=== PATIENT | female | born 1930 | race Caucasian/White ===

== ENCOUNTER 2017-06-11 17:27 | Inpatient (IN) | payer MEDICARE, OTHER ==
[~2017-06-11] VITALS: Ht 160 cm; Wt 66.9 kg
[~2017-06-11 17:27] MED LIST: CITA10SO PO; CITA20TA12 PO; EXELON PATCH; IBUP200C14 PO; MECL-124 PO; MEMA10TA PO; NITR-65 PO; QUET200T PO; QUET25TA PO; TETR15DR95 OU
--- NOTE | 2017-06-11 18:44 | ED General ---
General Chief Complaint: Fever-Adult/Adol Stated Complaint: FEVER Nursing Triage Note: TO ED PER EMS FAMILY REPORT THAT SHE HAS BEEN VOMITING WITH FEVER AND COUGH. [facility] OF DEMENTIA Nursing Sepsis Screen: Possible Sepsis Risk Source of Information: Patient, Family (Son and daughter) Exam Limitations: Other (Baseline dementia) History of Present Illness Date Seen by Provider: Jun 11, 2017 Time Seen by Provider: 18:27 Initial Comments Patient presents to the ER by private conveyance with a chief complaint that she last week has been having nausea vomiting and diarrhea and getting dehydrated. At baseline for last 6 months according to the son she has been demented and spent most her time going from either her hospital bed or to the chair to eat and not much else. She is cared for by her at home. She has no significant coronary disease known. She has not seen a doctor for the symptoms yet. She has also had fevers and chills. She has not much of a historian given her dementia. She is incontinent of urine. She has not been on antibiotics or steroids recently according to the son. She tells me that she is having pain in her belly but has not seen any blood in her vomitus or diarrhea. She is not having any shortness of breath but she does have a dry cough for the last several days. The son says that the felt that she might have a stomach bug. Allergies and Home Medications Allergies Coded Allergies: No Known Drug Allergies (Unverified , 12/15/08) Home Medications Citalopram Hydrobromide 20 Mg Tablet, 20 MG PO DAILY, (Reported) Ibuprofen 200 Mg Capsule, 200-400 MG PO DAILY PRN for PAIN, (Reported) TAKE 1 OR 2 CAPSULE (200MG) CAPSULE Meclizine Hcl 25 Mg Tab.chew, 25 MG PO TID PRN for DIZZINESS, (Reported) Memantine Hcl 10 Mg Tablet, 10 MG PO BID, (Reported) Quetiapine Fumarate 25 Mg Tablet, 25 MG PO BID, (Reported) Tetrahydrz/Dext 70/Peg 400/Pvp 15 Ml Drops, 1-2 DROP OU DAILY PRN for ALLERGIES, (Reported) Patient Home Medication List Home Medication List Reviewed: Yes Constitutional: chills, No diaphoresis, fever, malaise EENTM: No ear pain, No eye pain Respiratory: cough, No phlegm, No short of breath, No wheezing Cardiovascular: No chest pain, No edema, No Hx of Intervention, No palpitations Gastrointestinal: abdominal pain (All over), No constipation, diarrhea, loss of appetite (Poor fluid intake), nausea, vomiting Genitourinary: No dysuria, incontinence Past Derxqjj-Ulxtut-Fpadoc Hx Patient Social History Alcohol Use: Denies Use Recreational Drug Use: No Smoking Status: Unknown if Ever Smoked Recent Foreign Travel: No Contact w/Someone Who Travel: No Recent Infectious Disease Expo: No Recent Hopitalizations: Yes Immunizations Up To Date Tetanus Booster (TDap): Unknown Date of Pneumonia Vaccine: Mar 18, 2010 Surgeries History of Surgeries: 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/back surgery) Surgeries: Hysterectomy, Orthopedic Respiratory History of Respiratory Disorde: No Cardiovascular History of Cardiac Disorders: No Neurological History of Neurological Disord: Yes (alzheimers) Reproductive System Hx Reproductive Disorders: 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; age 29 at the time) Sexually Transmitted Disease: No Genitourinary Genitourinary Disorders: UTI-Chronic Gastrointestinal History of Gastrointestinal Di: Yes Gastrointestinal Disorders: Gastroesophageal Reflux Musculoskeletal History of Musculoskeletal Dis: Yes Musculoskeletal Disorders: Chronic Back Pain Endocrine History of Endocrine Disorders: No Cancer History of Cancer: No Psychosocial History of Psychiatric Problem: No Integumentary History of Skin or Integumenta: No Blood Transfusions History of Blood Disorders: Yes Adverse Reaction to a Blood Tr: No Family Medical History Family Medial History: Alzheimer's disease 19 MOTHER G8 BROTHER G8 SISTER Arthritis G8 SISTER Cardiovascular disease 19 FATHER Hypercholesterolemia 19 FATHER 19 MOTHER G8 BROTHER G8 SISTER Infertility G8 SISTER Myocardial infarction 19 FATHER Parkinson's disease 19 MOTHER No Family History of: AIDS Abdominal aortic aneurysm Sargent's disease Alcoholism Aphasia Asthma Cancer of mouth Cataracts Colon cancer Completed stroke Congenital disease Congenital heart disease Coronary thrombosis Cystic fibrosis Deafness or hearing loss Dementia Diabetes mellitus Drug abuse Dysphasia Fibrocystic disease of breast Gastroenteritis Glaucoma Headache disorder Hypertension Kidney disease Neoplasm Not obtainable due to adoption Osteoporosis Prostate cancer Psychosocial problem Respiratory disorder Seizure disorder Severe allergy Thyroid disease Tuberculosis Visual disorder Physical Exam-Suspected Sepsis Physical Exam Vital Signs Vital Signs - First Documented 06/11/17 17:27 Temp 102.0 Pulse 130 Resp 20 B/P (MAP) 137/91 (106) Pulse Ox 90 O2 Delivery Room Air Capillary Refill : Less Than 3 Seconds Blood Pressure Mean: 106 General Appearance: WD/WN, Mild Distress, Other (Strong odor of urine) Eyes: Bilateral Eye Normal Inspection, Bilateral Eye PERRL, Bilateral Eye EOMI HEENT: PERRL/EOMI, TMs Normal, Normal ENT Inspection, Pharynx Normal ( Oropharynx is very dry with false teeth present but no tenderness to dentition her gums) Neck: Full Range of Motion, Normal Inspection, Non Tender, Supple Respiratory: Chest Non Tender, Lungs Clear, Normal Breath Sounds, No Accessory Muscle Use, No Respiratory Distress, Other (Breathing at 20 respirations per minute) Cardiovascular: Regular Rate, Rhythm, No Edema, No Murmur, Normal Peripheral Pulses Gastrointestinal: Normal Bowel Sounds, No Organomegaly, Soft, Tenderness (All 4 quadrants are described as tender but no guarding or wincing with examination) Extremity: Normal Capillary Refill, No Pedal Edema Neurologic/Psychiatric: Alert, No Oriented x3 (Person and place but not time or situation), No Motor/Sensory Deficits, Normal Mood/Affect, online retailer II-XII Norm as Tested Skin: normal color, warm/dry Focused Exam Evaluation Lactate Level Laboratory Tests 06/11/17 17:48: Lactic Acid Level 6.92*H 06/11/17 19:30: Lactic Acid Level 3.20*H Lactic Acid Level Progress/Results/Core Measures Suspected Sepsis Recent Fever Within 48 Hours: Yes Infection Criteria Present: Suspected New Infection New/Unexplained Altered Menta: No Sepsis Screen: Possible Sepsis Risk Sepsis Diagnosis: SIRS Temperature:102.0 Pulse: 130 Respiratory Rate: 20 Laboratory Tests 06/11/17 17:48: White Blood Count 6.4 Blood Pressure 137 /91 Mean: 106 Laboratory Tests 06/11/17 17:48: Lactic Acid Level 6.92*H 06/11/17 19:30: Lactic Acid Level 3.20*H Laboratory Tests 06/11/17 17:48: Creatinine 1.91H, INR Comment 1.2, Platelet Count 347, Total Bilirubin 0.7 Results/Orders Lab Results Laboratory Tests Test 06/11/17 17:48 06/11/17 19:30 06/11/17 19:45 Range/Units White Blood Count 6.4 4.3-11.0 10^3/uL Red Blood Count 4.29 L 4.35-5.85 10^6/uL Hemoglobin 12.8 11.5-16.0 G/DL Hematocrit 38 35-52 % Mean Corpuscular Volume 89 80-99 FL Mean Corpuscular Hemoglobin 30 25-34 PG Mean Corpuscular Hemoglobin Concent 33 32-36 G/DL Red Cell Distribution Width 12.4 10.0-14.5 % Platelet Count 347 130-400 10^3/uL Mean Platelet Volume 8.8 7.4-10.4 FL Neutrophils (%) (Auto) 89 H 42-75 % Lymphocytes (%) (Auto) 9 L 12-44 % Monocytes (%) (Auto) 2 0-12 % Eosinophils (%) (Auto) 0 0-10 % Basophils (%) (Auto) 0 0-10 % Neutrophils # (Auto) 5.7 1.8-7.8 X 10^3 Lymphocytes # (Auto) 0.6 L 1.0-4.0 X 10^3 Monocytes # (Auto) 0.2 0.0-1.0 X 10^3 Eosinophils # (Auto) 0.0 0.0-0.3 10^3/uL Basophils # (Auto) 0.0 0.0-0.1 10^3/uL Neutrophils % (Manual) 88 % Lymphocytes % (Manual) 4 % Monocytes % (Manual) 1 % Eosinophils % (Manual) 0 % Basophils % (Manual) 0 % Band Neutrophils 7 % Blood Morphology Comment NORMAL Prothrombin Time 15.5 H 12.2-14.7 SEC INR Comment 1.2 0.8-1.4 Activated Partial Thromboplast Time 26 24-35 SEC Sodium Level 137 135-145 MMOL/L Potassium Level 4.2 3.6-5.0 MMOL/L Chloride Level 102 98-107 MMOL/L Carbon Dioxide Level 18 L 21-32 MMOL/L Anion Gap 17 H 5-14 MMOL/L Blood Urea Nitrogen 31 H 7-18 MG/DL Creatinine 1.91 H 0.60-1.30 MG/DL Estimat Glomerular Filtration Rate 25 BUN/Creatinine Ratio 16 Glucose Level 199 H 70-105 MG/DL Lactic Acid Level 6.92 *H 3.20 *H 0.50-2.00 MMOL/L Calcium Level 9.1 8.5-10.1 MG/DL Phosphorus Level 2.9 2.3-4.7 MG/DL Magnesium Level 1.9 1.8-2.4 MG/DL Total Bilirubin 0.7 0.1-1.0 MG/DL Aspartate Amino Transf (AST/SGOT) 18 5-34 U/L Alanine Aminotransferase (ALT/SGPT) 11 0-55 U/L Alkaline Phosphatase 97 40-136 U/L Total Protein 7.7 6.4-8.2 GM/DL Albumin 3.5 3.2-4.5 GM/DL Lipase 115 H 8-78 U/L Urine Color YELLOW Urine Clarity VERY CLOUDY H Urine pH 7 5-9 Urine Specific [place] 1.010 L 1.016-1.022 Urine Protein 3+ H NEGATIVE Urine Glucose (UA) NEGATIVE NEGATIVE Urine Ketones 1+ H NEGATIVE Urine Nitrite NEGATIVE NEGATIVE Urine Bilirubin NEGATIVE NEGATIVE Urine Urobilinogen NORMAL NORMAL MG/DL Urine Leukocyte Esterase 3+ H NEGATIVE Urine RBC (Auto) 5+ H NEGATIVE Urine RBC 10-25 H /HPF Urine WBC TNTC H /HPF Urine Squamous Epithelial Cells 5-10 /HPF Urine Crystals NONE /LPF Urine Bacteria LARGE H /HPF Urine Casts NONE /LPF Urine Mucus NEGATIVE /LPF Urine Culture Indicated YES Micro Results Microbiology 06/11/17 Influenza Types A,B Antigen (WU) - Final, Complete My Orders Orders - PATRICIA CARR Cbc With Automated Diff (06/11/17 18:31) Comprehensive Metabolic Panel (06/11/17 18:31) Lactic Acid Analyzer (06/11/17 18:31) Blood Culture (06/11/17 18:31) Sputum Culture (06/11/17 18:31) Ua Culture If Indicated (06/11/17 18:31) Protime With Inr (06/11/17 18:31) Partial Thromboplastin Time (06/11/17 18:31) Chest 1 View, Ap/Pa Only (06/11/17 18:31) O2 (06/11/17 18:31) Ondansetron Injection (Zofran Injectio (06/11/17 18:45) Acetaminophen Tablet (Tylenol Tablet) (06/11/17 18:45) Saline Lock/Iv-Start (06/11/17 18:31) Saline Lock/Iv-Start (06/11/17 18:31) Ns Iv 1000 Ml (Sodium Chloride 0.9%) (06/11/17 18:45) Vital Signs Adult Sepsis Patie Q1H (06/11/17 18:31) Remove Rings In Anticipation O (06/11/17 18:31) Influenza A And B Antigens (06/11/17 18:31) Saline Lock/Iv-Start (06/11/17 18:31) Lipase (06/11/17 18:31) Magnesium (06/11/17 18:31) Phosphorus (06/11/17 18:31) Ceftriaxone Injection (Rocephin Injectio (06/11/17 18:45) Piperacillin Sodium/Tazobactam (Zosyn Vi (06/11/17 18:45) Manual Differential (06/11/17 17:48) Vaughn Cath Insertion (06/11/17 19:51) Ct Abdomen/Pelvis Wo (06/11/17 19:53) Urine Culture (06/11/17 19:45) Abdomen/Kub 1view (06/11/17 22:04) Medications Given in ED Current Medications Medications Dose Ordered Sig/Kirstin Route Start Time Stop Time Status Last Admin Dose Admin Acetaminophen 1,000 mg ONCE PRN PO 06/11/17 18:45 06/11/17 19:11 DC 06/11/17 19:11 1,000 MG Ondansetron HCl 4 mg ONCE PRN IVP 06/11/17 18:45 06/11/17 19:11 DC 06/11/17 19:11 4 MG Piperacillin Sod/ Tazobactam Sod 4.5 gm/Sodium Chloride 100 ml @ 200 mls/hr ONCE ONCE IV 06/11/17 18:45 06/11/17 19:14 DC 06/11/17 19:17 200 MLS/HR Sodium Chloride 1,973.13 ml @ 1,973.13 mls/hr PRN PRN IV 06/11/17 18:45 06/12/17 00:02 DC 06/11/17 19:11 1,973.13 MLS/HR Vital Signs/I&O Vital Sign - Last 12Hours 06/11/17 06/11/17 06/12/17 17:27 23:13 00:02 Temp 102.0 Pulse 130 100 99 Resp 20 20 B/P (MAP) 137/91 (106) 142/70 Pulse Ox 90 98 O2 Delivery Room Air Intake and Output 06/12/17 00:00 Intake Total 2073.13 ml Balance 2073.13 ml Capillary Refill : Less Than 3 Seconds Blood Pressure Mean: 106 Progress Note #1: Time: 18:41 Progress Note The patient's history and exam is slightly askew secondary to dementia otherwise she seems to be septic probably infectious cause of either GI versus urinary tract. 2 large-bore IVs, IV fluids and return to choose Zosyn to cover UTI or GI source. Progress Note #2: Time: 19:52 Progress Note Marginal elevation of lipase and a light of nausea vomiting diarrhea not sure if this is incidental or the origin of her issues however we'll get a CT of the abdomen make sure ruling out abscess or tumor or any other blockage of the pancreatobiliary tree. Diagnostic Imaging Diagonstic Imaging: Xray Plain Films/CT/US/NM/MRI: chest Comments NAME: LE ADORNO I MED REC#: [id number] PHYSICIAN: PATRICIA CARR MD CC: PEG FREIRE MD; PATRICIA CARR Page 1 of 1 RADIOLOGY REPORT VIA [place], [place] CC: PEG FREIRE MD; PATRICIA CARR Page 1 of 1 RADIOLOGY REPORT NAME: LE ADORNO I [facility] REC#: [id number] PT STATUS: REG ER : 1930 PHYSICIAN: PATRICIA CARR MD ADMIT DATE: 06/11/17/ER Signed Date of Exam: 06/11/17 CHEST 1 VIEW, AP/PA ONLY EXAM: CHEST 1 VIEW, AP/PA ONLY. INDICATION: Cough. Fever. COMPARISON: Chest radiograph 03/29/2014. FINDINGS: Normal heart size and pulmonary vascularity. Calcified aorta. Calcified granulomas in the left lung. No dense consolidation, pleural effusion, or pneumothorax. No acute osseous findings. No significant change. IMPRESSION: No acute cardiopulmonary findings. Dictated by: Dictated on workstation # [id number] Dict: 06/11/171921 Trans: 06/11/171939 Interpreted by: PEG FREIRE MD Electronically signed by: PEG FREIRE MD 06/11/171939 Reviewed: Reviewed by Me Diagonstic Imaging: CT (c/o) Plain Films/CT/US/NM/MRI: abdomen, pelvis Comments NAME: LE ADORNO I MED REC#: [id number] PHYSICIAN: PATRICIA CARR MD CC: LOLA CANTOR MD; PATRICIA CARR Page 2 of 2 RADIOLOGY REPORT VIA [facility], [facility]. [place], [place] CC: LOLA CANTOR MD; PATRICIA CARR Page 1 of 2 RADIOLOGY REPORT NAME: LE ADORNO I [facility] REC#: [id number] PT STATUS: REG ER : 1930 PHYSICIAN: PATRICIA CARR MD ADMIT DATE: 06/11/17/ER Signed Date of Exam: 06/11/17 CT ABDOMEN/PELVIS WO PROCEDURE: CT abdomen and pelvis without contrast. TECHNIQUE: Multiple contiguous axial images were obtained through the abdomen and pelvis without the use of intravenous contrast. INDICATION: Vomiting, fever and cough. No prior examinations are available for comparison. FINDINGS: There is some bibasilar atelectasis and/or pneumonitis. There are coronary artery calcifications. The liver is normal in size without focal lesions. Gallbladder is unremarkable. There is no biliary ductal dilatation. There are calcified granulomas in the spleen. The pancreas and adrenal glands are unremarkable. There are several large nonobstructive stones in the right kidney. Additionally, there is a 1.6 cm stone in the right UPJ with some right hydronephrosis. Left kidney is normal. There is moderate atherosclerotic calcification of the aorta which is nonaneurysmal. Bowel gas pattern is nonspecific. There is Vaughn catheter in the bladder. There is no pelvic mass or adenopathy. There is no ascites. There is no free air. There are degenerative and postsurgical changes in lumbar spine. There is an age-indeterminate compression fracture of the L2 vertebral body and T11 vertebral body. IMPRESSION: Right hydronephrosis and some surrounding perinephric stranding secondary to a 1.6 cm stone in the right UPJ. Superimposed pyelonephritis cannot be excluded. Age indeterminate compression fractures of T11 and L2. If there is high clinical concern and this may be acute, further evaluation with MRI should be considered. Extensive coronary artery calcifications. Bibasilar atelectasis and/or pneumonitis. Dictated by: Dictated on workstation # [id number] Dict: 06/11/172023 Trans: 06/11/172033 Interpreted by: LOLA CANTOR MD Electronically signed by: LOLA CANTOR MD 06/11/172033 Reviewed: Reviewed by Me Departure Communication (Admissions) Time/Spoke to Admitting Phy: 20:20 Communication Discussed the case with Dr. Kaufman and we have a UTI with severe sepsis but no shock. We'll put her in the ICU give her Rocephin IV. Proventil get a CT scan of her abdomen looking for any evidence of an obstructive cause of her very marginal increase in lipase. If we don't see that she'll stay if we do then she' ll need to transfer somewhere that has GI support. 2199: Updated Dr. Kaufman on presence of a 1.6 cm right ureteral calculi. Consult urology. Time/Spoke to Consulting Phy: 22:00 Communication/Consulting Dr. Moreira: If we can't see the stone on the riding double image then get a KUB and he will be in to the ER to see her before she goes up. Impression Impression: Primary Impression: Severe sepsis Additional Impressions: LEOBARDO (acute kidney injury) Pancreatitis Qualified Codes: K85.90 - Acute pancreatitis without necrosis or infection, unspecified Ureteral calculus, right Disposition: 09 ADMITTED INPATIENT Condition: Improved Admissions Decision to Admit Reason: Admit from ER (General) Decision to Admit/Date: Jun 11, 2017 Time/Decision to Admit Time: 21:59 Departure-Patient Inst. Referrals: HENRY HOOPER MD (PCP) Primary Care Physician MUKUND KAUFMAN MD (Family) Primary Care Physician PATRICIA CARR Jun 11, 2017 18:44
[2017-06-11 18:45] LABS: BASOPHILS % (AUTO) 0 % (0-10); EOSINOPHILS % (AUTO) 0 % (0-10); HEMATOCRIT 38 % (35-52); HEMOGLOBIN 12.8 G/DL (11.5-16.0); LYMPHOCYTES # (AUTO) 0.6 X 10^3 (1.0-4.0); LYMPHOCYTES % (AUTO) 9 % (12-44); MEAN CORPUSCULAR HEMOGLOBIN 30 PG (25-34); MEAN CORPUSCULAR HGB CONC 33 G/DL (32-36); MEAN CORPUSCULAR VOLUME 89 FL (80-99); MEAN PLATELET VOLUME 8.8 FL (7.4-10.4); MONOCYTES # (AUTO) 0.2 X 10^3 (0.0-1.0); MONOCYTES % (AUTO) 2 % (0-12); NEUTROPHILS # (AUTO) 5.7 X 10^3 (1.8-7.8); NEUTROPHILS % (AUTO) 89 % (42-75); PLATELET COUNT 347 10^3/uL (130-400); RED BLOOD COUNT 4.29 10^6/uL (4.35-5.85); RED CELL DISTRIBUTION WIDTH 12.4 % (10.0-14.5); WHITE BLOOD COUNT 6.4 10^3/uL (4.3-11.0)
[2017-06-11] MEDS ORDERED: NS IV PRN (18:45)
[2017-06-11] MEDS ORDERED: cefTRIAXone INJECTION 1,000 MG in NS (IVPB) 100 ML IV ONE (18:45)
[2017-06-11] MEDS ORDERED: ACETAMINOPHEN 500 MG TAB (TYLENOL) PO PRN (18:45)
[2017-06-11] MEDS ORDERED: PIPERACILLIN SODIUM/TAZOBACTAM 4.5 GM in NS (IVPB) 100 ML IV ONE (18:45)
[2017-06-11] MEDS ORDERED: ONDANSETRON 4 MG/2 ML (SDV) Z0FRAN IVP PRN (18:45)
[2017-06-11 18:51] LABS: INR 1.2 (0.8-1.4); PROTHROMBIN TIME PATIENT 15.5 SEC (12.2-14.7)
[2017-06-11 18:59] LABS: ALBUMIN 3.5 GM/DL (3.2-4.5); BILIRUBIN,TOTAL 0.7 MG/DL (0.1-1.0); CALCIUM 9.1 MG/DL (8.5-10.1); CREATININE SERUM 1.91 MG/DL (0.60-1.30); MAGNESIUM 1.9 MG/DL (1.8-2.4); PHOSPHORUS 2.9 MG/DL (2.3-4.7); POTASSIUM 4.2 MMOL/L (3.6-5.0); TOTAL PROTEIN 7.7 GM/DL (6.4-8.2)
[2017-06-11 19:05] LABS: BAND NEUTROPHILS 7 %; BASOPHILS % (MANUAL) 0 %; EOSINOPHILS % (MANUAL) 0 %; LYMPHOCYTES % (MANUAL) 4 %; MONOCYTES % (MANUAL) 1 %; NEUTROPHILS % (MANUAL) 88 %; RBC MORPH NORMAL
--- NOTE | 2017-06-11 19:25 | Diagnostic Imaging Report ---
EXAM: CHEST 1 VIEW, AP/PA ONLY. INDICATION: Cough. Fever. COMPARISON: Chest radiograph 03/29/2014. FINDINGS: Normal heart size and pulmonary vascularity. Calcified aorta. Calcified granulomas in the left lung. No dense consolidation, pleural effusion, or pneumothorax. No acute osseous findings. No significant change. IMPRESSION: No acute cardiopulmonary findings. Dictated by: Dictated on workstation # [id number]
[2017-06-11 19:49] LABS: BILIRUBIN,URINE NEGATIVE (NEGATIVE); CLARITY,URINE VERY CLOUDY; COLOR,URINE YELLOW; GLUCOSE, URINE (UA) NEGATIVE (NEGATIVE); KETONES,URINE 1+ (NEGATIVE); LEUKOCYTE ESTERASE ,URINE 3+ (NEGATIVE); NITRITE,URINE NEGATIVE (NEGATIVE); PH,URINE 7 (5-9); PROTEIN,URINE 3+ (NEGATIVE); UROBILINOGEN,URINE NORMAL (NORMAL)
[2017-06-11 19:59] LABS: BACTERIA,URINE LARGE /HPF; WBC,URINE TNTC /HPF
--- NOTE | 2017-06-11 20:32 | Diagnostic Imaging Report ---
PROCEDURE: CT abdomen and pelvis without contrast. TECHNIQUE: Multiple contiguous axial images were obtained through the abdomen and pelvis without the use of intravenous contrast. INDICATION: Vomiting, fever and cough. No prior examinations are available for comparison. FINDINGS: There is some bibasilar atelectasis and/or pneumonitis. There are coronary artery calcifications. The liver is normal in size without focal lesions. Gallbladder is unremarkable. There is no biliary ductal dilatation. There are calcified granulomas in the spleen. The pancreas and adrenal glands are unremarkable. There are several large nonobstructive stones in the right kidney. Additionally, there is a 1.6 cm stone in the right UPJ with some right hydronephrosis. Left kidney is normal. There is moderate atherosclerotic calcification of the aorta which is nonaneurysmal. Bowel gas pattern is nonspecific. There is Vaughn catheter in the bladder. There is no pelvic mass or adenopathy. There is no ascites. There is no free air. There are degenerative and postsurgical changes in lumbar spine. There is an age-indeterminate compression fracture of the L2 vertebral body and T11 vertebral body. IMPRESSION: Right hydronephrosis and some surrounding perinephric stranding secondary to a 1.6 cm stone in the right UPJ. Superimposed pyelonephritis cannot be excluded. Age indeterminate compression fractures of T11 and L2. If there is high clinical concern and this may be acute, further evaluation with MRI should be considered. Extensive coronary artery calcifications. Bibasilar atelectasis and/or pneumonitis. Dictated by: Dictated on workstation # [id number]
[2017-06-11 23:58] VITALS: BP 143/79
[2017-06-12] VITALS (30 sets, daily range): BP systolic 81–160; BP diastolic 49–86
[2017-06-12] MEDS ORDERED: NS IV PRN
[2017-06-12] MEDS ORDERED: VASOPRESSIN 40 UNITS/NS 100 ML DRIP IV SCH ×2 (00:15)
[2017-06-12] MEDS: NOREPINEPHRINE 4 MG in NS (IVPB) 250 ML IV SCH ×2 (00:22→13:18)
[2017-06-12] MEDS: 1/2 NS W/KCL 20 MEQ/L 1,000 ML IV SCH ×2 (00:22→06:22)
--- NOTE | 2017-06-12 00:42 | CONSULTATION REPORT ---
DATE OF SERVICE: 06/11/2017 ATTENDING PHYSICIAN: Kelvin Kaufman MD - . SUMMARY: An 87-year-old white lady admitted to the emergency room with sepsis and was found to have a 1.6 cm stone in the right UPJ with hydronephrosis and two more good size stones in the kidney on the right side. Her creatinine was 1.9. Her lactic acid was high. She was hydrated and the sepsis was treated appropriately and she stabilized very well. She has Alzheimer's; so most of my discussion was with her family. IMPRESSION: Urosepsis and right renal obstruction with urolithiasis. PLAN: Tomorrow, we will take her to surgery, perform a cystoscopy, right, stone manipulation and insertion of stent if possible. If not, the patient will need a percutaneous nephrostomy tube, if possible, then later on, we will talk about either ESWL or percutaneous nephrolithotomy. This plan was fully explained to her family. Her was not here. He went home and he is legally responsible for her and signing consent, he will be here early in the morning to sign the consent for surgery. Procedure and the plan was fully explained to them. Job ID: [id number] DocumentID: [id number] Dictated Date: 06/11/2017 22:53:24 Stitching Machine Feeder Or Offbearer Date: 06/11/2017 23:19:08 Dictated By: YOLANDA DALLAS MD
[2017-06-12] MEDS: NS IV 1000 ML 1,000 ML IV SCH ×6 (01:26→22:58)
[2017-06-12 02:03] LABS: BASOPHILS % (AUTO) 0 % (0-10); EOSINOPHILS % (AUTO) 0 % (0-10); HEMATOCRIT 34 % (35-52); HEMOGLOBIN 11.5 G/DL (11.5-16.0); LYMPHOCYTES # (AUTO) 0.4 X 10^3 (1.0-4.0); LYMPHOCYTES % (AUTO) 5 % (12-44); MEAN CORPUSCULAR HEMOGLOBIN 30 PG (25-34); MEAN CORPUSCULAR HGB CONC 33 G/DL (32-36); MEAN CORPUSCULAR VOLUME 89 FL (80-99); MEAN PLATELET VOLUME 8.5 FL (7.4-10.4); MONOCYTES # (AUTO) 0.2 X 10^3 (0.0-1.0); MONOCYTES % (AUTO) 2 % (0-12); NEUTROPHILS # (AUTO) 7.6 X 10^3 (1.8-7.8); NEUTROPHILS % (AUTO) 92 % (42-75); PLATELET COUNT 213 10^3/uL (130-400); RED BLOOD COUNT 3.85 10^6/uL (4.35-5.85); RED CELL DISTRIBUTION WIDTH 12.4 % (10.0-14.5); WHITE BLOOD COUNT 8.2 10^3/uL (4.3-11.0)
[2017-06-12 02:32] LABS: CALCIUM 7.7 MG/DL (8.5-10.1); CREATININE SERUM 2.07 MG/DL (0.60-1.30); MAGNESIUM 1.7 MG/DL (1.8-2.4); PHOSPHORUS 3.1 MG/DL (2.3-4.7); POTASSIUM 4.4 MMOL/L (3.6-5.0)
[2017-06-12] MEDS: MAGNESIUM 1 GM/100 ML IVPB 100 ML IV SCH ×2 (04:59→05:16)
[2017-06-12] MEDS: POTASSIUM CL 10MEQ/50ML IVPB 50 ML IV SCH (05:15)
[2017-06-12] MEDS: KCL 20 MEQ TAB (K-DUR) PO SCH (05:16)
--- NOTE | 2017-06-12 07:22 | Diagnostic Imaging Report ---
INDICATION: Vomiting. Fever and cough. History of dementia. TECHNIQUE: Single frontal view of the abdomen COMPARISON: CT from 06/11/2017 FINDINGS: There is mild gaseous distention of the cecum. A small amount of stool and gas is seen in the remainder of the colon. No dilated loops of small bowel are seen to suggest obstruction. There is no large collection of free air. There is diffuse osteopenia and degenerative changes in the spine and hips. Postsurgical changes are noted in the lower lumbar spine. IMPRESSION: 1. No evidence of bowel obstruction or large collection of free air. Dictated by: Dictated on workstation # [id number]
--- NOTE | 2017-06-12 07:52 | Diagnostic Imaging Report ---
INDICATION: Severe sepsis, UTI, followup. TECHNIQUE: Single frontal view of the chest. COMPARISON: 06/11/2017 FINDINGS: Lung volumes are low. There is increased airspace opacity in the right lung base. The cardiac silhouette is mildly large, but stable in size. There is aortic atherosclerosis. No pneumothorax or pleural effusion is seen. Calcified granuloma is noted in the left lung. IMPRESSION: 1. Increasing airspace opacity in the right lung base, may represent atelectasis given the low lung volume, although underlying infection is not excluded. 2. Stable cardiomegaly. Dictated by: Dictated on workstation # [id number]
--- NOTE | 2017-06-12 07:54 | History & Physicial ---
History of Present Illness History of Present Illness Reason for visit/HPI 87-year-old female with known Alzheimer's disease presents to [facility] emergency department during the evening of June 11, 2017 with nausea, vomiting , as well as diarrhea. She is taking care of by her and apparently he felt like she had a "stomach bug". She apparently has spent most of her time basically in bed or chair over the past week. There has been reports of low- grade fever. She has not recently been seen by any physician has not been on any medication recently other than her daily home medications of Namenda and Seroquel. Date of Admission Jun 11, 2017 at 22:14 Date Seen by Provider: Jun 12, 2017 Time Seen by Provider: 07:30 I consulted on this patient on 06/12/17 07:50 Attending Physician Mukund Ro MD Admitting Physician Lee Manjarrez MD Consult Allergies and Home Medications Allergies Coded Allergies: No Known Drug Allergies (Unverified , 12/15/08) Home Medications Citalopram Hydrobromide 20 Mg Tablet, 20 MG PO DAILY, (Reported) Ibuprofen 200 Mg Capsule, 200-400 MG PO DAILY PRN for PAIN, (Reported) TAKE 1 OR 2 CAPSULE (200MG) CAPSULE Meclizine Hcl 25 Mg Tab.chew, 25 MG PO TID PRN for DIZZINESS, (Reported) Memantine Hcl 10 Mg Tablet, 10 MG PO BID, (Reported) Quetiapine Fumarate 25 Mg Tablet, 25 MG PO BID, (Reported) Tetrahydrz/Dext 70/Peg 400/Pvp 15 Ml Drops, 1-2 DROP OU DAILY PRN for ALLERGIES, (Reported) Patient Home Medication List Home Medication List Reviewed: Yes Past Wkegqsr-Cnppye-Igxgnr Hx Patient Social History Marrital Status: Alcohol Use: Denies Use Recreational Drug Use: No Smoking Status: Unknown if Ever Smoked Physical Abuse Screen: No Sexual Abuse: No Recent Foreign Travel: No Contact w/other who traveled: No Recent Hopitalizations: Yes Recent Infectious Disease Expo: No Immunizations Up To Date Tetanus Booster (TDap): Unknown Date of Pneumonia Vaccine: Mar 18, 2010 Date of Influenza Vaccine: Jan 12, 2017 Surgeries 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/back surgery) Hysterectomy, Orthopedic Respiratory No Cardiovascular No Neurological Yes (alzheimers) Reproductive System Hx Reproductive Disorders: 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; age 29 at the time) Sexually Transmitted Disease: No Genitourinary UTI-Chronic Gastrointestinal Yes Gastroesophageal Reflux Musculoskeletal Yes Chronic Back Pain Endocrine History of Endocrine Disorders: No Cancer No Psychosocial History of Psychiatric Problem: No Integumentary History of Skin or Integumenta: No Blood Transfusions History of Blood Disorders: Yes Adverse Reaction to a Blood Tr: No Family Medical History Family Hx: Alzheimer's disease 19 MOTHER G8 BROTHER G8 SISTER Arthritis G8 SISTER Cardiovascular disease 19 FATHER Hypercholesterolemia 19 FATHER 19 MOTHER G8 BROTHER G8 SISTER Infertility G8 SISTER Myocardial infarction 19 FATHER Parkinson's disease 19 MOTHER No Family History of: AIDS Abdominal aortic aneurysm Troy's disease Alcoholism Aphasia Asthma Cancer of mouth Cataracts Colon cancer Completed stroke Congenital disease Congenital heart disease Coronary thrombosis Cystic fibrosis Deafness or hearing loss Dementia Diabetes mellitus Drug abuse Dysphasia Fibrocystic disease of breast Gastroenteritis Glaucoma Headache disorder Hypertension Kidney disease Neoplasm Not obtainable due to adoption Osteoporosis Prostate cancer Psychosocial problem Respiratory disorder Seizure disorder Severe allergy Thyroid disease Tuberculosis Visual disorder Constitutional: see HPI Physical Exam Vital Signs Vital Signs - First Documented 06/11/17 06/12/17 17:27 01:40 Temp 102.0 Pulse 130 Resp 20 B/P (MAP) 137/91 (106) Pulse Ox 90 O2 Delivery Room Air O2 Flow Rate 2.00 Capillary Refill : Less Than 3 Seconds General Appearance: No Apparent Distress HEENT: Moist Mucous Membranes Neck: Full Range of Motion, Supple Respiratory: Lungs Clear Cardiovascular: Regular Rate, Rhythm Assessment/Plan Assessment and Plan 1. Urosepsis -Patient admitted to intensive care unit and is receiving IV antibiotics--IV Rocephin and Zosyn 2. Acute renal insufficiency -IV fluid rehydration 3. Right-sided ureteral stone -Urological consultation 4. Alzheimer's -Patient be maintain on Namenda Problems: Admission Diagnosis 1. Urosepsis 2. Acute renal insufficiency 3. Right-sided ureteral stone 4. Alzheimer's Admission Status: Inpatient Order (span 2 midnights) Reason for Inpatient Admission: Urosepsis treatment with IV antibiotics and IV hydration for kidney insufficiency Clinical Quality Measures DVT/VTE Risk/Contraindication: Risk Factor Score Per Nursin RFS Level Per Nursing on Admit: 4+=Very High MUKUND RO MD Jun 12, 2017 07:54
[2017-06-12] MEDS ORDERED: LACTATED RINGERS 1,000 ML IV PRN (08:24)
--- NOTE | 2017-06-12 08:59 | Progress Note-Pre Operative ---
Pre-Operative Progress Note H&P Reviewed The H&P was reviewed, patient examined and no changes noted. Date Seen by Provider: Jun 12, 2017 Time Seen by Provider: 08:58 Date H&P Reviewed: Jun 12, 2017 Time H&P Reviewed: 08:59 Pre-Operative Diagnosis: SEPSIS, RT RENAL OBSTRUCTION AND UROLITHIASES YOLANDA DALLAS MD Jun 12, 2017 8:59 am
--- NOTE | 2017-06-12 09:00 | Progress Note-Post Operative ---
Post-Operative Progess Note Surgeon (s)/Packerhead Machine Operator (s) Surgeon YOLANDA DALLAS MD Packerhead Machine Operator: N/A Pre-Operative Diagnosis SEPSIS, RT RENAL OBSTRUCTION AND UROLITHIASES Post-Operative Diagnosis SAME Procedure & Operative Findings Date of Procedure 06/12/17 Procedure Performed/Findings CYSTOSCOPY, RT STONE MANIPULATION AND INSERTION OF STENT Anesthesia Type GENERAL Estimated Blood Loss Estimated blood loss (mL): N/A Specimens/Packing Specimens Removed N/A Packing: N/A YOLANDA DALLAS MD Jun 12, 2017 9:00 am
[2017-06-12] MEDS ORDERED: MEMA10TA22 PO (09:27)
[2017-06-12] MEDS ORDERED: QUET25TA73 PO (09:27)
[2017-06-12] MEDS ORDERED: METO-387 PO (09:27)
[2017-06-12] MEDS ORDERED: TETR15DR80 OU (09:33)
[2017-06-12] MEDS ORDERED: MECL-106 PO (09:33)
[2017-06-12] MEDS ORDERED: IBUP-2055 PO (09:33)
[2017-06-12] MEDS ORDERED: SEVOFLURANE (ULTANE) 15 ML INHAL SOLN ONE ×3 (09:50→10:44)
[2017-06-12] MEDS ORDERED: ONDANSETRON 4 MG/2 ML (SDV) Z0FRAN ONE (09:50)
[2017-06-12] MEDS ORDERED: proPOfol 200 MG/20 ML (DIPRIVAN) VIAL IV ONE (09:50)
[2017-06-12] MEDS ORDERED: ROCURONIUM 10 MG/ML 5 ML SYRINGE IV ONE (09:51)
[2017-06-12] MEDS ORDERED: fentaNYL INJECTION 100 MCG/2 ML AMP ONE ×2 (09:51→15:34)
[2017-06-12] MEDS ORDERED: ONDANSETRON 4 MG/2 ML (SDV) Z0FRAN IVP PRN (11:00)
[2017-06-12] MEDS ORDERED: morphine INJ 10 MG/ML 1ML (SYR OR VIAL) IVP PRN (11:00)
[2017-06-12] MEDS ORDERED: MEPERIDINE (DEMEROL) INJ 50 MG/ML ONE (11:59)
[2017-06-12] MEDS ORDERED: MEPERIDINE (DEMEROL) INJ 50 MG/ML IVP PRN (12:15)
[2017-06-12] MEDS ORDERED: POTASSIUM CHLORIDE INJ 20 MEQ in 1/2 NS IV SOLUTION 1,000 ML IV SCH (12:45)
--- NOTE | 2017-06-12 13:52 | Diagnostic Imaging Report ---
INDICATION: Kidney stone. FINDINGS: Fluoroscopy was provided in the OR during a retrograde pyelogram. A total of one minute and 49 seconds of fluoroscopy was utilized. There appears to have been placement of a right-sided double-J nephroureteral stent. IMPRESSION: Fluoroscopy for a right-sided retrograde pyelogram and stent placement. Dictated by: Dictated on workstation # [id number]
[2017-06-12] MEDS ORDERED: ACETAMINOPHEN 650 MG SUPP (TYLENOL) PR NR (15:00)
--- NOTE | 2017-06-12 15:00 | OPERATIVE REPORT ---
DATE OF SERVICE: 06/12/2017 PREOPERATIVE DIAGNOSES: Urosepsis, right renal obstruction and urolithiasis. POSTOPERATIVE DIAGNOSES: Urosepsis, right renal obstruction and urolithiasis. OPERATION PERFORMED: Cystoscopy, stone manipulation and insertion of right double-J stent. SURGEON: Nickolas Dallas MD. ANESTHESIA: General. COMPLICATIONS: None. DESCRIPTION OF PROCEDURE: Under satisfactory general anesthesia, the patient in lithotomy position, genitalia were prepped and draped in the usual sterile fashion. A 23-Cuban cystoscope was introduced under vision. The bladder revealed diffuse cystitis and inflammatory changes. It was hard to find the right ureteral orifice; however, it was found and it looked like it does not have any intramural portion and it was kind of stenotic. I could not pass a 26-Cuban stent, so I went ahead and dilated it with ureteral catheter 5 and 6-Cuban. I tried to pass the catheter all the way up to the kidney. I could not, I was held by a stone. I injected some contrast because the stone was not seen well at all by fluoroscopy. Most probably, uric acid stones; however, I filled up the system to guide pulling the stent. I removed the ureteral catheter, inserted a 6-Cuban 26 cm double-J stent. I was able to pass it all the way to the renal pelvis, removed the guidewire and the stent was seen draining nicely proximally fluoroscopically and distally endoscopically. The bladder was evacuated and the cystoscope was removed. The patient tolerated the procedure and anesthesia well and was sent to recovery room in stable condition. PLAN: We will continue present management to get her over the sepsis and then see her as an outpatient to discuss the future plan. An ESWL is going to be very difficult because of the lack of visualization by fluoroscopy. I think most probably her best bet will be a percutaneous nephrolithotomy. This was fully explained to the family and later on to the patient. Job ID: [id number] DocumentID: [id number] Dictated Date: 06/12/2017 10:53:57 Packing Clerk Date: 06/12/2017 15:00:07 Dictated By: NICKOLAS DALLAS MD
[2017-06-12] MEDS ORDERED: CEFEPIME HCL 2 GM (MAXIPIME) VIAL ONE (15:34)
[2017-06-12 16:09] LABS: ABG BASE EXCESS -9.4 MMOL/L (-2.5-2.5); ABG OXYGEN SATURATION 90 % (94-100); ABG PCO2 34 MMHG (35-45); ABG PO2 55 MMHG (79-93); ABG TCO2 16.9 MMOL/L (21.0-31.0)
[2017-06-12 16:13] LABS: ABG PH 7.29 (7.37-7.43); INSPIRED O2 4L; PATIENT TEMP 99.1; VENTILATOR NO
[2017-06-12] MEDS: CEFEPIME INJECTION 2,000 MG in NS (IVPB) 50 ML IV SCH (16:38)
[2017-06-12] MEDS ORDERED: meTOprolol 5 MG/5 ML (LOPRESSOR) VIAL IV SCH (17:00)
[2017-06-12 17:45] LABS: ALBUMIN 2.6 GM/DL (3.2-4.5); CALCIUM 7.8 MG/DL (8.5-10.1); CREATININE SERUM 2.24 MG/DL (0.60-1.30); PHOSPHORUS 3.1 MG/DL (2.3-4.7); POTASSIUM 4.6 MMOL/L (3.6-5.0)
--- NOTE | 2017-06-12 18:02 | Progress Note-Urology ---
Progress Note-Urology Progress Notes/Assess & Plan Progress/Assessment & Plan HAD EPISODE OF SINUS TACH CONFIRMED BY EKG. NO ISCHEMIA. LABS NOTED. DR GUAJARDO CONSULTED AND DR RO MANAGING WELL. DOES NOT SEEM TO BE IN ANY PAIN. LABS IN AM Final Diagnosis SEPSIS, RT RENAL OBSTRUCTION, UROLITHIASES AND RENAL INSUFFICIENCY YOLANDA DALLAS MD Jun 12, 2017 18:02
[2017-06-12] MEDS: ENOXAPARIN 30 MG/0.3 ML (LOVENOX) SYR SC SCH (18:18)
[2017-06-12] MEDS ORDERED: LACTATED RINGERS 500 ML IV ONE (18:45)
[2017-06-12] MEDS ORDERED: cefTRIAXone 1 GM/NS 100 ML IVPB IV SCH ×2 (19:00)
[2017-06-12] MEDS: meTOprolol 5 MG/5 ML (LOPRESSOR) VIAL IV SCH ×2 (20:47→22:58)
[2017-06-12] MEDS: fentaNYL INJECTION 100 MCG/2 ML AMP IV PRN (20:53)
[2017-06-12] MEDS ORDERED: ALBUMIN 5% 12.5 GM/250 ML 500 ML IV ONE (21:45)
[2017-06-12] MEDS ORDERED: ALBUMIN 5% 12.5 GM/250 ML 250 ML IV ONE (22:15)
[2017-06-13] VITALS (19 sets, daily range): BP systolic 74–182; BP diastolic 35–90
[2017-06-13] MEDS: NS IV 1000 ML 1,000 ML IV SCH ×3 (00:30→14:39)
[2017-06-13] MEDS ORDERED: ALBUMIN 5% 12.5 GM/250 ML 250 ML IV ONE (01:00)
[2017-06-13] MEDS: meTOprolol 5 MG/5 ML (LOPRESSOR) VIAL IV SCH ×5 (01:32→15:09)
[2017-06-13] MEDS ORDERED: SODIUM BICARB 8.4% 50 MEQ/50 ML (ABBOTT) SYR IV ONE (02:30)
[2017-06-13] MEDS: NOREPINEPHRINE 4 MG in NS (IVPB) 250 ML IV SCH (02:42)
[2017-06-13 03:30] LABS: BASOPHILS % (AUTO) 0 % (0-10); EOSINOPHILS % (AUTO) 0 % (0-10); HEMATOCRIT 28 % (35-52); LYMPHOCYTES # (AUTO) 0.9 X 10^3 (1.0-4.0); LYMPHOCYTES % (AUTO) 7 % (12-44); MEAN CORPUSCULAR HEMOGLOBIN 29 PG (25-34); MEAN CORPUSCULAR HGB CONC 32 G/DL (32-36); MEAN CORPUSCULAR VOLUME 92 FL (80-99); MEAN PLATELET VOLUME 8.7 FL (7.4-10.4); MONOCYTES # (AUTO) 0.6 X 10^3 (0.0-1.0); MONOCYTES % (AUTO) 4 % (0-12); NEUTROPHILS # (AUTO) 11.8 X 10^3 (1.8-7.8); NEUTROPHILS % (AUTO) 89 % (42-75); PLATELET COUNT 156 10^3/uL (130-400); RED BLOOD COUNT 3.06 10^6/uL (4.35-5.85); WHITE BLOOD COUNT 13.3 10^3/uL (4.3-11.0)
[2017-06-13 03:54] LABS: ALBUMIN 3.3 GM/DL (3.2-4.5); BILIRUBIN,TOTAL 0.8 MG/DL (0.1-1.0); CALCIUM 7.4 MG/DL (8.5-10.1); CREATININE SERUM 2.29 MG/DL (0.60-1.30); MAGNESIUM 2.4 MG/DL (1.8-2.4); PHOSPHORUS 4.1 MG/DL (2.3-4.7); TOTAL PROTEIN 5.3 GM/DL (6.4-8.2)
[2017-06-13] MEDS: KCL 20 MEQ TAB (K-DUR) PO SCH (05:34)
[2017-06-13] MEDS: POTASSIUM CL 10MEQ/50ML IVPB 50 ML IV SCH (05:34)
[2017-06-13] MEDS: MAGNESIUM 1 GM/100 ML IVPB 100 ML IV SCH (05:34)
[2017-06-13] MEDS: ONDANSETRON 4 MG/2 ML (SDV) Z0FRAN IV PRN (08:02)
--- NOTE | 2017-06-13 09:00 | Progress Note (SOAP) ---
Subjective Date Seen by Provider: Jun 13, 2017 Time Seen by Provider: 06:50 Subjective/Events-last exam Patient is alert and communicating today. She does have Alzheimer's disease and may be somewhat confused but she answered appropriate with regards to her . She did not voice any pain or complaints. Focused Exam Evaluation Lactate Level Laboratory Tests 06/12/17 17:17: Lactic Acid Level 3.92*H 06/12/17 20:23: Lactic Acid Level 2.15*H 06/12/17 22:28: Lactic Acid Level 1.74 Objective Exam Vital Signs Date Time Temp Pulse Resp B/P (MAP) Pulse Ox O2 Delivery O2 Flow Rate FiO2 06/13/17 08:00 97.8 94 12 143/46 (78) 94 Nasal Cannula 3.00 06/13/17 08:00 94 Nasal Cannula 3.00 06/13/17 07:42 Nasal Cannula 3.00 06/13/17 07:00 90 06/13/17 06:35 Nasal Cannula 3.00 06/13/17 06:00 97 14 129/80 (96) 93 Nasal Cannula 2.00 06/13/17 05:00 74 110/67 (81) Nasal Cannula 2.00 06/13/17 04:00 97 Nasal Cannula 2.00 06/13/17 04:00 87 13 123/68 (86) 95 Nasal Cannula 2.00 06/13/17 03:37 97.1 Nasal Cannula 2.00 06/13/17 03:00 81 11 108/60 (76) 98 Nasal Cannula 3.00 06/13/17 02:32 Nasal Cannula 3.00 06/13/17 02:00 77 10 74/47 (56) 100 Nasal Cannula 4.00 06/13/17 01:00 86 06/13/17 01:00 86 13 87/50 (62) 98 Nasal Cannula 4.00 06/13/17 00:00 92 Nasal Cannula 4.00 06/13/17 00:00 84 11 81/35 (50) 99 Nasal Cannula 4.00 06/12/17 23:00 87 15 88/53 (65) 99 Nasal Cannula 4.00 06/12/17 22:57 97.4 06/12/17 22:00 87 12 88/53 (65) 96 Nasal Cannula 4.00 06/12/17 21:00 99.1 06/12/17 21:00 116 19 81/59 (66) 96 Nasal Cannula 4.00 06/12/17 20:00 126 15 96/64 (75) 95 Nasal Cannula 4.00 06/12/17 20:00 92 Nasal Cannula 4.00 06/12/17 19:06 99.2 Nasal Cannula 4.00 06/12/17 19:00 131 20 90/64 (73) 94 Nasal Cannula 4.00 06/12/17 19:00 134 06/12/17 18:00 112 18 94/60 (71) 92 Nasal Cannula 4.00 06/12/17 17:00 123 18 101/65 (77) 93 Nasal Cannula 4.00 06/12/17 16:00 133 23 105/72 (83) 91 Nasal Cannula 4.00 06/12/17 16:00 Nasal Cannula 4.00 06/12/17 16:00 99.0 Nasal Cannula 4.00 06/12/17 15:32 99.0 06/12/17 15:02 99.2 06/12/17 15:00 130 9 138/85 (102) 91 Nasal Cannula 2.00 06/12/17 14:00 108 19 160/67 (98) 96 Nasal Cannula 2.00 06/12/17 13:00 116 06/12/17 13:00 116 19 111/69 (83) 92 Nasal Cannula 2.00 06/12/17 12:30 Nasal Cannula 2.00 06/12/17 12:00 99.1 Nasal Cannula 2.00 06/12/17 09:00 88 13 99/59 (72) 94 Nasal Cannula 2.00 I & O 06/13/17 07:00 Intake Total 2550 ml Output Total 385 ml Balance 2165 ml Capillary Refill : Less Than 3 Seconds General Appearance: No Apparent Distress HEENT: Moist Mucous Membranes Neck: Non Tender Respiratory: Lungs Clear Cardiovascular: Regular Rate, Rhythm Gastrointestinal: soft Extremity: Normal Capillary Refill Skin: Normal Color Results Lab Laboratory Tests 06/12/17 15:55: Blood Gas Puncture Site LEFT BRACHIAL, Blood Gas Patient Temperature 99.1, Arterial Blood pH 7.29*L, Arterial Blood Partial Pressure CO2 34L, Arterial Blood Partial Pressure O2 55L, Arterial Blood HCO3 16*L, Arterial Blood Total CO2 16.9L, Arterial Blood Oxygen Saturation 90L, Arterial Blood Base Excess - 9.4L, Timothy Test NA, Carboxyhemoglobin 1.2, Methemoglobin 0.9, Blood Gas Ventilator Setting NO, Blood Gas Inspired Oxygen 4L 06/12/17 17:17: Sodium Level 136, Potassium Level 4.6, Chloride Level 107, Carbon Dioxide Level 18L, Anion Gap 11, Blood Urea Nitrogen 35H, Creatinine 2.24H, Estimat Glomerular Filtration Rate 21, BUN/Creatinine Ratio 16, Glucose Level 87, Lactic Acid Level 3.92*H, Calcium Level 7.8L, Phosphorus Level 3.1, Albumin 2.6L 06/12/17 20:23: Lactic Acid Level 2.15*H 06/12/17 22:28: Lactic Acid Level 1.74 06/13/17 03:10: White Blood Count 13.3H, Red Blood Count 3.06L, Hemoglobin 9.0#L, Hematocrit 28L , Mean Corpuscular Volume 92, Mean Corpuscular Hemoglobin 29, Mean Corpuscular Hemoglobin Concent 32, Red Cell Distribution Width 13.0, Platelet Count 156, Mean Platelet Volume 8.7, Neutrophils (%) (Auto) 89H, Lymphocytes (%) (Auto) 7L , Monocytes (%) (Auto) 4, Eosinophils (%) (Auto) 0, Basophils (%) (Auto) 0, Neutrophils # (Auto) 11.8H, Lymphocytes # (Auto) 0.9L, Monocytes # (Auto) 0.6, Eosinophils # (Auto) 0.0, Basophils # (Auto) 0.0, Sodium Level 138, Potassium Level 5.0, Chloride Level 107, Carbon Dioxide Level 22, Anion Gap 9, Blood Urea Nitrogen 38H, Creatinine 2.29H, Estimat Glomerular Filtration Rate 20, BUN/ Creatinine Ratio 17, Glucose Level 90, Calcium Level 7.4L, Phosphorus Level 4.1 , Magnesium Level 2.4, Total Bilirubin 0.8, Aspartate Amino Transf (AST/SGOT) 43H, Alanine Aminotransferase (ALT/SGPT) 26, Alkaline Phosphatase 53, Total Protein 5.3L, Albumin 3.3 Microbiology 06/11/17 Blood Culture - Preliminary, Resulted Streptococcus viridans See Comments 06/11/17 Influenza Types A,B Antigen ([facility]U) - Final, Complete 06/11/17 Urine Culture - Preliminary, Resulted Gram Negative Woo Beta Strep, ID to follow Assessment/Plan Assessment/Plan Assess & Plan/Chief Complaint 1. Urosepsis -Patient admitted to intensive care unit and is receiving IV antibiotics--IV Rocephin and Zosyn 06/13 -Day number 2 of IV antibiotics and day number 2 of cefepime 2. Acute renal insufficiency -IV fluid rehydration 06/13-IV fluid rate decreased to 1 25 mL per hour since she appears to be clinically improved 3. Right-sided ureteral stone -Urological consultation 4. Acute renal insufficiency -Monitor creatinine 5. Alzheimer's -Patient be maintain on Namenda Clinical Quality Measures Admission Status Admission Dx 1. Urosepsis -Patient admitted to intensive care unit and is receiving IV antibiotics--IV Rocephin and Zosyn 2. Acute renal insufficiency -IV fluid rehydration 3. Right-sided ureteral stone -Urological consultation 4. Alzheimer's -Patient be maintain on Namenda DVT/VTE Risk/Contraindication: Risk Factor Score Per Nursin RFS Level Per Nursing on Admit: 4+=Very High MUKUND RO MD Jun 13, 2017 09:00
[2017-06-13] MEDS: fentaNYL INJECTION 100 MCG/2 ML AMP IV PRN (10:05)
--- NOTE | 2017-06-13 10:54 | Diagnostic Imaging Report ---
CLINICAL INDICATION: Patient with severe sepsis, UTI. EXAM: Portable chest x-ray upright view. COMPARISON: Portable chest x-ray dated 06/12/2017. FINDINGS: There is development of left basilar consolidation which may represent lung infiltrate or atelectasis. There is slight progression of mild right lung base atelectasis. Stable elevation right hemidiaphragm. Pulmonary vasculature and cardiac silhouette is within normal limits. There is no pleural effusion or pneumothorax. The remainder of this exam shows no significant interval change compared to the prior study of comparison. IMPRESSION: 1.: There is interval progression of left basilar consolidation which may represent atelectasis versus infiltrate. 2: There is development of right lung base atelectasis and progression of elevation right hemidiaphragm. Dictated by: Dictated on workstation # [id number]
--- NOTE | 2017-06-13 11:45 | Progress Note-Urology ---
Progress Note-Urology Progress Notes/Assess & Plan Progress/Assessment & Plan LOOKING AND DOING BETTER. NO COMPLAINTS. URINE OUTPUT BETTER. PULSE BETTER. OK TO TRANSFER TO FLOOR MYERS Final Diagnosis SEPSIS, LT RENAL OBSTRUCTION AND UROLITHIASES YOLANDA DALLAS MD Jun 13, 2017 11:45
--- NOTE | 2017-06-13 13:09 | Consultation-Cardiology ---
HPI-Cardiology Cardiology Consultation: Date of Consultation 06/13/17 Time Seen by Provider: 12:05 Date of Admission 06/11/17 Attending Physician Kelvin Kaufman MD Admitting Physician Consulting Physician MIRIAM GUAJARDO MD, MA, FACP, FACC, FSCAI, CCDS Primary Photonics Engineering Technologist: Dr Manjarrez HPI: Chief Complaint: Reason for consultation: Tachycardia Physician requesting consult: Dr Moreira 87 yo admitted with malaise, nausea, vomiting, poor oral intake, increasing confusion. Diagnosed with urosepsis and R renal obstruction. Has had ureteral stent placement. Was experiencing sinus tach yesterday in the setting of pain and some agitation. iv BB resulted in transient low bp that was treated with iv fluids. Has since been maintain a good heart rate. Is not able to provide any meaningful history, due to dementia. Daughter and by bedside. History obtained from them. Pt has not been reporting cp or shortness of breath Review of Systems-Cardiology Review of Systems Constitutional: other (A reliable ROS cannot be obtained becuase pt suffers from dementia. To the extent ROS could be obtained from the family is described above under HPI) KNR-Cmpmoi-Ngelnx Hx Patient Social History Marrital Status: Alcohol Use: Denies Use Recreational Drug Use: No Smoking Status: Unknown if Ever Smoked Recent Foreign Travel: No Recent Infectious Disease Expo: No Hospitalization with Isolation: Denies Physical Abuse Screen: No Sexual Abuse: No Immunizations Up To Date Tetanus Booster (TDap): Unknown Date of Pneumonia Vaccine: Mar 18, 2010 Date of Influenza Vaccine: Jan 12, 2017 Past Medical History PMH As described under Assessment. Family Medical History Family History: Alzheimer's disease 19 MOTHER G8 BROTHER G8 SISTER Arthritis G8 SISTER Cardiovascular disease 19 FATHER Hypercholesterolemia 19 FATHER 19 MOTHER G8 BROTHER G8 SISTER Infertility G8 SISTER Myocardial infarction 19 FATHER Parkinson's disease 19 MOTHER No Family History of: AIDS Abdominal aortic aneurysm [place]'s disease Alcoholism Aphasia Asthma Cancer of mouth Cataracts Colon cancer Completed stroke Congenital disease Congenital heart disease Coronary thrombosis Cystic fibrosis Deafness or hearing loss Dementia Diabetes mellitus Drug abuse Dysphasia Fibrocystic disease of breast Gastroenteritis Glaucoma Headache disorder Hypertension Kidney disease Neoplasm Not obtainable due to adoption Osteoporosis Prostate cancer Psychosocial problem Respiratory disorder Seizure disorder Severe allergy Thyroid disease Tuberculosis Visual disorder Allergies and Home Medications Allergies Coded Allergies: No Known Drug Allergies (Unverified , 12/15/08) Home Medications Ibuprofen 200 Mg Tablet, 200-400 MG PO TID PRN for PAIN-MILD, (Reported) Meclizine HCl 25 Mg Tablet, 25 MG PO TID PRN for DIZZINESS, (Reported) Memantine HCl 10 Mg Tablet, 10 MG PO BID, (Reported) Metoprolol Succinate 25 Mg Tab.er.24h, 25 MG PO DAILY, (Reported) Quetiapine Fumarate 25 Mg Tablet, 25 MG PO BID, (Reported) Tetrahydrz/Dext 70/Peg 400/Pvp 15 Ml Drops, 1-2 DROPS OU TID PRN for DRY EYES, ( Reported) Patient Home Medication List Home Medication List Reviewed: Yes Physical Exam-Cardiology Physical Exam Vital Signs/I&O Vital Sign - Last 12Hours 06/13/17 06/13/17 06/13/17 06/13/17 02:00 02:32 03:00 03:37 Temp 97.1 Pulse 77 81 Resp 10 11 B/P (MAP) 74/47 (56) 108/60 (76) Pulse Ox 100 98 O2 Delivery Nasal Cannula Nasal Cannula Nasal Cannula Nasal Cannula O2 Flow Rate 4.00 3.00 3.00 2.00 06/13/17 06/13/17 06/13/17 06/13/17 04:00 04:00 05:00 06:00 Pulse 87 74 97 Resp 13 14 B/P (MAP) 123/68 (86) 110/67 (81) 129/80 (96) Pulse Ox 95 97 93 O2 Delivery Nasal Cannula Nasal Cannula Nasal Cannula Nasal Cannula O2 Flow Rate 2.00 2.00 2.00 2.00 06/13/17 06/13/17 06/13/17 06/13/17 06:35 07:00 07:00 07:42 Pulse 90 90 Resp 19 B/P (MAP) 136/74 (94) Pulse Ox 94 O2 Delivery Nasal Cannula Nasal Cannula Nasal Cannula O2 Flow Rate 3.00 3.00 3.00 06/13/17 06/13/17 06/13/17 06/13/17 08:00 08:00 09:00 10:00 Temp 97.8 Pulse 94 93 89 Resp 12 18 13 B/P (MAP) 143/46 (78) 137/82 (100) 125/64 (84) Pulse Ox 94 94 95 95 O2 Delivery Nasal Cannula Nasal Cannula Nasal Cannula Nasal Cannula O2 Flow Rate 3.00 3.00 3.00 3.00 06/13/17 06/13/17 06/13/17 11:00 12:00 12:00 Temp 97.1 Pulse 87 88 Resp 14 17 B/P (MAP) 126/52 (76) 142/90 (107) Pulse Ox 95 96 96 O2 Delivery Nasal Cannula Nasal Cannula Nasal Cannula O2 Flow Rate 3.00 3.00 3.00 Intake and Output 06/13/17 00:00 Intake Total 1050 ml Output Total 100 ml Balance 950 ml Capillary Refill : Less Than 3 Seconds Constitutional: No AAO x 3, well-developed, well-nourished HEENT: PERRL, EOMI, No xanthelasmas are seen Neck: carotid pulses are 2 + bilaterally, with good upstrokes Respiratory: No accessory muscle use, other (fair to good bilat air entry; diminshed at the bases) Cardiovascular: regular rate-rhythm, S1 and S2, systolic murmur (faint SHAHRIAR at card base), other (good capillary refill) Gastrointestinal: No tender, soft, No guarding, No rebound, audible bowel sounds Extremities: No clubbing, No cyanosis, No significant edema Neurologic/Psychiatric: No oriented x 3, other (She does not respond to questions and does not follow commands; does seem to be able to move all limbs) Skin: normal color, warm/dry, No rash on exposed areas, No ulcerations on exposed areas Data Review Labs Laboratory Tests 06/12/17 15:55: Blood Gas Puncture Site LEFT BRACHIAL, Blood Gas Patient Temperature 99.1, Arterial Blood pH 7.29*L, Arterial Blood Partial Pressure CO2 34L, Arterial Blood Partial Pressure O2 55L, Arterial Blood HCO3 16*L, Arterial Blood Total CO2 16.9L, Arterial Blood Oxygen Saturation 90L, Arterial Blood Base Excess - 9.4L, Timothy Test NA, Carboxyhemoglobin 1.2, Methemoglobin 0.9, Blood Gas Ventilator Setting NO, Blood Gas Inspired Oxygen 4L 06/12/17 17:17: Sodium Level 136, Potassium Level 4.6, Chloride Level 107, Carbon Dioxide Level 18L, Anion Gap 11, Blood Urea Nitrogen 35H, Creatinine 2.24H, Estimat Glomerular Filtration Rate 21, BUN/Creatinine Ratio 16, Glucose Level 87, Lactic Acid Level 3.92*H, Calcium Level 7.8L, Phosphorus Level 3.1, Albumin 2.6L 06/12/17 20:23: Lactic Acid Level 2.15*H 06/12/17 22:28: Lactic Acid Level 1.74 06/13/17 03:10: White Blood Count 13.3H, Red Blood Count 3.06L, Hemoglobin 9.0#L, Hematocrit 28L , Mean Corpuscular Volume 92, Mean Corpuscular Hemoglobin 29, Mean Corpuscular Hemoglobin Concent 32, Red Cell Distribution Width 13.0, Platelet Count 156, Mean Platelet Volume 8.7, Neutrophils (%) (Auto) 89H, Lymphocytes (%) (Auto) 7L , Monocytes (%) (Auto) 4, Eosinophils (%) (Auto) 0, Basophils (%) (Auto) 0, Neutrophils # (Auto) 11.8H, Lymphocytes # (Auto) 0.9L, Monocytes # (Auto) 0.6, Eosinophils # (Auto) 0.0, Basophils # (Auto) 0.0, Sodium Level 138, Potassium Level 5.0, Chloride Level 107, Carbon Dioxide Level 22, Anion Gap 9, Blood Urea Nitrogen 38H, Creatinine 2.29H, Estimat Glomerular Filtration Rate 20, BUN/ Creatinine Ratio 17, Glucose Level 90, Calcium Level 7.4L, Phosphorus Level 4.1 , Magnesium Level 2.4, Total Bilirubin 0.8, Aspartate Amino Transf (AST/SGOT) 43H, Alanine Aminotransferase (ALT/SGPT) 26, Alkaline Phosphatase 53, Total Protein 5.3L, Albumin 3.3 Microbiology 06/11/17 Blood Culture - Preliminary, Resulted Streptococcus viridans See Comments 06/11/17 Influenza Types A,B Antigen (WU) - Final, Complete 06/11/17 Urine Culture - Preliminary, Resulted Morganella morganii Gram Negative Woo Beta Strep, ID to follow Laboratory Tests 06/11/17 17:48 06/12/17 01:50 06/12/17 17:17 06/13/17 03:10 A/P-Cardiology Assessment/Admission Diagnosis Sinus tachycardia due to multisystemic illness (see below) Urosepsis Acute renal failure Obstructive uropathy and R hydronephrosis due right-sided UPJ stone that is being manage by Dr Moreira Alzheimer's CAD, as indicated by cor calcifications noted incidentally on abdominal CT at time of this admission H/o labile hypertension Discussion and Recomendations * Complex management due to multiple comorbidities outlined above * S Tach the result of multisystem illness * Monitor on tele * Monitor labs * I reviewed her records and had a detailed discussion with her family Clinical Quality Measures DVT/VTE Risk/Contraindication: Risk Factor Score Per Nursin RFS Level Per Nursing on Admit: 4+=Very High MIRIAM GUAJARDO MD FACP FAC CCDS Jun 13, 2017 13:09
--- NOTE | 2017-06-13 13:43 | Pulmonary Consultation ---
History of Present Illness History of Present Illness Date of Consultation 06/13/17 13:37 Time Seen by Provider: 13:38 Date of Admission History of Present Illness 87yo with hx of Alzhimers presented to ED on 06/11 secondary to nause, vomiting, fever, and diarrhea. PT was diagnosed in ED with urosepsis and right renal obstruction. Urology was consulted and pt was taken to surgery. Pt was also having episodes of sinus tach and then became hypotensive have given BB. Pt denies CP, or SOB. I am consutled for ICU management. Allergies and Home Medications Allergies Coded Allergies: No Known Drug Allergies (Unverified , 12/15/08) Home Medications Aspirin 81 Mg Tablet.dr, 81 MG PO HS, (Reported) Ibuprofen 200 Mg Tablet, 200-400 MG PO TID PRN for PAIN-MILD, (Reported) Meclizine HCl 25 Mg Tablet, 25 MG PO TID PRN for DIZZINESS, (Reported) Memantine HCl 10 Mg Tablet, 10 MG PO BID, (Reported) Metoprolol Succinate 25 Mg Tab.er.24h, 25 MG PO DAILY, (Reported) Quetiapine Fumarate 25 Mg Tablet, 25 MG PO BID, (Reported) Tetrahydrz/Dext 70/Peg 400/Pvp 15 Ml Drops, 1-2 DROPS OU TID PRN for DRY EYES, ( Reported) Past Aaqvner-Hrueud-Mucfvy Hx Patient Social History Alcohol Use: Denies Use Recreational Drug Use: No Smoking Status: Unknown if Ever Smoked Recent Foreign Travel: No Contact w/Someone Who Travel: No Recent Infectious Disease Expo: No Recent Hopitalizations: Yes Immunizations Up To Date Tetanus Booster (TDap): Unknown Date of Pneumonia Vaccine: Mar 18, 2010 Date of Influenza Vaccine: Jan 12, 2017 Surgeries History of Surgeries: 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/back surgery) Surgeries: Hysterectomy, Orthopedic Respiratory History of Respiratory Disorde: No Cardiovascular History of Cardiac Disorders: No Neurological History of Neurological Disord: Yes (alzheimers) Reproductive System Hx Reproductive Disorders: 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; age 29 at the time) Sexually Transmitted Disease: No Genitourinary Genitourinary Disorders: UTI-Chronic Gastrointestinal History of Gastrointestinal Di: Yes Gastrointestinal Disorders: Gastroesophageal Reflux Musculoskeletal History of Musculoskeletal Dis: Yes Musculoskeletal Disorders: Chronic Back Pain Endocrine History of Endocrine Disorders: No Cancer History of Cancer: No Psychosocial History of Psychiatric Problem: No Integumentary History of Skin or Integumenta: No Blood Transfusions History of Blood Disorders: Yes Adverse Reaction to a Blood Tr: No Family Medical History Family Medial History: Alzheimer's disease 19 MOTHER G8 BROTHER G8 SISTER Arthritis G8 SISTER Cardiovascular disease 19 FATHER Hypercholesterolemia 19 FATHER 19 MOTHER G8 BROTHER G8 SISTER Infertility G8 SISTER Myocardial infarction 19 FATHER Parkinson's disease 19 MOTHER No Family History of: AIDS Abdominal aortic aneurysm Sibley's disease Alcoholism Aphasia Asthma Cancer of mouth Cataracts Colon cancer Completed stroke Congenital disease Congenital heart disease Coronary thrombosis Cystic fibrosis Deafness or hearing loss Dementia Diabetes mellitus Drug abuse Dysphasia Fibrocystic disease of breast Gastroenteritis Glaucoma Headache disorder Hypertension Kidney disease Neoplasm Not obtainable due to adoption Osteoporosis Prostate cancer Psychosocial problem Respiratory disorder Seizure disorder Severe allergy Thyroid disease Tuberculosis Visual disorder Review of Systems Time Seen by Provider: 10:28 Exam Exam Vital Signs Date Time Temp Pulse Resp B/P (MAP) Pulse Ox O2 Delivery O2 Flow Rate FiO2 06/13/17 12:00 97.1 88 17 142/90 (107) 96 Nasal Cannula 3.00 06/13/17 12:00 96 Nasal Cannula 3.00 06/13/17 11:00 87 14 126/52 (76) 95 Nasal Cannula 3.00 06/13/17 10:00 89 13 125/64 (84) 95 Nasal Cannula 3.00 06/13/17 09:00 93 18 137/82 (100) 95 Nasal Cannula 3.00 06/13/17 08:00 97.8 94 12 143/46 (78) 94 Nasal Cannula 3.00 06/13/17 08:00 94 Nasal Cannula 3.00 06/13/17 07:42 Nasal Cannula 3.00 06/13/17 07:00 90 06/13/17 07:00 90 19 136/74 (94) 94 Nasal Cannula 3.00 06/13/17 06:35 Nasal Cannula 3.00 06/13/17 06:00 97 14 129/80 (96) 93 Nasal Cannula 2.00 06/13/17 05:00 74 110/67 (81) Nasal Cannula 2.00 06/13/17 04:00 97 Nasal Cannula 2.00 06/13/17 04:00 87 13 123/68 (86) 95 Nasal Cannula 2.00 06/13/17 03:37 97.1 Nasal Cannula 2.00 06/13/17 03:00 81 11 108/60 (76) 98 Nasal Cannula 3.00 06/13/17 02:32 Nasal Cannula 3.00 06/13/17 02:00 77 10 74/47 (56) 100 Nasal Cannula 4.00 06/13/17 01:00 86 06/13/17 01:00 86 13 87/50 (62) 98 Nasal Cannula 4.00 06/13/17 00:00 92 Nasal Cannula 4.00 06/13/17 00:00 84 11 81/35 (50) 99 Nasal Cannula 4.00 06/12/17 23:00 87 15 88/53 (65) 99 Nasal Cannula 4.00 06/12/17 22:57 97.4 06/12/17 22:00 87 12 88/53 (65) 96 Nasal Cannula 4.00 06/12/17 21:00 99.1 06/12/17 21:00 116 19 81/59 (66) 96 Nasal Cannula 4.00 06/12/17 20:00 126 15 96/64 (75) 95 Nasal Cannula 4.00 06/12/17 20:00 92 Nasal Cannula 4.00 06/12/17 19:06 99.2 Nasal Cannula 4.00 06/12/17 19:00 131 20 90/64 (73) 94 Nasal Cannula 4.00 06/12/17 19:00 134 06/12/17 18:00 112 18 94/60 (71) 92 Nasal Cannula 4.00 06/12/17 17:00 123 18 101/65 (77) 93 Nasal Cannula 4.00 06/12/17 16:00 133 23 105/72 (83) 91 Nasal Cannula 4.00 06/12/17 16:00 Nasal Cannula 4.00 06/12/17 16:00 99.0 Nasal Cannula 4.00 06/12/17 15:32 99.0 06/12/17 15:02 99.2 06/12/17 15:00 130 9 138/85 (102) 91 Nasal Cannula 2.00 06/12/17 14:00 108 19 160/67 (98) 96 Nasal Cannula 2.00 I & O 06/13/17 07:00 Intake Total 2550 ml Output Total 385 ml Balance 2165 ml General Appearance: No Apparent Distress HEENT: Moist Mucous Membranes Neck: Non Tender Respiratory: Lungs Clear Cardiovascular: Regular Rate, Rhythm Capillary Refill: Less Than 3 Seconds Gastrointestinal: soft Extremity: Normal Capillary Refill Neurologic/Psychiatric: Alert, No Oriented x3 (Person and place but not time or situation), No Motor/Sensory Deficits, Normal 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 255 BRANNON MENON DO Jun 13, 2017 13:42
[2017-06-13] MEDS: CEFEPIME INJECTION 2,000 MG in NS (IVPB) 50 ML IV SCH (15:54)
[2017-06-13] MEDS: ENOXAPARIN 30 MG/0.3 ML (LOVENOX) SYR SC SCH (17:06)
[2017-06-13] MEDS: ACETAMINOPHEN 500 MG TAB (TYLENOL) PO PRN (17:10)
[2017-06-14] MEDS: NS IV 1000 ML 1,000 ML IV SCH ×2 (00:01→08:54)
[2017-06-14 04:00] VITALS: BP 157/70
[2017-06-14 06:17] LABS: BASOPHILS % (AUTO) 0 % (0-10); EOSINOPHILS # (AUTO) 0.1 10^3/uL (0.0-0.3); EOSINOPHILS % (AUTO) 1 % (0-10); HEMATOCRIT 32 % (35-52); HEMOGLOBIN 10.4 G/DL (11.5-16.0); LYMPHOCYTES # (AUTO) 0.9 X 10^3 (1.0-4.0); LYMPHOCYTES % (AUTO) 6 % (12-44); MEAN CORPUSCULAR HEMOGLOBIN 30 PG (25-34); MEAN CORPUSCULAR HGB CONC 33 G/DL (32-36); MEAN CORPUSCULAR VOLUME 91 FL (80-99); MEAN PLATELET VOLUME 9.6 FL (7.4-10.4); MONOCYTES # (AUTO) 0.7 X 10^3 (0.0-1.0); MONOCYTES % (AUTO) 5 % (0-12); NEUTROPHILS % (AUTO) 88 % (42-75); PLATELET COUNT 195 10^3/uL (130-400); RED BLOOD COUNT 3.52 10^6/uL (4.35-5.85); RED CELL DISTRIBUTION WIDTH 13.4 % (10.0-14.5); WHITE BLOOD COUNT 14.8 10^3/uL (4.3-11.0)
[2017-06-14 06:30] LABS: BAND NEUTROPHILS 5 %; BASOPHILS % (MANUAL) 0 %; EOSINOPHILS % (MANUAL) 1 %; LYMPHOCYTES % (MANUAL) 3 %; MONOCYTES % (MANUAL) 5 %; NEUTROPHILS % (MANUAL) 86 %
[2017-06-14 06:31] LABS: PLATELET CLUMPS SLIGHT; POIKILOCYTOSIS SLIGHT; POLYCHROMASIA SLIGHT
[2017-06-14 06:52] LABS: ALBUMIN 3.1 GM/DL (3.2-4.5); BILIRUBIN,TOTAL 0.6 MG/DL (0.1-1.0); CALCIUM 7.9 MG/DL (8.5-10.1); CREATININE SERUM 1.59 MG/DL (0.60-1.30); MAGNESIUM 2.1 MG/DL (1.8-2.4); PHOSPHORUS 3.1 MG/DL (2.3-4.7); POTASSIUM 3.9 MMOL/L (3.6-5.0)
[2017-06-14 07:26] VITALS: BP 163/79
--- NOTE | 2017-06-14 08:40 | Diagnostic Imaging Report ---
INDICATION: Kidney stones, double-J stent. COMPARISON: 06/11/2017. FINDINGS: Single view of the abdomen demonstrates double-J stent in the right. Calcifications are seen medial to the distal aspect of the stent probably phleboliths. No visible calcifications are seen overlying the kidneys. Bowel gas pattern is normal. There is mild constipation. IMPRESSION: Double-J stent in the right. No visible renal calculi. Dictated by: Dictated on workstation # [id number]
--- NOTE | 2017-06-14 09:01 | Progress Note (SOAP) ---
Subjective Date Seen by Provider: Jun 14, 2017 Time Seen by Provider: 07:30 Subjective/Events-last exam Patient is resting comfortably in bed. She is very pleasant. She voices no shortness of breath. Focused Exam Evaluation Lactate Level Laboratory Tests 06/12/17 17:17: Lactic Acid Level 3.92*H 06/12/17 20:23: Lactic Acid Level 2.15*H 06/12/17 22:28: Lactic Acid Level 1.74 Objective Exam Vital Signs Date Time Temp Pulse Resp B/P (MAP) Pulse Ox O2 Delivery O2 Flow Rate FiO2 06/14/17 07:26 98.7 100 18 163/79 (107) 92 Nasal Cannula 3.00 06/14/17 07:00 99 06/14/17 04:13 93 Nasal Cannula 3.00 06/14/17 04:00 98.5 96 18 157/70 (99) 93 Nasal Cannula 4.00 06/14/17 01:00 99 06/13/17 23:40 98.6 97 18 156/64 (94) 93 Nasal Cannula 3.00 06/13/17 20:11 Nasal Cannula 3.00 06/13/17 20:00 Nasal Cannula 3.00 06/13/17 19:35 98.2 91 20 148/72 (97) 94 Nasal Cannula 3.00 06/13/17 19:00 90 06/13/17 16:30 Nasal Cannula 3.00 06/13/17 16:05 97.8 97 20 182/78 (112) 100 Nasal Cannula 3.00 06/13/17 16:00 97.8 97 8 142/70 (94) 98 Nasal Cannula 3.00 06/13/17 14:00 85 13 129/63 (85) 96 Nasal Cannula 3.00 06/13/17 13:00 85 06/13/17 13:00 85 12 112/64 (80) 96 Nasal Cannula 3.00 06/13/17 12:00 97.1 88 17 142/90 (107) 96 Nasal Cannula 3.00 06/13/17 12:00 96 Nasal Cannula 3.00 06/13/17 11:00 87 14 126/52 (76) 95 Nasal Cannula 3.00 06/13/17 10:00 89 13 125/64 (84) 95 Nasal Cannula 3.00 06/13/17 09:00 93 18 137/82 (100) 95 Nasal Cannula 3.00 I & O 06/14/17 07:00 Intake Total 3730 ml Output Total 1020 ml Balance 2710 ml Capillary Refill : Less Than 3 Seconds General Appearance: No Apparent Distress Neck: Supple Respiratory: Decreased Breath Sounds, Rales (Mild in bases) Cardiovascular: Regular Rate, Rhythm Gastrointestinal: soft Results Lab Laboratory Tests 06/14/17 05:20: White Blood Count 14.8H, Red Blood Count 3.52L, Hemoglobin 10.4L, Hematocrit 32L , Mean Corpuscular Volume 91, Mean Corpuscular Hemoglobin 30, Mean Corpuscular Hemoglobin Concent 33, Red Cell Distribution Width 13.4, Platelet Count 195, Mean Platelet Volume 9.6, Neutrophils (%) (Auto) 88H, Lymphocytes (%) (Auto) 6L , Monocytes (%) (Auto) 5, Eosinophils (%) (Auto) 1, Basophils (%) (Auto) 0, Neutrophils # (Auto) 13.0H, Lymphocytes # (Auto) 0.9L, Monocytes # (Auto) 0.7, Eosinophils # (Auto) 0.1, Basophils # (Auto) 0.0, Neutrophils % (Manual) 86, Lymphocytes % (Manual) 3, Monocytes % (Manual) 5, Eosinophils % (Manual) 1, Basophils % (Manual) 0, Band Neutrophils 5, Clumped Platelets SLIGHT, Polychromasia SLIGHT, Poikilocytosis SLIGHT, Sodium Level 139, Potassium Level 3.9, Chloride Level 110H, Carbon Dioxide Level 18L, Anion Gap 11, Blood Urea Nitrogen 41H, Creatinine 1.59H, Estimat Glomerular Filtration Rate 31, BUN/ Creatinine Ratio 26, Glucose Level 120H, Calcium Level 7.9L, Phosphorus Level 3.1, Magnesium Level 2.1, Total Bilirubin 0.6, Aspartate Amino Transf (AST/SGOT ) 48H, Alanine Aminotransferase (ALT/SGPT) 36, Alkaline Phosphatase 113, Total Protein 6.0L, Albumin 3.1L Microbiology 06/11/17 Blood Culture - Preliminary, Resulted Streptococcus viridans See Comments 06/11/17 Influenza Types A,B Antigen (WU) - Final, Complete 06/11/17 Urine Culture - Preliminary, Resulted Morganella morganii Gram Negative Woo Beta Strep, ID to follow Assessment/Plan Assessment/Plan Assess & Plan/Chief Complaint 1. Urosepsis -Patient admitted to intensive care unit and is receiving IV antibiotics--IV Rocephin and Zosyn 06/13 -Day number 2 of IV antibiotics and day number 2 of cefepime 06/14 -Day number 3 of cefepime 2. Acute renal insufficiency -IV fluid rehydration 06/13-IV fluid rate decreased to 125 mL per hour since she appears to be clinically improved 06/14-continue to decrease fluids since she is taking in po fairly well 3. Right-sided ureteral stone -Urological consultation 4. Acute renal insufficiency -Monitor creatinine 5. Alzheimer's -Patient be maintain on Namenda Clinical Quality Measures Admission Status Admission Dx 1. Urosepsis -Patient admitted to intensive care unit and is receiving IV antibiotics--IV Rocephin and Zosyn 2. Acute renal insufficiency -IV fluid rehydration 3. Right-sided ureteral stone -Urological consultation 4. Alzheimer's -Patient be maintain on Namenda DVT/VTE Risk/Contraindication: Risk Factor Score Per Nursin RFS Level Per Nursing on Admit: 4+=Very High MUKUND RO MD Jun 14, 2017 09:01
[2017-06-14] MEDS: ACETAMINOPHEN 500 MG TAB (TYLENOL) PO PRN ×2 (09:15→15:15)
[2017-06-14] MEDS: ONDANSETRON 4 MG/2 ML (SDV) Z0FRAN IV PRN ×2 (09:43→19:35)
[2017-06-14] MEDS: MEMANTINE 5 MG (NAMENDA) TABLET PO SCH ×2 (09:55→21:16)
[2017-06-14] MEDS: QUEtiapine 25 MG (SEROquel) TAB IMMEDIATE RELEASE PO SCH ×2 (09:55→21:16)
[2017-06-14] MEDS ORDERED: METOCLOPRAMIDE INJ 10 MG/2 ML (REGLAN) IVP PRN (10:15)
[2017-06-14] MEDS ORDERED: BISACODYL 10 MG SUPP (DULCOLAX) PR ONE (10:15)
--- NOTE | 2017-06-14 11:02 | Progress Note-Urology ---
Progress Note-Urology Progress Notes/Assess & Plan Progress/Assessment & Plan CONTINUES IMPROVING UROLOGICALLY. KUB STABLE. CREATININE DOWN TO 1.59. SOME SHORTNESS OF BREATH. CHECK FORMAL CXR AND DECREASE IVF RATE Final Diagnosis SEPSIS, RT RENAL OBSTRUCTION, AND UROLITHIASES YOLANDA DALLAS MD Jun 14, 2017 11:02 am
[2017-06-14 12:00] VITALS: BP 151/71
--- NOTE | 2017-06-14 14:53 | Diagnostic Imaging Report ---
INDICATION: Pneumonia, atelectasis. COMPARISON: 06/13/2017. FINDINGS: Frontal and lateral views of the chest demonstrate worsening infiltrates in the marcy, bases, and right upper lobe. There is no pneumothorax. Moderate effusions are present. The heart is prominent without overt pulmonary edema. Osseous structures are stable. IMPRESSION: Worsening bilateral pulmonary infiltrates with increasing effusions. Dictated by: Dictated on workstation # [id number]
[2017-06-14] MEDS: CEFEPIME 2 GM/NS 100 ML IVPB IV SCH ×2 (15:15)
[2017-06-14 16:00] VITALS: BP 156/76
--- NOTE | 2017-06-14 16:50 | Progress Note-Cardiology ---
Cardiology SOAP Progress Note Subjective: Does not report much history. Communication limited because pt suffers from dementia. Has not been reporting any symptoms. Family by bedside Objective: I&O/Vital Signs Vital Sign - Last 12Hours 06/14/17 06/14/17 06/14/17 06/14/17 07:00 07:26 08:00 08:00 Temp 98.7 Pulse 99 100 Resp 18 B/P (MAP) 163/79 (107) Pulse Ox 92 O2 Delivery Nasal Cannula Nasal Cannula Nasal Cannula O2 Flow Rate 3.00 3.00 3.00 06/14/17 06/14/17 06/14/17 12:00 13:00 16:00 Temp 98.4 97.8 Pulse 98 86 96 Resp 18 16 B/P (MAP) 151/71 (97) 156/76 (102) Pulse Ox 92 94 O2 Delivery Nasal Cannula Nasal Cannula O2 Flow Rate 3.00 3.00 Intake and Output 06/14/17 00:00 Intake Total 2410 ml Output Total 420 ml Balance 1990 ml Weight (Pounds): 164 Weight (Ounces): 1.0 Weight (Calculated Kilograms): 74.351484 Constitutional: No AAO x 3, well-developed, well-nourished Respiratory: No accessory muscle use, other (fair to good bilat air entry; diminshed at the bases) Cardiovascular: regular rate-rhythm, S1 and S2, systolic murmur (faint SHAHRIAR at card base), other (good capillary refill) Gastrointestional: No tender, soft, No guarding, No rebound, audible bowel sounds Extremities: No clubbing, No cyanosis, No significant edema Neurologic/Psychiatric: No oriented x 3, other (She does not respond to questions and does not follow commands; does seem to be able to move all limbs) Skin: normal color, warm/dry, No rash on exposed areas, No ulcerations on exposed areas Results/Procedures: Labs Laboratory Tests 06/14/17 05:20: White Blood Count 14.8H, Red Blood Count 3.52L, Hemoglobin 10.4L, Hematocrit 32L , Mean Corpuscular Volume 91, Mean Corpuscular Hemoglobin 30, Mean Corpuscular Hemoglobin Concent 33, Red Cell Distribution Width 13.4, Platelet Count 195, Mean Platelet Volume 9.6, Neutrophils (%) (Auto) 88H, Lymphocytes (%) (Auto) 6L , Monocytes (%) (Auto) 5, Eosinophils (%) (Auto) 1, Basophils (%) (Auto) 0, Neutrophils # (Auto) 13.0H, Lymphocytes # (Auto) 0.9L, Monocytes # (Auto) 0.7, Eosinophils # (Auto) 0.1, Basophils # (Auto) 0.0, Neutrophils % (Manual) 86, Lymphocytes % (Manual) 3, Monocytes % (Manual) 5, Eosinophils % (Manual) 1, Basophils % (Manual) 0, Band Neutrophils 5, Clumped Platelets SLIGHT, Polychromasia SLIGHT, Poikilocytosis SLIGHT, Sodium Level 139, Potassium Level 3.9, Chloride Level 110H, Carbon Dioxide Level 18L, Anion Gap 11, Blood Urea Nitrogen 41H, Creatinine 1.59H, Estimat Glomerular Filtration Rate 31, BUN/ Creatinine Ratio 26, Glucose Level 120H, Calcium Level 7.9L, Phosphorus Level 3.1, Magnesium Level 2.1, Total Bilirubin 0.6, Aspartate Amino Transf (AST/SGOT ) 48H, Alanine Aminotransferase (ALT/SGPT) 36, Alkaline Phosphatase 113, Total Protein 6.0L, Albumin 3.1L Microbiology 06/11/17 Blood Culture - Preliminary, Resulted Streptococcus viridans See Comments 06/12/17 MRSA Screen - Final, Complete MRSA not isolated 06/11/17 Urine Culture - Preliminary, Resulted Morganella morganii Gram Negative Woo Laboratory Tests 06/12/17 17:17 06/13/17 03:10 06/14/17 05:20 A/P: Assessment: Sinus tachycardia due to multisystemic illness (see below) Urosepsis Acute renal failure Obstructive uropathy and R hydronephrosis due right-sided UPJ stone that is being manage by Dr Lillie Linn's CAD, as indicated by cor calcifications noted incidentally on abdominal CT at time of this admission H/o labile hypertension Plan: * Continue to follow clinically * I spoke with her family and answered CV-related questions MIRIAM GUAJARDO MD FACP [facility] Jun 14, 2017 16:50
[2017-06-14] MEDS: ENOXAPARIN 30 MG/0.3 ML (LOVENOX) SYR SC SCH (18:06)
[2017-06-14 19:09] VITALS: BP 142/65
[2017-06-14] MEDS ORDERED: MEMANTINE 10 MG (NAMENDA) TABLET PO SCH (21:00)
[2017-06-14] MEDS: IBUPROFEN 800 MG (MOTRIN) TAB PO PRN (21:17)
[2017-06-15 00:10] VITALS: BP 142/63
[2017-06-15] MEDS: NS IV 1000 ML 1,000 ML IV SCH (04:11)
[2017-06-15 04:16] VITALS: BP 153/70
[2017-06-15 06:33] LABS: BASOPHILS % (AUTO) 0 % (0-10); EOSINOPHILS # (AUTO) 0.3 10^3/uL (0.0-0.3); EOSINOPHILS % (AUTO) 3 % (0-10); HEMATOCRIT 28 % (35-52); HEMOGLOBIN 9.1 G/DL (11.5-16.0); LYMPHOCYTES # (AUTO) 1.3 X 10^3 (1.0-4.0); LYMPHOCYTES % (AUTO) 12 % (12-44); MEAN CORPUSCULAR HEMOGLOBIN 30 PG (25-34); MEAN CORPUSCULAR HGB CONC 33 G/DL (32-36); MEAN CORPUSCULAR VOLUME 89 FL (80-99); MEAN PLATELET VOLUME 9.9 FL (7.4-10.4); MONOCYTES # (AUTO) 0.9 X 10^3 (0.0-1.0); MONOCYTES % (AUTO) 9 % (0-12); NEUTROPHILS # (AUTO) 8.1 X 10^3 (1.8-7.8); NEUTROPHILS % (AUTO) 76 % (42-75); PLATELET COUNT 171 10^3/uL (130-400); RED BLOOD COUNT 3.08 10^6/uL (4.35-5.85); RED CELL DISTRIBUTION WIDTH 13.3 % (10.0-14.5); WHITE BLOOD COUNT 10.6 10^3/uL (4.3-11.0)
--- NOTE | 2017-06-15 07:05 | Pulmonary Progress Note ---
Subjective Time Seen by Provider: 07:05 Subjective/Events-last exam pt states she feels improved. Focused Exam Evaluation Lactate Level Laboratory Tests 06/12/17 17:17: Lactic Acid Level 3.92*H 06/12/17 20:23: Lactic Acid Level 2.15*H 06/12/17 22:28: Lactic Acid Level 1.74 Exam Exam Vital Signs Date Time Temp Pulse Resp B/P (MAP) Pulse Ox O2 Delivery O2 Flow Rate FiO2 06/15/17 04:16 97.7 76 18 153/70 (97) 95 Nasal Cannula 3.00 06/15/17 01:00 83 06/15/17 00:10 98.8 89 18 142/63 (89) 94 Nasal Cannula 3.00 06/14/17 20:00 Nasal Cannula 3.00 06/14/17 19:09 98.7 100 20 142/65 (90) 92 Nasal Cannula 3.00 06/14/17 19:00 100 06/14/17 16:00 97.8 96 16 156/76 (102) 94 Nasal Cannula 3.00 06/14/17 13:00 86 06/14/17 12:00 98.4 98 18 151/71 (97) 92 Nasal Cannula 3.00 06/14/17 08:00 Nasal Cannula 3.00 06/14/17 08:00 Nasal Cannula 3.00 06/14/17 07:26 98.7 100 18 163/79 (107) 92 Nasal Cannula 3.00 I & O 06/15/17 07:00 Intake Total 1640 ml Output Total 1050 ml Balance 590 ml General Appearance: No Apparent Distress HEENT: Moist Mucous Membranes Neck: Supple Respiratory: Decreased Breath Sounds, Rales (Mild in bases) Cardiovascular: Regular Rate, Rhythm Capillary Refill: Less Than 3 Seconds Gastrointestinal: soft Extremity: Normal Capillary Refill Neurologic/Psychiatric: Alert, No Oriented x3 (Person and place but not time or situation), No Motor/Sensory Deficits, Normal 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 232 BRANNON MENON DO Jun 15, 2017 07:05
[2017-06-15] MEDS ORDERED: FUROSEMIDE 40 MG/4 ML INJ (LASIX) IVP NR (07:27)
[2017-06-15] MEDS ORDERED: KCL 10 MEQ TAB (MICRO K) PO NR (07:27)
[2017-06-15] MEDS: MEMANTINE 5 MG (NAMENDA) TABLET PO SCH ×2 (07:52→23:10)
[2017-06-15] MEDS: QUEtiapine 25 MG (SEROquel) TAB IMMEDIATE RELEASE PO SCH ×2 (07:52→23:10)
--- NOTE | 2017-06-15 08:24 | Progress Note (SOAP) ---
Subjective Date Seen by Provider: Jun 15, 2017 Time Seen by Provider: 07:30 Subjective/Events-last exam Patient appears to be comfortable. She voices no pain. She is not short of breath Focused Exam Evaluation Lactate Level Laboratory Tests 06/12/17 17:17: Lactic Acid Level 3.92*H 06/12/17 20:23: Lactic Acid Level 2.15*H 06/12/17 22:28: Lactic Acid Level 1.74 Objective Exam Vital Signs Date Time Temp Pulse Resp B/P (MAP) Pulse Ox O2 Delivery O2 Flow Rate FiO2 06/15/17 04:16 97.7 76 18 153/70 (97) 95 Nasal Cannula 3.00 06/15/17 01:00 83 06/15/17 00:10 98.8 89 18 142/63 (89) 94 Nasal Cannula 3.00 06/14/17 20:00 Nasal Cannula 3.00 06/14/17 19:09 98.7 100 20 142/65 (90) 92 Nasal Cannula 3.00 06/14/17 19:00 100 06/14/17 16:00 97.8 96 16 156/76 (102) 94 Nasal Cannula 3.00 06/14/17 13:00 86 06/14/17 12:00 98.4 98 18 151/71 (97) 92 Nasal Cannula 3.00 I & O 06/15/17 07:00 Intake Total 2740 ml Output Total 1650 ml Balance 1090 ml Capillary Refill : Less Than 3 Seconds General Appearance: No Apparent Distress Respiratory: Lungs Clear (In the apical region), Rales (And decreased breath sounds in the bases) Cardiovascular: Regular Rate, Rhythm Gastrointestinal: soft Results Lab Laboratory Tests 06/15/17 05:45: White Blood Count 10.6, Red Blood Count 3.08L, Hemoglobin 9.1L, Hematocrit 28L, Mean Corpuscular Volume 89, Mean Corpuscular Hemoglobin 30, Mean Corpuscular Hemoglobin Concent 33, Red Cell Distribution Width 13.3, Platelet Count 171, Mean Platelet Volume 9.9, Neutrophils (%) (Auto) 76H, Lymphocytes (%) (Auto) 12 , Monocytes (%) (Auto) 9, Eosinophils (%) (Auto) 3, Basophils (%) (Auto) 0, Neutrophils # (Auto) 8.1H, Lymphocytes # (Auto) 1.3, Monocytes # (Auto) 0.9, Eosinophils # (Auto) 0.3, Basophils # (Auto) 0.0, B-Type Natriuretic Peptide 877.2H Microbiology 06/11/17 Blood Culture - Preliminary, Resulted Streptococcus viridans See Comments 06/12/17 MRSA Screen - Final, Complete MRSA not isolated 06/11/17 Urine Culture - Preliminary, Resulted Morganella morganii Gram Negative Woo Assessment/Plan Assessment/Plan Assess & Plan/Chief Complaint 1. Urosepsis along with pneumonia -Patient admitted to intensive care unit and is receiving IV antibiotics--IV Rocephin and Zosyn 06/13 -Day number 2 of IV antibiotics and day number 2 of cefepime 06/14 -Day number 3 of cefepime 06/15 -Day number 4 of cefepime -Up in chair 3 times daily -Incentive spirometer -Pulmonary gave dose of Lasix today for the bibasilar effusions 2. Acute renal insufficiency -IV fluid rehydration 06/13-IV fluid rate decreased to 125 mL per hour since she appears to be clinically improved 06/14-continue to decrease fluids since she is taking in po fairly well 3. Right-sided ureteral stone -Urological consultation 4. Acute renal insufficiency -Monitor creatinine 5. Alzheimer's -Patient be maintain on Namenda Clinical Quality Measures Admission Status Admission Dx 1. Urosepsis -Patient admitted to intensive care unit and is receiving IV antibiotics--IV Rocephin and Zosyn 2. Acute renal insufficiency -IV fluid rehydration 3. Right-sided ureteral stone -Urological consultation 4. Alzheimer's -Patient be maintain on Namenda DVT/VTE Risk/Contraindication: Risk Factor Score Per Nursin RFS Level Per Nursing on Admit: 4+=Very High MUKUND RO MD Jun 15, 2017 08:24
[2017-06-15 08:30] VITALS: BP 177/82
--- NOTE | 2017-06-15 08:30 | Cardiology Progress Note ---
Subjective Date Seen by Provider: Jun 15, 2017 Time Seen by Provider: 08:15 Subjective/Events-last exam Patient sitting up in bed. No complaints. Denies any CP or dyspnea. Denies abdominal pain. Review of Systems General: No Night Sweats, No Fatigue, No Malaise HEENT: No Visual Changes, No Dysphasia, No Sore Throat Pulmonary: No Dyspnea, No Cough Cardiovascular: No: Chest Pain, Palpitations, Orthopnea Gastrointestinal: No: Nausea, Vomiting, Abdominal Pain Genitourinary: No Hematuria Musculoskeletal: No: neck pain, back pain Neurological: No: Weakness, Numbness, Change in speech Focused Exam Evaluation Lactate Level Laboratory Tests 06/12/17 17:17: Lactic Acid Level 3.92*H 06/12/17 20:23: Lactic Acid Level 2.15*H 06/12/17 22:28: Lactic Acid Level 1.74 Objective-Cardiology Exam Last Set of Vital Signs Vital Signs 06/15/17 04:16 Temp 97.7 Pulse 76 Resp 18 B/P (MAP) 153/70 (97) Pulse Ox 95 O2 Delivery Nasal Cannula O2 Flow Rate 3.00 Capillary Refill : Less Than 3 Seconds I&O Intake and Output 06/15/17 00:00 Intake Total 1930 ml Output Total 1475 ml Balance 455 ml Intake Oral 830 ml IV Total 1100 ml Output Urine Total 1475 ml # Bowel Movements 1 General: Alert, Oriented X3, Cooperative HEENT: Atraumatic, PERRLA Neck: Supple, No JVD, No Thyromegaly Lungs: Clear to Auscultation, Normal Air Movement Heart: Normal S1, Normal S2, Other (systolic murmur at LSB) Abdomen: Normal Bowel Sounds, Soft, No Tenderness, No Hepatosplenomegaly Extremities: No Clubbing, Other (trace edema BLE) Skin: No Rashes, No Significant Lesion Neuro: Normal Speech, Cranial Nerves 3-12 NL Psych/Mental Status: Mental Status NL, Mood NL Results Lab Laboratory Tests 06/15/17 05:45 A/P-Cardiology Admission Diagnosis Sinus tachycardia Urosepsis CAD Labile HTN Assessment/Plan Sinus tachycardia due to multisystemic illness, improved. Maintained on low dose beta cecily. Continue to monitor. Urosepsis- improving. Continue on antibiotics and continue to monitor. Acute renal failure- improving, continue to monitor renal function. Obstructive uropathy and R hydronephrosis due right-sided UPJ stone that is being manage by Dr Moreira Alzheimer's CAD, as indicated by cor calcifications noted incidentally on abdominal CT at time of this admission H/o labile HTN- blood pressure is controlled. Continue on current medications and continue to monitor. Elevated BNP- I will evaluate 2D Echocardiogram Clinical Quality Measures DVT/VTE Risk/Contraindication: Risk Factor Score Per Nursin RFS Level Per Nursing on Admit: 4+=Very High MARIO LU Jun 15, 2017 08:29
--- NOTE | 2017-06-15 09:16 | Cardiology Progress Note ---
Subjective Date Seen by Provider: Jun 15, 2017 Time Seen by Provider: 09:12 Subjective/Events-last exam Patient was seen at bedside, laying down comfortably, it was reported to me by her family that she was having shortness of breath last night, currently no significant dyspnea, was unable to provide any history due to underlying dementia, I visited with her family members and discussed her condition, events since admission were reviewed Review of Systems General: No Chills, No Night Sweats, Fatigue, Malaise, No Appetite, No Other HEENT: No Head Aches, No Visual Changes, No Eye Pain, No Ear Pain, No Dysphasia , No Sinus Congestion, No Post Nasal Drip, No Sore Throat, No Other Pulmonary: Dyspnea, No Cough, No Pleuritic Chest Pain, No Other Cardiovascular: No: Chest Pain, Palpitations, Orthopnea, Paroxysmal Noc. Dyspnea, Edema, Lt Headedness, Other Focused Exam Evaluation Lactate Level Laboratory Tests 06/12/17 17:17: Lactic Acid Level 3.92*H 06/12/17 20:23: Lactic Acid Level 2.15*H 06/12/17 22:28: Lactic Acid Level 1.74 Objective-Cardiology Exam Last Set of Vital Signs Vital Signs 06/15/17 06/15/17 06/15/17 04:16 07:00 08:00 Temp 97.7 Pulse 82 Resp 18 B/P (MAP) 153/70 (97) Pulse Ox 95 O2 Delivery Nasal Cannula O2 Flow Rate 3.00 Capillary Refill : Less Than 3 Seconds I&O Intake and Output 06/15/17 00:00 Intake Total 1930 ml Output Total 1475 ml Balance 455 ml Intake Oral 830 ml IV Total 1100 ml Output Urine Total 1475 ml # Bowel Movements 1 General: Alert, Cooperative, Other (Confused) HEENT: Atraumatic, PERRLA Neck: Supple, No JVD, No Thyromegaly Lungs: Clear to Auscultation, Normal Air Movement Heart: Normal S1, Normal S2, Other (systolic murmur at LSB) Abdomen: Normal Bowel Sounds, Soft, No Tenderness, No Hepatosplenomegaly Extremities: No Clubbing, Other (trace edema BLE) Skin: No Rashes, No Significant Lesion Neuro: Normal Speech, Cranial Nerves 3-12 NL Psych/Mental Status: Mental Status NL, Mood NL Results Lab Laboratory Tests 06/15/17 05:45 A/P-Cardiology Admission Diagnosis Sinus tachycardia Urosepsis CAD Labile HTN Assessment/Plan Sinus tachycardia due to multisystemic illness, improved. Maintained on low dose beta cecily. Continue to monitor. Status post episode of shortness of breath yesterday, has been on Lasix, BNP elevated, appears to be better today. Planning to evaluate echocardiogram Urosepsis- improving. Continue on antibiotics and continue to monitor. Acute renal failure- improving, continue to monitor renal function. Obstructive uropathy and R hydronephrosis due right-sided UPJ stone that is being manage by Dr Moreira Alzheimer's CAD, as indicated by cor calcifications noted incidentally on abdominal CT at time of this admission H/o labile HTN- blood pressure is controlled. Continue on current medications and continue to monitor. Clinical Quality Measures DVT/VTE Risk/Contraindication: Risk Factor Score Per Nursin RFS Level Per Nursing on Admit: 4+=Very High HENRY HOOPER MD Jun 15, 2017 9:16 am
[2017-06-15] MEDS: ONDANSETRON 4 MG/2 ML (SDV) Z0FRAN IV PRN ×2 (09:33→18:54)
--- NOTE | 2017-06-15 09:56 | Progress Note-Urology ---
Progress Note-Urology Progress Notes/Assess & Plan Progress/Assessment & Plan WHITE COUNT IMPROVING. GOOD URINE OP. CLEAR HEAVEN YELLOW. MAY DC RING IF NOT NEEDED MEDICALLY. ALSO GET MAT PROTOCOL WITH RT Final Diagnosis UROLITHIASES, RT RENAL OBSTRUCTION, PNEUMONIA, ATELECTASES, AND SEPSIS YOLANDA DALLAS MD Jun 15, 2017 09:55
[2017-06-15 10:26] VITALS: BP 177/82
[2017-06-15] MEDS ORDERED: RT-ALBUTEROL SULF 2.5 MG/3 ML PRE-MIX VIAL INH PRN (10:45)
--- NOTE | 2017-06-15 11:54 | Physical Therapy Evaluation ---
PT Evaluation-General Medical Diagnosis Admission Date Jun 11, 2017 at 22:14 Medical Diagnosis: severe sepsis Onset Date: Jun 11, 2017 Therapy Diagnosis Therapy Diagnosis: debility/weakness Height/Weight Height (Feet): 5 Height (Inches): 3.00 Weight (Pounds): 114 Weight (Ounces): 2.0 Precautions Precautions/Isolations: Fall Prevention, Standard Precautions Weight Bear Status Right Lower Extremity: Right Full Weight Bearing Left Lower Extremity: Left Full Weight Bearing Referral Physician: Shae Reason for Referral: Evaluation/Treatment Medical History Pertinent Medical History: Dementia, GERD, Renal Insufficiency Current History acute pancreatitis/ED with N&V Reviewed History: Yes Social History Home: Single Level Current Living Status: Spouse Prior/Core FIM Prior Level of Function Functional [place] Measure 0=Not Assessed/NA 4=Minimal Assistance 1=Total Assistance 5=Supervision or Setup 2=Maximal Assistance 6=Modified [place] 3=Moderate Assistance 7=Complete [place] Bed Mobility: 2 Transfers (B,C,W/C) (FIM): 2 Gait: 0 spouse is primary caregiver and assist patient with all mobility/ patient is nonambulatory PLOF PT Evaluation-Current Subjective Family agrees to PT. Pain Numeric Pain Scale: 0-No Pain Location: No Pain Reported Objective Patient Orientation: Confused Problem Solving: Poor Attachments: Oxygen, Vaughn Catheter, IV ROM/Strength ROM Lower Extremities bilateral LE WNL Strength Lower Extremities 3-/5 grossly bilaterally Integumentary/Posture Integumentary refer to nursing notes Bladder Incontinence: Vaughn Cath Posture right lean, kyphotic posture Neuromuscular (Tone, Coordination, Reflexes) severely diminished coordination and tone due to inactivity PLOF and dementia Sensory Vision: Functional Hearing: Impaired Sensation Right Lower Extremit: Intact Sensation Left Lower Extremity: Intact Transfers Functional [place] Measure 0=Not Assessed/NA 4=Minimal Assistance 1=Total Assistance 5=Supervision or Setup 2=Maximal Assistance 6=Modified [place] 3=Moderate Assistance 7=Complete [place] Transfers (B, C, W/C) (FIM): 2 Scootin Rollin Supine to/from Sit: 2 bed t/f WC(FIM only if WC use): 2 max assist with SPT Balance Sitting Static: Fair Sitting Dynamic: Fair Standing Static: Poor Standing Dynamic: Poor Assessment/Needs 87 y.o. female, whose family reports she is in bed or a chair at home with the maximum assist of spouse, will be seen short term by skilled PT to address transfers and bed mobility. PT instructed RN to utilize gait belt and 2 assist with transfers for safety. RN voiced understanding. Rehab Potential: Fair PT Short Term Goals Short Term Goals Time Frame: Jun 19, 2017 Transfers (B,C,W/C) (FIM): 2 PT Plan Problem List Problem List: Activity Tolerance, Functional Strength, Balance, Transfer, Bed Mobility Treatment/Plan Treatment Plan: Continue Plan of Care Treatment Plan: Bed Mobility, Education, Functional Activity Mee, Functional Strength, Safety, Therapeutic Exercise, Transfers Treatment Duration: Jun 19, 2017 Frequency: 5 times per week Estimated Hrs Per Day: .25 hour per day Patient and/or Family Agrees t: Yes Discharge Recommendations Therapy D/C Recommendations: Home w/ Family Support Time/GCodes Time In: 1120 Time Out: 1135 Total Billed Treatment Time: 15 Total Billed Treatment 1 visit EVModC 15 min G Codes Necessary: GARY Nuñez PT Jun 15, 2017 11:54
[2017-06-15 12:30] VITALS: BP 170/85
[2017-06-15] MEDS: CEFEPIME 2 GM/NS 100 ML IVPB IV SCH ×2 (14:50)
[2017-06-15 15:41] VITALS: BP 172/73
[2017-06-15] MEDS: RT-ALBUTEROL SULF 2.5 MG/3 ML PRE-MIX VIAL INH SCH ×3 (15:50→23:06)
[2017-06-15] MEDS: ENOXAPARIN 30 MG/0.3 ML (LOVENOX) SYR SC SCH (17:41)
[2017-06-16 00:52] VITALS: BP 138/63
[2017-06-16] MEDS: RT-ALBUTEROL SULF 2.5 MG/3 ML PRE-MIX VIAL INH SCH ×6 (03:17→22:31)
--- NOTE | 2017-06-16 07:56 | Pulmonary Progress Note ---
Subjective Time Seen by Provider: 07:56 Subjective/Events-last exam No complications noted. Exam Exam Vital Signs Date Time Temp Pulse Resp B/P (MAP) Pulse Ox O2 Delivery O2 Flow Rate FiO2 06/16/17 07:09 Nasal Cannula 1.00 91 06/16/17 03:18 90 Room Air 06/16/17 01:00 93 06/16/17 00:52 98.1 95 18 138/63 (88) 95 Nasal Cannula 3.00 06/15/17 23:06 95 Nasal Cannula 3.00 06/15/17 20:00 Nasal Cannula 3.00 06/15/17 19:00 99 06/15/17 18:51 94 Nasal Cannula 3.00 06/15/17 15:50 91 Nasal Cannula 3.00 06/15/17 15:41 98.9 98 16 172/73 (106) 95 Nasal Cannula 3.00 06/15/17 13:00 89 06/15/17 12:30 99.4 97 16 170/85 (113) 94 Nasal Cannula 3.00 06/15/17 11:42 94 Nasal Cannula 3.00 06/15/17 10:26 94 Nasal Cannula 3.00 06/15/17 10:26 88 94 06/15/17 08:30 98.0 88 16 177/82 (113) 93 Nasal Cannula 3.00 06/15/17 08:00 Nasal Cannula 3.00 I & O 06/16/17 07:00 Intake Total 2240 ml Output Total 6750 ml Balance -4510 ml General Appearance: No Apparent Distress HEENT: Moist Mucous Membranes Neck: Supple Respiratory: Lungs Clear (In the apical region), Rales (And decreased breath sounds in the bases) Cardiovascular: Regular Rate, Rhythm Capillary Refill: Less Than 3 Seconds Gastrointestinal: soft Extremity: Normal Capillary Refill Neurologic/Psychiatric: Alert, No Oriented x3 (Person and place but not time or situation), No Motor/Sensory Deficits, Normal 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 232 BRANNON MENON DO Jun 16, 2017 07:56
[2017-06-16 08:00] VITALS: BP 141/64
[2017-06-16] MEDS ORDERED: FUROSEMIDE 40 MG/4 ML INJ (LASIX) IVP NR (08:00)
[2017-06-16] MEDS ORDERED: KCL 20 MEQ TAB (K-DUR) PO NR (08:00)
--- NOTE | 2017-06-16 08:13 | Progress Note (SOAP) ---
Subjective Date Seen by Provider: Jun 16, 2017 Time Seen by Provider: 07:30 Subjective/Events-last exam Patient does not voice any current complaints. Objective Exam Vital Signs Date Time Temp Pulse Resp B/P (MAP) Pulse Ox O2 Delivery O2 Flow Rate FiO2 06/16/17 07:09 Nasal Cannula 1.00 91 06/16/17 03:18 90 Room Air 06/16/17 01:00 93 06/16/17 00:52 98.1 95 18 138/63 (88) 95 Nasal Cannula 3.00 06/15/17 23:06 95 Nasal Cannula 3.00 06/15/17 20:00 Nasal Cannula 3.00 06/15/17 19:00 99 06/15/17 18:51 94 Nasal Cannula 3.00 06/15/17 15:50 91 Nasal Cannula 3.00 06/15/17 15:41 98.9 98 16 172/73 (106) 95 Nasal Cannula 3.00 06/15/17 13:00 89 06/15/17 12:30 99.4 97 16 170/85 (113) 94 Nasal Cannula 3.00 06/15/17 11:42 94 Nasal Cannula 3.00 06/15/17 10:26 94 Nasal Cannula 3.00 06/15/17 10:26 88 94 06/15/17 08:30 98.0 88 16 177/82 (113) 93 Nasal Cannula 3.00 I & O 06/16/17 07:00 Intake Total 2240 ml Output Total 6750 ml Balance -4510 ml Capillary Refill : Less Than 3 Seconds General Appearance: No Apparent Distress (Resting comfortably without dyspnea) Respiratory: Rales (Noted in the apical region) Cardiovascular: Regular Rate, Rhythm (With occasional ectopy) Gastrointestinal: soft Results Lab Microbiology 06/11/17 Blood Culture - Preliminary, Resulted Streptococcus viridans See Comments 06/12/17 MRSA Screen - Final, Complete MRSA not isolated 06/11/17 Urine Culture - Final, Complete Morganella morganii Pseudomonas aeruginosa Assessment/Plan Assessment/Plan Assess & Plan/Chief Complaint 1. Urosepsis along with pneumonia -Patient admitted to intensive care unit and is receiving IV antibiotics--IV Rocephin and Zosyn 06/13 -Day number 2 of IV antibiotics and day number 2 of cefepime 4/ -Day number 3 of cefepime /2 -Day number 4 of cefepime -Up in chair 3 times daily -Incentive spirometer -Pulmonary gave dose of Lasix today for the bibasilar effusions 06/16 -Day number 5 cefepime (she will need 10 days total) 2. Acute renal insufficiency -IV fluid rehydration 06/13-IV fluid rate decreased to 125 mL per hour since she appears to be clinically improved 06/14-continue to decrease fluids since she is taking in po fairly well 06/16 -IV fluids of been discontinued as of yesterday due to the fluid overload. She responded well to Lasix -Cardiology input noted 3. Right-sided ureteral stone -Urological consultation 4. Acute renal insufficiency -Monitor creatinine 5. Alzheimer's -Patient be maintain on Namenda Clinical Quality Measures Admission Status Admission Dx 1. Urosepsis -Patient admitted to intensive care unit and is receiving IV antibiotics--IV Rocephin and Zosyn 2. Acute renal insufficiency -IV fluid rehydration 3. Right-sided ureteral stone -Urological consultation 4. Alzheimer's -Patient be maintain on Namenda DVT/VTE Risk/Contraindication: Risk Factor Score Per Nursin RFS Level Per Nursing on Admit: 4+=Very High MUKUND RO MD Jun 16, 2017 08:13
--- NOTE | 2017-06-16 08:20 | Cardiology Progress Note ---
Subjective Date Seen by Provider: Jun 16, 2017 Time Seen by Provider: 08:19 Subjective/Events-last exam Patient is sitting up in bed, no new complaints. Denies any dyspnea or cough. Review of Systems General: No Night Sweats, No Fatigue, No Malaise HEENT: No Visual Changes, No Dysphasia Pulmonary: No Dyspnea, No Cough Cardiovascular: No: Chest Pain, Palpitations, Edema Gastrointestinal: No: Nausea, Vomiting, Abdominal Pain Genitourinary: No Dysuria, No Frequency Musculoskeletal: No: neck pain, back pain Neurological: No: Weakness, Numbness, Change in speech, Confusion Objective-Cardiology Exam Last Set of Vital Signs Vital Signs 06/16/17 06/16/17 06/16/17 06/16/17 00:52 01:00 03:18 07:09 Temp 98.1 Pulse 93 Resp 18 B/P (MAP) 138/63 (88) Pulse Ox 90 O2 Delivery Nasal Cannula O2 Flow Rate 1.00 FiO2 91 Capillary Refill : Less Than 3 Seconds I&O Intake and Output 06/16/17 00:00 Intake Total 1740 ml Output Total 6400 ml Balance -4660 ml Intake Oral 740 ml IV Total 1000 ml Output Urine Total 6400 ml # Bowel Movements 2 General: Alert, Cooperative, Other (pleasantly confused) HEENT: Atraumatic, PERRLA Neck: Supple, No JVD, No Thyromegaly Lungs: Clear to Auscultation, Normal Air Movement Heart: Normal S1, Normal S2, Other (systolic murmur at LSB) Abdomen: Normal Bowel Sounds, Soft, No Tenderness, No Hepatosplenomegaly Extremities: No Clubbing, Other (trace edema BLE) Skin: No Rashes, No Significant Lesion Neuro: Normal Speech, Cranial Nerves 3-12 NL Psych/Mental Status: Mental Status NL, Mood NL A/P-Cardiology Admission Diagnosis Sinus tachycardia Urosepsis CAD Labile HTN Assessment/Plan Sinus tachycardia due to multisystemic illness, improved. Maintained on low dose beta cecily. Continue to monitor. Status post episode of shortness of breath yesterday, has been on Lasix, BNP elevated, appears to be better today. Results of 2D Echo pending. Urosepsis- improving. Continue on antibiotics and continue to monitor. Acute renal failure- improving, continue to monitor renal function. Obstructive uropathy and R hydronephrosis due right-sided UPJ stone that is being manage by Dr Moreira Alzheimer's CAD, as indicated by cor calcifications noted incidentally on abdominal CT at time of this admission H/o labile HTN- blood pressure is controlled. Continue on current medications and continue to monitor. Clinical Quality Measures DVT/VTE Risk/Contraindication: Risk Factor Score Per Nursin RFS Level Per Nursing on Admit: 4+=Very High MARIO LU Jun 16, 2017 08:20
[2017-06-16] MEDS: MEMANTINE 5 MG (NAMENDA) TABLET PO SCH ×2 (09:35→20:26)
[2017-06-16] MEDS: QUEtiapine 25 MG (SEROquel) TAB IMMEDIATE RELEASE PO SCH ×2 (09:35→20:26)
[2017-06-16] MEDS ORDERED: ASPI-586 PO (09:36)
--- NOTE | 2017-06-16 11:45 | Progress Note-Urology ---
Progress Note-Urology Progress Notes/Assess & Plan Progress/Assessment & Plan UC & S RESULTS SHOW BOTH ORGANISMS SENSITIVE TO CIPRO WHICH COULD BE USED OP IF NEEDED Final Diagnosis SEPSIS, RT RENAL OBSTRUCTION, UROLITHIASES AND PNEUMONIA YOLANDA DALLAS MD Jun 16, 2017 11:45
--- NOTE | 2017-06-16 13:20 | Cardiology Progress Note ---
Subjective Date Seen by Provider: Jun 16, 2017 Time Seen by Provider: 08:00 Subjective/Events-last exam Patient is laying down in bed, no new complaint, no chest pain or shortness of breath. No palpitation. Review of Systems General: No Chills, No Night Sweats, No Fatigue, No Malaise, No Appetite, No Other HEENT: No Head Aches, No Visual Changes, No Eye Pain, No Ear Pain, No Dysphasia , No Sinus Congestion, No Post Nasal Drip, No Sore Throat, No Other Pulmonary: Dyspnea, No Cough, No Pleuritic Chest Pain, No Other Cardiovascular: No: Chest Pain, Palpitations, Orthopnea, Paroxysmal Noc. Dyspnea, Edema, Lt Headedness, Other Objective-Cardiology Exam Last Set of Vital Signs Vital Signs 06/16/17 06/16/17 08:00 10:35 Temp 99.8 Pulse 78 Resp 20 B/P (MAP) 141/64 (89) Pulse Ox 95 O2 Delivery Nasal Cannula O2 Flow Rate 1.00 Capillary Refill : Less Than 3 Seconds I&O Intake and Output 06/15/17 23:59 Intake Total 1740 ml Output Total 6400 ml Balance -4660 ml Intake Oral 740 ml IV Total 1000 ml Output Urine Total 6400 ml # Bowel Movements 2 General: Alert, Cooperative, Other (pleasantly confused) HEENT: Atraumatic, PERRLA Neck: Supple, No JVD, No Thyromegaly Lungs: Clear to Auscultation, Normal Air Movement Heart: Normal S1, Normal S2, Other (systolic murmur at LSB) Abdomen: Normal Bowel Sounds, Soft, No Tenderness, No Hepatosplenomegaly Extremities: No Clubbing, Other (trace edema BLE) Skin: No Rashes, No Significant Lesion Neuro: Normal Speech, Cranial Nerves 3-12 NL Psych/Mental Status: Mental Status NL, Mood NL A/P-Cardiology Admission Diagnosis Sinus tachycardia Urosepsis CAD Labile HTN Assessment/Plan Sinus tachycardia due to multisystemic illness, improved. Maintained on low dose beta cecily. Continue to monitor. Short of breath, Better, on Lasix again today, Echo is normal LV function, continue to monitor labs, CXR in am Urosepsis- improving. Continue on antibiotics and continue to monitor. Acute renal failure- improving, continue to monitor renal function. Obstructive uropathy and R hydronephrosis due right-sided UPJ stone that is being manage by Dr Moreira Alzheimer's CAD, as indicated by cor calcifications noted incidentally on abdominal CT at time of this admission H/o labile HTN- blood pressure is controlled. Continue on current medications and continue to monitor. Clinical Quality Measures DVT/VTE Risk/Contraindication: Risk Factor Score Per Nursin RFS Level Per Nursing on Admit: 4+=Very High HENRY HOOPER MD Jun 16, 2017 13:20
[2017-06-16] MEDS: IBUPROFEN 800 MG (MOTRIN) TAB PO PRN ×2 (14:06→20:27)
--- NOTE | 2017-06-16 14:41 | Physical Therapy Daily Note ---
PT Daily Note-Current Subjective Family request patient return to bed due to fatigue. Pain Numeric Pain Scale: 0-No Pain Location: No Pain Reported Mental Status Patient Orientation: Confused Attachments: Oxygen, Vaughn Catheter Transfers Functional [place] Measure 0=Not Assessed/NA 4=Minimal Assistance 1=Total Assistance 5=Supervision or Setup 2=Maximal Assistance 6=Modified [place] 3=Moderate Assistance 7=Complete IndependenceIRFPAI Quality Coding Scale 6 Independent with activity with or without an assistive device 5 Patient requires set up or clean up by helper. Patient completes activity by themselves 4 Supervision or touching assist (CGA). [place] provide cues , steadying assist 3 The helper provides less than half the effort to complete the activity 2 The helper provides more than half the effort to complete the activity 1 Dependent. The helper does all the effort to complete an activity 7 Patient refused to complete or attempt activity 9 The patient did not perform the activity before the current illness or injury 88 Not attempted due to Medical conditions or safety concerns Transfers (B, C, W/C) (FIM): 2 Scootin Rollin Supine to/from Sit: 2 Sit to/from Stand: 2 Bed to/from Chair: 2 max assist SPT recliner to bed and to supine in bed. Weight Bearing Right Lower Extremity: Right Full Weight Bearing Left Lower Extremity: Left Full Weight Bearing Assessment Patient returned to bed with all 4 rails up and family remaining in room. PT Short Term Goals Short Term Goals Time Frame: Jun 19, 2017 Transfers (B,C,W/C) (FIM): 2 PT Plan Treatment/Plan Treatment Plan: Continue Plan of Care Treatment Plan: Bed Mobility, Education, Functional Activity Mee, Functional Strength, Safety, Therapeutic Exercise, Transfers Treatment Duration: Jun 19, 2017 Frequency: 5 times per week Estimated Hrs Per Day: .25 hour per day Patient and/or Family Agrees t: Yes Time/GCodes Time In: 1401 Time Out: 1415 Total Billed Treatment Time: 14 Total Billed Treatment 1 visit FA 14 min GARY THAO PT Jun 16, 2017 14:41
[2017-06-16 16:00] VITALS: BP 122/58
[2017-06-16] MEDS: CEFEPIME 2 GM/NS 100 ML IVPB IV SCH ×2 (18:05)
[2017-06-16] MEDS: ENOXAPARIN 30 MG/0.3 ML (LOVENOX) SYR SC SCH (18:05)
[2017-06-16] MEDS: ONDANSETRON 4 MG/2 ML (SDV) Z0FRAN IV PRN (20:33)
[2017-06-17 00:19] VITALS: BP 141/61
[2017-06-17] MEDS: RT-ALBUTEROL SULF 2.5 MG/3 ML PRE-MIX VIAL INH SCH ×6 (03:22→22:39)
[2017-06-17] MEDS ORDERED: KCL 20 MEQ TAB (K-DUR) PO ONE (05:45)
[2017-06-17] MEDS ORDERED: FUROSEMIDE 40 MG/4 ML INJ (LASIX) IVP ONE (05:45)
--- NOTE | 2017-06-17 05:45 | Pulmonary Progress Note ---
Subjective Time Seen by Provider: 05:44 Subjective/Events-last exam No complications noted. Exam Exam Vital Signs Date Time Temp Pulse Resp B/P (MAP) Pulse Ox O2 Delivery O2 Flow Rate FiO2 06/17/17 03:22 93 Nasal Cannula 1.00 06/17/17 01:00 88 06/17/17 00:19 98.3 94 16 141/61 (87) 93 Nasal Cannula 3.00 06/16/17 22:31 92 Nasal Cannula 1.00 06/16/17 20:00 Nasal Cannula 3.00 06/16/17 19:00 93 06/16/17 18:45 94 Nasal Cannula 1.50 06/16/17 16:00 99.4 96 18 122/58 (79) 94 Nasal Cannula 3.00 06/16/17 15:16 90 Nasal Cannula 1.00 06/16/17 13:00 98 06/16/17 10:35 Nasal Cannula 1.00 06/16/17 08:00 99.8 78 20 141/64 (89) 95 Nasal Cannula 3.00 06/16/17 08:00 Nasal Cannula 3.00 06/16/17 07:09 91 Nasal Cannula 1.00 06/16/17 07:00 70 I & O 06/17/17 07:00 Intake Total 1240 ml Output Total 3575 ml Balance -2335 ml General Appearance: No Apparent Distress (Resting comfortably without dyspnea) HEENT: Moist Mucous Membranes Neck: Supple Respiratory: Rales (Noted in the apical region) Cardiovascular: Regular Rate, Rhythm (With occasional ectopy) Capillary Refill: Less Than 3 Seconds Gastrointestinal: soft Extremity: Normal Capillary Refill Neurologic/Psychiatric: Alert, No Oriented x3 (Person and place but not time or situation), No Motor/Sensory Deficits, Normal 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 I am going to sign off please call with any questions or concerns. 232 BRANNON MENON DO Jun 17, 2017 05:45
[2017-06-17 05:52] LABS: HEMOGLOBIN 9.4 G/DL (11.5-16.0); MEAN PLATELET VOLUME 9.1 FL (7.4-10.4); RED BLOOD COUNT 3.25 10^6/uL (4.35-5.85); RED CELL DISTRIBUTION WIDTH 13.3 % (10.0-14.5); WHITE BLOOD COUNT 7.7 10^3/uL (4.3-11.0)
[2017-06-17 06:13] LABS: CALCIUM 7.5 MG/DL (8.5-10.1); CREATININE SERUM 1.06 MG/DL (0.60-1.30)
[2017-06-17 07:41] VITALS: BP 159/67
--- NOTE | 2017-06-17 08:07 | Progress Note (SOAP) ---
Subjective Date Seen by Provider: Jun 17, 2017 Time Seen by Provider: 07:15 Subjective/Events-last exam Patient predominantly lying in bed. She appears to be in no acute distress. She does have Vaughn catheter still in place. She is on 1 L nasal cannula oxygen. She voices no complaints today. She does not appear to be short of breath. Objective Exam Vital Signs Date Time Temp Pulse Resp B/P (MAP) Pulse Ox O2 Delivery O2 Flow Rate FiO2 06/17/17 07:41 98.7 88 18 159/67 (97) 92 Nasal Cannula 3.00 06/17/17 07:00 89 06/17/17 06:56 92 Nasal Cannula 1.00 06/17/17 03:22 93 Nasal Cannula 1.00 06/17/17 01:00 88 06/17/17 00:19 98.3 94 16 141/61 (87) 93 Nasal Cannula 3.00 06/16/17 22:31 92 Nasal Cannula 1.00 06/16/17 20:00 Nasal Cannula 3.00 06/16/17 19:00 93 06/16/17 18:45 94 Nasal Cannula 1.50 06/16/17 16:00 99.4 96 18 122/58 (79) 94 Nasal Cannula 3.00 06/16/17 15:16 90 Nasal Cannula 1.00 06/16/17 13:00 98 06/16/17 10:35 Nasal Cannula 1.00 I & O 06/17/17 07:00 Intake Total 1440 ml Output Total 4375 ml Balance -2935 ml Capillary Refill : Less Than 3 Seconds General Appearance: No Apparent Distress Neck: Supple Respiratory: Decreased Breath Sounds (In basis) Cardiovascular: Regular Rate, Rhythm Gastrointestinal: soft Results Lab Laboratory Tests 06/17/17 05:28: White Blood Count 7.7, Red Blood Count 3.25L, Hemoglobin 9.4L, Hematocrit 29L, Mean Corpuscular Volume 88, Mean Corpuscular Hemoglobin 29, Mean Corpuscular Hemoglobin Concent 33, Red Cell Distribution Width 13.3, Platelet Count 224, Mean Platelet Volume 9.1, Sodium Level 141, Potassium Level 3.0L, Chloride Level 103, Carbon Dioxide Level 30, Anion Gap 8, Blood Urea Nitrogen 20H, Creatinine 1.06, Estimat Glomerular Filtration Rate 49, BUN/Creatinine Ratio 19 , Glucose Level 127H, Calcium Level 7.5L, B-Type Natriuretic Peptide 568.0H Microbiology 06/11/17 Blood Culture - Preliminary, Resulted Streptococcus viridans See Comments 06/12/17 MRSA Screen - Final, Complete MRSA not isolated 06/11/17 Urine Culture - Final, Complete Morganella morganii Pseudomonas aeruginosa Assessment/Plan Assessment/Plan Assess & Plan/Chief Complaint 1. Urosepsis along with pneumonia -Patient admitted to intensive care unit and is receiving IV antibiotics--IV Rocephin and Zosyn 06/13 -Day number 2 of IV antibiotics and day number 2 of cefepime 06/14 -Day number 3 of cefepime 06/15 -Day number 4 of cefepime -Up in chair 3 times daily -Incentive spirometer -Pulmonary gave dose of Lasix today for the bibasilar effusions 06/16 -Day number 5 cefepime (she will need 10 days total) 06/17 -Day number 6 of cefepime -Will need ambulatory oxygen desaturation test to see how she does eventually off the nasal cannula oxygen -Vaughn catheter still in place and will need to consult with urology on when this may be pulled. -Physical therapy for strengthening 2. Acute renal insufficiency -IV fluid rehydration 06/13-IV fluid rate decreased to 125 mL per hour since she appears to be clinically improved 06/14-continue to decrease fluids since she is taking in po fairly well 06/16 -IV fluids of been discontinued as of yesterday due to the fluid overload. She responded well to Lasix -Cardiology input noted 3. Right-sided ureteral stone -Urological consultation 4. Acute renal insufficiency -Monitor creatinine 5. Alzheimer's -Patient be maintain on Namenda Clinical Quality Measures Admission Status Admission Dx 1. Urosepsis -Patient admitted to intensive care unit and is receiving IV antibiotics--IV Rocephin and Zosyn 2. Acute renal insufficiency -IV fluid rehydration 3. Right-sided ureteral stone -Urological consultation 4. Alzheimer's -Patient be maintain on Namenda DVT/VTE Risk/Contraindication: Risk Factor Score Per Nursin RFS Level Per Nursing on Admit: 4+=Very High MUKUND RO MD Jun 17, 2017 08:07
--- NOTE | 2017-06-17 08:40 | Cardiology Progress Note ---
Subjective Date Seen by Provider: Jun 17, 2017 Time Seen by Provider: 08:39 Subjective/Events-last exam Patient is in bed, no new complaints. Denies any CP or dyspnea. Review of Systems General: No Night Sweats, No Fatigue, No Malaise HEENT: No Visual Changes, No Dysphasia, No Sore Throat Pulmonary: No Dyspnea, No Cough Cardiovascular: No: Chest Pain, Palpitations Gastrointestinal: No: Nausea, Vomiting Genitourinary: No Dysuria, No Frequency Musculoskeletal: No: neck pain, back pain Neurological: No: Weakness, Numbness, Change in speech, Confusion Objective-Cardiology Exam Last Set of Vital Signs Vital Signs 06/17/17 07:41 Temp 98.7 Pulse 88 Resp 18 B/P (MAP) 159/67 (97) Pulse Ox 92 O2 Delivery Nasal Cannula O2 Flow Rate 3.00 Capillary Refill : Less Than 3 Seconds I&O Intake and Output 06/17/17 00:00 Intake Total 2840 ml Output Total 4525 ml Balance -1685 ml Intake Oral 1640 ml IV Total 1200 ml Output Urine Total 4525 ml # Bowel Movements 1 General: Alert, Cooperative, Other (pleasantly confused) HEENT: Atraumatic, PERRLA Neck: Supple, No JVD, No Thyromegaly Lungs: Clear to Auscultation, Normal Air Movement Heart: Normal S1, Normal S2, Other (systolic murmur at LSB) Abdomen: Normal Bowel Sounds, Soft, No Tenderness, No Hepatosplenomegaly Extremities: No Clubbing, Other (trace edema BLE) Skin: No Rashes, No Significant Lesion Neuro: Normal Speech, Cranial Nerves 3-12 NL Psych/Mental Status: Mental Status NL, Mood NL Results Lab Laboratory Tests 06/17/17 05:28 A/P-Cardiology Admission Diagnosis Sinus tachycardia Urosepsis CAD Labile HTN Assessment/Plan Sinus tachycardia due to multisystemic illness, improved. Maintained on low dose beta cecily. Continue to monitor. Short of breath, Better, on Lasix, Echo is normal LV function, continue to monitor labs. Urosepsis- improving. Continue on antibiotics and continue to monitor. Acute renal failure- improving, continue to monitor renal function. Obstructive uropathy and R hydronephrosis due right-sided UPJ stone that is being manage by Dr Moreira Alzheimer's CAD, as indicated by cor calcifications noted incidentally on abdominal CT at time of this admission H/o labile HTN- blood pressure is controlled. Continue on current medications and continue to monitor. Clinical Quality Measures DVT/VTE Risk/Contraindication: Risk Factor Score Per Nursin RFS Level Per Nursing on Admit: 4+=Very High MARIO LU Jun 17, 2017 08:40
[2017-06-17] MEDS: QUEtiapine 25 MG (SEROquel) TAB IMMEDIATE RELEASE PO SCH ×2 (09:28→21:25)
[2017-06-17] MEDS: MEMANTINE 5 MG (NAMENDA) TABLET PO SCH ×2 (09:28→21:25)
--- NOTE | 2017-06-17 11:29 | Physical Therapy Daily Note ---
PT Daily Note-Current Subjective Pt laying Supine in bed, very drowsy upon arrival. Pt agrees to PT. Pain Location: No Pain Reported Mental Status Patient Orientation: Person, Place Attachments: Oxygen, Vaughn Catheter Pt very drowsy, hard to keep awake during tx. Transfers Functional [place] Measure 0=Not Assessed/NA 4=Minimal Assistance 1=Total Assistance 5=Supervision or Setup 2=Maximal Assistance 6=Modified [place] 3=Moderate Assistance 7=Complete IndependenceIRFPAI Quality Coding Scale 6 Independent with activity with or without an assistive device 5 Patient requires set up or clean up by helper. Patient completes activity by themselves 4 Supervision or touching assist (CGA). [place] provide cues , steadying assist 3 The helper provides less than half the effort to complete the activity 2 The helper provides more than half the effort to complete the activity 1 Dependent. The helper does all the effort to complete an activity 7 Patient refused to complete or attempt activity 9 The patient did not perform the activity before the current illness or injury 88 Not attempted due to Medical conditions or safety concerns Weight Bearing Right Lower Extremity: Right Full Weight Bearing Left Lower Extremity: Left Full Weight Bearing Exercises Supine Ex: Ankle pumps, Quad Set, Straight leg raise, Hip abd/add Supine Reps: 15 Treatments Pt completes Supine Ex in bed with a couple of rest breaks. DRIFT MINER had to awake pt when pt fell asleep. Pt resting in bed at end of tx with all needs met, including call light. Assessment Current Status: Fair Progress Pt completes Ex with occasional AAROM. Pt falls asleep several times during tx and DRIFT MINER wakes up pt. PT Short Term Goals Short Term Goals Time Frame: Jun 19, 2017 Transfers (B,C,W/C) (FIM): 2 PT Plan Problem List Problem List: Activity Tolerance, Functional Strength, Safety, Balance, Gait, Transfer, Bed Mobility Treatment/Plan Treatment Plan: Continue Plan of Care Treatment Plan: Bed Mobility, Education, Functional Activity Mee, Functional Strength, Safety, Therapeutic Exercise, Transfers Treatment Duration: Jun 19, 2017 Frequency: 5 times per week Estimated Hrs Per Day: .25 hour per day Patient and/or Family Agrees t: Yes Safety Risks/Education Patient Education: Correct Positioning, Safety Issues Teaching Recipient: Patient Teaching Methods: Discussion Response to Teaching: Reinforcement Needed Time/GCodes Time In: 1020 Time Out: 1033 Total Billed Treatment Time: 13 Total Billed Treatment 1, EX (13m) DANIELA HARRY DRIFT MINER Jun 17, 2017 11:29
--- NOTE | 2017-06-17 11:38 | Cardiology Progress Note ---
Subjective Date Seen by Provider: Jun 17, 2017 Time Seen by Provider: 11:37 Subjective/Events-last exam patient is laying down in bed, complaining of generalized body ache, no significant dyspnea, no chest pain. No palpitation Review of Systems General: No Chills, No Night Sweats, Fatigue, Malaise, No Appetite, No Other HEENT: No Head Aches, No Visual Changes, No Eye Pain, No Ear Pain, No Dysphasia , No Sinus Congestion, No Post Nasal Drip, No Sore Throat, No Other Pulmonary: No Dyspnea, No Cough, No Pleuritic Chest Pain, No Other Cardiovascular: No: Chest Pain, Palpitations, Orthopnea, Paroxysmal Noc. Dyspnea, Edema, Lt Headedness, Other Objective-Cardiology Exam Last Set of Vital Signs Vital Signs 06/17/17 06/17/17 07:41 10:37 Temp 98.7 Pulse 88 Resp 18 B/P (MAP) 159/67 (97) Pulse Ox 95 O2 Delivery Nasal Cannula O2 Flow Rate 1.00 Capillary Refill : Less Than 3 Seconds I&O Intake and Output 06/17/17 00:00 Intake Total 2840 ml Output Total 4525 ml Balance -1685 ml Intake Oral 1640 ml IV Total 1200 ml Output Urine Total 4525 ml # Bowel Movements 1 General: Alert, Cooperative, Other (pleasantly confused) HEENT: Atraumatic, PERRLA Neck: Supple, No JVD, No Thyromegaly Lungs: Clear to Auscultation, Normal Air Movement Heart: Normal S1, Normal S2, Other (systolic murmur at LSB) Abdomen: Normal Bowel Sounds, Soft, No Tenderness, No Hepatosplenomegaly Extremities: No Clubbing, Other (trace edema BLE) Skin: No Rashes, No Significant Lesion Neuro: Normal Speech, Cranial Nerves 3-12 NL Psych/Mental Status: Mental Status NL, Mood NL Results Lab Laboratory Tests 06/17/17 05:28 A/P-Cardiology Admission Diagnosis Sinus tachycardia Urosepsis CAD Labile HTN Assessment/Plan Status post tachycardia, sinus secondary to sepsis, improved at this time. Continue to monitor Short of breath, Better, on Lasix, Echo is normal LV function, continue to monitor labsI had a chest x-ray done today. Urosepsis- improving. Continue on antibiotics and continue to monitor. Acute renal failure- improving, continue to monitor renal function. Obstructive uropathy and R hydronephrosis due right-sided UPJ stone that is being manage by Dr Moreira Alzheimer's CAD, as indicated by cor calcifications noted incidentally on abdominal CT at time of this admission H/o labile HTN- blood pressure is controlled. Continue on current medications and continue to monitor. Clinical Quality Measures DVT/VTE Risk/Contraindication: Risk Factor Score Per Nursin RFS Level Per Nursing on Admit: 4+=Very High HENRY HOOPER MD Jun 17, 2017 11:38
--- NOTE | 2017-06-17 14:24 | Diagnostic Imaging Report ---
EXAMINATION: PA and lateral chest at 12:10 p.m. INDICATION: Followup dyspnea. FINDINGS: As on the prior exam of 06/14/2017, there is shallow inspiration. Allowing for this technical factor, the heart is stable. The lungs do seem better aerated particularly in both perihilar regions. There is still atelectasis/infiltrate and fluid involving both lung bases, however. The upper lungs remain clear. The mediastinum is not widened. The osseous structures are intact. IMPRESSION: The appearance of the chest has improved as both perihilar regions are better aerated. There is still some residual abnormal density in each perihilar region, however. There is also persistent bibasilar pneumonia/atelectasis. A follow-up exam will be recommended for continued study. Dictated by: Dictated on workstation # [id number]
[2017-06-17] MEDS: IBUPROFEN 800 MG (MOTRIN) TAB PO PRN (15:18)
[2017-06-17] MEDS: CEFEPIME 2 GM/NS 100 ML IVPB IV SCH ×2 (15:21)
[2017-06-17 16:00] VITALS: BP 125/60
[2017-06-17] MEDS: ENOXAPARIN 30 MG/0.3 ML (LOVENOX) SYR SC SCH (16:41)
[2017-06-18] VITALS: BP 147/70
[2017-06-18] MEDS: RT-ALBUTEROL SULF 2.5 MG/3 ML PRE-MIX VIAL INH SCH ×4 (02:32→13:24)
--- NOTE | 2017-06-18 06:17 | Pulmonary Progress Note ---
Exam Exam Vital Signs Date Time Temp Pulse Resp B/P (MAP) Pulse Ox O2 Delivery O2 Flow Rate FiO2 06/18/17 02:32 94 Nasal Cannula 1.00 06/18/17 01:00 93 06/18/17 00:00 99.0 99 18 147/70 (95) 93 Nasal Cannula 3.00 06/17/17 22:39 93 Nasal Cannula 1.00 06/17/17 20:00 Nasal Cannula 3.00 06/17/17 19:16 94 Nasal Cannula 1.00 06/17/17 19:00 88 06/17/17 16:00 100.4 104 18 125/60 (81) 93 Nasal Cannula 3.00 06/17/17 14:33 94 Nasal Cannula 1.00 06/17/17 13:00 91 06/17/17 10:37 95 Nasal Cannula 1.00 06/17/17 08:00 Nasal Cannula 3.00 06/17/17 07:41 98.7 88 18 159/67 (97) 92 Nasal Cannula 3.00 06/17/17 07:00 89 06/17/17 06:56 92 Nasal Cannula 1.00 I & O 06/18/17 07:00 Intake Total 1660 ml Output Total 3050 ml Balance -1390 ml General Appearance: No Apparent Distress HEENT: Moist Mucous Membranes Neck: Supple Respiratory: Decreased Breath Sounds (In basis) Cardiovascular: Regular Rate, Rhythm Capillary Refill: Less Than 3 Seconds Gastrointestinal: soft Extremity: Normal Capillary Refill Neurologic/Psychiatric: Alert, No Oriented x3 (Person and place but not time or situation), No Motor/Sensory Deficits, Normal 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 Pt needs oxygen desaturation testing and possible home oxygen prior to discharge. I will have pt f/u with me in office in 3wks. 232 BRANNON MENON DO Jun 18, 2017 06:17
--- NOTE | 2017-06-18 07:46 | Cardiology Progress Note ---
Subjective Date Seen by Provider: Jun 18, 2017 Time Seen by Provider: 07:44 Subjective/Events-last exam Patient is laying down in bed, still complain of generalized fatigue, no shortness of breath at this time Review of Systems General: No Chills, No Night Sweats, Fatigue, Malaise, No Appetite, No Other HEENT: No Head Aches, No Visual Changes, No Eye Pain, No Ear Pain, No Dysphasia , No Sinus Congestion, No Post Nasal Drip, No Sore Throat, No Other Pulmonary: No Dyspnea, No Cough, No Pleuritic Chest Pain, No Other Cardiovascular: No: Chest Pain, Palpitations, Orthopnea, Paroxysmal Noc. Dyspnea, Edema, Lt Headedness, Other Objective-Cardiology Exam Last Set of Vital Signs Vital Signs 06/18/17 06/18/17 06/18/17 00:00 07:00 07:12 Temp 99.0 Pulse 86 Resp 18 B/P (MAP) 147/70 (95) Pulse Ox 95 O2 Delivery Nasal Cannula O2 Flow Rate 1.00 Capillary Refill : Less Than 3 Seconds I&O Intake and Output 06/18/17 00:00 Intake Total 1260 ml Output Total 3400 ml Balance -2140 ml Intake Oral 1260 ml Output Urine Total 3400 ml # Voids 1 # Bowel Movements 2 General: Alert, Cooperative, Other (pleasantly confused) HEENT: Atraumatic, PERRLA Neck: Supple, No JVD, No Thyromegaly Lungs: Clear to Auscultation, Normal Air Movement Heart: Normal S1, Normal S2, Other (systolic murmur at LSB) Abdomen: Normal Bowel Sounds, Soft, No Tenderness, No Hepatosplenomegaly Extremities: No Clubbing, Other (trace edema BLE) Skin: No Rashes, No Significant Lesion Neuro: Normal Speech, Cranial Nerves 3-12 NL Psych/Mental Status: Mental Status NL, Mood NL A/P-Cardiology Admission Diagnosis Sinus tachycardia Urosepsis CAD Labile HTN Assessment/Plan Status post tachycardia, sinus secondary to sepsis, improved at this time. Continue to monitor Short of breath, Better, on Lasix, Echo is normal LV function, continue to monitor, chest x-ray showed improvement in the pulmonary edema. Hypokalemia, managed by primary care physician Urosepsis- improving. Continue on antibiotics and continue to monitor. Acute renal failure- improving, continue to monitor renal function. Obstructive uropathy and R hydronephrosis due right-sided UPJ stone that is being manage by Dr Moreira Alzheimer's CAD, as indicated by cor calcifications noted incidentally on abdominal CT at time of this admission H/o labile HTN- blood pressure is controlled. Continue on current medications and continue to monitor. Clinical Quality Measures DVT/VTE Risk/Contraindication: Risk Factor Score Per Nursin RFS Level Per Nursing on Admit: 4+=Very High HENRY HOOPER MD Jun 18, 2017 07:46
[2017-06-18 08:00] VITALS: BP 165/74
[2017-06-18] MEDS: MEMANTINE 5 MG (NAMENDA) TABLET PO SCH (09:12)
[2017-06-18] MEDS: QUEtiapine 25 MG (SEROquel) TAB IMMEDIATE RELEASE PO SCH (09:12)
--- NOTE | 2017-06-18 10:37 | Progress Note-Urology ---
Progress Note-Urology Progress Notes/Assess & Plan Progress/Assessment & Plan GOING HOME TODAY. OFFICE ON THURSDAY TO PLAN RX STONES Final Diagnosis RT RENAL STONES YOLANDA DALLAS MD Jun 18, 2017 10:37 am
--- NOTE | 2017-06-18 10:49 | Discharge Summary ---
Diagnosis/Chief Complaint Date of Admission Jun 11, 2017 at 22:14 Date of Discharge June 18, 2017 Discharge Date: Jun 18, 2017 Discharge Time: 11:00 Admission Diagnosis Admission Diagnosis 1. Urosepsis 2. Acute renal insufficiency 3. Right-sided ureteral stone 4. Alzheimer's Discharge Diagnosis 1. Urosepsis along with pneumonia 2. Acute renal insufficiency 3. Right-sided ureteral stone 4. Acute renal insufficiency 5. Alzheimer's without behavioral changes Reason Hospital Visit 87-year-old female with known Alzheimer's disease presents to [facility] emergency department during the evening of June 11, 2017 with nausea, vomiting , as well as diarrhea. She is taking care of by her and apparently he felt like she had a "stomach bug". She apparently has spent most of her time basically in bed or chair over the past week. There has been reports of low- grade fever. She has not recently been seen by any physician has not been on any medication recently other than her daily home medications of Namenda and Seroquel. Discharge Summary Hospital Course Hospital Course 1. Urosepsis along with pneumonia -Patient admitted to intensive care unit and is receiving IV antibiotics--IV Rocephin and Zosyn 06/13 -Day number 2 of IV antibiotics and day number 2 of cefepime 06/14 -Day number 3 of cefepime 4/2 -Day number 4 of cefepime -Up in chair 3 times daily -Incentive spirometer -Pulmonary gave dose of Lasix today for the bibasilar effusions 06/16 -Day number 5 cefepime (she will need 10 days total) 06/17 -Day number 6 of cefepime -Will need ambulatory oxygen desaturation test to see how she does eventually off the nasal cannula oxygen -Vaughn catheter still in place and will need to consult with urology on when this may be pulled. -Physical therapy for strengthening 2. Acute renal insufficiency -IV fluid rehydration 06/13-IV fluid rate decreased to 125 mL per hour since she appears to be clinically improved 06/14-continue to decrease fluids since she is taking in po fairly well 06/16 -IV fluids of been discontinued as of yesterday due to the fluid overload. She responded well to Lasix -Cardiology input noted 3. Right-sided ureteral stone -Urological consultation 4. Acute renal insufficiency -Monitor creatinine 5. Alzheimer's -Patient be maintain on Namenda Labs Laboratory Tests 06/17/17 05:28: Red Blood Count 3.25L, Hemoglobin 9.4L, Hematocrit 29L, Potassium Level 3.0L, Blood Urea Nitrogen 20H, Glucose Level 127H, Calcium Level 7.5L, B-Type Natriuretic Peptide 568.0H Procedures None. Discharge Physical Examination Allergies: Coded Allergies: No Known Drug Allergies (Unverified , 12/15/08) Vitals & I&Os Vital Signs Date Time Temp Pulse Resp B/P (MAP) Pulse Ox O2 Delivery O2 Flow Rate FiO2 06/18/17 10:35 93 Nasal Cannula 1.00 06/18/17 08:00 97.9 97 18 165/74 (104) 06/16/17 07:09 Discharge Home Medications Reviewed and agree with Discharge Medication list on patient's Discharge Instruction sheet Instructions to Patient/Family Please see electronic discharge instructions given to patient. Clinical Quality Measures DVT/VTE Risk/Contraindication: Risk Factor Score Per Nursin RFS Level Per Nursing on Admit: 4+=Very High MUKUND RO MD Jun 18, 2017 10:49
[2017-06-18] MEDS ORDERED: CIPR-225 PO (10:52)
--- NOTE | 2017-06-18 10:55 | Discharge Inst-Simple/Standard ---
Discharge Inst-Standard Discharge Medications New, Converted or Re-Newed RX: Transmitted to Pharmacy Patient Instructions/Follow Up Plan of Care/Instructions/FU: FU with Dr Ro in 1 week Activity as Tolerated: Yes Discharge Diet: Regular Diet Return to The Hospital For: Persistent fever, worsening shortness of breath Planned Outpatient Orders/Ref. Home oxygen at 1l by NH continuous. Home care to check temp, blood pressure and lungs Home PT and OT MUKUND RO MD Jun 18, 2017 10:55
--- NOTE | 2017-06-18 11:06 | D/C HH Face to Face Order ---
D/C Face to Face Orders Instructions for Patient Patient Instructions/FollowUp: with Dr Ro in 1 week, FU with Dr Parekh in 3 weeks. Physician to follow Patient: in [address] Ro, Discharge Diet for Home: Regular Diet Patient Data-Allergies,Ht & Wt Patient Allergies: Coded Allergies: No Known Drug Allergies (Unverified , 12/15/08) Height (Feet): 5 Height (Inches): 3.00 Weight (Pounds): 147 Weight (Ounces): 8.0 Home Health Need/Face to Face Date of Face to Face: Jun 18, 2017 Clinical Findings: Muscle weakness, Shortness of breath I have seen Pt [id number]: Yes Discharged To: Home Diagnosis/Conditions: Pneumonia, Hypoxia, respiratory failure Problems/Diagnosis/Condition: Patient is Homebound due to: Marcy fall risk due to instabilty, Muscle weakness , Shortness of breath/distress Homebound Status Due to the above stated illness, injury or surgical procedure (medical condition or diagnosis) and associated clinical findings, the patient is homebound because of his/her inability to leave home except with aid of a supportive device and/or person AND leaving the home requires a considerable and taxing effort or is medically contraindicated. Pt req the following assistanc: Aid of another person Home Health Nursing Orders Home Health Services Order: Nursing Services, Content Creation Manager-Evaluate & Treat, Physical Therapy-Evaluate & Treat Home Health Infusion Therapy Line Start Date: Jun 16, 2017 Line Start Time: 1740 Site Location: [facility] Certify Stmt I certify that this patient is under my care and that I, a nurse practitioner or a physician; a sound assistant working with me, had a face to face encounter that - meets the physician face to face encounter requirements with this patient as dated. MUKUND RO MD Jun 18, 2017 11:06
[2017-06-18] MEDS ORDERED: ENOXAPARIN 40 MG/0.4 ML (LOVENOX) SYR SC SCH (17:30)
== END 2017-06-18 14:15 | disposition home health service (06) | DRG 871 ==
LOC: EDUNIT# 17:27 → ER 17:28 → ICU 22:14 → 4TH 06-13 16:10
PROVIDERS: ADMIT Family Medicine; ATTEND Family Medicine
PROC: 0T768DZ Dilation of Right Ureter with Intraluminal Device, Via Natural or Artificial Opening Endoscopic (ICD-10-PCS; principal; 2017-06-12 10:03)
DX: A41.9 Sepsis, unspecified organism (principal); J18.9 Pneumonia, unspecified organism; N13.2 Hydronephrosis with renal and ureteral calculous obstruction; N39.0 Urinary tract infection, site not specified; E87.2 Acidosis; J98.11 Atelectasis; N28.9 Disorder of kidney and ureter, unspecified; R00.0 Tachycardia, unspecified; Z66 Do not resuscitate; I25.10 Atherosclerotic heart disease of native coronary artery without angina pectoris; G30.9 Alzheimer's disease, unspecified; F02.80 Dementia in other diseases classified elsewhere, unspecified severity, without behavioral disturbance, psychotic disturbance, mood disturbance, and anxiety; K21.9 Gastro-esophageal reflux disease without esophagitis; M54.9 Dorsalgia, unspecified
CPT/HCPCS: 36415; 51702; 71045; 71046; 74018; 74176; 80048; 80053; 80069; 81000; 82375; 82805; 83050; 83605; 83690; 83735; 83880; 84100; 85007; 85025; 85027; 85610; 85730; 87040; 87077; 87081; 87088; 87186; 87804; 93005; 93306; 94640; 94664; 94760; 94761; 96361; 96365; 96375

== ENCOUNTER → 2018-11-18 | Outpatient (CLI) | payer MEDICARE, OTHER ==
[~2018-11-18] MED LIST changes: +ASPI-586 PO; +CIPR-225 PO; +IBUP-2055 PO; +MECL-106 PO; +MEMA10TA22 PO; +METO-387 PO; +QUET25TA73 PO; +TETR15DR80 OU
[2018-11-18 19:06] LABS: BILIRUBIN,URINE NEGATIVE (NEGATIVE); CLARITY,URINE CLEAR; COLOR,URINE YELLOW; GLUCOSE, URINE (UA) NEGATIVE (NEGATIVE); KETONES,URINE NEGATIVE (NEGATIVE); LEUKOCYTE ESTERASE ,URINE 3+ (NEGATIVE); NITRITE,URINE NEGATIVE (NEGATIVE); PH,URINE 7 (5-9); PROTEIN,URINE 3+ (NEGATIVE); UROBILINOGEN,URINE NORMAL (NORMAL)
[2018-11-18 19:18] LABS: BACTERIA,URINE LARGE /HPF; RBC,URINE >100 /HPF; WBC,URINE TNTC /HPF
== END ==
LOC: HH 18:53
PROVIDERS: ATTEND Family Medicine
DX: Z01.89 Encounter for other specified special examinations (principal); Z87.440 Personal history of urinary (tract) infections
CPT/HCPCS: 81000; 87088

== ENCOUNTER 2019-09-02 10:03 | Inpatient (IN) | payer MEDICARE, OTHER ==
[~2019-09-02] VITALS: Ht 152.4 cm; Wt 54.5 kg
[~2019-09-02 10:03] MED LIST changes: -IBUP-2055 PO; +IBUP-2473 PO; -MECL-106 PO; +MECL-149 PO; -MEMA10TA22 PO; +MEMA10TA57 PO; -METO-387 PO; +MTP25TSR PO
[2019-09-02] MEDS ORDERED: NS IV 500 ML 500 ML IV ONE (10:17)
--- NOTE | 2019-09-02 10:20 | ED Neurological Problem ---
General Chief Complaint: - Urinary Stated Complaint: UTI Source: patient, EMS Exam Limitations: clinical condition (PATRICIA CARR) History of Present Illness Date Seen by Provider: Sep 02, 2019 Time Seen by Provider: 09:56 Initial Comments Patient resents ER by EMS from home with her family was concerned that she was a cting not herself, confused less talkative. No lateralizing neurologic symptoms. EMS reports normal vital signs when they arrived. Patient is not requiring any oxygen and has had no cough. No fevers or chills. Patient is oriented to herself but not time place or situation. Family reports she is alert and oriented 3 at baseline. Patient says she ambulates on her own. She's not having any pain, shortness of breath, fever, nausea, vomiting, diarrhea. She had a normal bowel movement yesterday. There is mention of a UTI being diagnosed in the ER yesterday however the patient has not been seen since 2018. Patient is not sure if she is on antibiotics or not. Patient states she follows with Dr. Kaufman. (PATRICIA CARR) Allergies and Home Medications Allergies Coded Allergies: No Known Drug Allergies (Unverified , 12/15/08) Home Medications Aspirin 81 Mg Tablet.dr, 81 MG PO HS, (Reported) Ciprofloxacin HCl 500 Mg Tablet, 500 MG PO Q12H Prescribed by: MUKUND KAUFMAN on 06/18/17 1052 Ibuprofen 200 Mg Tablet, 200-400 MG PO TID PRN for PAIN-MILD, (Reported) Meclizine HCl 25 Mg Tablet, 25 MG PO TID PRN for DIZZINESS, (Reported) Memantine HCl 10 Mg Tablet, 10 MG PO BID, (Reported) Metoprolol Succinate 25 Mg Tab.er.24h, 25 MG PO DAILY, (Reported) Quetiapine Fumarate 25 Mg Tablet, 25 MG PO BID, (Reported) Tetrahydrz/Dext 70/Peg 400/Pvp 15 Ml Drops, 1-2 DROPS OU TID PRN for DRY EYES, (Reported) Patient Home Medication List Home Medication List Reviewed: Yes (PATRICIA CARR) Review of Systems Review of Systems Constitutional: see HPI, other (poor historian, unable to obtain) (FRANKIE SILVERMAN APRN) Past [id number]-Fbzvyu-Ipvlzx Hx Patient Social History Recent Hopitalizations: Yes (PATRICIA CARR) Immunizations Up To Date Tetanus Booster (TDap): Unknown Date of Pneumonia Vaccine: Mar 18, 2010 Date of Influenza Vaccine: Jan 12, 2017 (PATRICIA CARR) Past Medical History Surgeries: 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/back surgery) Hysterectomy, Orthopedic Respiratory: No Cardiac: No Neurological: Yes (alzheimers) Reproductive Disorders: 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; age 29 at the time) Sexually Transmitted Disease: No UTI-Chronic Gastrointestinal: Yes Gastroesophageal Reflux Musculoskeletal: Yes Chronic Back Pain Endocrine: No Cancer: No Psychosocial: No Integumentary: No Blood Disorders: Yes Adverse Reaction/Blood Tranf: No (PATRICIA CARR) Family Medical History Alzheimer's disease 19 MOTHER G8 BROTHER G8 SISTER Arthritis G8 SISTER Cardiovascular disease 19 FATHER Hypercholesterolemia 19 FATHER 19 MOTHER G8 BROTHER G8 SISTER Infertility G8 SISTER Myocardial infarction 19 FATHER Parkinson's disease 19 MOTHER No Family History of: AIDS Abdominal aortic aneurysm Travis's disease Alcoholism Aphasia Asthma Cancer of mouth Cataracts Colon cancer Completed stroke Congenital disease Congenital heart disease Coronary thrombosis Cystic fibrosis Deafness or hearing loss Dementia Diabetes mellitus Drug abuse Dysphasia Fibrocystic disease of breast Gastroenteritis Glaucoma Headache disorder Hypertension Kidney disease Neoplasm Not obtainable due to adoption Osteoporosis Prostate cancer Psychosocial problem Respiratory disorder Seizure disorder Severe allergy Thyroid disease Tuberculosis Visual disorder Physical Exam Vital Signs Vital Signs - First Documented 09/02/19 10:03 Temp 36.7 Pulse 87 Resp 17 B/P (MAP) 114/53 (73) Pulse Ox 96 O2 Delivery Room Air (FRANKIE SILVERMAN APRN) Vital Signs Capillary Refill : (PATRICIA CARR) Height, Weight, BMI Height: 5'3.00" Weight: 147lbs. 8.0oz. 66.657494gq; 24.3 BMI Method:Stated (PATRICIA CARR) General Appearance: WD/WN, no apparent distress, other (alert and oriented to person but not place time or situation. Pleasantly confused, states she doesn't feel well) HEENT: PERRL/EOMI, normal ENT inspection Neck: non-tender, full range of motion Respiratory: lungs clear, normal breath sounds, no respiratory distress, no accessory muscle use Cardiovascular: regular rate, rhythm, no murmur; No JVD Gastrointestinal: normal bowel sounds, non tender, soft Extremities: normal range of motion, non-tender; No pedal edema Neurologic/Psychiatric: alert Crainal Nerves: normal hearing, normal speech, PERRL Skin: normal color, warm/dry (FRANKIE SILVERMAN APRN) Progress/Results/Core Measures Results/Orders Lab Results Laboratory Tests Test 09/02/19 10:11 09/02/19 10:30 Range/Units White Blood Count 7.3 4.3-11.0 10^3/uL Red Blood Count 4.01 L 4.35-5.85 10^6/uL Hemoglobin 11.0 L 11.5-16.0 G/DL Hematocrit 35 35-52 % Mean Corpuscular Volume 87 80-99 FL Mean Corpuscular Hemoglobin 27 25-34 PG Mean Corpuscular Hemoglobin Concent 32 32-36 G/DL Red Cell Distribution Width 13.7 10.0-14.5 % Platelet Count 405 H 130-400 10^3/uL Mean Platelet Volume 9.0 7.4-10.4 FL Neutrophils (%) (Auto) 68 42-75 % Lymphocytes (%) (Auto) 19 12-44 % Monocytes (%) (Auto) 8 0-12 % Eosinophils (%) (Auto) 4 0-10 % Basophils (%) (Auto) 1 0-10 % Neutrophils # (Auto) 5.0 1.8-7.8 X 10^3 Lymphocytes # (Auto) 1.4 1.0-4.0 X 10^3 Monocytes # (Auto) 0.6 0.0-1.0 X 10^3 Eosinophils # (Auto) 0.3 0.0-0.3 10^3/uL Basophils # (Auto) 0.1 0.0-0.1 10^3/uL Sodium Level 137 135-145 MMOL/L Potassium Level 4.8 3.6-5.0 MMOL/L Chloride Level 103 98-107 MMOL/L Carbon Dioxide Level 24 21-32 MMOL/L Anion Gap 10 5-14 MMOL/L Blood Urea Nitrogen 39 H 7-18 MG/DL Creatinine 2.16 H 0.60-1.30 MG/DL Estimat Glomerular Filtration Rate 22 BUN/Creatinine Ratio 18 Glucose Level 129 H 70-105 MG/DL Calcium Level 9.0 8.5-10.1 MG/DL Corrected Calcium 9.1 8.5-10.1 MG/DL Total Bilirubin 0.3 0.1-1.0 MG/DL Aspartate Amino Transf (AST/SGOT) 12 5-34 U/L Alanine Aminotransferase (ALT/SGPT) 8 0-55 U/L Alkaline Phosphatase 91 40-136 U/L Total Protein 8.1 6.4-8.2 GM/DL Albumin 3.9 3.2-4.5 GM/DL Urine Color BROWN H Urine Clarity TURBID Urine pH 8.0 5-9 Urine Specific [place] 1.020 1.016-1.022 Urine Protein 3+ H NEGATIVE Urine Glucose (UA) NEGATIVE NEGATIVE Urine Ketones 1+ H NEGATIVE Urine Nitrite POSITIVE H NEGATIVE Urine Bilirubin 2+ H NEGATIVE Urine Urobilinogen 1.0 < = 1.0 MG/DL Urine Leukocyte Esterase 3+ H NEGATIVE Urine RBC (Auto) 3+ H NEGATIVE Urine RBC >100 H /HPF Urine WBC TNTC H /HPF Urine Squamous Epithelial Cells RARE /HPF Urine Crystals PRESENT H /LPF Urine Triple Phosphate Crystals FEW H /LPF Urine Bacteria LARGE H /HPF Urine Casts NONE /LPF Urine Mucus NEGATIVE /LPF Urine Culture Indicated YES (FRANKIE SILVERMAN APRN) My Orders Orders - FRANKIE SILVERMAN APRN Blood Culture (09/02/19 11:19) Lactic Acid Analyzer (09/02/19 11:19) Ceftriaxone For Iv Use (Rocephin For I (09/02/19 11:30) (FRANKIE SILVERMAN APRN) Medications Given in ED Current Medications Medications Dose Ordered Sig/Kirstin Route Start Time Stop Time Status Last Admin Dose Admin Sodium Chloride 500 ml @ 0 mls/hr Q0M ONCE IV 09/02/19 10:17 09/02/19 10:18 DC 09/02/19 10:25 500 MLS/HR (FRANKIE SILVERMAN APRN) Vital Signs/I&O 09/02/19 10:03 Temp 36.7 Pulse 87 Resp 17 B/P (MAP) 114/53 (73) Pulse Ox 96 O2 Delivery Room Air (FRANKIE SILVERMAN APRN) Diagnostic Imaging Diagonstic Imaging: Xray Comments NAME: LE ADORNO I MED REC#: [id number] PT STATUS: REG ER : 1932 PHYSICIAN: PATRICIA CARR MD ADMIT DATE: 09/02/19/ER Draft Date of Exam:09/02/19 CHEST 1 VIEW, AP/PA ONLY Indication: UTIs. Compared: 06/17/2017 Findings: Lungs clear with resolution of previous edema, congestion and pleural fluid. Benign calcified granulomata noted stable, no suspicious mass. Impression: Clear chest on followup, no acute-appearing abnormality. Dictated on workstation # [id number] Dict: 09/02/19 1052 Trans: 09/02/19 1055 [facility] [id number] Interpreted by: LOLY GASPAR Electronically signed by: (FRANKIE SILVERMAN APRN) Departure Communication (Admissions) Time/Spoke to Admitting Phy: 11:[address] Kaufman, will admit on rocephin. (FRANKIE SILVERMAN APRN) Impression Primary Impression: Urinary tract infection Qualified Codes: N30.00 - Acute cystitis without hematuria Disposition: ADMITTED INPATIENT Condition: Stable Admissions Decision to Admit Reason: Admit from ER (General) Decision to Admit/Date: Sep 02, 2019 Time/Decision to Admit Time: 11:27 (FRANKIE SILVERMAN APRN) Departure-Patient Inst. Referrals: HENRY HOOPER MD (PCP) Primary Care Physician MUKUND KAUFMAN MD (Family) Primary Care Physician PATRICIA CARR Sep 02, 2019 10:19 FRANKIE SILVERMAN APRN Sep 02, 2019 11:00
--- NOTE | 2019-09-02 10:55 | Diagnostic Imaging Report ---
Indication: UTIs. Compared: 06/17/2017 Findings: Lungs clear with resolution of previous edema, congestion and pleural fluid. Benign calcified granulomata noted stable, no suspicious mass. Impression: Clear chest on followup, no acute-appearing abnormality. Dictated by: Dictated on workstation # [id number]
--- OUTSIDE RECORDS SUMMARY | 2019-09-02 11:02 | XMS REPORT ---
Author Author [facility] [place] [facility] [employer] [facility] Address [address] [place] [address] Care Team Providers Care Industrial Eng Name Role Phone MUKUND RO Unavailable MUKUND RO MD Unavailable Unavailable Unavailable Unavailable Allergies The data below is from unstructured sources Allergen Type Severity Reaction Status Last Updated No Known Drug Allergies Allergy Mild Active 12/15/08 Allergen Type Severity Reaction Status Last Updated No Known Drug Allergies Active 12/15/08 Allergen Type Severity Reaction Status Last Updated No Known Drug Allergies Active 12/15/08 Medications No Information Problems Active Problems Problem Normalized Date Last Normalized Normalized Provider Fa cility Classification Problem(s) Recorded Problem Problem Sta tus Duration NEGATED Alzheimer's Chronic Active MUKNUD RO , Not A vailable no disease, (13482) information unspecified (12 sources.) Translations: [ DEMENTIA IN OTH DISEASES CLASSD ELSWHR W, ALZHEIMER'S DISEASE, 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 coronary artery without angina pectoris NEGATED Gastro-esophag Chronic Active MUKUND RO , No t Available no eal reflux (92914) information disease (11 sources.) without esophagitis Occlusion or Occlusion and Chronic Active MARIO Not A vailable stenosis of stenosis of GUER[place] (85297) precerebral carotid artery N , [place] arteries (1 without source.) mention of cerebral infarction Past or Other Problems Problem Normalized Date Last Normalized Normalized Provider Fa cility Classification Problem(s) Recorded Problem Problem Sta tus Duration NEGATED Acidosis Episodic Completed MUKUND RO , Not Avai lable no Translations: (14001) information [ DEHYDRATION] (12 sources.) NEGATED Atelectasis Episodic Completed MUKUND RO , Not A vailable no MD (30418) information (11 sources.) Nonspecific Chest pain, Episodic Completed MARIO Not Avai lable chest pain (1 unspecified [place] (83372) source.) N , [place] NEGATED Disorder of Episodic Completed MUKUND RO , Not A vailable no kidney and MD (74029) information ureter, (11 sources.) unspecified NEGATED Do not Episodic Completed MUKUND RO , Not Avai lable no resuscitate MD (16692) information (11 sources.) NEGATED Dorsalgia, Episodic Completed MUKUND RO , Not Av ailable no unspecified MD (41418) information (11 sources.) NEGATED Hydronephrosis Episodic Completed MUKUND RO , No t Available no with renal and MD (55703) information ureteral (11 sources.) calculous obstruction Genitourinary Oliguria and Episodic Completed MUKUND RO , [facility] symptoms and anuria MD Anand ill-defined Translations: Hospital - conditions (2 [ PERSONAL Arma sources.) HISTORY OF (29344) URINARY (TRACT) INFE] Bacterial Other and Episodic Completed MUKUND RO , Not Wilda ilable infection (1 unspecified MD (34139) source.) Escherichia coli [E. coli] Pneumonia (5 Pneumonia, Episodic Completed MUKUND RO , Not Available sources.) unspecified MD (87464) organism NEGATED Sepsis, no information no information MUKUND RO , Not Available no unspecified MD (71833) information organism (11 sources.) NEGATED Tachycardia, Episodic Completed MUKUND RO , Not Available no unspecified MD (12027) information (11 sources.) Heart valve Undiagnosed Episodic Completed MUKUND RO , Not Available disorders (1 cardiac MD (52177) source.) murmurs Procedures Procedure Normalized Procedure Procedure Result Performer Facility Date NEGATED DILATION OF RIGHT no information no name Not A vailable (10942) URETER WITH INTRALUMIN Immunizations The data below is from unstructured sourcesNo immunization records. Results No Information Vital Signs The data below is from unstructured sources Vital Response Date/Time Temperature (Fahrenheit) 97.2 degree s F (97.6 - 99.5) Temperature (Calculated Celsius) 36. 21125 degrees C (36.4 - 37.5) Temperature Source Temporal Pulse Rate (adult) 95 bpm (60 - 90) Respiratory Rate 16 bpm (12 - 24) O2 Sat by Pulse Oximetry 95 % (88 - 100) Blood Pressure 159/83 mm Hg Pain Pain Intensity 5 Height (Feet) 5 feet Height (Inches) 2 inches Height (Calculated Centimeters) 157. 223291 cm Weight (Pounds) 138 pounds Weight (Calculated Kilograms) 62.595 748 kilograms Calculated BMI 25.24 Vital Response Date/Time Temperature (Fahrenheit) 98.5 degree s F (97.6 - 99.5) Temperature (Calculated Celsius) 36. 90226 degrees C (36.4 - 37.5) Temperature Source Temporal Pulse Rate (adult) 80 bpm (60 - 90) Respiratory Rate 18 bpm (12 - 24) O2 Sat by Pulse Oximetry 93 % (88 - 100) Blood Pressure 163/76 mm Hg Pain Pain Intensity 3 Height (Feet) 5 feet Height (Inches) 2.00 inches Height (Calculated Centimeters) 157. 714021 cm Weight (Pounds) 140 pounds Weight (Calculated Grams) 76072.932 gm Weight (Calculated Kilograms) 63.502 932 kilograms Calculated BMI 25.60 Vital Response Date/Time Temperature (Fahrenheit) 98.5 degree s F (97.6 - 99.5) Temperature (Calculated Celsius) 36. 78032 degrees C (36.4 - 37.5) Temperature Source Temporal Pulse Rate (adult) 80 bpm (60 - 90) Respiratory Rate 18 bpm (12 - 24) O2 Sat by Pulse Oximetry 93 % (88 - 100) Blood Pressure 163/76 mm Hg Pain Pain Intensity 3 Height (Feet) 5 feet Height (Inches) 2.00 inches Height (Calculated Centimeters) 157. 849594 cm Weight (Pounds) 140 pounds Weight (Calculated Grams) 00211.932 gm Weight (Calculated Kilograms) 63.502 932 kilograms Calculated BMI 25.60 Interventions No Information Plan of Treatment The data below is from unstructured sources Discharge Date 03/30/14 11:10am Disposition 01 HOME, SELF-CARE Instructions/Education Provided DR. SILVA INSTRUCTIONS Urinary Tract Infection in Women (DC) Forms Provided PDI Medical Prescriptions See Medications Sectio n MUKUND Allred MD (Unspeci fied) 04/06/14 Address: [facility] [address], [address] [place] [phone] Reason(s) for Referral: Followup with Dr Ro 04/06/14 at 10:30. Care Plan and Goals FU with Dr. Jodi azevedo in 1 week Goals No Information Social History No Information Functional Status The data below is from unstructured sources Query Response Date Maik rded Patient Orientation Person Place Time Situation March 30, 2014 11:39am Comprehension Ability Understands Co ncepts March 30, 2014 9:34am Mental Status No Information Encounters Encounter Normalized Encounter Encounter Diagnosis Care Provi jessa Organization Date Type 06-11-2017 Emergency department no information no name no organization name patient visit NEGATED Evaluation and no information no name no organ ization name 06-11-2017 management of - inpatient 06-18-2017 03-29-2014 Evaluation and no information no name no organ ization name - management of 03-30-2014 inpatient 06-11-2017 Patient encounter no information no name no or ganization name - 06-18-2017 06-21-2014 Patient encounter no information no name no or ganization name 04-12-2014 Patient encounter no information no name no or ganization name 11-18-2018 Patient encounter no information no name no or ganization name procedure no information Encounter for other no name no organiz ation name specified special examinations Medical Equipment No Information Payers No Information Advance Directives Directive Response Recor ded Date/Time Advance Directives No 2:24pm Health Care Power of Career Law Clerk No 03/24/14 2:24pm Organ Donor Yes 03/24/14 2:24pm Resuscitation Status Full Code 03/24/14 2:24pm Directive Response Recor ded Date/Time Advance Directives No 7:15pm Health Care Power of Career Law Clerk No 03/29/14 7:15pm Organ Donor Yes 03/29/14 7:15pm Resuscitation Status Full Code 03/29/14 7:15pm Discharge Instructions No hospital discharge instructions.No hospital discharge instructions. Additional Source Comments This clinical document has been generated using [employer] software that has been certified by the Office of the National Coordinator for Health Information Technology (ONC 15.99.04.3023.Diam.31.00.0.241013) and the National Committee for [employer] (NCQA, as an eMeasure certified technology). FOR RECORDS PERTAINING TO PATIENTS WHO ARE OR HAVE BEEN ENROLLED IN A CHEMICAL D EPENDENCY/SUBSTANCE ABUSE PROGRAM, SOME INFORMATION MAY BE OMITTED. This clinica l summary was aggregated from multiple sources. Caution should be exercised in using it in the provision of clinical care. This summary normalizes information from multiple sources, and as a consequence, information in this document may ma terially change the coding, format and clinical context of patient data. In blanca tion, data may be omitted in some cases. CLINICAL DECISIONS SHOULD BE BASED ON T HE PRIMARY CLINICAL RECORDS. [facility]. provides no warranty or guara ntee of the accuracy or completeness of information in this document.The followi information is based on time limited clinical information
--- OUTSIDE RECORDS SUMMARY | 2019-09-02 11:03 | XMS REPORT | Continuity of Care Document ---
Author Organization Unknown Address Unknown Phone Unavailable Allergies Active Description Code Type Severity Reaction Onset Reported/Identified Relationship to Patient Clinical Status Yes No Known Drug Allergies [id number] Drug Allergy Mild N/A 12/15/2008 Medications There is no data. Problems Date Dx Coded Attending Type Code Diagnosis Diagnosed By 03/24/2014 STEPHANIE ELLIOTT MD Ot 599. 0 URIN TRACT INFECTION NOS 03/24/2014 STEPHANIE ELLIOTT MD Ot 788. 5 OLIGURIA ANURIA 03/30/[address] MD Ot 041. 49 OTHER AND UNSPECIFIED ESCHERICHIA COLI [ 03/30/[address] MD Ot 244. 9 HYPOTHYROIDISM NOS 03/30/[address] MD Ot 276. 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 0 URIN TRACT INFECTION NOS 03/30/[address]D RO MD Ot 780. 2 SYNCOPE AND COLLAPSE 03/30/[address]UND RO MD Ot 041. 49 03/30/[address] MD Ot 244. 9 03/30/[address] RO MD Ot 276. 51 03/30/[address]D RO MD Ot 294. 10 03/30/[address]D RO MD Ot 331. 0 03/30/[address]D RO MD Ot 599. 0 03/30/[address]UKUND RO MD Ot 780. 2 05/10/2014 [address]UKUND RO MD Ot 785. 2 06/22/2014 MUKUND RO MD Ot 785. 2 06/22/2014 MUKUND RO MD Ot 785. 2 09/01/2014 MAIRO MONTANA Ot 244.9 09/01/2014 MARIO MONTANA Ot 433.10 09/01/2014 MARIO MONTANA Ot 780.2 09/01/2014 MARIO MONTANA Ot 786.50 06/12/[address] MD Ot 785. 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 9 SEPSIS, UNSPECIFIED ORGANISM 06/16/2017 [address]UKUND RO MD, Ot E87. 2 ACIDOSIS 06/16/[address]UKUND RO MD, Ot F02. [address] [facility] DISEASES CLASSD ELSWHR W 06/16/[address]UND RO MD, Ot G30. 9 ALZHEIMER'S DISEASE, UNSPECIFIED 06/16/2017 [address]UKUND RO MD, Ot I25. 10 ATHSCL HEART DISEASE OF [place] CORONARY 06/16/2017 [address]UKUND RO MD, Ot J98. 11 ATELECTASIS 06/16/[address] RO MD, Ot K21. 9 GASTRO-ESOPHAGEAL REFLUX DISEASE WITHOUT 06/16/2017 MUKUND RO MD, Ot M54. 9 DORSALGIA, UNSPECIFIED 06/16/[address]UN[address] RO MD, Ot N13. 2 HYDRONEPHROSIS WITH RENAL AND URETERAL C 06/16/2017 [address]UKUND RO MD, Ot N28. 9 DISORDER OF KIDNEY AND URETER, UNSPECIFI 06/16/[address]UN[address] RO MD, Ot N39. 0 URINARY TRACT INFECTION, SITE NOT SPECIF 06/16/2017 MUKUND RO MD, Ot R00. 0 TACHYCARDIA, UNSPECIFIED 06/16/2017 [address]UKUND RO MD, Ot Z66 DO NOT RESUSCITATE 06/16/2017 MUKUND RO MD, Ot A41. 9 SEPSIS, UNSPECIFIED ORGANISM 06/16/2017 MUKUND RO MD Ot E87. 2 ACIDOSIS 06/16/2017 MUKUND RO MD Ot F02. 80 DEMENTIA IN OTH DISEASES CLASSD ELSWHR W 06/16/2017 [address]UKUND RO MD Ot G30. 9 ALZHEIMER'S DISEASE, UNSPECIFIED 06/16/[address] MD Ot I25. 10 ATHSCL HEART DISEASE OF [place] CORONARY 06/16/[address]UN[address] RO MD, Ot J98. 11 ATELECTASIS 06/16/[address] MD, Ot K21. 9 GASTRO-ESOPHAGEAL REFLUX DISEASE WITHOUT 06/16/2017 MUKUND RO MD, Ot M54. 9 DORSALGIA, UNSPECIFIED 06/16/2017 [address]UKUND RO MD Ot N13. 2 HYDRONEPHROSIS WITH RENAL AND URETERAL C 06/16/2017 MUKUND RO MD, Ot N28. 9 DISORDER OF KIDNEY AND URETER, UNSPECIFI 06/16/2017 MUKUND RO MD, Ot N39. 0 URINARY TRACT INFECTION, SITE NOT SPECIF 06/16/2017 MUKUND RO MD, Ot R00. 0 TACHYCARDIA, UNSPECIFIED 06/16/2017 [address]UKUND RO MD Ot Z66 DO NOT RESUSCITATE 06/17/2017 MUKUND RO MD, Ot A41. 9 SEPSIS, UNSPECIFIED ORGANISM 06/17/2017 MUKUND RO MD Ot E87. 2 ACIDOSIS 06/17/2017 MUKUND RO MD, Ot F02. 80 DEMENTIA IN OTH DISEASES CLASSD ELSWHR W 06/17/2017 MUKUND RO MD, Ot G30. 9 ALZHEIMER'S DISEASE, UNSPECIFIED 06/17/2017 [address]UKUND RO MD, Ot I25. 10 ATHSCL HEART DISEASE OF [place] CORONARY 06/17/2017 [address]UKUND RO MD, Ot J98. 11 ATELECTASIS 06/17/2017 [address]UN[address] RO MD, Ot K21. 9 GASTRO-ESOPHAGEAL REFLUX DISEASE WITHOUT 06/17/2017 MUKUND RO MD, Ot M54. 9 DORSALGIA, UNSPECIFIED 06/17/2017 [address]UKUND RO MD Ot N13. 2 HYDRONEPHROSIS WITH RENAL AND URETERAL C 06/17/2017 MUKUND RO MD, Ot N28. 9 DISORDER OF KIDNEY AND URETER, UNSPECIFI 06/17/2017 MUKUND RO MD, Ot N39. 0 URINARY TRACT INFECTION, SITE NOT SPECIF 06/17/2017 MUKUND RO MD Ot R00. 0 TACHYCARDIA, UNSPECIFIED 06/17/2017 MUKUND RO MD, Ot Z66 DO NOT RESUSCITATE 06/18/2017 MUKUND RO MD, Ot A41. 9 SEPSIS, UNSPECIFIED ORGANISM 06/18/2017 MUKUND RO MD Ot E87. 2 ACIDOSIS 06/18/2017 MUKUND RO MD, Ot F02. 80 DEMENTIA IN OTH DISEASES CLASSD ELSWHR W 06/18/2017 MUKUND RO MD, Ot G30. 9 ALZHEIMER'S DISEASE, UNSPECIFIED 06/18/2017 MUKUND RO MD, Ot I25. 10 ATHSCL HEART DISEASE OF [place] CORONARY 06/18/2017 [address]UKUND RO MD, Ot J98. 11 ATELECTASIS 06/18/2017 [address]UND RO MD, Ot K21. 9 GASTRO-ESOPHAGEAL REFLUX DISEASE WITHOUT 06/18/2017 MUKUND RO MD, Ot M54. 9 DORSALGIA, UNSPECIFIED 06/18/2017 MUKUND RO MD, Ot N13. 2 HYDRONEPHROSIS WITH RENAL AND URETERAL C 06/18/2017 MUKUND RO MD, Ot N28. 9 DISORDER OF KIDNEY AND URETER, UNSPECIFI 06/18/2017 MUKUND RO MD, Ot N39. 0 URINARY TRACT INFECTION, SITE NOT SPECIF 06/18/2017 MUKUND RO MD Ot R00. 0 TACHYCARDIA, UNSPECIFIED 06/18/2017 MUKUND RO MD, Ot Z66 DO NOT RESUSCITATE 06/18/2017 MUKUND RO MD, Ot A41. 9 SEPSIS, UNSPECIFIED ORGANISM 06/18/2017 MUKUND RO MD Ot E87. 2 ACIDOSIS 06/18/2017 MUKUND RO MD Ot F02. 80 DEMENTIA IN OTH DISEASES CLASSD ELSWHR W 06/18/2017 MUKUND RO MD, Ot G30. 9 ALZHEIMER'S DISEASE, UNSPECIFIED 06/18/2017 MUKUND RO MD, Ot I25. 10 ATHSCL HEART DISEASE OF [place] CORONARY 06/18/2017 MUKUND RO MD, Ot J18. 9 PNEUMONIA, UNSPECIFIED ORGANISM 06/18/2017 MUKUND RO MD, Ot J98. 11 ATELECTASIS 06/18/2017 MUKUND RO MD, Ot K21. 9 GASTRO-ESOPHAGEAL REFLUX DISEASE WITHOUT 06/18/2017 UMKUND RO MD, Ot M54. 9 DORSALGIA, UNSPECIFIED 06/18/2017 MUKUND RO MD, Ot N13. 2 HYDRONEPHROSIS WITH RENAL AND URETERAL C 06/18/2017 MUKUND RO MD, Ot N28. 9 DISORDER OF KIDNEY AND URETER, UNSPECIFI 06/18/2017 MUKUND RO MD, Ot N39. 0 URINARY TRACT INFECTION, SITE NOT SPECIF 06/18/2017 MUKUND RO MD, Ot R00. 0 TACHYCARDIA, UNSPECIFIED 06/18/2017 MUKUND RO MD, Ot Z66 DO NOT RESUSCITATE 12/08/2018 MUKUND RO MD, Ot Z01. 89 ENCOUNTER FOR OTHER SPECIFIED SPECIAL EX 12/08/2018 MUKUND RO MD, Ot Z87.440 PERSONAL HISTORY OF URINARY (TRACT) INFE 01/10/2019 MUKUND RO MD, Ot N39. 0 URINARY TRACT INFECTION, SITE NOT SPECIF 01/10/2019 MUKUND RO MD, Ot Z01. 89 ENCOUNTER FOR OTHER SPECIFIED SPECIAL EX Procedures Code Description Performed By Per formed On [id number] DI LATION OF RIGHT URETER WITH INTRALUMIN 06/12/2017 Results Test Result Range Bacterial blood culture - 06/11/17 17:08 FREE TEXT EXTERNAL (NOT ENTEROCOCCUS, NOT GROUP D STREP, NRG QUANTITY OF GROWTH . NRG Bacterial blood culture SEE COMMEN NRG FREE TEXT ENTRY 2 AND NOT STREPTOCOCCUS PNEUMONIAE ) NRG Complete blood count (CBC) with automate d white blood cell (WBC) differential - 06/11/17 17:48 Blood leukocytes automated count (number/volume) 6.4 10*3/uL 4.3-11.0 Blood erythrocytes automated count (number/volume) 4.29 10*6/uL 4.35-5.85 Venous blood hemoglobin measurement (mass/volume) 12.8 g/dL 11.5-16.0 Blood hematocrit (volume fraction) 38 % 35-52 Automated erythrocyte mean corpuscular volume 89 [ foz_us] 80-99 Automated erythrocyte mean corpuscular h emoglobin (mass per erythrocyte) 30 pg 25-34 Automated erythrocyte mean corpuscular h emoglobin concentration measurement (mass/volume) 33 g/dL 32-36 Automated erythrocyte distribution width ratio 12. 4 % 10.0- 14.5 Automated blood platelet count (count/volume) 347 10*3/uL 130-400 Automated blood platelet mean volume measurement 8.8 [foz_us] 7.4-10.4 Automated blood neutrophils/100 leukocytes 89 % 42-75 Automated blood lymphocytes/100 leukocytes 9 % 12-44 Blood monocytes/100 leukocytes 2 % 0-12 Automated blood eosinophils/100 leukocytes 0 % 0-10 Automated blood basophils/100 leukocytes 0 % 0-10 Blood neutrophils automated count (number/volume) 5.7 10*3 1.8-7.8 Blood lymphocytes automated count (number/volume) 0.6 10*3 1.0-4.0 Blood monocytes automated count (number/volume) 0. 2 10*3 0.0-1.0 Automated eosinophil count 0.0 10*3/uL 0 .0-0.3 Automated blood basophil count (count/volume) 0.0 10*3/uL 0.0-0.1 PT panel in platelet poor plasma by coag ulation assay - 06/11/17 17:48 Prothrombin time (PT) in platelet poor plasma by coagu lation assay 15.5 s 12.2-14.7 INR in platelet poor plasma or blood by coagulation as say 1.2 0.8-1.4 Activated partial thromboplastin time (a PTT) in platelet poor plasma bycoagulation assay - 06/11/17 17:48 Activated partial thromboplastin time (a PTT) in platelet poor plasma bycoagulation assay 26 s 24-35 Blood lactic acid measurement (moles/vol ume) - 06/11/17 17:48 Blood lactic acid measurement (moles/volume) 6.92 mmol/L 0.50-2.00 Comprehensive metabolic panel - 06/11/17 17:48 Serum or plasma sodium measurement (moles/volume) 137 mmol/L 135-145 Serum or plasma potassium measurement (moles/volume) 4.2 mmol/L 3.6-5.0 Serum or plasma chloride measurement (moles/volume) 102 mmol/L 98-107 Carbon dioxide 18 mmol/L 21-32 Serum or plasma anion gap determination (moles/volume) 17 mmol/L 5-14 Serum or plasma urea nitrogen measurement (mass/volume ) 31 mg/dL 7-18 Serum or plasma creatinine measurement (mass/volume) 1.91 mg/dL 0.60-1.30 Serum or plasma urea nitrogen/creatinine mass ratio 16 NRG Serum or plasma creatinine measurement w ith calculation of estimated glomerular filtration rate 25 NRG Serum or plasma glucose measurement (mass/volume) 199 mg/dL 70-105 Serum or plasma calcium measurement (mass/volume) 9.1 mg/dL 8.5-10.1 Serum or plasma total bilirubin measurement (mass/volu me) 0.7 mg/dL 0.1-1.0 Serum or plasma alkaline phosphatase monica surement (enzymatic activity/volume) 97 U/L 40-136 Serum or plasma aspartate aminotransfera se measurement (enzymatic activity/volume) 18 U/L 5-34 Serum or plasma alanine aminotransferase measurement (enzymatic activity/volume) 11 U/L 0-55 Serum or plasma protein measurement (mass/volume) 7.7 g/dL 6.4-8.2 Serum or plasma albumin measurement (mass/volume) 3.5 g/dL 3.2-4.5 Serum or plasma phosphate measurement (m ass/volume) - 06/11/17 17:48 Serum or plasma phosphate measurement (mass/volume) 2.9 mg/dL 2.3-4.7 Magnesium - 06/11/17 17:48 Magnesium 1.9 mg/dL 1.8-2.4 Lipase - 06/11/17 17:48 Lipase 115 U/L 8-78 Blood manual differential performed dete ction - 06/11/17 17:48 Blood monocytes/100 leukocytes 1 % NRG Manual blood segmented neutrophils/100 leukocytes 88 % NRG Blood band neutrophils/100 leukocytes 7 % NRG Manual blood lymphocytes/100 leukocytes 4 % NRG Manual eosinophils/100 leukocytes in nose 0 % NRG Manual blood basophils/100 leukocytes 0 % NRG Blood erythrocyte morphology finding identification NORMAL NRG Bacterial blood culture - 06/11/17 18:47 FREE TEXT EXTERNAL (NOT ENTEROCOCCUS, NOT GROUP D STREP, NRG QUANTITY OF GROWTH . NRG Bacterial blood culture SEE COMMEN NRG FREE TEXT ENTRY 2 AND NOT STREPTOCOCCUS PNEUMONIAE ) NRG Influenza virus A and B antigen detectio n - 06/11/17 19:15 FLU RESULT NEGATIVE FOR INFLUENZA A AND B ANTIGENS BY IA NRG Serum or plasma lactate measurement (mol es/volume) - 06/11/17 19:30 Serum or plasma lactate measurement (moles/volume) 3.20 mmol/L 0.50-2.00 Complete urinalysis with reflex to cultu re - 06/11/17 19:45 Urine color determination YELLOW NRG Urine clarity determination VERY CLOUDY NRG Urine pH measurement by test strip 7 5-9 Specific gravity of urine by test strip 1.010 1.016-1.022 Urine protein assay by test strip, semi-quantitative 3+ NEGATIVE Urine glucose detection by automated test strip NE GATIVE NEGATIVE Erythrocytes detection in urine sediment by light micr oscopy 5+ NEGATIVE Urine ketones detection by automated test strip 1+ NEGATIVE Urine nitrite detection by test strip NEGATIVE NEGATIVE Urine total bilirubin detection by test strip NEGA TIVE NEGATIVE Urine urobilinogen measurement by automated test strip (mass/volume) NORMAL NORMAL Urine leukocyte esterase detection by dipstick 3+ NEGATIVE Automated urine sediment erythrocyte cou nt by microscopy (number/high power field) [HPF] NRG Automated urine sediment leukocyte count by microscopy (number/high power field) TNTC NRG Bacteria detection in urine sediment by light microsco py LARGE NRG Squamous epithelial cells detection in u rine sediment by light microscopy 5-10 NRG Crystals detection in urine sediment by light microsco py NONE NRG Casts detection in urine sediment by light microscopy NONE NRG Mucus detection in urine sediment by light microscopy NEGATIVE NRG Complete urinalysis with reflex to culture YES NRG Bacterial urine culture - 06/11/17 19:45 Bacterial urine culture [id number] NRG COLONY COUNT 10,000/ML - 100,000/ML NRG FTX;REPORTABLE SENSITIVITY REPORTED 06/16/17 7:10 NRG FREE TEXT ENTRY 2 PLUS, NRG FREE TEXT ENTRY 3 MIXED GRAM POSITIVES 10-100,000/ ML NRG Bacterial susceptibility panel - 8 19:45 Gentamicin susceptibility test by minimum inhibitory c oncentration <= NRG Trimethoprim/sulfamethoxazole susceptibi lity test by minimum inhibitoryconcentration S NRG Ampicillin susceptibility test by minimum inhibitory c oncentration >= NRG Tobramycin susceptibility test by minimum inhibitory c oncentration <= NRG Cefazolin susceptibility test by minimum inhibitory co ncentration >= NRG Ceftriaxone susceptibility test by minimum inhibitory concentration 2 NRG Ampicillin/sulbactam susceptibility test by minimum inhibitory concentration R NRG Piperacillin/tazobactam susceptibility t est by minimum inhibitory concentration S NRG Ciprofloxacin susceptibility test by minimum inhibitor y concentration <= NRG Meropenem susceptibility test by minimum inhibitory co ncentration <= NRG Nitrofurantoin susceptibility test by mi nimum inhibitory concentration 128 NRG Aztreonam susceptibility test by minimum inhibitory co ncentration <= NRG Bacterial susceptibility panel - 8 19:45 Gentamicin susceptibility test by minimum inhibitory c oncentration <= NRG Tobramycin susceptibility test by minimum inhibitory c oncentration <= NRG Piperacillin/tazobactam susceptibility t est by minimum inhibitory concentration S NRG Ciprofloxacin susceptibility test by minimum inhibitor y concentration 0.5 NRG Meropenem susceptibility test by minimum inhibitory co ncentration 0.5 NRG Cefepime susceptibility test by minimum inhibitory con centration 2 NRG Complete blood count (CBC) with automate d white blood cell (WBC) differential - 06/12/17 01:50 Blood leukocytes automated count (number/volume) 8.2 10*3/uL 4.3-11.0 Blood erythrocytes automated count (number/volume) 3.85 10*6/uL 4.35-5.85 Venous blood hemoglobin measurement (mass/volume) 11.5 g/dL 11.5-16.0 Blood hematocrit (volume fraction) 34 % 35-52 Automated erythrocyte mean corpuscular volume 89 [ foz_us] 80-99 Automated erythrocyte mean corpuscular h emoglobin (mass per erythrocyte) 30 pg 25-34 Automated erythrocyte mean corpuscular h emoglobin concentration measurement (mass/volume) 33 g/dL 32-36 Automated erythrocyte distribution width ratio 12. 4 % 10.0- 14.5 Automated blood platelet count (count/volume) 213 10*3/uL 130-400 Automated blood platelet mean volume measurement 8.5 [foz_us] 7.4-10.4 Automated blood neutrophils/100 leukocytes 92 % 42-75 Automated blood lymphocytes/100 leukocytes 5 % 12-44 Blood monocytes/100 leukocytes 2 % 0-12 Automated blood eosinophils/100 leukocytes 0 % 0-10 Automated blood basophils/100 leukocytes 0 % 0-10 Blood neutrophils automated count (number/volume) 7.6 10*3 1.8-7.8 Blood lymphocytes automated count (number/volume) 0.4 10*3 1.0-4.0 Blood monocytes automated count (number/volume) 0. 2 10*3 0.0-1.0 Automated eosinophil count 0.0 10*3/uL 0 .0-0.3 Automated blood basophil count (count/volume) 0.0 10*3/uL 0.0-0.1 Blood lactic acid measurement (moles/vol ume) - 06/12/17 01:50 Blood lactic acid measurement (moles/volume) 2.44 mmol/L 0.50-2.00 Whole blood basic metabolic panel - 05/16 01:50 Serum or plasma sodium measurement (moles/volume) 140 mmol/L 135-145 Serum or plasma potassium measurement (moles/volume) 4.4 mmol/L 3.6-5.0 Serum or plasma chloride measurement (moles/volume) 109 mmol/L 98-107 Carbon dioxide 20 mmol/L 21-32 Serum or plasma anion gap determination (moles/volume) 11 mmol/L 5-14 Serum or plasma urea nitrogen measurement (mass/volume ) 33 mg/dL 7-18 Serum or plasma creatinine measurement (mass/volume) 2.07 mg/dL 0.60-1.30 Serum or plasma urea nitrogen/creatinine mass ratio 16 NRG Serum or plasma creatinine measurement w ith calculation of estimated glomerular filtration rate 23 NRG Serum or plasma glucose measurement (mass/volume) 128 mg/dL 70-105 Serum or plasma calcium measurement (mass/volume) 7.7 mg/dL 8.5-10.1 Serum or plasma phosphate measurement (m ass/volume) - 06/12/17 01:50 Serum or plasma phosphate measurement (mass/volume) 3.1 mg/dL 2.3-4.7 Magnesium - 06/12/17 01:50 Magnesium 1.7 mg/dL 1.8-2.4 Serum or plasma lactate measurement (mol es/volume) - 06/12/17 04:30 Serum or plasma lactate measurement (moles/volume) 2.69 mmol/L 0.50-2.00 Arterial blood gas measurement - 8 15:55 Blood pCO2 34 mm[Hg] 35-45 Blood pO2 55 mm[Hg] 79-93 Arterial blood bicarbonate measurement (moles/volume) 16 mmol/L 23-27 Arterial blood base excess by calculation -9.4 mmo l/L -2.5-2.5 Arterial blood oxygen saturation measurement 90 % 94-100 * Inhaled oxygen flow rate 4L NRG Arterial blood pH measurement with patient temperature correction 7.29 7.37-7.43 Arterial blood carbon dioxide, total measurement (mole s/volume) 16.9 mmol/L 21.0-31.0 Body site LEFT BRACHIAL NRG Assessment of wrist artery patency prior to arterial p uncture NA NRG Setting of ventilation mode NO NR G Measurement of body temperature 99.1 NRG Blood carboxyhemoglobin/total hemoglobin - 06/12/17 15:55 Blood carboxyhemoglobin/total hemoglobin 1.2 % 0.5-2.5 Blood methemoglobin/total hemoglobin - 0 06/12/17 15:55 Blood methemoglobin/total hemoglobin 0.9 % 0.4-1.5 Blood lactic acid measurement (moles/vol ume) - 06/12/17 17:17 Blood lactic acid measurement (moles/volume) 3.92 mmol/L 0.50-2.00 Serum or plasma renal function panel (Na , K, Cl, CO2, BUN, Cr, glucose,Ca, phos, alb) - 06/12/17 17:17 Serum or plasma sodium measurement (moles/volume) 136 mmol/L 135-145 Serum or plasma potassium measurement (moles/volume) 4.6 mmol/L 3.6-5.0 Serum or plasma chloride measurement (moles/volume) 107 mmol/L 98-107 Carbon dioxide 18 mmol/L 21-32 Serum or plasma anion gap determination (moles/volume) 11 mmol/L 5-14 Serum or plasma urea nitrogen measurement (mass/volume ) 35 mg/dL 7-18 Serum or plasma creatinine measurement (mass/volume) 2.24 mg/dL 0.60-1.30 Serum or plasma urea nitrogen/creatinine mass ratio 16 NRG Serum or plasma creatinine measurement w ith calculation of estimated glomerular filtration rate 21 NRG Serum or plasma glucose measurement (mass/volume) 87 mg/dL 70-105 Serum or plasma calcium measurement (mass/volume) 7.8 mg/dL 8.5-10.1 Serum or plasma albumin measurement (mass/volume) 2.6 g/dL 3.2-4.5 Serum or plasma phosphate measurement (mass/volume) 3.1 mg/dL 2.3-4.7 Methicillin resistant Staphylococcus aur eus (MRSA) screening culture - 06/12/17 19:20 Methicillin resistant Staphylococcus aureus (MRSA) scr eening culture NEG NRG Blood lactic acid measurement (moles/vol ume) - 06/12/17 20:23 Blood lactic acid measurement (moles/volume) 2.15 mmol/L 0.50-2.00 Serum or plasma lactate measurement (mol es/volume) - 06/12/17 22:28 Serum or plasma lactate measurement (moles/volume) 1.74 mmol/L 0.50-2.00 Complete blood count (CBC) with automate d white blood cell (WBC) differential - 06/13/17 03:10 Blood leukocytes automated count (number/volume) 13.3 10*3/uL 4.3-11.0 Blood erythrocytes automated count (number/volume) 3.06 10*6/uL 4.35-5.85 Venous blood hemoglobin measurement (mass/volume) 9.0 g/dL 11.5-16.0 Blood hematocrit (volume fraction) 28 % 35-52 Automated erythrocyte mean corpuscular volume 92 [ foz_us] 80-99 Automated erythrocyte mean corpuscular h emoglobin (mass per erythrocyte) 29 pg 25-34 Automated erythrocyte mean corpuscular h emoglobin concentration measurement (mass/volume) 32 g/dL 32-36 Automated erythrocyte distribution width ratio 13. 0 % 10.0- 14.5 Automated blood platelet count (count/volume) 156 10*3/uL 130-400 Automated blood platelet mean volume measurement 8.7 [foz_us] 7.4-10.4 Automated blood neutrophils/100 leukocytes 89 % 42-75 Automated blood lymphocytes/100 leukocytes 7 % 12-44 Blood monocytes/100 leukocytes 4 % 0-12 Automated blood eosinophils/100 leukocytes 0 % 0-10 Automated blood basophils/100 leukocytes 0 % 0-10 Blood neutrophils automated count (number/volume) 11.8 10*3 1.8-7.8 Blood lymphocytes automated count (number/volume) 0.9 10*3 1.0-4.0 Blood monocytes automated count (number/volume) 0. 6 10*3 0.0-1.0 Automated eosinophil count 0.0 10*3/uL 0 .0-0.3 Automated blood basophil count (count/volume) 0.0 10*3/uL 0.0-0.1 Comprehensive metabolic panel - 06/13/17 03:10 Serum or plasma sodium measurement (moles/volume) 138 mmol/L 135-145 Serum or plasma potassium measurement (moles/volume) 5.0 mmol/L 3.6-5.0 Serum or plasma chloride measurement (moles/volume) 107 mmol/L 98-107 Carbon dioxide 22 mmol/L 21-32 Serum or plasma anion gap determination (moles/volume) 9 mmol/L 5-14 Serum or plasma urea nitrogen measurement (mass/volume ) 38 mg/dL 7-18 Serum or plasma creatinine measurement (mass/volume) 2.29 mg/dL 0.60-1.30 Serum or plasma urea nitrogen/creatinine mass ratio 17 NRG Serum or plasma creatinine measurement w ith calculation of estimated glomerular filtration rate 20 NRG Serum or plasma glucose measurement (mass/volume) 90 mg/dL 70-105 Serum or plasma calcium measurement (mass/volume) 7.4 mg/dL 8.5-10.1 Serum or plasma total bilirubin measurement (mass/volu me) 0.8 mg/dL 0.1-1.0 Serum or plasma alkaline phosphatase monica surement (enzymatic activity/volume) 53 U/L 40-136 Serum or plasma aspartate aminotransfera se measurement (enzymatic activity/volume) 43 U/L 5-34 Serum or plasma alanine aminotransferase measurement (enzymatic activity/volume) 26 U/L 0-55 Serum or plasma protein measurement (mass/volume) 5.3 g/dL 6.4-8.2 Serum or plasma albumin measurement (mass/volume) 3.3 g/dL 3.2-4.5 Serum or plasma phosphate measurement (m ass/volume) - 06/13/17 03:10 Serum or plasma phosphate measurement (mass/volume) 4.1 mg/dL 2.3-4.7 Magnesium - 06/13/17 03:10 Magnesium 2.4 mg/dL 1.8-2.4 Complete blood count (CBC) with automate d white blood cell (WBC) differential - 06/14/17 05:20 Blood leukocytes automated count (number/volume) 14.8 10*3/uL 4.3-11.0 Blood erythrocytes automated count (number/volume) 3.52 10*6/uL 4.35-5.85 Venous blood hemoglobin measurement (mass/volume) 10.4 g/dL 11.5-16.0 Blood hematocrit (volume fraction) 32 % 35-52 Automated erythrocyte mean corpuscular volume 91 [ foz_us] 80-99 Automated erythrocyte mean corpuscular h emoglobin (mass per erythrocyte) 30 pg 25-34 Automated erythrocyte mean corpuscular h emoglobin concentration measurement (mass/volume) 33 g/dL 32-36 Automated erythrocyte distribution width ratio 13. 4 % 10.0- 14.5 Automated blood platelet count (count/volume) 195 10*3/uL 130-400 Automated blood platelet mean volume measurement 9.6 [foz_us] 7.4-10.4 Automated blood neutrophils/100 leukocytes 88 % 42-75 Automated blood lymphocytes/100 leukocytes 6 % 12-44 Blood monocytes/100 leukocytes 5 % 0-12 Automated blood eosinophils/100 leukocytes 1 % 0-10 Automated blood basophils/100 leukocytes 0 % 0-10 Blood neutrophils automated count (number/volume) 13.0 10*3 1.8-7.8 Blood lymphocytes automated count (number/volume) 0.9 10*3 1.0-4.0 Blood monocytes automated count (number/volume) 0. 7 10*3 0.0-1.0 Automated eosinophil count 0.1 10*3/uL 0 .0-0.3 Automated blood basophil count (count/volume) 0.0 10*3/uL 0.0-0.1 Blood manual differential performed dete ction - 06/14/17 05:20 Blood monocytes/100 leukocytes 5 % NRG Manual blood segmented neutrophils/100 leukocytes 86 % NRG Blood band neutrophils/100 leukocytes 5 % NRG Manual blood lymphocytes/100 leukocytes 3 % NRG Manual eosinophils/100 leukocytes in nose 1 % NRG Manual blood basophils/100 leukocytes 0 % NRG Blood polychromasia detection by light microscopy SLIGHT NRG Blood poikilocytosis detection by light microscopy SLIGHT NRG Blood platelet clump detection by light microscopy SLIGHT NRG Comprehensive metabolic panel - 06/14/17 05:20 Serum or plasma sodium measurement (moles/volume) 139 mmol/L 135-145 Serum or plasma potassium measurement (moles/volume) 3.9 mmol/L 3.6-5.0 Serum or plasma chloride measurement (moles/volume) 110 mmol/L 98-107 Carbon dioxide 18 mmol/L 21-32 Serum or plasma anion gap determination (moles/volume) 11 mmol/L 5-14 Serum or plasma urea nitrogen measurement (mass/volume ) 41 mg/dL 7-18 Serum or plasma creatinine measurement (mass/volume) 1.59 mg/dL 0.60-1.30 Serum or plasma urea nitrogen/creatinine mass ratio 26 NRG Serum or plasma creatinine measurement w ith calculation of estimated glomerular filtration rate 31 NRG Serum or plasma glucose measurement (mass/volume) 120 mg/dL 70-105 Serum or plasma calcium measurement (mass/volume) 7.9 mg/dL 8.5-10.1 Serum or plasma total bilirubin measurement (mass/volu me) 0.6 mg/dL 0.1-1.0 Serum or plasma alkaline phosphatase monica surement (enzymatic activity/volume) 113 U/L 40-136 Serum or plasma aspartate aminotransfera se measurement (enzymatic activity/volume) 48 U/L 5-34 Serum or plasma alanine aminotransferase measurement (enzymatic activity/volume) 36 U/L 0-55 Serum or plasma protein measurement (mass/volume) 6.0 g/dL 6.4-8.2 Serum or plasma albumin measurement (mass/volume) 3.1 g/dL 3.2-4.5 Serum or plasma phosphate measurement (m ass/volume) - 06/14/17 05:20 Serum or plasma phosphate measurement (mass/volume) 3.1 mg/dL 2.3-4.7 Magnesium - 06/14/17 05:20 Magnesium 2.1 mg/dL 1.8-2.4 Complete blood count (CBC) with automate d white blood cell (WBC) differential - 06/15/17 05:45 Blood leukocytes automated count (number/volume) 10.6 10*3/uL 4.3-11.0 Blood erythrocytes automated count (number/volume) 3.08 10*6/uL 4.35-5.85 Venous blood hemoglobin measurement (mass/volume) 9.1 g/dL 11.5-16.0 Blood hematocrit (volume fraction) 28 % 35-52 Automated erythrocyte mean corpuscular volume 89 [ foz_us] 80-99 Automated erythrocyte mean corpuscular h emoglobin (mass per erythrocyte) 30 pg 25-34 Automated erythrocyte mean corpuscular h emoglobin concentration measurement (mass/volume) 33 g/dL 32-36 Automated erythrocyte distribution width ratio 13. 3 % 10.0- 14.5 Automated blood platelet count (count/volume) 171 10*3/uL 130-400 Automated blood platelet mean volume measurement 9.9 [foz_us] 7.4-10.4 Automated blood neutrophils/100 leukocytes 76 % 42-75 Automated blood lymphocytes/100 leukocytes 12 % 12-44 Blood monocytes/100 leukocytes 9 % 0-12 Automated blood eosinophils/100 leukocytes 3 % 0-10 Automated blood basophils/100 leukocytes 0 % 0-10 Blood neutrophils automated count (number/volume) 8.1 10*3 1.8-7.8 Blood lymphocytes automated count (number/volume) 1.3 10*3 1.0-4.0 Blood monocytes automated count (number/volume) 0. 9 10*3 0.0-1.0 Automated eosinophil count 0.3 10*3/uL 0 .0-0.3 Automated blood basophil count (count/volume) 0.0 10*3/uL 0.0-0.1 Serum or plasma lithium measurement (mol es/volume) - 06/15/17 05:45 BNP level 877.2 pg/mL <100.0 Automated blood complete blood count (he mogram) panel - 06/17/17 05:28 Blood leukocytes automated count (number/volume) 7.7 10*3/uL 4.3-11.0 Blood erythrocytes automated count (number/volume) 3.25 10*6/uL 4.35-5.85 Venous blood hemoglobin measurement (mass/volume) 9.4 g/dL 11.5-16.0 Blood hematocrit (volume fraction) 29 % 35-52 Automated erythrocyte mean corpuscular volume 88 [ foz_us] 80-99 Automated erythrocyte mean corpuscular h emoglobin (mass per erythrocyte) 29 pg 25-34 Automated erythrocyte mean corpuscular h emoglobin concentration measurement (mass/volume) 33 g/dL 32-36 Automated erythrocyte distribution width ratio 13. 3 % 10.0- 14.5 Automated blood platelet count (count/volume) 224 10*3/uL 130-400 Automated blood platelet mean volume measurement 9.1 [foz_us] 7.4-10.4 Whole blood basic metabolic panel - 07/01 05:28 Serum or plasma sodium measurement (moles/volume) 141 mmol/L 135-145 Serum or plasma potassium measurement (moles/volume) 3.0 mmol/L 3.6-5.0 Serum or plasma chloride measurement (moles/volume) 103 mmol/L 98-107 Carbon dioxide 30 mmol/L 21-32 Serum or plasma anion gap determination (moles/volume) 8 mmol/L 5-14 Serum or plasma urea nitrogen measurement (mass/volume ) 20 mg/dL 7-18 Serum or plasma creatinine measurement (mass/volume) 1.06 mg/dL 0.60-1.30 Serum or plasma urea nitrogen/creatinine mass ratio 19 NRG Serum or plasma creatinine measurement w ith calculation of estimated glomerular filtration rate 49 NRG Serum or plasma glucose measurement (mass/volume) 127 mg/dL 70-105 Serum or plasma calcium measurement (mass/volume) 7.5 mg/dL 8.5-10.1 Serum or plasma lithium measurement (mol es/volume) - 06/17/17 05:28 BNP level 568.0 pg/mL <100.0 Complete urinalysis with reflex to cultu re - 11/18/18 18:57 Urine color determination YELLOW NRG Urine clarity determination CLEAR NR G Urine pH measurement by test strip 7 5-9 Specific gravity of urine by test strip 1.010 1.016-1.022 Urine protein assay by test strip, semi-quantitative 3+ NEGATIVE Urine glucose detection by automated test strip NE GATIVE NEGATIVE Erythrocytes detection in urine sediment by light micr oscopy 5+ NEGATIVE Urine ketones detection by automated test strip NE GATIVE NEGATIVE Urine nitrite detection by test strip NEGATIVE NEGATIVE Urine total bilirubin detection by test strip NEGA TIVE NEGATIVE Urine urobilinogen measurement by automated test strip (mass/volume) NORMAL NORMAL Urine leukocyte esterase detection by dipstick 3+ NEGATIVE Automated urine sediment erythrocyte cou nt by microscopy (number/high power field) > [HPF] NRG Automated urine sediment leukocyte count by microscopy (number/high power field) TNTC NRG Bacteria detection in urine sediment by light microsco py LARGE NRG Squamous epithelial cells detection in u rine sediment by light microscopy 5-10 NRG Crystals detection in urine sediment by light microsco py NONE NRG Casts detection in urine sediment by light microscopy NONE NRG Mucus detection in urine sediment by light microscopy NEGATIVE NRG Complete urinalysis with reflex to culture YES NRG Bacterial urine culture - 11/18/18 18:57 Bacterial urine culture 3 OR MORE NRG COLONY COUNT 80,000 CFU/ML NRG FTX;REPORTABLE SUGGESTING PROBABLE COLLECTION NRG FREE TEXT ENTRY 2 CONTAMINATION WITH SKIN LITZY NRG FREE TEXT ENTRY 3 NO SUSCEPTIBILITY PERFORMED NRG Encounters ACCT No. Visit Date/Time Discharge Status Pt. Type Provider Facility Loc./Unit Complaint [id number] 11/18/2018 18:53:00 019 23:59:59 CLS Outpatient MUKUND RO MD Via [facility] [id number] 06/11/2017 22:14:00 018 14:15:00 DIS Inpatient MUKUND RO MD Via [facility] 4TH SEVERE SEPSIS,LEOBARDO,UTI,U RETERAL CALCULUS [id number] 07/11/2014 12:30:00 015 23:59:59 CLS Preadmit HENRY HOOPER MD [facility] CARD WENDY,CP,SYNCOPE [id number] 06/21/2014 13:04:00 015 23:59:59 CLS Outpatient ADELA MONTANA [facility] CARD WENDY,CP,HYPERTHYROIDISM,SYNCOPE [id number] 04/12/2014 08:39:00 015 23:59:59 CLS Outpatient MUKUND RO MD Via [facility] HEART MURMUR [id number] 03/29/2014 18:15:00 015 11:10:00 DIS Inpatient MUKUND RO MD [facility] 4TH SYNCOPE;UTI;GENERALIZED WEAKNESS;HYPOTHYROIDISM [id number] 03/24/2014 14:08:00 015 15:58:00 DIS Emergency LEXI MARIO, STEPHANIE [facility] ER UNABLE TO URINATE [id number] 03/24/2014 14:08:00 Document Registration
[2019-09-02 11:04] LABS: BASOPHILS # (AUTO) 0.1 10^3/uL (0.0-0.1); BASOPHILS % (AUTO) 1 % (0-10); EOSINOPHILS # (AUTO) 0.3 10^3/uL (0.0-0.3); EOSINOPHILS % (AUTO) 4 % (0-10); HEMATOCRIT 35 % (35-52); LYMPHOCYTES # (AUTO) 1.4 X 10^3 (1.0-4.0); LYMPHOCYTES % (AUTO) 19 % (12-44); MEAN CORPUSCULAR HEMOGLOBIN 27 PG (25-34); MEAN CORPUSCULAR HGB CONC 32 G/DL (32-36); MEAN CORPUSCULAR VOLUME 87 FL (80-99); MONOCYTES # (AUTO) 0.6 X 10^3 (0.0-1.0); MONOCYTES % (AUTO) 8 % (0-12); NEUTROPHILS % (AUTO) 68 % (42-75); PLATELET COUNT 405 10^3/uL (130-400); RED CELL DISTRIBUTION WIDTH 13.7 % (10.0-14.5); WHITE BLOOD COUNT 7.3 10^3/uL (4.3-11.0)
[2019-09-02 11:04] LABS: CLARITY,URINE TURBID; COLOR,URINE BROWN; GLUCOSE, URINE (UA) NEGATIVE (NEGATIVE); KETONES,URINE 1+ (NEGATIVE); LEUKOCYTE ESTERASE ,URINE 3+ (NEGATIVE); NITRITE,URINE POSITIVE (NEGATIVE); PROTEIN,URINE 3+ (NEGATIVE)
[2019-09-02 11:09] LABS: ALBUMIN 3.9 GM/DL (3.2-4.5); POTASSIUM 4.8 MMOL/L (3.6-5.0)
[2019-09-02 11:12] LABS: TOTAL PROTEIN 8.1 GM/DL (6.4-8.2)
[2019-09-02 11:14] LABS: BILIRUBIN,TOTAL 0.3 MG/DL (0.1-1.0)
[2019-09-02 11:16] LABS: CREATININE SERUM 2.16 MG/DL (0.60-1.30)
[2019-09-02 11:17] LABS: BACTERIA,URINE LARGE /HPF; BILIRUBIN,URINE 2+ (NEGATIVE); RBC,URINE >100 /HPF; SQUAMOUS EPITHELIAL CELL,UR RARE /HPF; TRIPLE PHOSPHATE CRYSTAL,UR FEW /LPF; WBC,URINE TNTC /HPF
[2019-09-02] MEDS ORDERED: cefTRIAXone FOR IV USE 1,000 MG in WATER (STERILE) FOR INJECTION 10 ML IV ONE (11:30)
--- NOTE | 2019-09-02 11:35 | NUR ---
DAUGHTER, YOANNA, UPDATED ON PT FINDINGS ET ADMISSION TO ROOM #[id number]. ([phone])
--- NOTE | 2019-09-02 12:00 | NUR ---
LE ADORNO I admitted to room 412-1, with an admitting diagnosis of UTI AND AMS, on 09/02/19 from [facility] , accompanied by STAFF.LE ADORNO I introduced to surroundings, call light, bed controls, phone, TV, temperature control, lights, meal times, smoking policy, visitor policy, side rail policy, bathrooms and showers. Patient Rights given to patient in the handbook. LE ADORNO I verbalizes understanding that [facility] is not responsible for the loss or damage to any personal effects or valuables that are kept in the patients posession during their hospitalization.
[2019-09-02] MEDS ORDERED: ONDANSETRON 4 MG/2 ML (SDV) Z0FRAN IV PRN (12:15)
[2019-09-02] MEDS ORDERED: CATHETER FLUSH 10 ML SYR IV PRN (12:15)
[2019-09-02 12:41] VITALS: BP 146/79
--- OUTSIDE RECORDS SUMMARY | 2019-09-02 13:04 | XMS REPORT ---
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] NEGATED Atheroscleroti Chronic Active MUKUND RO , No t Available no c heart (00983) information disease of (11 sources.) 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 angina pectoris NEGATED Gastro-esophag Chronic Active MUKUND RO , No t Available no eal reflux (90508) information disease (11 sources.) without esophagitis Occlusion or Occlusion and Chronic Active MARIO Not A vailable stenosis of stenosis of [place] (07400) precerebral carotid artery N , [place] arteries (1 without source.) mention of cerebral infarction Past or Other Problems Problem Normalized Date Last Normalized Normalized Provider Fa cility Classification Problem(s) Recorded Problem Problem Sta tus Duration NEGATED Acidosis Episodic Completed MUKUND RO , Not Avai lable no Translations: (78372) information [ DEHYDRATION] (12 sources.) NEGATED Atelectasis Episodic Completed MUKUND RO , Not A vailable no MD (45381) information (11 sources.) Nonspecific Chest pain, Episodic Completed MARIO Not Avai lable chest pain (1 unspecified [place] (16012) source.) N , [place] NEGATED Disorder of Episodic Completed MUKUND RO , Not A vailable no kidney and MD (59956) information ureter, (11 sources.) unspecified NEGATED Do not Episodic Completed MUKUND RO , Not Avai lable no resuscitate MD (41749) information (11 sources.) NEGATED Dorsalgia, Episodic Completed MUKUND RO , Not Av ailable no unspecified MD (01205) information (11 sources.) NEGATED Hydronephrosis Episodic Completed MUKUND RO , No t Available no with renal and MD (54882) information ureteral (11 sources.) calculous obstruction Genitourinary Oliguria and Episodic Completed MUKUND RO , [facility] symptoms and anuria MD Anand ill-defined Translations: Hospital - conditions (2 [ PERSONAL [place] sources.) HISTORY OF (36123) URINARY (TRACT) INFE] Bacterial Other and Episodic Completed MUKUND RO , Not Wilda ilable infection (1 unspecified MD (69275) source.) Escherichia coli [E. coli] Pneumonia (5 Pneumonia, Episodic Completed MUKUND RO , Not Available sources.) unspecified MD (48448) organism NEGATED Sepsis, no information no information MUKUND RO , Not Available no unspecified MD (69697) information organism (11 sources.) NEGATED Tachycardia, Episodic Completed MUKUND RO , Not Available no unspecified MD (60176) information (11 sources.) Heart valve Undiagnosed Episodic Completed MUKUND RO , Not Available disorders (1 cardiac MD (92393) source.) murmurs Procedures Procedure Normalized Procedure Procedure Result Performer Facility Date NEGATED DILATION OF RIGHT no information no name Not A vailable (20805) URETER WITH INTRALUMIN Immunizations The data below is from unstructured sourcesNo immunization records. Results No Information Vital Signs The data below is from unstructured sources Vital Response Date/Time Temperature (Fahrenheit) 97.2 degree s F (97.6 - 99.5) Temperature (Calculated Celsius) 36. 42283 degrees C (36.4 - 37.5) Temperature Source Temporal Pulse Rate (adult) 95 bpm (60 - 90) Respiratory Rate 16 bpm (12 - 24) O2 Sat by Pulse Oximetry 95 % (88 - 100) Blood Pressure 159/83 mm Hg Pain Pain Intensity 5 Height (Feet) 5 feet Height (Inches) 2 inches Height (Calculated Centimeters) 157. 917232 cm Weight (Pounds) 138 pounds Weight (Calculated Kilograms) 62.595 748 kilograms Calculated BMI 25.24 Vital Response Date/Time Temperature (Fahrenheit) 98.5 degree s F (97.6 - 99.5) Temperature (Calculated Celsius) 36. 91002 degrees C (36.4 - 37.5) Temperature Source Temporal Pulse Rate (adult) 80 bpm (60 - 90) Respiratory Rate 18 bpm (12 - 24) O2 Sat by Pulse Oximetry 93 % (88 - 100) Blood Pressure 163/76 mm Hg Pain Pain Intensity 3 Height (Feet) 5 feet Height (Inches) 2.00 inches Height (Calculated Centimeters) 157. 575827 cm Weight (Pounds) 140 pounds Weight (Calculated Grams) 37087.932 gm Weight (Calculated Kilograms) 63.502 932 kilograms Calculated BMI 25.60 Vital Response Date/Time Temperature (Fahrenheit) 98.5 degree s F (97.6 - 99.5) Temperature (Calculated Celsius) 36. 58731 degrees C (36.4 - 37.5) Temperature Source Temporal Pulse Rate (adult) 80 bpm (60 - 90) Respiratory Rate 18 bpm (12 - 24) O2 Sat by Pulse Oximetry 93 % (88 - 100) Blood Pressure 163/76 mm Hg Pain Pain Intensity 3 Height (Feet) 5 feet Height (Inches) 2.00 inches Height (Calculated Centimeters) 157. 271061 cm Weight (Pounds) 140 pounds Weight (Calculated Grams) 58414.932 gm Weight (Calculated Kilograms) 63.502 932 kilograms Calculated BMI 25.60 Interventions No Information Plan of Treatment The data below is from unstructured sources Discharge Date 03/30/14 11:10am Disposition 01 HOME, SELF-CARE Instructions/Education Provided DR. SILVA INSTRUCTIONS Urinary Tract Infection in Women (DC) Forms Provided PDI Medical Prescriptions See Medications Sectio n MUKUND Allred MD (Unspeci fied) 04/06/14 Address: [facility] [address], [address] [place] [phone] Reason(s) for Referral: Followup with Dr Ro [...] Directives No 2:24pm Health Care Power of Color Printer Operator No 03/24/14 2:24pm Organ Donor Yes 03/24/14 2:24pm Resuscitation Status Full Code 03/24/14 2:24pm Directive Response Recor ded Date/Time Advance Directives No 7:15pm Health Care Power of Color Printer Operator No 03/29/14 7:15pm Organ Donor Yes 03/29/14 7:15pm Resuscitation Status Full Code 03/29/14 7:15pm Discharge Instructions No hospital discharge instructions.No hospital discharge instructions. Additional Source Comments This clinical document has been generated using [employer] software that has been certified by the Office of the National Coordinator for Health Information Technology (ONC 15.99.04.3023.Diam.31.00.0.104587) and the National Committee for [employer] (NCQA, as an eMeasure certified technology). FOR [...] BASED ON T HE PRIMARY CLINICAL RECORDS. [employer] [facility]. provides no warranty or guara ntee of the accuracy or completeness of information in this document.The followi information is based on time limited clinical information
--- OUTSIDE RECORDS SUMMARY | 2019-09-02 13:04 | XMS REPORT | Continuity of Care Document ---
Author Organization Unknown Address Unknown Phone Unavailable Allergies Active Description Code Type Severity Reaction Onset Reported/Identified Relationship to Patient Clinical Status Yes No Known Drug Allergies [id number] Drug Allergy Mild N/A 12/15/2008 Medications There [...] MUKUND RO MD Ot 785. 2 09/01/2014 MARIO MONTANA Ot 244.9 09/01/2014 AMRIO MONTANA Ot 433.10 09/01/2014 MARIO MONTANA Ot [...] RO MD, Ot F02. 80 DEMENTIA IN [facility] DISEASES CLASSD ELSWHR W 06/16/2017 MUKUND RO MD, Ot G30. 9 ALZHEIMER'S DISEASE, UNSPECIFIED 06/16/2017 MUKUND RO MD, Ot I25. 10 ATHSCL HEART DISEASE OF [place] CORONARY 06/16/2017 MUKUND RO MD, Ot J98. [...] Ot I25. 10 ATHSCL HEART DISEASE OF [place] CORONARY 06/16/2017 MUKUND RO MD, Ot J98. [...] Ot I25. 10 ATHSCL HEART DISEASE OF [place] CORONARY 06/17/2017 MUKUND RO MD, Ot J98. [...] Ot I25. 10 ATHSCL HEART DISEASE OF [place] CORONARY 06/18/2017 MUKUND RO MD, Ot J98. 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 [...] Code Description Performed By Per formed On [id number] DI LATION OF RIGHT URETER WITH INTRALUMIN [...] culture - 06/11/17 19:45 Bacterial urine culture [id number] NRG COLONY COUNT 10,000/ML - 100,000/ML NRG [...] TEXT ENTRY 3 NO SUSCEPTIBILITY PERFORMED NRG Complete blood count (CBC) with automate d white blood cell (WBC) differential - 09/02/19 10:11 Blood leukocytes automated count (number/volume) 7.3 10*3/uL 4.3-11.0 Blood erythrocytes automated count (number/volume) 4.01 10*6/uL 4.35-5.85 Venous blood hemoglobin measurement (mass/volume) 11.0 g/dL 11.5-16.0 Blood hematocrit (volume fraction) 35 % 35-52 Automated erythrocyte mean corpuscular volume 87 [ foz_us] 80-99 Automated erythrocyte mean corpuscular h emoglobin (mass per erythrocyte) 27 pg 25-34 Automated erythrocyte mean corpuscular h emoglobin concentration measurement (mass/volume) 32 g/dL 32-36 Automated erythrocyte distribution width ratio 13. 7 % 10.0- 14.5 Automated blood platelet count (count/volume) 405 10*3/uL 130-400 Automated blood platelet mean volume measurement 9.0 [foz_us] 7.4-10.4 Automated blood neutrophils/100 leukocytes 68 % 42-75 Automated blood lymphocytes/100 leukocytes 19 % 12-44 Blood monocytes/100 leukocytes 8 % 0-12 Automated blood eosinophils/100 leukocytes 4 % 0-10 Automated blood basophils/100 leukocytes 1 % 0-10 Blood neutrophils automated count (number/volume) 5.0 10*3 1.8-7.8 Blood lymphocytes automated count (number/volume) 1.4 10*3 1.0-4.0 Blood monocytes automated count (number/volume) 0. 6 10*3 0.0-1.0 Automated eosinophil count 0.3 10*3/uL 0 .0-0.3 Automated blood basophil count (count/volume) 0.1 10*3/uL 0.0-0.1 Comprehensive metabolic panel - 09/02/19 10:11 Serum or plasma sodium measurement (moles/volume) 137 mmol/L 135-145 Serum or plasma potassium measurement (moles/volume) 4.8 mmol/L 3.6-5.0 Serum or plasma chloride measurement (moles/volume) 103 mmol/L 98-107 Carbon dioxide 24 mmol/L 21-32 Serum or plasma anion gap determination (moles/volume) 10 mmol/L 5-14 Serum or plasma urea nitrogen measurement (mass/volume ) 39 mg/dL 7-18 Serum or plasma creatinine measurement (mass/volume) 2.16 mg/dL 0.60-1.30 Serum or plasma urea nitrogen/creatinine mass ratio 18 NRG Serum or plasma creatinine measurement w ith calculation of estimated glomerular filtration rate 22 NRG Serum or plasma glucose measurement (mass/volume) 129 mg/dL 70-105 Serum or plasma calcium measurement (mass/volume) 9.0 mg/dL 8.5-10.1 Serum or plasma total bilirubin measurement (mass/volu me) 0.3 mg/dL 0.1-1.0 Serum or plasma alkaline phosphatase monica surement (enzymatic activity/volume) 91 U/L 40-136 Serum or plasma aspartate aminotransfera se measurement (enzymatic activity/volume) 12 U/L 5-34 Serum or plasma alanine aminotransferase measurement (enzymatic activity/volume) 8 U/L 0-55 Serum or plasma protein measurement (mass/volume) 8.1 g/dL 6.4-8.2 Serum or plasma albumin measurement (mass/volume) 3.9 g/dL 3.2-4.5 CALCIUM CORRECTED 9.1 mg/dL 8.5-10.1 Complete urinalysis with reflex to cultu re - 09/02/19 10:30 Urine color determination BROWN NRG Urine clarity determination TURBID NR G Urine pH measurement by test strip 8.0 5-9 Specific gravity of urine by test strip 1.020 1.016-1.022 Urine protein assay by test strip, semi-quantitative 3+ NEGATIVE Urine glucose detection by automated test strip NE GATIVE NEGATIVE Erythrocytes detection in urine sediment by light micr oscopy 3+ NEGATIVE Urine ketones detection by automated test strip 1+ NEGATIVE Urine nitrite detection by test strip POSITIVE NEGATIVE Urine total bilirubin detection by test strip 2+ NEGATIVE Urine urobilinogen measurement by automated test strip (mass/volume) 1.0 mg/dL < = 1.0 Urine leukocyte esterase detection by dipstick 3+ NEGATIVE Automated urine sediment erythrocyte cou nt by microscopy (number/high power field) > [HPF] NRG Automated urine sediment leukocyte count by microscopy (number/high power field) TNTC NRG Bacteria detection in urine sediment by light microsco py LARGE NRG Squamous epithelial cells detection in u rine sediment by light microscopy RARE NRG Crystals detection in urine sediment by light microsco py PRESENT NRG Casts detection in urine sediment by light microscopy NONE NRG Mucus detection in urine sediment by light microscopy NEGATIVE NRG Complete urinalysis with reflex to culture YES NRG Triple phosphate crystals detection in u rine sediment by light microscopy FEW NRG Blood lactic acid measurement (moles/vol ume) - 09/02/19 11:30 Blood lactic acid measurement (moles/volume) 1.37 mmol/L 0.50-2.00 Encounters ACCT No. Visit Date/Time Discharge Status Pt. Type Provider Facility Loc./Unit Complaint [id number] 11/18/2018 18:53:00 019 23:59:59 CLS Outpatient MUKUND RO MD [facility] [id number] 06/11/2017 22:14:00 018 14:15:00 DIS Inpatient MUKUND RO MD [facility] 4TH SEVERE SEPSIS,LEOBARDO,UTI,U RETERAL CALCULUS [id number] 07/11/2014 12:30:00 015 23:59:59 CLS Preadmit HENRY HOOPER MD [facility] CARD WENDY,CP,SYNCOPE [id number] 06/21/2014 13:04:00 015 23:59:59 CLS Outpatient TABITHA PITTMAN, ADELA Argueta [facility] CARD WENDY,CP,HYPERTHYROIDISM,SYNCOPE [id number] 04/12/2014 08:39:00 015 23:59:59 CLS Outpatient JIA MARIO, MUKUND Angel [facility] CARD HEART MURMUR [id number] 03/29/2014 18:15:00 015 11:10:00 DIS Inpatient MUKUND RO MD [facility] 4TH SYNCOPE;UTI;GENERALIZED WEAKNESS;HYPOTHYROIDISM [id number] 03/24/2014 14:08:00 015 15:58:00 DIS Emergency STEPHANIE ELLIOTT MD [facility] ER UNABLE TO URINATE [id number] 09/02/2019 11:05:00 Document Registration [id number] 03/24/2014 14:08:00 Document Registration
[2019-09-02] MEDS ORDERED: MEROPENEM 500 MG in WATER (STERILE) FOR INJECTION 10 ML IV SCH (13:15)
[2019-09-02] MEDS: NS IV 1000 ML 1,000 ML IV SCH (13:19)
--- NOTE | 2019-09-02 14:00 | NUR ---
PT HAVING TROUBLE WITH DRIBBLING INCONTINENCE, PUREWICK PUT INTO PLACE.
--- NOTE | 2019-09-02 14:32 | History & Physicial ---
History of Present Illness History of Present Illness Reason for visit/HPI 89 yo female presents to ED by EMS following confusing and talking less. She has hx/o UTI's this last year. Patient has alzheimers disease and is unable to correctly tell when urine is bothering her. There has been no fevers, SOB, N,V, or diarrhea. Date of Admission Sep 02, 2019 at 11:37 Date Seen by a Provider: Sep 02, 2019 Time Seen by a Provider: 14:30 I consulted on this patient on 09/02/19 14:27 Attending Physician Mukund Ro MD Admitting Physician Lee Manjarrez MD Consult Allergies and Home Medications Allergies Coded Allergies: No Known Drug Allergies (Unverified , 12/15/08) Home Medications Aspirin 81 Mg Tablet.dr, 81 MG PO HS, (Reported) Ciprofloxacin HCl 500 Mg Tablet, 500 MG PO Q12H Prescribed by: MUKUND RO on 06/18/17 1052 Ibuprofen 200 Mg Tablet, 200-400 MG PO TID PRN for PAIN-MILD, (Reported) Meclizine HCl 25 Mg Tablet, 25 MG PO TID PRN for DIZZINESS, (Reported) Memantine HCl 10 Mg Tablet, 10 MG PO BID, (Reported) Metoprolol Succinate 25 Mg Tab.er.24h, 25 MG PO DAILY, (Reported) Quetiapine Fumarate 25 Mg Tablet, 25 MG PO BID, (Reported) Tetrahydrz/Dext 70/Peg 400/Pvp 15 Ml Drops, 1-2 DROPS OU TID PRN for DRY EYES, (Reported) Patient Home Medication List Home Medication List Reviewed: Yes Past Ycojxnb-Neewri-Hggvlz Hx Patient Social History Marrital Status: Alcohol Use: Denies Use Recreational Drug Use: No Smoking Status: Never a Smoker 2nd Hand Smoke Exposure: No Recent Foreign Travel: No Contact w/other who traveled: No Recent Hopitalizations: Yes Recent Infectious Disease Expo: No Immunizations Up To Date Tetanus Booster (TDap): Unknown Date of Pneumonia Vaccine: Mar 18, 2010 Date of Influenza Vaccine: Jan 12, 2017 Surgeries 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/back surgery) Hysterectomy, Orthopedic Respiratory No Cardiovascular No Neurological Yes (alzheimers) Reproductive System Hx Reproductive Disorders: 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; age 29 at the time) Sexually Transmitted Disease: No Genitourinary UTI-Chronic Gastrointestinal Yes Gastroesophageal Reflux Musculoskeletal Yes Chronic Back Pain Endocrine History of Endocrine Disorders: No Cancer No Psychosocial History of Psychiatric Problem: No Integumentary History of Skin or Integumenta: No Blood Transfusions History of Blood Disorders: Yes Adverse Reaction to a Blood Tr: No Family Medical History Family Hx: Alzheimer's disease 19 MOTHER G8 BROTHER G8 SISTER Arthritis G8 SISTER Cardiovascular disease 19 FATHER Hypercholesterolemia 19 FATHER 19 MOTHER G8 BROTHER G8 SISTER Infertility G8 SISTER Myocardial infarction 19 FATHER Parkinson's disease 19 MOTHER No Family History of: AIDS Abdominal aortic aneurysm Rutland's disease Alcoholism Aphasia Asthma Cancer of mouth Cataracts Colon cancer Completed stroke Congenital disease Congenital heart disease Coronary thrombosis Cystic fibrosis Deafness or hearing loss Dementia Diabetes mellitus Drug abuse Dysphasia Fibrocystic disease of breast Gastroenteritis Glaucoma Headache disorder Hypertension Kidney disease Neoplasm Not obtainable due to adoption Osteoporosis Prostate cancer Psychosocial problem Respiratory disorder Seizure disorder Severe allergy Thyroid disease Tuberculosis Visual disorder Review of Systems Constitutional: see HPI Physical Exam Vital Signs Vital Signs - First Documented 09/02/19 10:03 Temp 36.7 Pulse 87 Resp 17 B/P (MAP) 114/53 (73) Pulse Ox 96 O2 Delivery Room Air Capillary Refill : Less Than 3 Seconds Height, Weight, BMI Height: 5'3.00" Weight: 147lbs. 8.0oz. [id number]; 23.46 BMI Method:Stated General Appearance: No Apparent Distress HEENT: Normal ENT Inspection Respiratory: Lungs Clear Cardiovascular: Regular Rate, Rhythm Gastrointestinal: Soft Assessment/Plan Assessment and Plan 1. ESBL UTI -susupect po resistance -begin meropenem IV Admission Diagnosis 1. ESBL UTI -susupect po resistance 2. AMS-has hx/o alzheimers Admission Status: Inpatient Order (span 2 midnights) Reason for Inpatient Admission: IV meropenem MUKUND RO MD Sep 02, 2019 14:32
[2019-09-02] MEDS: MEROPENEM 500 MG in WATER (STERILE) FOR INJECTION 10 ML IV SCH (15:01)
--- NOTE | 2019-09-02 15:52 | NUR ---
DR RO WAS NOTIFIED OF PT'S DVT SCORE OF 5. DR RO SAID TO PUT SCD'S ON PT, NO ORDER FOR LOVENOX OR OTHER BLOOD THINNER. PT ALSO HAS BEEN CRYING IN HER ROOM DUE TO CONFUSION. DR RO ORDERED 0.5 MG ATIVAN PO Q6H PRN AGITATION AND/OR CRYING.
[2019-09-02 16:00] VITALS: BP 175/84
--- NOTE | 2019-09-02 16:13 | NUR ---
PTS DAUGHTER, SHEFALI, CONTACTED BY THIS RN REGARDING MEDICATION RECONCILATION. SHEFALI REPORTED SHE WAS HAVING NIECE GO TO PTS HOUSE TO GET HER MEDICATIONS AND SHEFALI WOULD CALL ME BACK AT MY DIRECT NUMBER WHEN NIECE RETURNED WITH INFO.
[2019-09-02] MEDS: LORazepam 0.5 MG (ATIVAN) TABLET PO PRN ×2 (16:25→22:15)
--- NOTE | 2019-09-02 18:33 | NUR ---
PTS GRANDDAUGHTER, HANG, CALLED WITH HOME MEDICATIONS. HANG SAID THAT PT TAKES PRILOSEC DAILY AND COMPLAINS OF BEING SICK WHEN NOT TAKING IT. DR RO ORDERED PRILOSEC 40 MG DAILY. HOME MEDS RESTARTED WELL.
[2019-09-02 19:51] VITALS: BP 137/71
[2019-09-02] MEDS: ASPIRIN E.C. 81 MG (ECOTRIN) TAB PO SCH (21:29)
[2019-09-02] MEDS: QUEtiapine 25 MG (SEROquel) TAB IMMEDIATE RELEASE PO SCH (21:29)
[2019-09-02] MEDS: MEMANTINE 10 MG (NAMENDA) TABLET PO SCH (21:29)
--- NOTE | 2019-09-02 23:07 | NUR ---
SULMA ATTEMPT ON CONFUSED PT. UNSUCCESSFUL. DR. RO CALLED ORDER FOR JHONATHAN.
[2019-09-03 00:28] VITALS: BP 160/88
[2019-09-03] MEDS: MEROPENEM 500 MG in WATER (STERILE) FOR INJECTION 10 ML IV SCH ×2 (01:49→12:32)
[2019-09-03] MEDS: NS IV 1000 ML 1,000 ML IV SCH ×2 (01:49→14:19)
[2019-09-03 04:20] VITALS: BP 169/76
[2019-09-03 06:06] LABS: BASOPHILS # (AUTO) 0.1 10^3/uL (0.0-0.1); BASOPHILS % (AUTO) 1 % (0-10); EOSINOPHILS # (AUTO) 0.4 10^3/uL (0.0-0.3); EOSINOPHILS % (AUTO) 7 % (0-10); HEMATOCRIT 31 % (35-52); HEMOGLOBIN 9.8 G/DL (11.5-16.0); LYMPHOCYTES # (AUTO) 1.6 X 10^3 (1.0-4.0); LYMPHOCYTES % (AUTO) 31 % (12-44); MEAN CORPUSCULAR HEMOGLOBIN 28 PG (25-34); MEAN CORPUSCULAR HGB CONC 32 G/DL (32-36); MEAN CORPUSCULAR VOLUME 87 FL (80-99); MEAN PLATELET VOLUME 8.8 FL (7.4-10.4); MONOCYTES # (AUTO) 0.5 X 10^3 (0.0-1.0); MONOCYTES % (AUTO) 10 % (0-12); NEUTROPHILS # (AUTO) 2.7 X 10^3 (1.8-7.8); NEUTROPHILS % (AUTO) 52 % (42-75); PLATELET COUNT 345 10^3/uL (130-400); RED CELL DISTRIBUTION WIDTH 13.3 % (10.0-14.5); WHITE BLOOD COUNT 5.3 10^3/uL (4.3-11.0)
[2019-09-03 06:16] LABS: ALBUMIN 3.1 GM/DL (3.2-4.5); POTASSIUM 4.1 MMOL/L (3.6-5.0)
[2019-09-03 06:17] LABS: CALCIUM 7.9 MG/DL (8.5-10.1)
[2019-09-03 06:18] LABS: TOTAL PROTEIN 6.4 GM/DL (6.4-8.2)
[2019-09-03 06:20] LABS: BILIRUBIN,TOTAL 0.2 MG/DL (0.1-1.0)
[2019-09-03 06:22] LABS: CREATININE SERUM 1.47 MG/DL (0.60-1.30)
--- NOTE | 2019-09-03 07:59 | Progress Note ---
Subjective Date Seen by a Provider: Sep 03, 2019 Time Seen by a Provider: 07:30 Subjective/Events-last exam Patient resting well. A little confused overnight according to nurse. She had gale placed within last 12 hours. Focused Exam Lactate Level 09/02/19 11:30: Lactic Acid Level 1.37 Objective Exam Vital Signs Date Time Temp Pulse Resp B/P (MAP) Pulse Ox O2 Delivery O2 Flow Rate FiO2 09/03/19 04:20 36.6 89 18 169/76 (107) 97 Room Air 09/03/19 00:28 36.7 88 16 160/88 (112) 96 Room Air 09/02/19 20:00 Room Air 09/02/19 19:51 37.0 95 18 137/71 (93) 97 Room Air 09/02/19 16:00 37.3 84 20 175/84 (114) 97 Room Air 09/02/19 12:41 37.3 83 18 146/79 98 Room Air 09/02/19 12:00 Room Air 09/02/19 11:50 36.7 84 16 116/65 (73) 95 Room Air 09/02/19 10:03 36.7 87 17 114/53 (73) 96 Room Air I & O 09/03/19 07:00 Intake Total 1390 ml Output Total 350 ml Balance 1040 ml Capillary Refill : Less Than 3 Seconds General Appearance: No Apparent Distress Respiratory: Lungs Clear Cardiovascular: Regular Rate, Rhythm Gastrointestinal: soft Results Lab Laboratory Tests 09/02/19 10:11: White Blood Count 7.3, Red Blood Count 4.01L, Hemoglobin 11.0L, Hematocrit 35, Mean Corpuscular Volume 87, Mean Corpuscular Hemoglobin 27, Mean Corpuscular Hemoglobin Concent 32, Red Cell Distribution Width 13.7, Platelet Count 405H, Mean Platelet Volume 9.0, Neutrophils (%) (Auto) 68, Lymphocytes (%) (Auto) 19, Monocytes (%) (Auto) 8, Eosinophils (%) (Auto) 4, Basophils (%) (Auto) 1, Neutrophils # (Auto) 5.0, Lymphocytes # (Auto) 1.4, Monocytes # (Auto) 0.6, Eosinophils # (Auto) 0.3, Basophils # (Auto) 0.1, Sodium Level 137, Potassium Level 4.8, Chloride Level 103, Carbon Dioxide Level 24, Anion Gap 10, Blood Urea Nitrogen 39H, Creatinine 2.16H, Estimat Glomerular Filtration Rate 22, BUN/Creatinine Ratio 18, Glucose Level 129H, Calcium Level 9.0, Corrected Calcium 9.1, Total Bilirubin 0.3, Aspartate Amino Transf (AST/SGOT) 12, Alanine Aminotransferase (ALT/SGPT) 8, Alkaline Phosphatase 91, Total Protein 8.1, Albumin 3.9 09/02/19 10:30: Urine Color BROWNH, Urine Clarity TURBID, Urine pH 8.0, Urine Specific Collins 1.020, Urine Protein 3+H, Urine Glucose (UA) NEGATIVE, Urine Ketones 1+H, Urine Nitrite POSITIVEH, Urine Bilirubin 2+H, Urine Urobilinogen 1.0, Urine Leukocyte Esterase 3+H, Urine RBC (Auto) 3+H, Urine RBC >100H, Urine WBC TNTCH, Urine Squamous Epithelial Cells RARE, Urine Crystals PRESENTH, Urine Triple Phosphate Crystals FEWH, Urine Bacteria LARGEH, Urine Casts NONE, Urine Mucus NEGATIVE, Urine Culture Indicated YES 09/02/19 11:30: Lactic Acid Level 1.37 09/03/19 05:46: White Blood Count 5.3, Red Blood Count 3.55L, Hemoglobin 9.8L, Hematocrit 31L, Mean Corpuscular Volume 87, Mean Corpuscular Hemoglobin 28, Mean Corpuscular Hemoglobin Concent 32, Red Cell Distribution Width 13.3, Platelet Count 345, Mean Platelet Volume 8.8, Neutrophils (%) (Auto) 52, Lymphocytes (%) (Auto) 31, Monocytes (%) (Auto) 10, Eosinophils (%) (Auto) 7, Basophils (%) (Auto) 1, Neutrophils # (Auto) 2.7, Lymphocytes # (Auto) 1.6, Monocytes # (Auto) 0.5, Eosinophils # (Auto) 0.4H, Basophils # (Auto) 0.1, Sodium Level 140, Potassium Level 4.1, Chloride Level 107, Carbon Dioxide Level 24, Anion Gap 9, Blood Urea Nitrogen 28H, Creatinine 1.47H, Estimat Glomerular Filtration Rate 34, BUN/Creatinine Ratio 19, Glucose Level 109H, Calcium Level 7.9L, Corrected Calcium 8.6, Total Bilirubin 0.2, Aspartate Amino Transf (AST/SGOT) 9, Alanine Aminotransferase (ALT/SGPT) 6, Alkaline Phosphatase 70, Total Protein 6.4, Albumin 3.1L Assessment/Plan Assessment/Plan Assess & Plan/Chief Complaint 1. ESBL UTI -susupect po resistance -begin meropenem IV 09/02 -Day number 2 of meropenem 2. Renal insufficiency -Continue with IV fluids -Creatinine is improved today 3. Altered mental status -She does have a history of Alzheimer's disease so difficult to tell if worsen. Clinical Quality Measures Admission Status Admission Dx 1. ESBL UTI -susupect po resistance 2. AMS-has hx/o alzheimers DVT/VTE Risk/Contraindication: Risk Factor Score Per Nursin RFS Level Per Nursing on Admit: 4+=Very High MUKUND RO MD Sep 03, 2019 07:59
[2019-09-03 08:00] VITALS: BP 145/76
[2019-09-03] MEDS: PANTOPRAZOLE 40 MG (PROTONIX) TAB PO SCH (08:42)
[2019-09-03] MEDS: QUEtiapine 25 MG (SEROquel) TAB IMMEDIATE RELEASE PO SCH ×2 (08:43→21:41)
[2019-09-03] MEDS: MEMANTINE 10 MG (NAMENDA) TABLET PO SCH ×2 (08:43→21:41)
[2019-09-03] MEDS ORDERED: cefTRIAXone 1,000 MG/SWFI 10 ML IV PUSH IV SCH ×2 (09:00)
--- NOTE | 2019-09-03 11:18 | Consultation-Cardiology ---
HPI-Cardiology Cardiology Consultation Date of Consultation 09/03/19 Date of Admission Time Seen by Provider: 11:14 HPI 89 years old lady suffered from Alzheimer dementia. Unable to provide full history. She was admitted for altered mental status, generalized fatigue less toxic and confusion. Denied any active shortness of breath or chest pain. No nausea vomiting or diarrhea. Most of her history was obtained by reviewing her records Home Medications & Allergies Allergies: Coded Allergies: No Known Drug Allergies (Unverified , 12/15/08) DEC-Sqvebr-Ienvbc Hx Patient Social History Marital Status: Alcohol Use: Denies Use Recreational Drug Use: No Smoking Status: Never a Smoker 2nd Hand Smoke Exposure: No Recent Foreign Travel: No Recent Infectious Disease Expo: No Recent Hopitalizations: Yes Immunizations Up To Date Tetanus Booster (TDap): Unknown Date of Pneumonia Vaccine: Mar 18, 2010 Date of Influenza Vaccine: Jan 12, 2017 Past Medical History Discussed below Family Medical History Family History: 19 FATHER Cardiovascular disease Hypercholesterolemia Myocardial infarction 19 MOTHER Alzheimer's disease Hypercholesterolemia Parkinson's disease G8 BROTHER Alzheimer's disease Hypercholesterolemia G8 SISTER Alzheimer's disease Arthritis Hypercholesterolemia Infertility Review of Systems-General Review of Systems Constitutional: see HPI, other (unable to provide review of systems) EENTM: see HPI, no symptoms reported Respiratory: see HPI Cardiovascular: see HPI Gastrointestinal: no symptoms reported, see HPI Genitourinary: no symptoms reported, see HPI Musculoskeletal: see HPI Skin: see HPI Psychiatric/Neurological: See HPI Reviewed Test Results Reviewed Test Results Lab Laboratory Tests Test 09/02/19 11:30 09/03/19 05:46 Range/Units Lactic Acid Level 1.37 0.50-2.00 MMOL/L White Blood Count 5.3 4.3-11.0 10^3/uL Red Blood Count 3.55 L 4.35-5.85 10^6/uL Hemoglobin 9.8 L 11.5-16.0 G/DL Hematocrit 31 L 35-52 % Mean Corpuscular Volume 87 80-99 FL Mean Corpuscular Hemoglobin 28 25-34 PG Mean Corpuscular Hemoglobin Concent 32 32-36 G/DL Red Cell Distribution Width 13.3 10.0-14.5 % Platelet Count 345 130-400 10^3/uL Mean Platelet Volume 8.8 7.4-10.4 FL Neutrophils (%) (Auto) 52 42-75 % Lymphocytes (%) (Auto) 31 12-44 % Monocytes (%) (Auto) 10 0-12 % Eosinophils (%) (Auto) 7 0-10 % Basophils (%) (Auto) 1 0-10 % Neutrophils # (Auto) 2.7 1.8-7.8 X 10^3 Lymphocytes # (Auto) 1.6 1.0-4.0 X 10^3 Monocytes # (Auto) 0.5 0.0-1.0 X 10^3 Eosinophils # (Auto) 0.4 H 0.0-0.3 10^3/uL Basophils # (Auto) 0.1 0.0-0.1 10^3/uL Sodium Level 140 135-145 MMOL/L Potassium Level 4.1 3.6-5.0 MMOL/L Chloride Level 107 98-107 MMOL/L Carbon Dioxide Level 24 21-32 MMOL/L Anion Gap 9 5-14 MMOL/L Blood Urea Nitrogen 28 H 7-18 MG/DL Creatinine 1.47 H 0.60-1.30 MG/DL Estimat Glomerular Filtration Rate 34 BUN/Creatinine Ratio 19 Glucose Level 109 H 70-105 MG/DL Calcium Level 7.9 L 8.5-10.1 MG/DL Corrected Calcium 8.6 8.5-10.1 MG/DL Total Bilirubin 0.2 0.1-1.0 MG/DL Aspartate Amino Transf (AST/SGOT) 9 5-34 U/L Alanine Aminotransferase (ALT/SGPT) 6 0-55 U/L Alkaline Phosphatase 70 40-136 U/L Total Protein 6.4 6.4-8.2 GM/DL Albumin 3.1 L 3.2-4.5 GM/DL Physical Exam Physical Exam Vital Signs Vital Signs - First Documented 09/02/19 10:03 Temp 36.7 Pulse 87 Resp 17 B/P (MAP) 114/53 (73) Pulse Ox 96 O2 Delivery Room Air Capillary Refill : Less Than 3 Seconds Height, Weight, BMI Height: 5'3.00" Weight: 147lbs. 8.0oz. [id number]; 23.46 BMI Method:Stated General Appearance: No Apparent Distress Eyes: Bilateral Eye Normal Inspection, Bilateral Eye PERRL, Bilateral Eye EOMI HEENT: Normal ENT Inspection Neck: Full Range of Motion, Normal Inspection, Non Tender, Supple, Carotid Bruit Respiratory: Lungs Clear, Normal Breath Sounds Cardiovascular: Regular Rate, Rhythm, No Edema, No Gallop, No Murmur Gastrointestinal: Normal Bowel Sounds, Soft Back: Normal Inspection, No CVA Tenderness, No Vertebral Tenderness Extremity: Normal Capillary Refill, Normal Inspection, Normal Range of Motion, Non Tender, No Calf Tenderness, No Pedal Edema Neurologic/Psychiatric: Alert, No Motor/Sensory Deficits Skin: Normal Color, Warm/Dry Lymphatic: No Adenopathy A/P-Cardiology Admission Diagnosis Change in mental status Urinary tract infection Hypertension Acute renal failure Assessment/Plan Change in mental status probably secondary to UTI. Receiving antibiotic managed by primary care physician. Acute renal failure, history of chronic renal insufficiency, receiving IV fluid. Continue to monitor History of obstructive uropathy and right hydronephrosis due to right side UPJ stone Questionable history of coronary artery disease, history of calcification on her coronaries by CT scan. Conservative management is recommended due to her comorbid condition Labile blood pressure, monitor blood pressure Dementia. Clinical Quality Measures DVT/VTE Risk/Contraindication: Risk Factor Score Per Nursin RFS Level Per Nursing on Admit: 4+=Very High HENRY HOOPER MD Sep 03, 2019 11:18
[2019-09-03 12:00] VITALS: BP 138/82
[2019-09-03 16:05] VITALS: BP 151/74
[2019-09-03 19:20] VITALS: BP 124/75
[2019-09-03] MEDS: ASPIRIN E.C. 81 MG (ECOTRIN) TAB PO SCH (21:41)
[2019-09-04 00:13] VITALS: BP 174/75
[2019-09-04 01:07] VITALS: BP 128/69
[2019-09-04] MEDS: MEROPENEM 500 MG in WATER (STERILE) FOR INJECTION 10 ML IV SCH ×2 (01:58→13:59)
[2019-09-04] MEDS: NS IV 1000 ML 1,000 ML IV SCH ×2 (04:17→17:52)
--- NOTE | 2019-09-04 07:29 | Progress Note ---
Subjective Date Seen by a Provider: Sep 04, 2019 Time Seen by a Provider: 07:05 Subjective/Events-last exam Patient slept comfortably overnight. She is not voicing any complaints. Vaughn catheter is still in place. I spoke with her yesterday and informed him her status. Focused Exam Lactate Level 09/02/19 11:30: Lactic Acid Level 1.37 Objective Exam Vital Signs Date Time Temp Pulse Resp B/P (MAP) Pulse Ox O2 Delivery O2 Flow Rate FiO2 09/04/19 01:07 77 128/69 (88) 09/04/19 00:13 37.2 83 20 174/75 (108) 98 Room Air 09/03/19 21:20 Room Air 09/03/19 19:20 36.6 85 18 124/75 (91) 91 Room Air 09/03/19 16:05 37.2 96 16 151/74 (99) 97 Room Air 09/03/19 12:00 36.7 76 18 138/82 (100) 94 Room Air 09/03/19 08:00 Room Air 09/03/19 08:00 36.6 78 18 145/76 (99) 97 Room Air I & O 09/04/19 07:00 Intake Total 2087 ml Output Total 1650 ml Balance 437 ml Capillary Refill : Less Than 3 Seconds General Appearance: No Apparent Distress Neck: Supple Respiratory: Lungs Clear Cardiovascular: Regular Rate, Rhythm Gastrointestinal: soft Results Lab Microbiology 09/02/19 Blood Culture - Preliminary, Resulted No growth 09/02/19 Urine Culture - Final, Complete 3 or more isolates Assessment/Plan Assessment/Plan Assess & Plan/Chief Complaint 1. ESBL UTI -susupect po resistance -begin meropenem IV 09/02 -Day number 2 of meropenem 09/03 -Day number 3 of meropenem -Urine culture came back 3 or more isolate suspect contamination from skin -Due to her history of ESBL she will stay another day and be reevaluated tomorrow for possible switching to oral medications 2. Renal insufficiency -Continue with IV fluids -Creatinine is improved today 3. Altered mental status -She does have a history of Alzheimer's disease so difficult to tell if worsen. Clinical Quality Measures Admission Status Admission Dx 1. ESBL UTI -susupect po resistance 2. AMS-has hx/o alzheimers DVT/VTE Risk/Contraindication: Risk Factor Score Per Nursin RFS Level Per Nursing on Admit: 4+=Very High MUKUND RO MD Sep 04, 2019 07:29
[2019-09-04 08:00] VITALS: BP 130/76
[2019-09-04] MEDS: PANTOPRAZOLE 40 MG (PROTONIX) TAB PO SCH (08:35)
[2019-09-04] MEDS: MEMANTINE 10 MG (NAMENDA) TABLET PO SCH ×2 (08:35→20:42)
[2019-09-04] MEDS: QUEtiapine 25 MG (SEROquel) TAB IMMEDIATE RELEASE PO SCH ×2 (08:35→20:42)
--- NOTE | 2019-09-04 10:21 | Cardiology Progress Note ---
Subjective Date Seen by Provider: Sep 04, 2019 Time Seen by Provider: 10:20 Subjective/Events-last exam Patient is laying down in bed, feeling better more awake. Review of Systems General: No Chills, No Night Sweats; Fatigue; No Malaise, No Appetite, No Other HEENT: No Head Aches, No Visual Changes, No Eye Pain, No Ear Pain, No Dysphasia, No Sinus Congestion, No Post Nasal Drip, No Sore Throat, No Other Pulmonary: No Dyspnea, No Cough, No Pleuritic Chest Pain, No Other Cardiovascular: No: Chest Pain, Palpitations, Orthopnea, Paroxysmal Noc. Dyspnea, Edema, Lt Headedness, Other Focused Exam Lactate Level 09/02/19 11:30: Lactic Acid Level 1.37 Objective-Cardiology Exam Last Set of Vital Signs Vital Signs 09/04/19 08:00 Temp 36.4 Pulse 81 Resp 18 B/P (MAP) 130/76 (94) Pulse Ox 94 O2 Delivery Room Air Capillary Refill : Less Than 3 Seconds I&O Intake and Output 09/04/19 00:00 Intake Total 1937 ml Output Total 1500 ml Balance 437 ml Intake Oral 937 ml IV Total 1000 ml Output Urine Total 1500 ml General: Alert, Oriented X3, Cooperative HEENT: Atraumatic, PERRLA Neck: Supple, No JVD, No Thyromegaly Lungs: Clear to Auscultation, Normal Air Movement Heart: Regular Rate, Normal S1, Normal S2, No Murmurs Abdomen: Normal Bowel Sounds, Soft, No Tenderness, No Hepatosplenomegaly, No Masses Extremities: No Clubbing, No Cyanosis, No Edema, Normal Pulses, No Tenderness/Swelling Skin: No Rashes, No Breakdown, No Significant Lesion Neuro: Normal Gait, Normal Speech, Strength at 5/5 X4 Ext, Normal Tone, Sensation Intact Psych/Mental Status: Mental Status NL, Mood NL A/P-Cardiology Admission Diagnosis Change in mental status Urinary tract infection Hypertension Acute renal failure Assessment/Plan Status post change in mental status this early secondary to UTI, better at this time. Started on meropenem and managed by primary care physician. Acute renal failure, history of chronic renal insufficiency, receiving IV fluid. Continue to monitor History of obstructive uropathy and right hydronephrosis due to right side UPJ stone Questionable history of coronary artery disease, history of calcification on her coronaries by CT scan. Conservative management is recommended due to her comorbid condition Labile blood pressure, monitor blood pressure Dementia. Clinical Quality Measures DVT/VTE Risk/Contraindication: Risk Factor Score Per Nursin RFS Level Per Nursing on Admit: 4+=Very High HENRY HOOPER MD Sep 04, 2019 10:21 am
[2019-09-04 15:54] VITALS: BP 159/76
[2019-09-04] MEDS: ASPIRIN E.C. 81 MG (ECOTRIN) TAB PO SCH (20:42)
[2019-09-05 00:07] VITALS: BP 174/80
[2019-09-05] MEDS: MEROPENEM 500 MG in WATER (STERILE) FOR INJECTION 10 ML IV SCH ×2 (02:22→14:33)
--- NOTE | 2019-09-05 07:08 | Progress Note ---
Subjective Date Seen by a Provider: Sep 05, 2019 Time Seen by a Provider: 07:05 Subjective/Events-last exam Patient was awake this morning upon rounds. She did not appear to be in any distress. She answered questions appropriately. Focused Exam Lactate Level 09/02/19 11:30: Lactic Acid Level 1.37 Objective Exam Vital Signs Date Time Temp Pulse Resp B/P (MAP) Pulse Ox O2 Delivery O2 Flow Rate FiO2 09/05/19 00:07 37.0 92 18 174/80 (111) 94 Room Air 09/04/19 19:40 Room Air 09/04/19 15:54 37.1 85 18 159/76 (103) 96 Room Air 09/04/19 08:00 36.4 81 18 130/76 (94) 94 Room Air 09/04/19 07:50 Room Air I & O 09/05/19 07:00 Intake Total 1780 ml Output Total 3350 ml Balance -1570 ml Capillary Refill : Less Than 3 Seconds General Appearance: No Apparent Distress Neck: Supple Respiratory: Lungs Clear Cardiovascular: Regular Rate, Rhythm Gastrointestinal: soft Results Lab Microbiology 09/02/19 Blood Culture - Preliminary, Resulted No growth 09/02/19 Urine Culture - Final, Complete 3 or more isolates Assessment/Plan Assessment/Plan Assess & Plan/Chief Complaint 1. ESBL UTI -susupect po resistance -begin meropenem IV 09/02 -Day number 2 of meropenem 09/03 -Day number 3 of meropenem -Urine culture came back 3 or more isolate suspect contamination from skin -Due to her history of ESBL she will stay another day and be reevaluated tomorrow for possible switching to oral medications 09/04 -Day number 4 meropenem -Check urine analysis this morning to ensure clearing -Possible dismissal later today or in the morning of September 05 2. Renal insufficiency -Continue with IV fluids -Creatinine is improved today 3. Altered mental status -She does have a history of Alzheimer's disease so difficult to tell if worsen. Clinical Quality Measures Admission Status Admission Dx 1. ESBL UTI -susupect po resistance 2. AMS-has hx/o alzheimers DVT/VTE Risk/Contraindication: Risk Factor Score Per Nursin RFS Level Per Nursing on Admit: 4+=Very High MUKUND RO MD Sep 05, 2019 07:08
[2019-09-05] MEDS: MEMANTINE 10 MG (NAMENDA) TABLET PO SCH ×2 (07:57→20:17)
[2019-09-05] MEDS: NS IV 1000 ML 1,000 ML IV SCH ×2 (07:57→20:22)
[2019-09-05] MEDS: PANTOPRAZOLE 40 MG (PROTONIX) TAB PO SCH (07:57)
[2019-09-05] MEDS: QUEtiapine 25 MG (SEROquel) TAB IMMEDIATE RELEASE PO SCH ×2 (07:57→20:17)
[2019-09-05 08:00] VITALS: BP 106/68
[2019-09-05 08:23] LABS: BILIRUBIN,URINE NEGATIVE (NEGATIVE); CLARITY,URINE SL CLOUDY; COLOR,URINE YELLOW; GLUCOSE, URINE (UA) NEGATIVE (NEGATIVE); KETONES,URINE NEGATIVE (NEGATIVE); LEUKOCYTE ESTERASE ,URINE 3+ (NEGATIVE); NITRITE,URINE POSITIVE (NEGATIVE); PH,URINE 5.5 (5-9); PROTEIN,URINE NEGATIVE (NEGATIVE)
[2019-09-05 08:32] LABS: BACTERIA,URINE FEW /HPF; SQUAMOUS EPITHELIAL CELL,UR 0-2 /HPF; WBC,URINE 25-50 /HPF
--- NOTE | 2019-09-05 10:20 | Cardiology Progress Note ---
Subjective Date Seen by Provider: Sep 05, 2019 Time Seen by Provider: 10:19 Subjective/Events-last exam Patient sitting up in bed, c/o right sided chest pain, denies any dyspnea. Appears to be resting comfortably. Review of Systems General: No Chills, No Night Sweats, No Fatigue, No Malaise, No Appetite, No Other HEENT: No Head Aches, No Visual Changes, No Eye Pain, No Ear Pain, No Dysphasia, No Sinus Congestion, No Post Nasal Drip, No Sore Throat, No Other Pulmonary: Dyspnea; No Cough, No Pleuritic Chest Pain, No Other Cardiovascular: No: Chest Pain, Palpitations, Orthopnea, Paroxysmal Noc. Dyspnea, Edema, Lt Headedness, Other Focused Exam Lactate Level 09/02/19 11:30: Lactic Acid Level 1.37 Objective-Cardiology Exam Last Set of Vital Signs Vital Signs 09/05/19 08:00 Temp 36.1 Pulse 76 Resp 18 B/P (MAP) 106/68 (81) Pulse Ox 92 O2 Delivery Room Air Capillary Refill : Less Than 3 Seconds I&O Intake and Output 09/05/19 00:00 Intake Total 1830 ml Output Total 2350 ml Balance -520 ml Intake Oral 1830 ml Output Urine Total 2350 ml # Bowel Movements 2 General: Alert, Oriented X3, Cooperative HEENT: Atraumatic, PERRLA Neck: Supple, No JVD, No Thyromegaly Lungs: Clear to Auscultation, Normal Air Movement Heart: Regular Rate, Normal S1, Normal S2, No Murmurs Abdomen: Normal Bowel Sounds, Soft, No Tenderness, No Hepatosplenomegaly, No Masses Extremities: No Clubbing, No Cyanosis, No Edema, Normal Pulses, No Tenderness/Swelling Skin: No Rashes, No Breakdown, No Significant Lesion Neuro: Normal Gait, Normal Speech, Strength at 5/5 X4 Ext, Normal Tone, Sensation Intact Psych/Mental Status: Mental Status NL, Mood NL A/P-Cardiology Admission Diagnosis Change in mental status Urinary tract infection Hypertension Acute renal failure Assessment/Plan Status post change in mental status this early secondary to UTI, better at this time. Started on meropenem and managed by primary care physician. Acute renal failure, history of chronic renal insufficiency, improving, continue to monitor. History of obstructive uropathy and right hydronephrosis due to right side UPJ stone Questionable history of coronary artery disease, history of calcification on her coronaries by CT scan. Conservative management is recommended due to her comorbid condition Labile blood pressure, monitor blood pressure Dementia. Patient was seen and evaluated with Roxi, examination performed, management plan was discussed, agree with the current scribed note, I made few changes to the note using Italic font Patient was seen at bedside, feeling better today, more cooperative No chest pain, no shortness of breath. Continue on current medication continue to monitor blood pressure Clinical Quality Measures DVT/VTE Risk/Contraindication: Risk Factor Score Per Nursin RFS Level Per Nursing on Admit: 4+=Very High ROXI LU Sep 05, 2019 10:20 HENRY HOOPER MD Sep 05, 2019 11:07
--- NOTE | 2019-09-05 10:28 | NUR ---
CM/SS visited with the patient for discharge planning. The patient was lying in bed watching TV when this ss came to visit. She was pleasant and willing to talk. 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 She verbalized understanding. CM/SS asked where the patient lived and she stated "here". The patient appeared to believe that the hospital was her home. CM/SS asked if she knew the date and she reported "no". CM/SS asked who the current present is and she reported "Gem". The patient states that she lives alone. This ss unsure if this is correct due to patients dementia. CM/SS attempted to contact the patients daughter Sarita [phone] but did not get a response. CM/SS could not leave a voice mail due to it being full. Will continue to follow and attempt to contact daughter.
[2019-09-05 16:15] VITALS: BP 177/93
--- NOTE | 2019-09-05 16:18 | NUR ---
Pastoral care visit.
[2019-09-05] MEDS: ASPIRIN E.C. 81 MG (ECOTRIN) TAB PO SCH (20:17)
[2019-09-06 00:39] VITALS: BP 166/81
[2019-09-06] MEDS: MEROPENEM 500 MG in WATER (STERILE) FOR INJECTION 10 ML IV SCH ×2 (01:56→13:17)
--- NOTE | 2019-09-06 06:51 | Progress Note ---
Subjective Date Seen by a Provider: Sep 06, 2019 Time Seen by a Provider: 06:55 Subjective/Events-last exam Resting. No major changes in mentation. Objective Exam Vital Signs Date Time Temp Pulse Resp B/P (MAP) Pulse Ox O2 Delivery O2 Flow Rate FiO2 09/06/19 00:39 37.4 88 18 166/81 (109) 93 Room Air 09/05/19 20:20 Room Air 09/05/19 16:15 37.1 81 18 177/93 (121) 95 Room Air 09/05/19 08:00 Room Air 09/05/19 08:00 36.1 76 18 106/68 (81) 92 Room Air I & O 09/06/19 07:00 Intake Total 2820 ml Output Total 3850 ml Balance -1030 ml Capillary Refill : Less Than 3 Seconds General Appearance: No Apparent Distress Respiratory: Lungs Clear Cardiovascular: Regular Rate, Rhythm Gastrointestinal: soft Results Lab Laboratory Tests 09/05/19 08:05: Urine Color YELLOW, Urine Clarity SL CLOUDY, Urine pH 5.5, Urine Specific [place] 1.015L, Urine Protein NEGATIVE, Urine Glucose (UA) NEGATIVE, Urine Ketones NEGATIVE, Urine Nitrite POSITIVEH, Urine Bilirubin NEGATIVE, Urine Urobilinogen 0.2, Urine Leukocyte Esterase 3+H, Urine RBC (Auto) 2+H, Urine RBC 5-10H, Urine WBC 25-50H, Urine Squamous Epithelial Cells 0-2, Urine Crystals NONE, Urine Bacteria FEWH, Urine Casts NONE, Urine Mucus NEGATIVE, Urine Culture Indicated YES Microbiology 09/02/19 Blood Culture - Preliminary, Resulted No growth 09/02/19 Urine Culture - Final, Complete 3 or more isolates Assessment/Plan Assessment/Plan Assess & Plan/Chief Complaint 1. ESBL UTI -susupect po resistance -begin meropenem IV 09/02 -Day number 2 of meropenem 09/03 -Day number 3 of meropenem -Urine culture came back 3 or more isolate suspect contamination from skin -Due to her history of ESBL she will stay another day and be reevaluated tomorrow for possible switching to oral medications 09/04 -Day number 4 meropenem -Check urine analysis this morning to ensure clearing -Possible dismissal later today or in the morning of September 0509/05 -UA reveals 3+ susanna and pos nitrates. Will see if this urine culture is able to growth etiology for UTI with sensitivity. 2. Renal insufficiency -Continue with IV fluids -Creatinine is improved today 3. Altered mental status -She does have a history of Alzheimer's disease so difficult to tell if worsen. Clinical Quality Measures Admission Status Admission Dx 1. ESBL UTI -susupect po resistance 2. AMS-has hx/o alzheimers DVT/VTE Risk/Contraindication: Risk Factor Score Per Nursin RFS Level Per Nursing on Admit: 4+=Very High MUKUND RO MD Sep 06, 2019 06:51
[2019-09-06 08:00] VITALS: BP 169/89
[2019-09-06] MEDS: PANTOPRAZOLE 40 MG (PROTONIX) TAB PO SCH (08:39)
[2019-09-06] MEDS: MEMANTINE 10 MG (NAMENDA) TABLET PO SCH ×2 (08:39→21:11)
[2019-09-06] MEDS: QUEtiapine 25 MG (SEROquel) TAB IMMEDIATE RELEASE PO SCH ×2 (08:39→21:11)
--- NOTE | 2019-09-06 08:49 | Cardiology Progress Note ---
Subjective Date Seen by Provider: Sep 06, 2019 Time Seen by Provider: 08:48 Subjective/Events-last exam Patient was seen at bedside, feeling better. No new complaint. Review of Systems General: No Chills, No Night Sweats; Fatigue; No Malaise, No Appetite, No Other HEENT: No Head Aches, No Visual Changes, No Eye Pain, No Ear Pain, No Dysphasia, No Sinus Congestion, No Post Nasal Drip, No Sore Throat, No Other Pulmonary: No Dyspnea, No Cough, No Pleuritic Chest Pain, No Other Cardiovascular: No: Chest Pain, Palpitations, Orthopnea, Paroxysmal Noc. Dyspnea, Edema, Lt Headedness, Other Objective-Cardiology Exam Last Set of Vital Signs Vital Signs 09/06/19 08:00 Temp 36.0 Pulse 104 Resp 18 B/P (MAP) 169/89 (115) Pulse Ox 95 O2 Delivery Room Air Capillary Refill : Less Than 3 Seconds I&O Intake and Output 09/06/19 00:00 Intake Total 2870 ml Output Total 4100 ml Balance -1230 ml Intake Oral 1870 ml IV Total 1000 ml Output Urine Total 4100 ml General: Alert, Oriented X3, Cooperative HEENT: Atraumatic, PERRLA Neck: Supple, No JVD, No Thyromegaly Lungs: Clear to Auscultation, Normal Air Movement Heart: Regular Rate, Normal S1, Normal S2, No Murmurs Abdomen: Normal Bowel Sounds, Soft, No Tenderness, No Hepatosplenomegaly, No Masses Extremities: No Clubbing, No Cyanosis, No Edema, Normal Pulses, No Tenderness/Swelling Skin: No Rashes, No Breakdown, No Significant Lesion Neuro: Normal Gait, Normal Speech, Strength at 5/5 X4 Ext, Normal Tone, Sensation Intact Psych/Mental Status: Mental Status NL, Mood NL A/P-Cardiology Admission Diagnosis Change in mental status Urinary tract infection Hypertension Acute renal failure Assessment/Plan Status post change in mental status this early secondary to UTI, better at this time. On meropenem and managed by primary care physician. Acute renal failure, history of chronic renal insufficiency, improving, continue to monitor. History of obstructive uropathy and right hydronephrosis due to right side UPJ stone Questionable history of coronary artery disease, history of calcification on her coronaries by CT scan. Conservative management is recommended due to her comorbid condition Labile blood pressure, monitor blood pressure Dementia. Clinical Quality Measures DVT/VTE Risk/Contraindication: Risk Factor Score Per Nursin RFS Level Per Nursing on Admit: 4+=Very High HENRY HOOPER MD Sep 06, 2019 08:49
[2019-09-06] MEDS: NS IV 1000 ML 1,000 ML IV SCH ×2 (10:06→23:32)
--- NOTE | 2019-09-06 10:52 | Physician Query Clarification ---
PQ-Conflicting Diagnosis Admission/Discharge Admission Date: Sep 02, 2019 at 11:37 Discharge Date: The medical record reflects the following clinical scenario: History/Risk Factors: UTI Chronic Renal insufficiency Hypertension Clinical Findings: On admission: Creatinine 2.16, BUN 39 and eGFR 22. Treatment: IV fluids. Question: Do you agree with the impression of the Acute renal failure per Dr. Manjarrez? Please document a response in Progress Note or Discharge Summary. 1. Yes 2. No 3. Other, with explanation of clinical findings 4. Clinically undetermined, no explanation for clinical findings. PHYSICIAN RESPONSE Do you agree w/Consulting Dx?: Other,explanation/clincal findings Explanation of clincal finding Patient had on admission a Cr slightly elevated that corrected overnight with hydration. Please remember a lack of response to the above will prompt a phone page by CD[facility]/Coding staff. In responding to this query, please exercise your independent professional judgment. The purpose of this communication is to more accurately reflect the complexity of your patients condition. The fact that a question is asked does not imply that any particular answer is desired or expected. Thank you for your timely response to this clarification. Requestors name: Steffany Cowart [facility] Phone # ext [phone] or [phone] THIS PHYSICIAN QUERY FORM IS A PERMANENT PART OF THE MEDICAL RECORD STEFFANY COWART Sep 06, 2019 10:52 MUKUND RO MD Sep 13, 2019 07:11
--- NOTE | 2019-09-06 11:22 | NUR ---
CM/SS follow up. CM/SS visited with patient. She reports she is doing "fine" but appeared to be down in mood or possibly confused. The patient could not tell me who her son-in-law was and stated that her daughter lived with her. CM/SS contacted Sarita (had to call Med number [phone]) to gain patients history due to patients dementia. She states that patient is currently living at home with her . Sarita states that her father is 92 years old but is fully capable of taking care of himself. She reports that he is the primary caregiver for the patient and does not like when family steps in to help. The patients wants her to be home. Sarita reported that the patient has not been ambulating for the past 6 months and family has been lifting her from wheelchair to chair/car. Sarita and the patients granddaughters cook meals and take them over to the home. Home Health: Sarita states that the patient has had home health a few times in the past and used [facility]. Sarita reports that if she needs home health they would prefer to use them again. CM/SS will wait to see if physician will want home health. CM/SS will continue to follow.
--- NOTE | 2019-09-06 14:43 | NUR ---
RD ASSESSMENT PMHx: Alzheimer's disease; chronic UTI; GERD PT INTERACTION: Pt was awake and pleasant during nutrition assessment. Note pt has Alzheimer's, per chart review. Pt states current appetite is good. Note avg PO intake 44% x4d, per chart review. Pt states following a regular diet at home, and has no issues with chewing/swallowing food. Pt states no recent issues with nausea, vomiting, constipation, or diarrhea. Note last BM was 09/03, and pt not currently on bowel regimen per chart review. Pt states recent wt gain, but unsure of amount/timeframe. Pt states it is "just a little weight gain." Note unable to determine recent wt hx, per chart review. ABNORMAL NUTRITION-RELATED LAB VALUES LOW: Ca 7.9; alb 3.1 HIGH: BUN 28; cr 1.47; glu 109 Est. kcal needs: 1295-0792 kcal | 25-30 kcal/kg Est. Pro needs: 55-65 g Pro | 1.0-1.2 g Pro/kg PES STATEMENT: Inadequate oral intake (NI-2.1) related to loss of appetite | AMS as evidenced by pt interview | chart review | avg PO intake 44% x4d INTERVENTION: Continue with current diet order of Regular diet. Continue with current supplementation order of Ensure Enlive (vary) with meals TID, for increased kcal intake. Provides 350 kcal and 13 g Pro per serving. Will continue to follow and reassess as pt needs, intake, and status change. MONITOR/EVALUATE: PO Intake; Plan of Care; Hydration Status; Weight Status; Lab Values Jordan Bennett, MS, RD, LD
[2019-09-06 16:25] VITALS: BP 180/90
[2019-09-06] MEDS: ASPIRIN E.C. 81 MG (ECOTRIN) TAB PO SCH (21:11)
[2019-09-06] MEDS: LORazepam 0.5 MG (ATIVAN) TABLET PO PRN (21:11)
[2019-09-07 00:20] VITALS: BP 187/82
[2019-09-07] MEDS: MEROPENEM 500 MG in WATER (STERILE) FOR INJECTION 10 ML IV SCH (01:11)
--- NOTE | 2019-09-07 07:07 | Discharge Summary ---
Diagnosis/Chief Complaint Date of Admission Sep 02, 2019 at 11:37 Date of Discharge September 07, 2019 Discharge Date: Sep 07, 2019 Discharge Time: 11:00 Admission Diagnosis Admission Diagnosis 1. ESBL UTI -susupect po resistance 2. AMS-has hx/o alzheimers Discharge Diagnosis 1. ESBL UTI - po resistance 2. Renal insufficiency 3. AMS- hx/o alzheimers Reason Hospital Visit 89 yo female presents to ED by EMS following confusing and talking less. She has hx/o UTI's this last year. Patient has alzheimers disease and is unable to correctly tell when urine is bothering her. There has been no fevers, SOB, N,V, or diarrhea. Discharge Summary Hospital Course Was the Problem List Reviewed?: Yes Hospital Course Patient was admitted on September 02, 2019 after presenting to [facility] emergency department with altered mental status. She does have known Alzheimer's disease and is difficult sometimes to tell if she is not feeling well according to patient's family. [facility] she continues to receive meropenem 500 mg IV every 8 hours due to her resistant urinary tract infection. Her mental status was evaluated every day during the course of her stay and appeared to be pretty much stable. I spoke with family her and daughter and they basically reports she always states she is fine. She remained afebrile during the course of her hospital stay. She had her laboratory monitored initially upon hospital stay and her white count normalized fairly quickly in her course. Initial urinary culture did not provide any further isolation of bacteria and sensitivity. A second urinalysis was performed on September 04 with sensitivity pending. She received dose of monurol 3.1 g orally prior to release. She will need close outpatient follow-up. Her next dose of oral antibiotic will be in 72 hours for a total of 2 additional doses Labs Laboratory Tests 09/05/19 08:05: Urine Specific [place] 1.015L, Urine Nitrite POSITIVEH, Urine Leukocyte Esterase 3+H, Urine RBC (Auto) 2+H, Urine RBC 5-10H, Urine WBC 25-50H, Urine Bacteria FEWH Procedures None. Discharge Physical Examination Allergies: Coded Allergies: No Known Drug Allergies (Unverified , 12/15/08) Vitals & I&Os Vital Signs Date Time Temp Pulse Resp B/P (MAP) Pulse Ox O2 Delivery O2 Flow Rate FiO2 09/07/19 00:20 36.8 78 20 187/82 (117) 96 Room Air General Appearance: No Acute Distress Respiratory: Clear to Auscultation Cardiovascular: Regular Rate Abdominal: Soft Skin: No Rashes Neuro: Normal Speech Psych/Mental Status: Mental Status NL (For her but she does have known Alzheim er's) Discharge Home Medications Reviewed and agree with Discharge Medication list on patient's Discharge Instruction sheet Instructions to Patient/Family Please see electronic discharge instructions given to patient. Clinical Quality Measures DVT/VTE Risk/Contraindication: Risk Factor Score Per Nursin RFS Level Per Nursing on Admit: 4+=Very High MUKUND RO MD Sep 07, 2019 07:07
[2019-09-07] MEDS ORDERED: NF-FOSFPKT PO (07:12)
--- NOTE | 2019-09-07 07:14 | Discharge Inst-Simple/Standard ---
Discharge Inst-Standard Reconcile Patient Problems Problems Reviewed?: Yes Discharge Medications New, Converted or Re-Newed RX: Transmitted to Pharmacy ([facility]) Patient Instructions/Follow Up Plan of Care/Instructions/FU: Dr Ro on September 12, 2019Thursday Activity as Tolerated: Yes Discharge Diet: Regular Diet Return to The Hospital For: Fever greater than 101.5, drop in urine output or decrease in oral intake MUKUND RO MD Sep 07, 2019 07:14
[2019-09-07 08:00] VITALS: BP 150/82
[2019-09-07] MEDS: PANTOPRAZOLE 40 MG (PROTONIX) TAB PO SCH (08:01)
[2019-09-07] MEDS: MEMANTINE 10 MG (NAMENDA) TABLET PO SCH (08:01)
[2019-09-07] MEDS: QUEtiapine 25 MG (SEROquel) TAB IMMEDIATE RELEASE PO SCH (08:02)
--- NOTE | 2019-09-07 08:51 | Cardiology Progress Note ---
Subjective Date Seen by Provider: Sep 07, 2019 Time Seen by Provider: 08:50 Subjective/Events-last exam Patient is sitting up in bed, denies any chest pain or dyspnea, being discharged today. Objective-Cardiology Exam Last Set of Vital Signs Vital Signs 09/07/19 08:00 Temp 36.8 Pulse 75 Resp 18 B/P (MAP) 150/82 (104) Pulse Ox 94 O2 Delivery Room Air Capillary Refill : Less Than 3 Seconds I&O Intake and Output 09/07/19 00:00 Intake Total 3207 ml Output Total 2650 ml Balance 557 ml Intake Oral 1197 ml IV Total 2010 ml Output Urine Total 2650 ml # Bowel Movements 1 General: Cooperative, No Acute Distress HEENT: Atraumatic, PERRLA Neck: Supple, No JVD, No Thyromegaly Lungs: Clear to Auscultation Heart: Regular Rate Abdomen: Soft Extremities: No Clubbing, No Cyanosis, No Edema, Normal Pulses, No Tenderness/Swelling Skin: No Rashes Neuro: Normal Speech Psych/Mental Status: Mental Status NL (For her but she does have known Alzheimer's) A/P-Cardiology Admission Diagnosis Change in mental status Urinary tract infection Hypertension Acute renal failure Assessment/Plan Status post change in mental status this early secondary to UTI, better at this time. On meropenem and managed by primary care physician. Acute renal failure, history of chronic renal insufficiency, improving, continue to monitor. History of obstructive uropathy and right hydronephrosis due to right side UPJ stone Questionable history of coronary artery disease, history of calcification on her coronaries by CT scan. Conservative management is recommended due to her comorbid condition Labile blood pressure, monitor blood pressure Dementia. Ok for discharge from cardiology standpoint. F/u in 4 weeks. Clinical Quality Measures DVT/VTE Risk/Contraindication: Risk Factor Score Per Nursin RFS Level Per Nursing on Admit: 4+=Very High MARIO LU Sep 07, 2019 08:51
[2019-09-07] MEDS ORDERED: FOSFOMYCIN 3 GM PACK (MONUROL) PO SCH (09:00)
--- NOTE | 2019-09-07 09:33 | NUR ---
CALLED PATIENT'S TO INFORM HIM OF DISCHARGE TODAY AT 1100. DR RO INFORMED SHEFALI, THE PATIENT'S DAUGHTER OF DISCHARGE.
[2019-09-07 11:00] VITALS: BP 150/82
--- NOTE | 2019-09-07 11:07 | NUR ---
CM/SS finalized plan. Plan: Patient will discharge home with and have close follow up with physicians. According to discharge instructions, the patient was not ordered home health. PEGGY/SS informed the patients daughter of this. She verbalized understanding and stated that if she feels she needs home health she will contact Dr. Kaufman office to get it ordered. The patients daughter reports that they do not have any other needs at this time.
== END 2019-09-07 11:00 | disposition home or self-care (01) | DRG 690 ==
LOC: EDUNIT# 10:03 → ER 10:06 → 4TH 11:37
PROVIDERS: ADMIT Family Medicine; ATTEND Family Medicine
DX: N39.0 Urinary tract infection, site not specified (principal); Z16.12 Extended spectrum beta lactamase (ESBL) resistance; I12.9 Hypertensive chronic kidney disease with stage 1 through stage 4 chronic kidney disease, or unspecified chronic kidney disease; N18.9 Chronic kidney disease, unspecified; G30.9 Alzheimer's disease, unspecified; F02.80 Dementia in other diseases classified elsewhere, unspecified severity, without behavioral disturbance, psychotic disturbance, mood disturbance, and anxiety; K21.9 Gastro-esophageal reflux disease without esophagitis; Z66 Do not resuscitate; I25.10 Atherosclerotic heart disease of native coronary artery without angina pectoris; M54.9 Dorsalgia, unspecified
CPT/HCPCS: 36415; 71045; 80053; 81000; 83605; 85025; 87040; 87088; 93005; 96361; 96374

== ENCOUNTER 2019-09-18 00:34 | Inpatient (IN) | payer MEDICARE, OTHER ==
[~2019-09-18] VITALS: Ht 172 cm; Wt 82.0 kg
[~2019-09-18 00:34] MED LIST changes: +NF-FOSFPKT PO
[2019-09-18 01:10] LABS: BASOPHILS # (AUTO) 0.1 10^3/uL (0.0-0.1); BASOPHILS % (AUTO) 1 % (0-10); EOSINOPHILS # (AUTO) 0.5 10^3/uL (0.0-0.3); EOSINOPHILS % (AUTO) 7 % (0-10); HEMATOCRIT 37 % (35-52); HEMOGLOBIN 11.7 G/DL (11.5-16.0); LYMPHOCYTES # (AUTO) 2.3 X 10^3 (1.0-4.0); LYMPHOCYTES % (AUTO) 31 % (12-44); MEAN CORPUSCULAR HEMOGLOBIN 27 PG (25-34); MEAN CORPUSCULAR HGB CONC 32 G/DL (32-36); MEAN CORPUSCULAR VOLUME 86 FL (80-99); MEAN PLATELET VOLUME 8.8 FL (7.4-10.4); MONOCYTES # (AUTO) 0.6 X 10^3 (0.0-1.0); MONOCYTES % (AUTO) 8 % (0-12); NEUTROPHILS % (AUTO) 54 % (42-75); PLATELET COUNT 395 10^3/uL (130-400); RED CELL DISTRIBUTION WIDTH 13.5 % (10.0-14.5); WHITE BLOOD COUNT 7.4 10^3/uL (4.3-11.0)
--- NOTE | 2019-09-18 01:15 | ED General ---
General Chief Complaint: Respiratory Problems Nursing Triage Note: PT PRESENTS WITH SHORTNESS OF BREATH REPORTED BY . PT HAS HX OF ALZHEIMERS/DEMENTIA. ALERT BUT NOT ORIENTED ON ARRIVAL, AT BASELINE PER EMS. JUST HOSPITALIZED FOR UROSEPSIS 09/06. Nursing Sepsis Screen: No Definite Risk Source of Information: EMS, Old Records (ALL PMH IS FROM OLD RECORDS) Exam Limitations: Other (PT WITH DEMENTIA AND IS UNABLE TO GIVE ANY RELIABLE INFORMATION) History of Present Illness Date Seen by Provider: Sep 18, 2019 Time Seen by Provider: 00:37 Initial Comments PT ARRIVES VIA EMS FROM HOME EMS STAFF REPORTS THAT THEY WERE CALLED BY PT'S , HE REPORTED THAT PT WAS SHORT OF BREATH IS UNKNOWN WHEN ONSET OF SYMPTOMS WAS NO REPORTED FEVER NO OTHER REPORTED SYMPTOMS PT WAS ADMITTED 09/01-09/07/19 FOR UTI WITH SEPSIS NO OTHER INFORMATION IS OBTAINABLE AT THIS TIME. PCP: DR. RO Allergies and Home Medications Allergies Coded Allergies: No Known Drug Allergies (Unverified , 12/15/08) Home Medications Aspirin 81 Mg Tablet.dr, 81 MG PO HS, (Reported) Fosfomycin Tromethamine 3 Gm Pack, 3 GM PO Q48H@0900 Prescribed by: MUKUND RO on 09/07/19 0712 Memantine HCl 10 Mg Tablet, 10 MG PO BID, (Reported) Metoprolol Succinate 25 Mg Tab.er.24h, 25 MG PO DAILY, (Reported) Quetiapine Fumarate 25 Mg Tablet, 25 MG PO BID, (Reported) Patient Home Medication List Home Medication List Reviewed: Yes Review of Systems Review of Systems Constitutional: other (UNABLE TO OBTAIN FROM PT) Past [id number] Hx Patient Social History Alcohol Use: Denies Use Recreational Drug Use: No Smoking Status: Unknown if Ever Smoked 2nd Hand Smoke Exposure: No Recent Foreign Travel: No Contact w/Someone Who Travel: No Recent Infectious Disease Expo: No Recent Hopitalizations: Yes Physical Abuse: No Sexual Abuse: No Mistreated: No Fear: No Immunizations Up To Date Tetanus Booster (TDap): Unknown Date of Pneumonia Vaccine: Mar 18, 2010 Date of Influenza Vaccine: Jan 12, 2017 Seasonal Allergies Seasonal Allergies: No Past Medical History Surgeries: 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/back surgery) Hysterectomy, Orthopedic Respiratory: No Cardiac: No Neurological: Yes (alzheimers) Reproductive Disorders: 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; age 29 at the time) Sexually Transmitted Disease: No UTI-Chronic Gastrointestinal: Yes Gastroesophageal Reflux Musculoskeletal: Yes Chronic Back Pain Endocrine: No Cancer: No Psychosocial: No Integumentary: No Blood Disorders: Yes Adverse Reaction/Blood Tranf: No Family Medical History Alzheimer's disease 19 MOTHER G8 BROTHER G8 SISTER Arthritis G8 SISTER Cardiovascular disease 19 FATHER Hypercholesterolemia 19 FATHER 19 MOTHER G8 BROTHER G8 SISTER Infertility G8 SISTER Myocardial infarction 19 FATHER Parkinson's disease 19 MOTHER No Family History of: AIDS Abdominal aortic aneurysm Duc's disease Alcoholism Aphasia Asthma Cancer of mouth Cataracts Colon cancer Completed stroke Congenital disease Congenital heart disease Coronary thrombosis Cystic fibrosis Deafness or hearing loss Dementia Diabetes mellitus Drug abuse Dysphasia Fibrocystic disease of breast Gastroenteritis Glaucoma Headache disorder Hypertension Kidney disease Neoplasm Not obtainable due to adoption Osteoporosis Prostate cancer Psychosocial problem Respiratory disorder Seizure disorder Severe allergy Thyroid disease Tuberculosis Visual disorder Physical Exam Vital Signs Vital Signs - First Documented Capillary Refill : Less Than 3 Seconds Height, Weight, BMI Height: 5'3.00" Weight: 147lbs. 8.0oz. [id number]; 27.00 BMI Method:Stated General Appearance: No Apparent Distress, WD/WN, Other (PT IS AWAKE, AND PLEASANTLY CONFUSED. PT IS COOPERATIVE, AND IS TALKING WITH CLEAR SPEECH, BUT IS DISORIENTED TO PLACE, TIME, SITUATION, AND HAS ESSENTIALLY NO MEMORY OF ANYTHING . ) HEENT: PERRL/EOMI Neck: Normal Inspection Respiratory: No Accessory Muscle Use, No Respiratory Distress, Rales (? FAINT RALES IN BASES? ) Cardiovascular: Regular Rate, Rhythm, No Edema, No JVD, No Murmur, Normal Peripheral Pulses Gastrointestinal: Non Tender, Soft Back: No CVA Tenderness Extremity: Normal Inspection Neurologic/Psychiatric: Alert, No Motor/Sensory Deficits (MOVES ALL EXTREMITIES. ), Normal Mood/Affect, Other (PT ABLE TO FOLLOW VERY SIMPLE COMMANDS) Skin: Normal Color, Warm/Dry Focused Exam Lactate Level 09/18/19 00:50: Lactic Acid Level 1.18 Lactic Acid Level Progress/Results/Core Measures Suspected Sepsis Recent Fever Within 48 Hours: No Infection Criteria Present: None New/Unexplained Altered Menta: No Sepsis Screen: No Definite Risk SIRS Temperature: Pulse: 74 Respiratory Rate: 16 Laboratory Tests 09/18/19 00:50: White Blood Count 7.4 Blood Pressure 184 /91 Mean: 122 09/18/19 00:50: Lactic Acid Level 1.18 Laboratory Tests 09/18/19 00:50: Creatinine 1.19, INR Comment 1.1, Platelet Count 395, Total Bilirubin 0.3 Results/Orders Lab Results Laboratory Tests Test 09/18/19 00:50 09/18/19 01:30 Range/Units White Blood Count 7.4 4.3-11.0 10^3/uL Red Blood Count 4.28 L 4.35-5.85 10^6/uL Hemoglobin 11.7 11.5-16.0 G/DL Hematocrit 37 35-52 % Mean Corpuscular Volume 86 80-99 FL Mean Corpuscular Hemoglobin 27 25-34 PG Mean Corpuscular Hemoglobin Concent 32 32-36 G/DL Red Cell Distribution Width 13.5 10.0-14.5 % Platelet Count 395 130-400 10^3/uL Mean Platelet Volume 8.8 7.4-10.4 FL Neutrophils (%) (Auto) 54 42-75 % Lymphocytes (%) (Auto) 31 12-44 % Monocytes (%) (Auto) 8 0-12 % Eosinophils (%) (Auto) 7 0-10 % Basophils (%) (Auto) 1 0-10 % Neutrophils # (Auto) 4.0 1.8-7.8 X 10^3 Lymphocytes # (Auto) 2.3 1.0-4.0 X 10^3 Monocytes # (Auto) 0.6 0.0-1.0 X 10^3 Eosinophils # (Auto) 0.5 H 0.0-0.3 10^3/uL Basophils # (Auto) 0.1 0.0-0.1 10^3/uL Erythrocyte Sedimentation Rate 74 H 0-30 MM/HR Prothrombin Time 14.1 12.2-14.7 SEC INR Comment 1.1 0.8-1.4 Activated Partial Thromboplast Time 28 24-35 SEC D-Dimer 1.48 H 0.00-0.49 UG/ML Sodium Level 139 135-145 MMOL/L Potassium Level 4.5 3.6-5.0 MMOL/L Chloride Level 103 98-107 MMOL/L Carbon Dioxide Level 24 21-32 MMOL/L Anion Gap 12 5-14 MMOL/L Blood Urea Nitrogen 28 H 7-18 MG/DL Creatinine 1.19 0.60-1.30 MG/DL Estimat Glomerular Filtration Rate 43 BUN/Creatinine Ratio 24 Glucose Level 113 H 70-105 MG/DL Lactic Acid Level 1.18 0.50-2.00 MMOL/L Calcium Level 9.1 8.5-10.1 MG/DL Corrected Calcium 9.3 8.5-10.1 MG/DL Magnesium Level 2.3 1.6-2.4 MG/DL Total Bilirubin 0.3 0.1-1.0 MG/DL Aspartate Amino Transf (AST/SGOT) 15 5-34 U/L Alanine Aminotransferase (ALT/SGPT) 6 0-55 U/L Alkaline Phosphatase 90 40-136 U/L Lactate Dehydrogenase 199 125-220 U/L Total Creatine Kinase 41 29-168 U/L Creatine Kinase MB 1.0 <6.6 NG/ML Troponin I 0.029 H <0.028 NG/ML C-Reactive Protein High Sensitivity 0.45 0.00-0.50 MG/DL B-Type Natriuretic Peptide 65.7 <100.0 PG/ML Total Protein 7.6 6.4-8.2 GM/DL Albumin 3.7 3.2-4.5 GM/DL Procalcitonin 0.02 <0.10 NG/ML Urine Color YELLOW Urine Clarity CLEAR Urine pH 7.0 5-9 Urine Specific [place] 1.015 L 1.016-1.022 Urine Protein NEGATIVE NEGATIVE Urine Glucose (UA) NEGATIVE NEGATIVE Urine Ketones NEGATIVE NEGATIVE Urine Nitrite POSITIVE H NEGATIVE Urine Bilirubin NEGATIVE NEGATIVE Urine Urobilinogen 0.2 < = 1.0 MG/DL Urine Leukocyte Esterase 3+ H NEGATIVE Urine RBC (Auto) 1+ H NEGATIVE Urine RBC 0-2 /HPF Urine WBC 50-100 H /HPF Urine Squamous Epithelial Cells 5-10 /HPF Urine Crystals NONE /LPF Urine Bacteria MODERATE H /HPF Urine Casts NONE /LPF Urine Mucus NEGATIVE /LPF Urine Yeast LARGE H /HPF Urine Culture Indicated YES My Orders Orders - ADRIEL LAGUERRE DO Ed Iv/Invasive Line Start (09/18/19 00:40) Ekg Tracing (09/18/19 00:40) Catheter(Urinary) Insert & Ass 03,15 (09/18/19 00:40) O2 (09/18/19 00:40) Monitor-Rhythm Ecg Trace Only (09/18/19 00:40) BNP (09/18/19 00:40) Cbc With Automated Diff (09/18/19 00:40) Comprehensive Metabolic Panel (09/18/19 00:40) Creatine Kinase (09/18/19 00:40) Creatine Kinase Mb (09/18/19 00:40) Lactic Acid Analyzer (09/18/19 00:40) Magnesium (09/18/19 00:40) Procalcitonin (Pct) (09/18/19 00:40) Protime With Inr (09/18/19 00:40) Partial Thromboplastin Time (09/18/19 00:40) Ua Culture If Indicated (09/18/19 00:40) Blood Culture (09/18/19 00:40) Troponin I (09/18/19 00:40) Fibrin Degradation Products (09/18/19 00:40) Hs C Reactive Protein (09/18/19 00:40) Erythrocyte Sedimentation Rate (09/18/19 00:40) LDH (09/18/19 00:40) Chest 1 View, Ap/Pa Only (09/18/19 00:40) Coronavirus Sars-Cov-2 So 2018 (09/18/19 00:40) Urine Culture (09/18/19 01:30) Cefepime Injection (Maxipime Injection) (09/18/19 02:15) Medications Given in ED Current Medications Medications Dose Ordered Sig/Kirstin Route Start Time Stop Time Status Last Admin Dose Admin Cefepime HCl 1000 mg/Sterile Water 10 ml @ 200 mls/hr ONCE ONCE IV 09/18/19 02:15 09/18/19 02:17 DC 09/18/19 02:49 200 MLS/HR Vital Signs/I&O 09/18/19 09/18/19 09/18/19 00:40 00:40 02:32 Temp 36.6 Pulse 74 80 Resp 16 16 B/P (MAP) 184/91 (122) 166/86 Pulse Ox 98 98 97 O2 Delivery Room Air Room Air Room Air Capillary Refill : Less Than 3 Seconds Blood Pressure Mean: 122 Progress Note : Progress Note UNEVENTFUL ER STAY PT SEEN IN COVID UNIT, PPE WORN AT ALL TIMES COVID TESTING PERFORMED. ECG Initial ECG Impression Date: Sep 18, 2019 Initial ECG Impression Time: 00:40 Initial ECG Rate: 74 Initial ECG Rhythm: Normal Sinus Diagnostic Imaging Comments CXR--NO ACUTE PROCESS, PENDING RADIOLOGIST REVIEW Reviewed: Reviewed by Me Departure Communication (Admissions) 0220--SPOKE WITH DR. MONTOYA, ACCEPTS PT FOR ADMIT Impression Primary Impression: Urinary tract infection Additional Impressions: COVID P.U.I. Dementia Disposition: ADMITTED INPATIENT Condition: Stable Admissions Decision to Admit Reason: Admit from ER (General) Decision to Admit/Date: Sep 18, 2019 Time/Decision to Admit Time: 02:20 Departure-Patient Inst. Referrals: HENRY HOOPER MD (PCP) Primary Care Physician MUKUND RO MD (Family) Primary Care Physician ADRIEL LAGUERRE DO Sep 18, 2019 01:15
[2019-09-18 01:24] LABS: ALBUMIN 3.7 GM/DL (3.2-4.5); POTASSIUM 4.5 MMOL/L (3.6-5.0)
[2019-09-18 01:25] LABS: CALCIUM 9.1 MG/DL (8.5-10.1); FIBRIN DEGRADATION PRODUCTS 1.48 UG/ML (0.00-0.49); INR 1.1 (0.8-1.4); PROTHROMBIN TIME PATIENT 14.1 SEC (12.2-14.7)
[2019-09-18 01:27] LABS: TOTAL PROTEIN 7.6 GM/DL (6.4-8.2)
[2019-09-18 01:28] LABS: BILIRUBIN,TOTAL 0.3 MG/DL (0.1-1.0)
[2019-09-18 01:30] LABS: CREATININE SERUM 1.19 MG/DL (0.60-1.30)
[2019-09-18 01:33] LABS: MAGNESIUM 2.3 MG/DL (1.6-2.4)
[2019-09-18 01:36] LABS: ERYTHROCYTE SEDIMENTATION RATE 74 MM/HR (0-30)
[2019-09-18 01:53] LABS: BILIRUBIN,URINE NEGATIVE (NEGATIVE); CLARITY,URINE CLEAR; COLOR,URINE YELLOW; GLUCOSE, URINE (UA) NEGATIVE (NEGATIVE); KETONES,URINE NEGATIVE (NEGATIVE); LEUKOCYTE ESTERASE ,URINE 3+ (NEGATIVE); NITRITE,URINE POSITIVE (NEGATIVE); PROTEIN,URINE NEGATIVE (NEGATIVE)
[2019-09-18 02:03] LABS: BACTERIA,URINE MODERATE /HPF; RBC,URINE 0-2 /HPF; WBC,URINE 50-100 /HPF
[2019-09-18 02:04] LABS: YEAST,URINE LARGE /HPF
[2019-09-18] MEDS ORDERED: CEFEPIME INJECTION 1,000 MG in WATER (STERILE) FOR INJECTION 10 ML IV ONE (02:15)
--- OUTSIDE RECORDS SUMMARY | 2019-09-18 02:48 | XMS REPORT ---
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 MUKUND RO , No t Available no eal reflux (24278) information disease (11 sources.) without esophagitis Occlusion or Occlusion and Chronic Active MARIO Not A vailable 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 N , [place] arteries (1 without source.) mention of cerebral infarction Past or Other Problems Problem Normalized Date Last Normalized Normalized Provider Fa cility Classification Problem(s) Recorded Problem Problem Sta tus Duration NEGATED Acidosis Episodic Completed MUKUND RO , Not Avai lable no Translations: (60110) information [ DEHYDRATION] (12 sources.) NEGATED Atelectasis Episodic Completed MUKUND JIA , Not A vailable no (00859) information (11 sources.) Nonspecific Chest pain, Episodic Completed MARIO Not Avai lable chest pain (1 unspecified GUERRA-ANDERSO (51106) source.) N , [place] NEGATED Disorder of Episodic Completed MUKUND SNELLN , Not A vailable no kidney and MD (80687) information ureter, (11 sources.) unspecified NEGATED Do not Episodic Completed MUKUND RO , Not Avai lable no resuscitate MD (82361) information (11 sources.) NEGATED Dorsalgia, Episodic Completed MUKUND RO , Not Av ailable no unspecified MD (89461) information (11 sources.) NEGATED Hydronephrosis Episodic Completed MUKUND RO , No t Available no with renal and MD (27565) information ureteral (11 sources.) calculous obstruction Genitourinary Oliguria and Episodic Completed MUKUND RO , [facility] symptoms and anuria MD Anand ill-defined Translations: Hospital - conditions (2 [ PERSONAL [place] sources.) HISTORY OF (60683) URINARY (TRACT) INFE] Bacterial Other and Episodic Completed MUKUND RO , Not Wilda ilable infection (1 unspecified MD (54720) source.) Escherichia coli [E. coli] Pneumonia (5 Pneumonia, Episodic Completed MUKUND RO , Not Available sources.) unspecified MD (35625) organism NEGATED Sepsis, no information no information MUKUND RO , Not Available no unspecified MD (29795) information organism (11 sources.) NEGATED Tachycardia, Episodic Completed MUKUND RO , Not Available no unspecified MD (98894) information (11 sources.) Heart valve Undiagnosed Episodic Completed MUKUND RO , Not Available disorders (1 cardiac MD (28294) source.) murmurs Procedures Procedure Normalized Procedure Procedure Result Performer Facility Date NEGATED DILATION OF RIGHT no information no name Not A vailable (56876) URETER WITH INTRALUMIN Immunizations The data below is from unstructured sourcesNo immunization records. Results Test Name Value Interpretation Reference Range Date Time Fa cility (Normalized) (Normalized) (Medline Reference) laboratory on 2019-09-17 Albumin 3.7 g/dL (NEG) 3.4 - 5.4 g/dL 09-17-2019 PENDING LOCATION [Mass/Vol] 20:50-0400 [facility] (14231) ALP [Catalytic 90 U/L (NEG) 44 - 147 U/L 09-17-2019 PEND ING LOCATION activity/Vol] 20:50-0400 [facility] (71976) ALT [Catalytic 6 U/L (NEG) 4 - 40 U/L 09-17-2019 PENDIN G LOCATION activity/Vol] 20:50-0400 [facility] (79480) Anion gap 12 mmol/L (NEG) 3 - 11 mmol/L 09-17-2019 PENDING LOCATION [Moles/Vol] 20:50-0400 [facility] (44154) aPTT Coag (PPP) 28 s (NEG) 25 - 35 s 09-17-2019 PENDIN G LOCATION [Time] 20:50-0400 [facility] (42803) AST [Catalytic 15 U/L (NEG) 10 - 34 U/L 09-17-2019 PENDI NG LOCATION activity/Vol] 20:50-0400 [facility] (38551) Basophils (Bld) 0.1 10*3/uL (NEG) 0 - 0.3 10*3/uL 09-17-2019 PENDING LOCATION [#/Vol] 20:50-0400 [facility] (86020) Basophils/100 1 % (NEG) 0.5 - 1 % 09-17-2019 PENDING LOCATION WBC (Bld) 20:50-0400 [facility] (99099) Bilirubin 0.3 mg/dL (NEG) 0.1 - 1.2 mg/dL 09-17-2019 PENDIN G LOCATION [Mass/Vol] 20:50-0400 [facility] (38970) Calcium 9.1 mg/dL (NEG) 8.5 - 10.2 mg/dL 09-17-2019 PENDI NG LOCATION [Mass/Vol] 20:50-0400 [facility] (23791) Calcium 9.3 mg/dL (NEG) 8.5 - 10.2 mg/dL 09-17-2019 PENDI NG LOCATION [Mass/Vol] 20:50-0400 [facility] (65288) Chloride 103 mmol/L (NEG) 95 - 106 mmol/L 09-17-2019 PENDI NG LOCATION [Moles/Vol] 20:50-0400 [facility] (79483) CK [Catalytic 41 U/L (NEG) 09-17-2019 PENDING LOCA TION activity/Vol] 20:50-0400 [facility] (60500) CK.MB [Catalytic 1.0 (no code) 09-17-2019 PENDING L OCATION activity/Vol] 20:50-0400 [facility] (93946) CO2 [Moles/Vol] 24 mmol/L (NEG) 23 - 29 mmol/L 09-17-2019 P ENDING LOCATION 20:50-0400 [facility] (52152) Creatinine 1.19 mg/dL (NEG) 09-17-2019 PENDING LOCATI ON [Mass/Vol] 20:50-0400 [facility] (73126) Creatinine and 43 (no code) 09-17-2019 PENDING LOC ATION Glomerular 20:50-0400 [facility] (45019) filtration rate.predicted panel - Serum, Plasma or Blood CRP [Mass/Vol] 0.45 (NEG) 09-17-2019 PENDING LOC ATION 20:50-0400 [facility] ([id number]) Eosinophils 0.5 10*3/uL (H) 0.05 - 0.5 09-17-2019 PENDING LOCATION (Bld) [#/Vol] 10*3/uL 20:50-0400 [facility] ([id number]) Eosinophils/100 7 % (NEG) 1 - 4 % 09-17-2019 PENDIN G LOCATION WBC (Bld) 20:50-0400 [facility] (78056) Erythrocyte 13.5 % (NEG) 11.6 - 14.6 % 09-17-2019 PENDIN G LOCATION distribution 20:50-0400 [facility] (25844) width (RBC) [Ratio] ESR (Bld) 74 (H) 09-17-2019 PENDING LOCATI ON [Velocity] 20:50-0400 [facility] (20402) Fibrin D-dimer 1.48 (H) 09-17-2019 PENDING LOC ATION FEU (PPP) 20:50-0400 [facility] ([id number]) [Mass/Vol] Glucose 113 mg/dL (H) 60 - 125 mg/dL 09-17-2019 PENDING LOCATION [Mass/Vol] 20:50-0400 [facility] (59635) Hematocrit (Bld) 37 % (NEG) 36.1 - 50.3 % 09-17-2019 P ENDING LOCATION [Volume 20:50-0400 [facility] (31821) fraction] Hemoglobin (Bld) 11.7 g/dL (NEG) 12.1 - 17.2 g/dL 09-17-2019 PENDING LOCATION [Mass/Vol] 20:50-0400 [facility] (34160) INR Coag 1.1 (NEG) 09-17-2019 PENDING LOCATI ON (Platelet poor 20:50-0400 [facility] (78997) plasma or blood) [Relative time] Lactate 1.18 mmol/L (NEG) 0.5 - 2.2 mmol/L 09-17-2019 [facility] LOCATION [Moles/Vol] 20:50-0400 [facility] (26551) LDH [Catalytic 199 U/L (NEG) 105 - 333 U/L 09-17-2019 [facility] LOCATION activity/Vol] 20:50-0400 [facility] (41858) Lymphocytes 2.3 10*3/uL (NEG) 0.9 - 2.9 09-17-2019 PENDING LOCATION (Bld) [#/Vol] 10*3/uL 20:50-0400 [facility] (56575) Lymphocytes/100 31 % (NEG) 20 - 40 % 09-17-2019 PENDIN G LOCATION WBC (Bld) 20:50-0400 [facility] (60672) Magnesium 2.3 mg/dL (NEG) 1.7 - 2.2 mg/dL 09-17-2019 PENDIN G LOCATION [Mass/Vol] 20:50-0400 [facility] (87714) MCH (RBC) 27 pg (NEG) 27 - 31 pg 09-17-2019 PENDING LOC ATION [Entitic mass] 20:50-0400 [facility] ([id number]) MCHC (RBC) 32 g/dL (NEG) 32 - 36 g/dL 09-17-2019 PENDING LOCATION [Mass/Vol] 20:50-0400 [facility] (20165) MCV (RBC) 86 (NEG) 09-17-2019 PENDING LOCATI ON [Entitic vol] 20:50-0400 [facility] ([id number]) Monocytes (Bld) 0.6 10*3/uL (NEG) 0.3 - 0.9 09-17-2019 PEND ING LOCATION [#/Vol] 10*3/uL 20:50-0400 [facility] ([id number]) Monocytes/100 8 % (NEG) 2 - 8 % 09-17-2019 PENDING LOCATION WBC (Bld) 20:50-0400 [facility] (71094) Natriuretic 65.7 pg/mL (no code) 0 - 100 pg/mL 09-17-2019 PENDI NG LOCATION peptide B (Bld) 20:50-0400 [facility] ([id number]) [Mass/Vol] Neutrophils 4.0 10*3/uL (NEG) 1.7 - 7 10*3/uL 09-17-2019 [facility] LOCATION (Bld) [#/Vol] 20:50-0400 [facility] (85409) Neutrophils/100 54 % (NEG) 40 - 60 % 09-17-2019 PENDIN G LOCATION WBC (Bld) 20:50-0400 [facility] (72949) Platelet mean 8.8 (NEG) 09-17-2019 PENDING LOCA TION volume (Bld) 20:50-0400 [facility] ([id number]) [Entitic vol] Platelets (Bld) 395 10*3/uL (NEG) 150 - 450 09-17-2019 PEND ING LOCATION [#/Vol] 10*3/uL 20:50-0400 [facility] (84785) Potassium 4.5 mmol/L (NEG) 3.7 - 5.2 mmol/L 09-17-2019 PEND ING LOCATION [Moles/Vol] 20:50-0400 [facility] (17207) Protein 7.6 g/dL (NEG) 6.4 - 8.3 g/dL 09-17-2019 PENDING LOCATION [Mass/Vol] 20:50-0400 [facility] (21417) PT Coag (PPP) 14.1 s (NEG) 9.4 - 12.5 s 09-17-2019 PENDI NG LOCATION [Time] 20:50-0400 [facility] (99733) RBC (Bld) 4.28 10*6/uL (L) 4.2 - 6.1 09-17-2019 PENDING L OCATION [#/Vol] 10*6/uL 20:50-0400 [facility] (77062) Sodium 139 mmol/L (NEG) 135 - 145 mmol/L 09-17-2019 PEND ING LOCATION [Moles/Vol] 20:50-0400 [facility] (01700) Troponin 0.029 ng/mL (H) 0 - 0.4 ng/mL 09-17-2019 PENDIN G LOCATION I.cardiac 20:50-0400 [facility] (48251) [Mass/Vol] Urea nitrogen 28 mg/dL (H) 7 - 20 mg/dL 09-17-2019 PENDI NG LOCATION [Mass/Vol] 20:50-0400 [facility] (42524) Urea 24 mg/mg (no code) 6 - 22 mg/mg 09-17-2019 PENDING L OCATION nitrogen/Creatin 20:50-0400 [facility] (35948) ine [Mass ratio] WBC (Bld) 7.4 10*3/uL (NEG) 3.5 - 10.5 09-17-2019 PENDING L OCATION [#/Vol] 10*3/uL 20:50-0400 [facility] (73836) laboratory on 2019-09-03 Albumin 3.1 g/dL (L) 3.4 - 5.4 g/dL 09-03-2019 PENDING LOCATION [Mass/Vol] 01:46-0400 [facility] (22346) ALP [Catalytic 70 U/L (NEG) 44 - 147 U/L 09-03-2019 PEND ING LOCATION activity/Vol] 01:46-0400 [facility] (91112) Anion gap 9 mmol/L (NEG) 3 - 11 mmol/L 09-03-2019 PENDING LOCATION [Moles/Vol] 01:46-0400 [facility] (04975) AST [Catalytic 9 U/L (NEG) 10 - 34 U/L 09-03-2019 PENDI NG LOCATION activity/Vol] 01:46-0400 [facility] (74434) Basophils (Bld) 0.1 10*3/uL (NEG) 0 - 0.3 10*3/uL 09-03-2019 PENDING LOCATION [#/Vol] 01:46-0400 [facility] (87510) Basophils/100 1 % (NEG) 0.5 - 1 % 09-03-2019 PENDING LOCATION WBC (Bld) 01:46-0400 [facility] (75188) Bilirubin 0.2 mg/dL (NEG) 0.1 - 1.2 mg/dL 09-03-2019 PENDIN G LOCATION [Mass/Vol] 01:46-0400 [facility] ([id number]) Calcium 7.9 mg/dL (L) 8.5 - 10.2 mg/dL 09-03-2019 [facility] LOCATION [Mass/Vol] 01:46-0400 [facility] ([id number]) Calcium 8.6 mg/dL (NEG) 8.5 - 10.2 mg/dL 09-03-2019 [facility] LOCATION [Mass/Vol] 01:46-0400 [facility] (05609) Chloride 107 mmol/L (NEG) 95 - 106 mmol/L [facility]-03-[facility] [Moles/Vol[facility] 01:46-0400 [facility] (29416) CO2 [Moles/Vol] 24 mmol/L (NEG) 23 - 29 mmol/L 09-03-2019 P ENDING LOCATION 01:46-0400 [facility] (49054) Creatinine 1.47 mg/dL (H) 09-03-2019 PENDING LOCATI ON [Mass/Vol] 01:46-0400 [facility] (84987) Creatinine and 34 (no code) 09-03-2019 PENDING LOC ATION Glomerular 01:46-0400 [facility] (33216) filtration rate.predicted panel - Serum, Plasma or Blood Eosinophils 0.4 10*3/uL (H) 0.05 - 0.5 09-03-2019 PENDING LOCATION (Bld) [#/Vol] 10*3/uL 01:46-0400 [facility] (16799) Eosinophils/100 7 % (NEG) 1 - 4 % 09-03-2019 [facility] LOCATION WBC (Bld) 01:46-0400 [facility] (51646) Erythrocyte 13.3 % (NEG) 11.6 - 14.6 % 09-03-2019 [facility] LOCATION distribution 01:46-0400 [facility] (65461) width (RBC) [Ratio] Glucose 109 mg/dL (H) 60 - 125 mg/dL 09-03-2019 PENDING LOCATION [Mass/Vol] 01:46-0400 [facility] (33267) Hematocrit (Bld) 31 % (L) 36.1 - 50.3 % 09-03-2019 P ENDING LOCATION [Volume 01:46-0400 [facility] (22576) fraction] Hemoglobin (Bld) 9.8 g/dL (L) 12.1 - 17.2 g/dL 09-03-2019 PENDING LOCATION [Mass/Vol] 01:46-0400 [facility] (07366) Lymphocytes 1.6 10*3/uL (NEG) 0.9 - 2.9 09-03-2019 PENDING LOCATION (Bld) [#/Vol] 10*3/uL 01:46-0400 [facility] (51263) Lymphocytes/100 31 % (NEG) 20 - 40 % 09-03-2019 [facility] G LOCATION WBC (Bld) 01:46-0400 [facility] (31568) MCH (RBC) 28 pg (NEG) 27 - 31 pg 09-03-2019 PENDING LOC ATION [Entitic mass] 01:46-0400 [facility] (94898) MCHC (RBC) 32 g/dL (NEG) 32 - 36 g/dL 09-03-2019 PENDING LOCATION [Mass/Vol] 01:46-0400 [facility] (22160) MCV (RBC) 87 (NEG) 09-03-2019 PENDING LOCATI ON [Entitic vol] 01:46-0400 [facility] (46888) Monocytes (Bld) 0.5 10*3/uL (NEG) 0.3 - 0.9 09-03-2019 PEND ING LOCATION [#/Vol] 10*3/uL 01:46-0400 [facility] (46977) Monocytes/100 10 % (NEG) 2 - 8 % 09-03-2019 PENDING LOCATION WBC (Bld) 01:46-0400 [facility] (71773) Neutrophils 2.7 10*3/uL (NEG) 1.7 - 7 10*3/uL 2020 [facility] LOCATION (Bld) [#/Vol] 01:46-0400 [facility] (23920) Neutrophils/100 52 % (NEG) 40 - 60 % 09-03-2019 PENDIN G LOCATION WBC (Bld) 01:46-0400 [facility] (95485) Platelet mean 8.8 (NEG) 09-03-2019 PENDING LOCA TION volume (Bld) 01:46-0400 [facility] (21689) [Entitic vol] Platelets (Bld) 345 10*3/uL (NEG) 150 - 450 09-03-2019 PEND ING LOCATION [#/Vol] 10*3/uL 01:46-0400 [facility] (84995) Potassium 4.1 mmol/L (NEG) 3.7 - 5.2 mmol/L 09-03-2019 PEND ING LOCATION [Moles/Vol] 01:460 [facility] (13770) Protein 6.4 g/dL (NEG) 6.4 - 8.3 g/dL 09-03-2019 PENDING LOCATION [Mass/Vol] 01:460 [facility] (39440) RBC (Bld) 3.55 10*6/uL (L) 4.2 - 6.1 09-03-2019 PENDING L OCATION [#/Vol] 10*6/uL 01:460 [facility] (11287) Sodium 140 mmol/L (NEG) 135 - 145 mmol/L 09-03-2019 PEND ING LOCATION [Moles/Vol] 01:460 [facility] (23349) Urea nitrogen 28 mg/dL (H) 7 - 20 mg/dL 09-03-2019 PENDI NG LOCATION [Mass/Vol] 01:460 [facility] (46397) Urea 19 mg/mg (no code) 6 - 22 mg/mg 09-03-2019 PENDING L OCATION nitrogen/Creatin 01: [facility] (22808) ine [Mass ratio] WBC (Bld) 5.3 10*3/uL (NEG) 3.5 - 10.5 09-03-2019 PENDING L OCATION [#/Vol] 10*3/uL 01:0 [facility] (17528) Vital Signs The data below is from unstructured sources Vital Response Date/Time Temperature (Fahrenheit) 97.2 degree s F (97.6 - 99.5) Temperature (Calculated Celsius) 36. 67461 degrees C (36.4 - 37.5) Temperature Source Temporal Pulse Rate (adult) 95 bpm (60 - 90) Respiratory Rate 16 bpm (12 - 24) O2 Sat by Pulse Oximetry 95 % (88 - 100) Blood Pressure 159/83 mm Hg Pain Pain Intensity 5 Height (Feet) 5 feet Height (Inches) 2 inches Height (Calculated Centimeters) 157. 857570 cm Weight (Pounds) 138 pounds Weight (Calculated Kilograms) 62.595 748 kilograms Calculated BMI 25.24 Vital Response Date/Time Temperature (Fahrenheit) 98.5 degree s F (97.6 - 99.5) Temperature (Calculated Celsius) 36. 82554 degrees C (36.4 - 37.5) Temperature Source Temporal Pulse Rate (adult) 80 bpm (60 - 90) Respiratory Rate 18 bpm (12 - 24) O2 Sat by Pulse Oximetry 93 % (88 - 100) Blood Pressure 163/76 mm Hg Pain Pain Intensity 3 Height (Feet) 5 feet Height (Inches) 2.00 inches Height (Calculated Centimeters) 157. 475478 cm Weight (Pounds) 140 pounds Weight (Calculated Grams) 46945.932 gm Weight (Calculated Kilograms) 63.502 932 kilograms Calculated BMI 25.60 Vital Response Date/Time Temperature (Fahrenheit) 98.5 degree s F (97.6 - 99.5) Temperature (Calculated Celsius) 36. 14461 degrees C (36.4 - 37.5) Temperature Source Temporal Pulse Rate (adult) 80 bpm (60 - 90) Respiratory Rate 18 bpm (12 - 24) O2 Sat by Pulse Oximetry 93 % (88 - 100) Blood Pressure 163/76 mm Hg Pain Pain Intensity 3 Height (Feet) 5 feet Height (Inches) 2.00 inches Height (Calculated Centimeters) 157. 159514 cm Weight (Pounds) 140 pounds Weight (Calculated Grams) 52051.932 gm Weight (Calculated Kilograms) 63.502 932 kilograms Calculated BMI 25.60 Interventions No Information Plan of Treatment The data below is from unstructured sources Discharge Date 03/30/14 11:10am Disposition 01 HOME, SELF-CARE Instructions/Education Provided DR. SILVA INSTRUCTIONS Urinary Tract Infection in Women (DC) Forms Provided PDI Medical Prescriptions See Medications Sectio n Referrals MUKUND RO MD (Unspeci fied) 04/06/14 Address: [address] [facility] [address] [place] [phone] Reason(s) for Referral: Followup with Dr Ro [...] Directives No 2:24pm Health Care Power of Skiver Hand No 03/24/14 2:24pm Organ Donor Yes 03/24/14 2:24pm Resuscitation Status Full Code 03/24/14 2:24pm Directive Response Recor ded Date/Time Advance Directives No 7:15pm Health Care Power of Skiver Hand No 03/29/14 7:15pm Organ Donor Yes 03/29/14 7:15pm Resuscitation Status Full Code 03/29/14 7:15pm Discharge Instructions No hospital discharge instructions.No hospital discharge instructions. Additional Source Comments This clinical document has been generated using [employer] software that has been certified by the Office of the National Coordinator for Health Information Technology (ONC 15.99.04.3023.Diam.31.00.0.939514) and the National Committee for Supervisor [employer] Information Center (NCQA, as an eMeasure certified technology). FOR [...] BASED ON T HE PRIMARY CLINICAL RECORDS. [employer] provides no warranty or guara ntee of the accuracy or completeness of information in this document.The followi ng information is based on time limited clinical information
--- OUTSIDE RECORDS SUMMARY | 2019-09-18 02:48 | XMS REPORT | Continuity of Care Document ---
Author Organization Unknown Address Unknown Phone Unavailable Allergies Active Description Code Type Severity Reaction Onset Reported/Identified Relationship to Patient Clinical Status Yes No Known Drug Allergies [id number] Drug Allergy Mild N/A 12/15/2008 Medications There [...] 2 09/01/2014 MARIO MONTANA Ot 244.9 09/01/2014 MARIO MONTANA Ot [...] A41. 9 SEPSIS, UNSPECIFIED ORGANISM 06/16/2017 MUKUND OR MD, Ot E87. 2 ACIDOSIS 06/16/2017 MUKUND RO MD, Ot F02. 80 DEMENTIA IN [facility] DISEASES CLASSD ELSWHR W 06/16/2017 MUKUND RO MD, Ot G30. 9 ALZHEIMER'S DISEASE, UNSPECIFIED 06/16/2017 MUKUND RO MD, Ot I25. 10 ATHSCL HEART DISEASE OF [place] CORONARY 06/16/2017 MUKUND RO MD, Ot J98. [...] Ot I25. 10 ATHSCL HEART DISEASE OF [place] CORONARY 06/16/2017 MUKUND RO MD, Ot J98. [...] Ot I25. 10 ATHSCL HEART DISEASE OF [place] CORONARY 06/17/2017 MUKUND RO MD, Ot J98. [...] Ot I25. 10 ATHSCL HEART DISEASE OF [place] CORONARY 06/18/2017 MUKUND RO MD, Ot J98. [...] Ot I25. 10 ATHSCL HEART DISEASE OF [place] CORONARY 06/18/2017 MUKUND RO MD, Ot J18. [...] 89 ENCOUNTER FOR OTHER SPECIFIED SPECIAL EX 09/06/2019 MUKUND RO MD, Ot F02. 80 DEMENTIA IN [place] DISEASES CLASSD ELSWHR W 09/06/2019 MUKUND RO MD, Ot G30. 9 ALZHEIMER'S DISEASE, UNSPECIFIED 09/06/2019 MUKUND RO MD, Ot I12. 9 HYPERTENSIVE CHRONIC KIDNEY DISEASE W ST 09/06/2019 MUKUND RO MD, Ot I25. 10 ATHSCL HEART DISEASE OF [place] CORONARY 09/06/2019 MUKUND RO MD, Ot K21. 9 GASTRO-ESOPHAGEAL REFLUX DISEASE WITHOUT 09/06/2019 MUKUND RO MD, Ot M54. 9 DORSALGIA, UNSPECIFIED 09/06/2019 MUKUND RO MD, Ot N18. 9 CHRONIC KIDNEY DISEASE, UNSPECIFIED 09/06/2019 MUKUND RO MD, Ot N39. 0 URINARY TRACT INFECTION, SITE NOT SPECIF 09/06/2019 MUKUND RO MD, Ot Z16. 12 EXTENDED SPECTRUM BETA LACTAMASE (ESBL) 09/06/2019 MUKUND RO MD, Ot Z66 DO NOT RESUSCITATE 09/07/2019 MUKUND RO MD, Ot F02. 80 DEMENTIA IN [place] DISEASES CLASSD ELSWHR W 09/07/2019 MUKUND RO MD, Ot G30. 9 ALZHEIMER'S DISEASE, UNSPECIFIED 09/07/2019 MUKUND RO MD, Ot I12. 9 HYPERTENSIVE CHRONIC KIDNEY DISEASE W ST 09/07/2019 MUKUND RO MD, Ot I25. 10 ATHSCL HEART DISEASE OF [place] CORONARY 09/07/2019 MUKUND RO MD, Ot K21. 9 GASTRO-ESOPHAGEAL REFLUX DISEASE WITHOUT 09/07/2019 MUKUND RO MD, Ot M54. 9 DORSALGIA, UNSPECIFIED 09/07/2019 MUKUND RO MD, Ot N18. 9 CHRONIC KIDNEY DISEASE, UNSPECIFIED 09/07/2019 MUKUND RO MD, Ot N39. 0 URINARY TRACT INFECTION, SITE NOT SPECIF 09/07/2019 MUKUND RO MD, Ot Z16. 12 EXTENDED SPECTRUM BETA LACTAMASE (ESBL) 09/07/2019 MUKUND RO MD, Ot Z66 DO NOT RESUSCITATE Procedures Code Description Performed By Per formed On [id number] DI LATION OF RIGHT URETER WITH INTRALUMIN [...] culture - 06/11/17 19:45 Bacterial urine culture [id number] NRG COLONY COUNT 10,000/ML - 100,000/ML NRG [...] g/dL 3.2-4.5 CALCIUM CORRECTED 9.1 mg/dL 8.5-10.1 Bacterial blood culture - 09/02/19 10:23 Bacterial blood culture NG NRG Complete urinalysis with reflex to cultu re [...] rine sediment by light microscopy FEW NRG Bacterial urine culture - 09/02/19 10:30 Bacterial urine culture 3 OR MORE NRG COLONY COUNT >100,000/ML NRG SUSCEPTIBILITY SUGGESTING PROBABLE COLLECTION NRG MRSA SCREEN CONTAMINATION WITH SKIN LITZY NRG RAPID ID NO SUSCEPTIBILITY PERFORMED N RG ID CONFIRMATION SUGGEST RECOLLECTION IF STILL NEED NRG Bacterial blood culture - 09/02/19 11:13 Bacterial blood culture NG NRG Blood lactic acid measurement (moles/vol ume) - 09/02/19 11:30 Blood lactic acid measurement (moles/volume) 1.37 mmol/L 0.50-2.00 Complete blood count (CBC) with automate d white blood cell (WBC) differential - 09/03/19 05:46 Blood leukocytes automated count (number/volume) 5.3 10*3/uL 4.3-11.0 Blood erythrocytes automated count (number/volume) 3.55 10*6/uL 4.35-5.85 Venous blood hemoglobin measurement (mass/volume) 9.8 g/dL 11.5-16.0 Blood hematocrit (volume fraction) 31 % 35-52 Automated erythrocyte mean corpuscular volume 87 [ foz_us] 80-99 Automated erythrocyte mean corpuscular h emoglobin (mass per erythrocyte) 28 pg 25-34 Automated erythrocyte mean corpuscular h emoglobin concentration measurement (mass/volume) 32 g/dL 32-36 Automated erythrocyte distribution width ratio 13. 3 % 10.0- 14.5 Automated blood platelet count (count/volume) 345 10*3/uL 130-400 Automated blood platelet mean volume measurement 8.8 [foz_us] 7.4-10.4 Automated blood neutrophils/100 leukocytes 52 % 42-75 Automated blood lymphocytes/100 leukocytes 31 % 12-44 Blood monocytes/100 leukocytes 10 % 0-12 Automated blood eosinophils/100 leukocytes 7 % 0-10 Automated blood basophils/100 leukocytes 1 % 0-10 Blood neutrophils automated count (number/volume) 2.7 10*3 1.8-7.8 Blood lymphocytes automated count (number/volume) 1.6 10*3 1.0-4.0 Blood monocytes automated count (number/volume) 0. 5 10*3 0.0-1.0 Automated eosinophil count 0.4 10*3/uL 0 .0-0.3 Automated blood basophil count (count/volume) 0.1 10*3/uL 0.0-0.1 Comprehensive metabolic panel - 09/03/19 05:46 Serum or plasma sodium measurement (moles/volume) 140 mmol/L 135-145 Serum or plasma potassium measurement (moles/volume) 4.1 mmol/L 3.6-5.0 Serum or plasma chloride measurement (moles/volume) 107 mmol/L 98-107 Carbon dioxide 24 mmol/L 21-32 Serum or plasma anion gap determination (moles/volume) 9 mmol/L 5-14 Serum or plasma urea nitrogen measurement (mass/volume ) 28 mg/dL 7-18 Serum or plasma creatinine measurement (mass/volume) 1.47 mg/dL 0.60-1.30 Serum or plasma urea nitrogen/creatinine mass ratio 19 NRG Serum or plasma creatinine measurement w ith calculation of estimated glomerular filtration rate 34 NRG Serum or plasma glucose measurement (mass/volume) 109 mg/dL 70-105 Serum or plasma calcium measurement (mass/volume) 7.9 mg/dL 8.5-10.1 Serum or plasma total bilirubin measurement (mass/volu me) 0.2 mg/dL 0.1-1.0 Serum or plasma alkaline phosphatase monica surement (enzymatic activity/volume) 70 U/L 40-136 Serum or plasma aspartate aminotransfera se measurement (enzymatic activity/volume) 9 U/L 5-34 Serum or plasma alanine aminotransferase measurement (enzymatic activity/volume) 6 U/L 0-55 Serum or plasma protein measurement (mass/volume) 6.4 g/dL 6.4-8.2 Serum or plasma albumin measurement (mass/volume) 3.1 g/dL 3.2-4.5 CALCIUM CORRECTED 8.6 mg/dL 8.5-10.1 Complete urinalysis with reflex to cultu re - 09/05/19 08:05 Urine color determination YELLOW NRG Urine clarity determination SL CLOUDY N RG Urine pH measurement by test strip 5.5 5-9 Specific gravity of urine by test strip 1.015 1.016-1.022 Urine protein assay by test strip, semi-quantitative NEGATIVE NEGATIVE Urine glucose detection by automated test strip NE GATIVE NEGATIVE Erythrocytes detection in urine sediment by light micr oscopy 2+ NEGATIVE Urine ketones detection by automated test strip NE GATIVE NEGATIVE Urine nitrite detection by test strip POSITIVE NEGATIVE Urine total bilirubin detection by test strip NEGA TIVE NEGATIVE Urine urobilinogen measurement by automated test strip (mass/volume) 0.2 mg/dL < = 1.0 Urine leukocyte esterase detection by dipstick 3+ NEGATIVE Automated urine sediment erythrocyte cou nt by microscopy (number/high power field) [HPF] NRG Automated urine sediment leukocyte count by microscopy (number/high power field) [HPF] NRG Bacteria detection in urine sediment by light microsco py FEW NRG Squamous epithelial cells detection in u rine sediment by light microscopy 0-2 NRG Crystals detection in urine sediment by light microsco py NONE NRG Casts detection in urine sediment by light microscopy NONE NRG Mucus detection in urine sediment by light microscopy NEGATIVE NRG Complete urinalysis with reflex to culture YES NRG Bacterial urine culture - 09/05/19 08:05 Bacterial urine culture NG NRG Encounters ACCT No. Visit Date/Time Discharge Status Pt. Type Provider Facility Loc./Unit Complaint [id number] 09/02/2019 11:37:00 020 11:00:00 DIS Outpatient JIA MARIO, MUKUND [facility] 4TH UTI;CKD,ALZHEIMERS [id number] 11/18/2018 18:53:00 019 23:59:59 CLS Outpatient MUKUND RO MD [facility] [id number] 06/11/2017 22:14:00 018 14:15:00 DIS Inpatient MUKUND RO MD [facility] 4TH SEVERE SEPSIS,LEOBARDO,UTI,U RETERAL CALCULUS [id number] 07/11/2014 12:30:00 015 23:59:59 CLS Preadmit RUFUS MARIO, HENRY Angel [facility] WENDY,CP,SYNCOPE [id number] 06/21/2014 13:04:00 015 23:59:59 CLS Outpatient TABITHA PITTMAN, ADELA Argueta [facility] WENDY,CP,HYPERTHYROIDISM,SYNCOPE [id number] 04/12/2014 08:39:00 015 23:59:59 CLS Outpatient MUKUND RO MD [facility] HEART MURMUR [id number] 03/29/2014 18:15:00 015 11:10:00 DIS Inpatient MUKUND RO MD [facility] 4TH SYNCOPE;UTI;GENERALIZED WEAKNESS;HYPOTHYROIDISM [id number] 03/24/2014 14:08:00 015 15:58:00 DIS Emergency STEPHANIE ELLIOTT MD [facility] ER UNABLE TO URINATE [id number] 03/24/2014 14:08:00 Document Registration
[2019-09-18] MEDS ORDERED: D5 1/2 NS W/KCL 20 MEQ/L 1,000 ML IV ONE (03:08)
[2019-09-18] MEDS ORDERED: ENOXAPARIN 40 MG/0.4 ML (LOVENOX) SYR ONE (03:17)
[2019-09-18 05:16] VITALS: BP 166/86
--- NOTE | 2019-09-18 06:14 | Diagnostic Imaging Report ---
INDICATION: Cough and congestion. Comparison is made with prior examination from 09/02/2019. FINDINGS: The heart size, mediastinal configuration, and pulmonary vascularity are within normal limits. There is no pleural effusion, pneumothorax, or pneumonia. The osseous structures are unremarkable. IMPRESSION: No acute cardiopulmonary abnormality. Dictated by: Dictated on workstation # [id number]
[2019-09-18] MEDS ORDERED: D5 1/2 NS W/KCL 20 MEQ/L 1,000 ML IV SCH (06:15)
[2019-09-18] MEDS ORDERED: ACETAMINOPHEN 500 MG TAB (TYLENOL) PO PRN (06:15)
[2019-09-18] MEDS ORDERED: ONDANSETRON 4 MG/2 ML (SDV) Z0FRAN IV PRN (06:15)
[2019-09-18 08:45] VITALS: BP 167/75
[2019-09-18] MEDS: CEFEPIME 1,000 MG/SWFI 10 ML IV PUSH IV SCH ×4 (08:56→14:14)
[2019-09-18] MEDS ORDERED: QUEtiapine 25 MG (SEROquel) TAB IMMEDIATE RELEASE PO SCH ×2 (09:00)
[2019-09-18] MEDS ORDERED: MEMANTINE 10 MG (NAMENDA) TABLET PO SCH (09:00)
[2019-09-18 12:54] VITALS: BP 142/80
--- NOTE | 2019-09-18 13:03 | History & Physical-Hospitalist ---
History of Present Illness HPI/Chief Complaint PT ARRIVES VIA EMS FROM HOME EMS STAFF REPORTS THAT THEY WERE CALLED BY PT'S , HE REPORTED THAT PT WAS SHORT OF BREATH IS UNKNOWN WHEN ONSET OF SYMPTOMS WAS NO REPORTED FEVER NO OTHER REPORTED SYMPTOMS PT WAS ADMITTED 09/01-09/07/19 FOR UTI WITH SEPSIS NO OTHER INFORMATION IS OBTAINABLE AT THIS TIME. PCP: DR. RO And awake but confused oriented 1 appearing to be in no acute distress. She denies shortness of breath or chest pain. Nursing staff and discussed with the daughter who stated that the has some dementia as well and that her mother is been prone to panic attacks she's had no chills fever or COVID exposure. Date Seen 09/18/19 Time Seen by a Provider: 11:00 Attending Physician Dru Cruz MD PCP Lee Manjarrez MD Referring Physician Date of Admission Sep 18, 2019 at 02:20 Home Medications & Allergies Home Medications Reviewed patient Home Medication Reconciliation performed by pharmacy medication reconciliations event crew technician and/or nursing. Patients Allergies have been reviewed. Allergies Allergies Coded Allergies No Known Drug Allergies (Acbucwlioh96/2/09) Past Rmloxlj-Ssujud-Umianc Hx Past Med/Social Hx: Reviewed and Corrections made Patient Social History Alcohol Use: Denies Use Recreational Drug Use: No Smoking Status: Unknown if Ever Smoked 2nd Hand Smoke Exposure: No Recent Foreign Travel: No Contact w/other who traveled: No Recent Hopitalizations: Yes Recent Infectious Disease Expo: No Immunizations Up To Date Tetanus Booster (TDap): Unknown Date of Pneumonia Vaccine: Mar 18, 2010 Date of Influenza Vaccine: Jan 12, 2017 Seasonal Allergies Seasonal Allergies: No Past Medical History Surgeries: Hysterectomy, Orthopedic : No Reproductive: 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; age 29 at the time) Sexually Transmitted Disease: No Genitourinary: UTI-Chronic Gastrointestinal: Gastroesophageal Reflux Musculoskeletal: Chronic Back Pain History of Blood Disorders: Yes Adverse Reaction to Blood [place]: No Family History Alzheimer's disease 19 MOTHER G8 BROTHER G8 SISTER Arthritis G8 SISTER Cardiovascular disease 19 FATHER Hypercholesterolemia 19 FATHER 19 MOTHER G8 BROTHER G8 SISTER Infertility G8 SISTER Myocardial infarction 19 FATHER Parkinson's disease 19 MOTHER No Family History of: AIDS Abdominal aortic aneurysm Stark's disease Alcoholism Aphasia Asthma Cancer of mouth Cataracts Colon cancer Completed stroke Congenital disease Congenital heart disease Coronary thrombosis Cystic fibrosis Deafness or hearing loss Dementia Diabetes mellitus Drug abuse Dysphasia Fibrocystic disease of breast Gastroenteritis Glaucoma Headache disorder Hypertension Kidney disease Neoplasm Not obtainable due to adoption Osteoporosis Prostate cancer Psychosocial problem Respiratory disorder Seizure disorder Severe allergy Thyroid disease Tuberculosis Visual disorder Review of Systems Constitutional: see HPI Physical Exam Physical Exam Vital Signs Vital Signs - First Documented Capillary Refill : Less Than 3 SecondsLess Than 3 Seconds Height, Weight, BMI Height: 5'3.00" Weight: 147lbs. 8.0oz. 66.799669tz; 27.71 BMI Method:Stated General Appearance: No Apparent Distress Respiratory: Chest Non Tender, Lungs Clear, Normal Breath Sounds, No Accessory Muscle Use, No Respiratory Distress Cardiovascular: Regular Rate, Rhythm, No Edema, No Gallop, No JVD, No Murmur, Normal Peripheral Pulses Gastrointestinal: Normal Bowel Sounds, No Organomegaly, No Pulsatile Mass, Non Tender, Soft Extremity: Normal Inspection, Normal Range of Motion, Non Tender, No Calf Tenderness, No Pedal Edema Results Results/Procedures Labs Laboratory Tests 09/18/19 00:50 Patient resulted labs reviewed. Assessment/Plan Admission Diagnosis 1. Shortness of breath likely due to panic or agitation with underlying dementia presumed Alzheimer's daughter will be in later today and consider discharge tomorrow. If the family does not feel that they can handle her care then may need to look into long-term care placement. 2. Borderline elevation in troponin level which was not reported to me last night I doubt acute coronary syndrome will obtain an EKG is like can find no evidence for one in her electronic medical record and we'll repeat troponin level with conservative medical management considering advanced age dementia and poor performance status. Admission Status: Observation Clinical Quality Measures DVT/VTE Risk/Contraindication: Risk Factor Score Per Nursin RFS Level Per Nursing on Admit: 3=High DRU CRUZ MD Sep 18, 2019 13:03
[2019-09-18] MEDS ORDERED: ASPIRIN 81 MG CHEW (CHILDREN'S ASA) PO NR (13:15)
[2019-09-18] MEDS ORDERED: ASPIRIN 325 MG (5 GR) TABLET PO ONE (13:15)
[2019-09-18 14:15] VITALS: BP 136/63
[2019-09-18 17:33] VITALS: BP 136/63
[2019-09-19] MEDS ORDERED: ASPIRIN 325 MG (5 GR) TABLET PO SCH (09:00)
[2019-09-19] MEDS ORDERED: ASPIRIN 81 MG CHEW (CHILDREN'S ASA) PO SCH (09:00)
--- NOTE | 2019-09-19 13:03 | Physician Query Clarification ---
PQ-Intro New Diagnosis Admission/Discharge Admission Date: Sep 18, 2019 at 02:20 Discharge Date: Sep 18, 2019 at 17:36 The medical record reflects the following clinical scenario: History/Risk Factors: UTI, Alzheimer's dementia Clinical Findings: Troponin 0.029 Treatment: IV Cefepime, IV potassium/sodium chloride, PO Toprol Question: What condition best reflects the above clinical scenario? Please document a response in the Progress Noter or Discharge Summary. 1. Type 2 ID 2. Elevation troponin no type 2 ID 3. Other, with explanation of the clinical findings. 4. Clinically undetermined, no explanation for the clinical findings. PHYSICIAN RESPONSE What condition reflects above: 2 Explanation of clincal finding see DC summary Please remember a lack of response to the above will prompt a phone page by CDI/Coding staff. In responding to this query, please exercise your independent professional judgment. The purpose of this communication is to more accurately reflect the complexity of your patients condition. The fact that a question is asked does not imply that any particular answer is desired or expected. Thank you for your timely response to this clarification. Requestors name: Maximino THIS PHYSICIAN QUERY FORM IS A PERMANENT PART OF THE MEDICAL RECORD MAXIMINO GAMBOA Sep 19, 2019 13:03 DRU MONTOYA MD Sep 20, 2019 11:09
--- NOTE | 2019-09-20 11:29 | Discharge Summary ---
Diagnosis/Chief Complaint Date of Admission Sep 18, 2019 at 02:20 Date of Discharge Sep 18, 2019 at 17:36 Discharge Date: Sep 18, 2019 Admission Diagnosis 1. Shortness of breath likely due to panic or agitation with underlying dementia presumed Alzheimer's daughter will be in later today and consider discharge tomorrow. If the family does not feel that they can handle her care then may need to look into long-term care placement. 2. Borderline elevation in troponin level which was not reported to me last night I doubt acute coronary syndrome will obtain an EKG is like can find no evidence for one in her electronic medical record and we'll repeat troponin level with conservative medical management considering advanced age dementia and poor performance status. Primary Care Mukund Ro MD Discharge Summary Discharge Physical Exam Allergies: Coded Allergies: No Known Drug Allergies (Unverified , 12/15/08) Vitals & I&Os Vital Signs Date Time Temp Pulse Resp B/P (MAP) Pulse Ox O2 Delivery O2 Flow Rate FiO2 09/18/19 17:33 36.6 74 20 136/63 97 Room Air General Appearance: No Apparent Distress Respiratory: Chest Non Tender, Lungs Clear, Normal Breath Sounds, No Accessory Muscle Use, No Respiratory Distress Cardiovascular: Regular Rate, Rhythm, No Edema, No Gallop, No JVD, No Murmur Gastrointestinal: Normal Bowel Sounds, No Organomegaly, No Pulsatile Mass, Non Tender, Soft Hospital Course Was the Problem List Reviewed?: Yes Patient was admitted to the hospital started on IV fluids and antibiotic therapy in the form of cefepime due to bacteriuria and some pyuria. Patient denied shortness of breath or chest discomfort. Family reports that she does have intermittent agitation and behavior and what they felt were likely panic attacks. They're mostly concerned that she had COVID although they're not aware of any exposures and the patient does not get out. No one else at been sick at home and COVID nasal swab returned negative. She was back to her baseline state with no complaints dysuria and no chills fever or white count elevation. While it shows that it was stopped a few we'll give 1 more dose of oral fosfomycin. They were instructed for early follow-up with Dr. Ro for any further decline. Urine culture did grow out Enterobacter with a lot of other mixed odessa sensitivity was not done. The patient was discharged with no symptoms to suggest ongoing urinary tract infection. The family and knowing that she is COVID negative was comfortable with continuing to handle her care needs at home and did not want to look into long-term care placement at this time. She had no evidence to suggest acute coronary syndrome had a borderline high-sensitivity troponin at 0.29 on admission with 0.28 being the upper limits of normal. Repeat testing was less than 0.28 with no ischemic changes on EKG and no evidence for acute coronary syndrome. Labs (last 24 hrs) Microbiology 09/18/19 Urine Culture - Preliminary, Resulted Mixed Bacterial [place]essa Enterobacter aerogenes 09/18/19 Blood Culture - Preliminary, Resulted No growth Patient resulted labs reviewed. Discussion & Recommendations Discharge Planning: <30 minutes discharge planning Discharge Home Medications: Active Scripts Active Reported Aspir 81 (Aspirin) 81 Mg Tablet.dr 81 Mg PO HS Metoprolol Succinate 25 Mg Tab.er.24h 25 Mg PO DAILY Memantine HCl 10 Mg Tablet 10 Mg PO BID Quetiapine Fumarate 25 Mg Tablet 25 Mg PO BID Instructions to patient/family Please see electronic discharge instructions given to patient. Clinical Quality Measures DVT/VTE Risk/Contraindication: Risk Factor Score Per Nursin RFS Level Per Nursing on Admit: 3=High Copy Copies To 1: MUKUND RO MD, MARK D MD Sep 20, 2019 11:29
== END 2019-09-18 17:36 | disposition home or self-care (01) | DRG 57 ==
LOC: EDUNIT# 00:34 → ER 00:35 → 4TH 02:20
PROVIDERS: ADMIT Internal Medicine; ATTEND Internal Medicine
DX: G30.9 Alzheimer's disease, unspecified (principal); F02.80 Dementia in other diseases classified elsewhere, unspecified severity, without behavioral disturbance, psychotic disturbance, mood disturbance, and anxiety; F41.0 Panic disorder [episodic paroxysmal anxiety]; R45.1 Restlessness and agitation; R82.71 Bacteriuria; R82.81 Pyuria; Z20.828 Contact with and (suspected) exposure to other viral communicable diseases; K21.9 Gastro-esophageal reflux disease without esophagitis; M54.9 Dorsalgia, unspecified; Z90.710 Acquired absence of both cervix and uterus; R79.89 Other specified abnormal findings of blood chemistry
CPT/HCPCS: 36415; 51702; 71045; 80053; 81000; 82550; 82553; 83605; 83615; 83735; 83880; 84145; 84484; 85025; 85379; 85610; 85652; 85730; 86141; 87040; 87077; 87088; 87186; 87635; 93005; 93041

== ENCOUNTER 2020-01-24 18:31 | Inpatient (IN) | payer MEDICARE, OTHER ==
[~2020-01-24] VITALS: Ht 149.8 cm; Wt 56.8 kg
--- NOTE | 2020-01-24 18:58 | ED GU-Female ---
General Chief Complaint: - Urinary Stated Complaint: DIFFICULTY URINATING Nursing Triage Note: Pt to ED via EMS from home. EMS reports pt has dysuria and history of UTI and kidney stones. EMS reports is not very ambulatory. Nursing Sepsis Screen: No Definite Risk Source: patient Exam Limitations: clinical condition (SATISH GREER MED STUDENT) History of Present Illness Date Seen by Provider: Jan 24, 2020 Time Seen by Provider: 18:30 Initial Comments Ms. Adorno is an 89 y.o. F who presents to ED via EMS with chief complaint of painful urination. Per EMS they said that she was found at home and was complaining of painful urination. HPI limited by patient's dementia at baseline. She reports that she has had pain with urination for some time but that it has worsened recently. She said that she gets pain in her belly when she urinates. She said overall she does not feel good. She denies any other symptoms at this time. There was some question with her urology history that the patient may have had stents placed in [place] according to EMS. Per daughter - patient has had kidney stones for years and had a stent placed 2 years ago. 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 She said that today the patient could not go at all to the bathroom and would cry when urinating due to pain. The patient has had fevers "on and off." She denies measuring any fevers over the last couple days. Daughter said patient drinks minimal fluids each day and that patient's has a hard time taking care of patient. She is completely immobile at home according to daughter. Her mental status is at baseline per daughter. The daughter thinks that the patient may have stents still in her ureter. (SATISH GREER MED STUDENT) Allergies and Home Medications Allergies Coded Allergies: No Known Drug Allergies (Unverified , 12/15/08) Home Medications Aspirin 81 Mg Tablet.dr, 81 MG PO HS, (Reported) Memantine HCl 10 Mg Tablet, 10 MG PO BID, (Reported) Metoprolol Succinate 25 Mg Tab.er.24h, 25 MG PO DAILY, (Reported) Quetiapine Fumarate 25 Mg Tablet, 25 MG PO BID, (Reported) Patient Home Medication List Home Medication List Reviewed: Yes (SATISH GREER MED STUDENT) Review of Systems Review of Systems Constitutional: No chills, No fever EENTM: no symptoms reported Respiratory: No cough, No short of breath Cardiovascular: No chest pain Gastrointestinal: abdominal pain; No nausea, No vomiting Genitourinary: burning, dysuria Musculoskeletal: No back pain Skin: no symptoms reported Psychiatric/Neurological: No Symptoms Reported Endocrine: No Symptoms Reported (SATISH GREER STUDENT) Past Yuaarhn-Wrvdwe-Rjkruw Hx Patient Social History Alcohol Use: Denies Use Recreational Drug Use: No Smoking Status: Never a Smoker 2nd Hand Smoke Exposure: No Recent Foreign Travel: No Contact w/Someone Who Travel: No Recent Infectious Disease Expo: No Recent Hopitalizations: Yes (SATISH GREER Flipps STUDENT) Immunizations Up To Date Tetanus Booster (TDap): Unknown Date of Pneumonia Vaccine: Mar 18, 2010 Date of Influenza Vaccine: Jan 12, 2017 (SATISH GREER Flipps STUDENT) Seasonal Allergies Seasonal Allergies: No (SATISH GREER) Past Medical History Surgeries: 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/back surgery) Hysterectomy, Orthopedic Respiratory: No Cardiac: No Neurological: Yes (alzheimers) Reproductive Disorders: 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; age 29 at the time) Sexually Transmitted Disease: No Genitourinary: Yes Bladder Infection, Kidney Stones, UTI-Chronic Gastrointestinal: Yes Gastroesophageal Reflux Musculoskeletal: Yes Chronic Back Pain Endocrine: No Cancer: No Psychosocial: No Integumentary: No Blood Disorders: Yes Adverse Reaction/Blood Tranf: No (SATISH GREER Flipps STUDENT) Family Medical History Alzheimer's disease 19 MOTHER G8 BROTHER G8 SISTER Arthritis G8 SISTER Cardiovascular disease 19 FATHER Hypercholesterolemia 19 FATHER 19 MOTHER G8 BROTHER G8 SISTER Infertility G8 SISTER Myocardial infarction 19 FATHER Parkinson's disease 19 MOTHER No Family History of: AIDS Abdominal aortic aneurysm [place]'s disease Alcoholism Aphasia Asthma Cancer of mouth Cataracts Colon cancer Completed stroke Congenital disease Congenital heart disease Coronary thrombosis Cystic fibrosis Deafness or hearing loss Dementia Diabetes mellitus Drug abuse Dysphasia Fibrocystic disease of breast Gastroenteritis Glaucoma Headache disorder Hypertension Kidney disease Neoplasm Not obtainable due to adoption Osteoporosis Prostate cancer Psychosocial problem Respiratory disorder Seizure disorder Severe allergy Thyroid disease Tuberculosis Visual disorder Physical Exam Vital Signs Vital Signs - First Documented 01/24/20 18:31 Temp 36.1 Pulse 91 Resp 22 B/P (MAP) 131/75 (93) Pulse Ox 96 O2 Delivery Room Air (ENMA TAYLOR MD) Vital Signs Capillary Refill : Less Than 3 Seconds (SATISH GREER MED STUDENT) Height, Weight, BMI Height: 5'3.00" Weight: 147lbs. 8.0oz. 66.075350lp; 24.00 BMI Method:Stated General Appearance: WD/WN, mild distress Neck: full range of motion, normal inspection Cardiovascular: regular rate, rhythm, no murmur Respiratory: chest non-tender, lungs clear, normal breath sounds, no respiratory distress, no accessory muscle use Gastrointestinal: normal bowel sounds, soft, no organomegaly, tenderness (TTP at suprapubic area) Back: normal inspection, no CVA tenderness Extremities: normal range of motion, non-tender, normal inspection Neurologic/Psychiatric: no motor/sensory deficits, alert, normal mood/affect Skin: normal color, warm/dry (SATISH GREER MED STUDENT) Progress/Results/Core Measures Suspected Sepsis Recent Fever Within 48 Hours: No Infection Criteria Present: None New/Unexplained Altered Menta: No Sepsis Screen: No Definite Risk SIRS Temperature: Pulse: 91 Respiratory Rate: 22 Laboratory Tests 01/24/20 19:10: White Blood Count 6.2 Blood Pressure 131 /75 Mean: 93 Laboratory Tests 01/24/20 19:10: Creatinine 1.49H, Platelet Count 297, Total Bilirubin 0.2 (SATISH GREER MED STUDENT) Results/Orders Lab Results Laboratory Tests Test 01/24/20 19:00 01/24/20 19:10 Range/Units Urine Color BROWN H Urine Clarity CLOUDY Urine pH 8.0 5-9 Urine Specific [place] 1.015 L 1.016-1.022 Urine Protein 3+ H NEGATIVE Urine Glucose (UA) NEGATIVE NEGATIVE Urine Ketones TRACE H NEGATIVE Urine Nitrite NEGATIVE NEGATIVE Urine Bilirubin 2+ H NEGATIVE Urine Urobilinogen 0.2 < = 1.0 MG/DL Urine Leukocyte Esterase 2+ H NEGATIVE Urine RBC (Auto) 3+ H NEGATIVE Urine RBC 50-100 H /HPF Urine WBC 25-50 H /HPF Urine Crystals PRESENT H /LPF Urine Amorphous Sediment FEW MILLA PHOSPHATE H /LPF Urine Bacteria LARGE H /HPF Urine Casts NONE /LPF Urine Mucus NEGATIVE /LPF Urine Culture Indicated YES White Blood Count 6.2 4.3-11.0 10^3/uL Red Blood Count 4.11 3.80-5.11 10^6/uL Hemoglobin 11.3 L 11.5-16.0 g/dL Hematocrit 37 35-52 % Mean Corpuscular Volume 89 80-99 fL Mean Corpuscular Hemoglobin 28 25-34 pg Mean Corpuscular Hemoglobin Concent 31 L 32-36 g/dL Red Cell Distribution Width 13.2 10.0-14.5 % Platelet Count 297 130-400 10^3/uL Mean Platelet Volume 9.1 9.0-12.2 fL Immature Granulocyte % (Auto) 0 % Neutrophils (%) (Auto) 53 42-75 % Lymphocytes (%) (Auto) 31 12-44 % Monocytes (%) (Auto) 9 0-12 % Eosinophils (%) (Auto) 5 0-10 % Basophils (%) (Auto) 1 0-10 % Neutrophils # (Auto) 3.3 1.8-7.8 10^3/uL Lymphocytes # (Auto) 1.9 1.0-4.0 10^3/uL Monocytes # (Auto) 0.6 0.0-1.0 10^3/uL Eosinophils # (Auto) 0.3 0.0-0.3 10^3/uL Basophils # (Auto) 0.1 0.0-0.1 10^3/uL Immature Granulocyte # (Auto) 0.0 0.0-0.1 10^3/uL Sodium Level 140 135-145 MMOL/L Potassium Level 4.1 3.6-5.0 MMOL/L Chloride Level 106 98-107 MMOL/L Carbon Dioxide Level 22 21-32 MMOL/L Anion Gap 12 5-14 MMOL/L Blood Urea Nitrogen 32 H 7-18 MG/DL Creatinine 1.49 H 0.60-1.30 MG/DL Estimat Glomerular Filtration Rate 33 BUN/Creatinine Ratio 21 Glucose Level 141 H 70-105 MG/DL Calcium Level 8.3 L 8.5-10.1 MG/DL Corrected Calcium 8.6 8.5-10.1 MG/DL Total Bilirubin 0.2 0.1-1.0 MG/DL Aspartate Amino Transf (AST/SGOT) 13 5-34 U/L Alanine Aminotransferase (ALT/SGPT) 9 0-55 U/L Alkaline Phosphatase 89 40-136 U/L C-Reactive Protein High Sensitivity 1.30 H 0.00-0.50 MG/DL Total Protein 7.7 6.4-8.2 GM/DL Albumin 3.6 3.2-4.5 GM/DL (ENMA TAYLOR MD) My Orders Orders - ENMA TAYLOR MD Cbc With Automated Diff (01/24/20 18:36) Comprehensive Metabolic Panel (01/24/20 18:36) Hs C Reactive Protein (01/24/20 18:36) Ua Culture If Indicated (01/24/20 18:36) Bladder Scan (01/24/20 18:36) Ed Iv/Invasive Line Start (01/24/20 18:36) Ct Abd/Pelvis Wo(Kidney Stone) (01/24/20 19:10) Urine Culture (01/24/20 19:00) Abdomen/Kub 1view (01/24/20 19:57) Meropenem (Merrem 1000 Mg) (01/24/20 20:00) Phenazopyridine Tablet (Pyridium Tablet) (01/24/20 20:30) (ENMA TAYLOR MD) Medications Given in ED Current Medications Medications Dose Ordered Sig/Kirstin Route Start Time Stop Time Status Last Admin Dose Admin Meropenem 1000 mg/ Sterile Water 20 ml @ 240 mls/hr ONCE ONCE IV 01/24/20 20:00 01/24/20 20:04 DC 01/24/20 20:23 240 MLS/HR (ENMA TAYLOR MD) Vital Signs/I&O 01/24/20 18:31 Temp 36.1 Pulse 91 Resp 22 B/P (MAP) 131/75 (93) Pulse Ox 96 O2 Delivery Room Air (ENMA TAYLOR MD) Vital Signs/I&O Capillary Refill : Less Than 3 Seconds (SATISH GREER STUDENT) Blood Pressure Mean: 93 Progress Note : Progress Note Ms. Adorno is an 89 y/o F who presents to ED via EMS for painful urination. She has had 2 admissions recently for UTI back in August and September of this year. Daughter is unsure if stents were ever removed. We will order CT abd/pelvis to assess for stones and stents. We will also order CBC, CMP, UA, CRP CT abd/pelv showed mulitple R renal calculi, right ureteral stent in place and large calcification in bladder. Will admit for management of bladder stone, possible stent removal, IV abx, social work for placement to possible skilled nursing at discharge. (SATISH GREER STUDENT) Diagnostic Imaging Diagonstic Imaging: CT Plain Films/CT/US/NM/MRI: abdomen, pelvis Comments CT abdomen and pelvis viewed by me and report reviewed. See report below: NAME: LE ADORON REC#: [id number] PT STATUS: REG ER : 1932 PHYSICIAN: ENMA TAYLOR MD ADMIT DATE: 01/24/20/ER Signed Date of Exam:01/24/20 CT ABD/PELVIS WO(KIDNEY STONE) PROCEDURE: CT urinary tract, rule out kidney stone. TECHNIQUE: Multiple contiguous axial images were obtained through the abdomen and pelvis without the use of intravenous contrast. Auto Exposure Controls were utilized during the CT exam to meet ALARA standards for radiation dose reduction. INDICATION: Dysuria with history of kidney stones. Patient complains of left flank pain. CORRELATION is made with prior CT from 06/11/2017. The lung bases are clear. Coronary arterial calcifications are noted. No discrete liver mass is identified. Gallbladder is unremarkable. No prevertebral or ductal dilatation is seen. Pancreas is atrophic. Spleen is unremarkable. No adrenal mass is identified. Patient has a nephroureteral stent on the right extending from the upper pole right kidney into the bladder. There are numerous large calculi involving lower pole calyces as well as in the region of the right renal pelvis. There appear to be numerous large stones within the bladder which is decompressed and thick walled. No definite left-sided renal calculi are identified. Left ureter is not dilated. No ureteral calculi are seen. Aorta and iliac vessels are extensively calcified but nonaneurysmal. Bowel loops are normal caliber. No obstruction is seen. No free fluid. IMPRESSION: Multiple large lower pole right renal calculi as well as right renal pelvic calculi. There are extensive calcifications in the urinary bladder. Double-J nephroureteral stent on the right is in place. No other significant abnormality is detected. Dictated by: Dictated on workstation # [id number] Dict: 01/24/201929 Trans: 01/24/201950 [facility] [id number] Interpreted by: VEE COVINGTON MD Electronically signed by: VEE COVINGTON MD 01/24/201950 Diagonstic Imaging: Xray Plain Films/CT/US/NM/MRI: abdomen, pelvis Comments KUB viewed by me and report reviewed. See report below: NAME: LE ADORNO [facility] REC#: [id number] PT STATUS: REG ER : 1932 PHYSICIAN: ENMA TAYLOR MD ADMIT DATE: 01/24/20/ER Draft Date of Exam:01/24/20 ABDOMEN/KUB 1VIEW INDICATION: Dysuria. History of urinary tract infections and kidney stones. Left flank pain. A supine view of the abdomen shows no abnormally dilated loops of bowel. A right-sided ureteral stent is present. There are multiple calcifications adjacent to the stent consistent with stones in the lower pole of the right kidney. There is a probable stone in the right renal pelvis at the UPJ. No ureteral stones are evident on either side. IMPRESSION: Right-sided urinary tract stones, as described. A stent is present on the right. No other significant abnormality is seen. Dictated on workstation # [id number] Dict: 01/24/202005 Trans: 01/24/202009 [facility] [id number] Interpreted by: MICHELLE HOUGH MD (ENMA TAYLOR MD) Departure Communication (Admissions) Time/Spoke to Admitting Phy: 19:54 Dr. Kaufman Time/Spoke to Consulting Phy: 19:36 Dr. Moreira (ENMA TAYLOR MD) Impression Primary Impression: Urinary tract infection Qualified Codes: N39.0 - Urinary tract infection, site not specified Additional Impressions: Debility Advanced dementia Bladder stone Right kidney stone Pelvic pain Disposition: ADMITTED INPATIENT Condition: Improved Admissions Decision to Admit Reason: Admit from ER (General) Decision to Admit/Date: Jan 24, 2020 Time/Decision to Admit Time: 19:30 (ENMA TAYLOR MD) Departure-Patient Inst. Referrals: HENRY HOOPER MD (PCP) Primary Care Physician MUKUND KAUFMAN MD (Family) Primary Care Physician Medical Student Attestation and Attending Note: I have personally interviewed and examined this patient along with Satish lopez MS4. I have reviewed student documentation including history, physical, and assessments. I agree with the documentation except where otherwise noted. Patient has history of large ureteropelvic stones requiring stent placement in the past. She retains the stents from 2018. Imaging now shows development of a very large bladder stone. She additionally has urinary tract infection. Based on prior cultures she is being started on meropenem. Dr. Moreira was consulted and anticipates cystoscopy in the morning. Due to patient's severely demented state she is not a good candidate for surgical or complicated procedures. I have spoken extensively with the patient's daughter who reports care at home is difficult as patient's is 89. He presently has to lift her out of bed into the bathroom and back frequently. He is worn out. Social work will be consulted to help to family with home services versus skilled nursing placement. Meropenem was started in the emergency room and Pyridium was given for pain. Exam: General: Alert, oriented, no acute distress, well developed HEENT: Normocephalic and atraumatic, pasty mucous membranes Heart: Regular rate and rhythm without murmur Lungs: Clear to auscultation bilaterally with normal effort Abdomen: Soft, nontender, nondistended, normal bowel sounds, surgical scars on the abdomen Neuropsych: Severely demented at baseline Skin: Warm and dry without rashes (ENMA TAYLOR MD) SATISH GREER MED STUDENT Jan 24, 2020 18:58 ENMA TAYLOR MD Jan 24, 2020 20:36
[2020-01-24 19:09] LABS: CLARITY,URINE CLOUDY; COLOR,URINE BROWN; GLUCOSE, URINE (UA) NEGATIVE (NEGATIVE); KETONES,URINE TRACE (NEGATIVE); LEUKOCYTE ESTERASE ,URINE 2+ (NEGATIVE); NITRITE,URINE NEGATIVE (NEGATIVE); PROTEIN,URINE 3+ (NEGATIVE)
[2020-01-24 19:27] LABS: BASOPHILS # (AUTO) 0.1 10^3/uL (0.0-0.1); BASOPHILS % (AUTO) 1 % (0-10); EOSINOPHILS # (AUTO) 0.3 10^3/uL (0.0-0.3); EOSINOPHILS % (AUTO) 5 % (0-10); HEMATOCRIT 37 % (35-52); HEMOGLOBIN 11.3 g/dL (11.5-16.0); LYMPHOCYTES # (AUTO) 1.9 10^3/uL (1.0-4.0); LYMPHOCYTES % (AUTO) 31 % (12-44); MEAN CORPUSCULAR HEMOGLOBIN 28 pg (25-34); MEAN CORPUSCULAR HGB CONC 31 g/dL (32-36); MEAN CORPUSCULAR VOLUME 89 fL (80-99); MEAN PLATELET VOLUME 9.1 fL (9.0-12.2); MONOCYTES # (AUTO) 0.6 10^3/uL (0.0-1.0); MONOCYTES % (AUTO) 9 % (0-12); NEUTROPHILS # (AUTO) 3.3 10^3/uL (1.8-7.8); NEUTROPHILS % (AUTO) 53 % (42-75); PLATELET COUNT 297 10^3/uL (130-400); WHITE BLOOD COUNT 6.2 10^3/uL (4.3-11.0)
[2020-01-24 19:35] LABS: ALBUMIN 3.6 GM/DL (3.2-4.5)
[2020-01-24 19:36] LABS: POTASSIUM 4.1 MMOL/L (3.6-5.0)
[2020-01-24 19:37] LABS: CALCIUM 8.3 MG/DL (8.5-10.1)
[2020-01-24 19:38] LABS: TOTAL PROTEIN 7.7 GM/DL (6.4-8.2)
[2020-01-24 19:40] LABS: BILIRUBIN,TOTAL 0.2 MG/DL (0.1-1.0)
[2020-01-24 19:42] LABS: CREATININE SERUM 1.49 MG/DL (0.60-1.30)
[2020-01-24 19:44] LABS: BACTERIA,URINE LARGE /HPF; RBC,URINE 50-100 /HPF; WBC,URINE 25-50 /HPF
[2020-01-24 19:45] LABS: AMORPHOUS SEDIMENT,UR FEW AMOR PHOSPHATE /LPF
[2020-01-24 19:48] LABS: BILIRUBIN,URINE 2+ (NEGATIVE)
--- NOTE | 2020-01-24 19:51 | Diagnostic Imaging Report ---
PROCEDURE: CT urinary tract, rule out kidney stone. TECHNIQUE: Multiple contiguous axial images were obtained through the abdomen and pelvis without the use of intravenous contrast. Auto Exposure Controls were utilized during the CT exam to meet ALARA standards for radiation dose reduction. INDICATION: Dysuria with history of kidney stones. Patient complains of left flank pain. CORRELATION is made with prior CT from 06/11/2017. The lung bases are clear. Coronary arterial calcifications are noted. No discrete liver mass is identified. Gallbladder is unremarkable. No prevertebral or ductal dilatation is seen. Pancreas is atrophic. Spleen is unremarkable. No adrenal mass is identified. Patient has a nephroureteral stent on the right extending from the upper pole right kidney into the bladder. There are numerous large calculi involving lower pole calyces as well as in the region of the right renal pelvis. There appear to be numerous large stones within the bladder which is decompressed and thick walled. No definite left-sided renal calculi are identified. Left ureter is not dilated. No ureteral calculi are seen. Aorta and iliac vessels are extensively calcified but nonaneurysmal. Bowel loops are normal caliber. No obstruction is seen. No free fluid. IMPRESSION: Multiple large lower pole right renal calculi as well as right renal pelvic calculi. There are extensive calcifications in the urinary bladder. Double-J nephroureteral stent on the right is in place. No other significant abnormality is detected. Dictated by: Dictated on workstation # [id number]
[2020-01-24] MEDS ORDERED: MEROPENEM 1,000 MG in WATER (STERILE) FOR INJECTION 20 ML IV ONE (20:00)
--- NOTE | 2020-01-24 20:11 | Diagnostic Imaging Report ---
INDICATION: Dysuria. History of urinary tract infections and kidney stones. Left flank pain. A supine view of the abdomen shows no abnormally dilated loops of bowel. A right-sided ureteral stent is present. There are multiple calcifications adjacent to the stent consistent with stones in the lower pole of the right kidney. There is a probable stone in the right renal pelvis at the UPJ. No ureteral stones are evident on either side. IMPRESSION: Right-sided urinary tract stones, as described. A stent is present on the right. No other significant abnormality is seen. Dictated by: Dictated on workstation # [id number]
[2020-01-24] MEDS ORDERED: PHENAZOPYRIDINE 100 MG (PYRIDIUM) TABLET PO ONE (20:30)
--- NOTE | 2020-01-24 20:48 | NUR ---
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
[2020-01-24 22:30] VITALS: BP 172/84
--- NOTE | 2020-01-24 22:30 | NUR ---
TILALE I admitted to room 424-1, with an admitting diagnosis of UTI, Debility, Bladder Stone, Pelvic Pain, on 01/24/20 from ER via bed, accompanied by er staff. LE ADORNO I introduced to surroundings, call light, bed controls, phone, TV, temperature control, lights, meal times, smoking policy, visitor policy, side rail policy, bathrooms and showers. Patient Rights given to patient in the handbook. LE ADORNO is unable to verbalize understanding that [facility] is not responsible for the loss or damage to any personal effects or valuables due to severe dementia.
[2020-01-24] MEDS ORDERED: ONDANSETRON 4 MG/2 ML (SDV) Z0FRAN IVP PRN (22:45)
[2020-01-24 22:47] VITALS: BP 172/84
--- NOTE | 2020-01-24 22:50 | NUR ---
Dr. Moreira notified of frequency and agitation with painful urination. New order rec to insert gale catheter.
[2020-01-24] MEDS: fentaNYL INJECTION 100 MCG/2 ML AMP IVP PRN (23:07)
[2020-01-24] MEDS: LACTATED RINGERS 1,000 ML IV SCH (23:44)
[2020-01-25] VITALS: BP 168/88
[2020-01-25] MEDS: fentaNYL INJECTION 100 MCG/2 ML AMP IVP PRN ×2 (02:13→04:21)
[2020-01-25 04:00] VITALS: BP 133/69
[2020-01-25 06:01] LABS: BASOPHILS # (AUTO) 0.1 10^3/uL (0.0-0.1); BASOPHILS % (AUTO) 1 % (0-10); EOSINOPHILS # (AUTO) 0.3 10^3/uL (0.0-0.3); EOSINOPHILS % (AUTO) 5 % (0-10); HEMATOCRIT 32 % (35-52); HEMOGLOBIN 9.8 g/dL (11.5-16.0); LYMPHOCYTES # (AUTO) 1.8 10^3/uL (1.0-4.0); LYMPHOCYTES % (AUTO) 31 % (12-44); MEAN CORPUSCULAR HEMOGLOBIN 28 pg (25-34); MEAN CORPUSCULAR HGB CONC 30 g/dL (32-36); MEAN CORPUSCULAR VOLUME 90 fL (80-99); MONOCYTES # (AUTO) 0.6 10^3/uL (0.0-1.0); MONOCYTES % (AUTO) 10 % (0-12); NEUTROPHILS # (AUTO) 3.1 10^3/uL (1.8-7.8); NEUTROPHILS % (AUTO) 53 % (42-75); PLATELET COUNT 266 10^3/uL (130-400); WHITE BLOOD COUNT 5.8 10^3/uL (4.3-11.0)
[2020-01-25 06:10] LABS: POTASSIUM 4.3 MMOL/L (3.6-5.0)
[2020-01-25 06:15] LABS: CREATININE SERUM 1.27 MG/DL (0.60-1.30)
--- NOTE | 2020-01-25 06:36 | NUR ---
DR. RO NOTIFIED OF DVT SCORE OF 7.
--- NOTE | 2020-01-25 06:49 | History & Physicial ---
History of Present Illness History of Present Illness Reason for visit/HPI 89 -year-old female who is well known to me was brought into the emergency department during the evening of January 24, 2020 with painful urination. She is currently living at home with her . Her does care for Le despite Le having dementia. Per history she has had pain with urination and most recently has been getting more painful. Apparently she got to the [facility] where she couldn't even go to the bathroom and would cry. She has had also fevers over the past few days. Patient does drink minimal fluids Date of Admission Jan 24, 2020 at 20:30 Date Seen by a Provider: Jan 25, 2020 Time Seen by a Provider: 07:00 I consulted on this patient on 01/25/20 06:47 Attending Physician Kelvin Ro MD Admitting Physician Lee Manjarrez MD Consult Allergies and Home Medications Allergies Coded Allergies: No Known Drug Allergies (Unverified , 12/15/08) Home Medications Aspirin 81 Mg Tablet.dr, 81 MG PO HS, (Reported) Memantine HCl 10 Mg Tablet, 10 MG PO BID, (Reported) Metoprolol Succinate 25 Mg Tab.er.24h, 25 MG PO DAILY, (Reported) Quetiapine Fumarate 25 Mg Tablet, 25 MG PO BID, (Reported) Patient Home Medication List Home Medication List Reviewed: Yes Past Vogbhsz-Onfzvd-Cyasan Hx Patient Social History Marrital Status: Alcohol Use: Denies Use Recreational Drug Use: No Smoking Status: Never a Smoker 2nd Hand Smoke Exposure: No Recent Foreign Travel: No Contact w/other who traveled: No Recent Hopitalizations: Yes Recent Infectious Disease Expo: No Immunizations Up To Date Tetanus Booster (TDap): Unknown Date of Pneumonia Vaccine: Mar 18, 2010 Date of Influenza Vaccine: Jan 12, 2017 Seasonal Allergies Seasonal Allergies: No Surgeries 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/back surgery) Hysterectomy, Orthopedic Respiratory No Cardiovascular No Neurological Yes (alzheimers) Reproductive System Hx Reproductive Disorders: 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; age 29 at the time) Sexually Transmitted Disease: No Genitourinary Yes Bladder Infection, Kidney Stones, UTI-Chronic Gastrointestinal Yes Gastroesophageal Reflux Musculoskeletal Yes Chronic Back Pain Endocrine History of Endocrine Disorders: No Cancer No Psychosocial History of Psychiatric Problem: No Integumentary History of Skin or Integumenta: No Blood Transfusions History of Blood Disorders: Yes Adverse Reaction to a Blood Tr: No Family Medical History Family Hx: Alzheimer's disease 19 MOTHER G8 BROTHER G8 SISTER Arthritis G8 SISTER Cardiovascular disease 19 FATHER Hypercholesterolemia 19 FATHER 19 MOTHER G8 BROTHER G8 SISTER Infertility G8 SISTER Myocardial infarction 19 FATHER Parkinson's disease 19 MOTHER No Family History of: AIDS Abdominal aortic aneurysm [facility] [facility]'s disease Alcoholism Aphasia Asthma Cancer of mouth Cataracts Colon cancer Completed stroke Congenital disease Congenital heart disease Coronary thrombosis Cystic fibrosis Deafness or hearing loss Dementia Diabetes mellitus Drug abuse Dysphasia Fibrocystic disease of breast Gastroenteritis Glaucoma Headache disorder Hypertension Kidney disease Neoplasm Not obtainable due to adoption Osteoporosis Prostate cancer Psychosocial problem Respiratory disorder Seizure disorder Severe allergy Thyroid disease Tuberculosis Visual disorder Review of Systems Constitutional: see HPI Physical Exam Vital Signs Vital Signs - First Documented 01/24/20 18:31 Temp 36.1 Pulse 91 Resp 22 B/P (MAP) 131/75 (93) Pulse Ox 96 O2 Delivery Room Air Capillary Refill : Less Than 3 Seconds Height, Weight, BMI Height: 5'3.00" Weight: 147lbs. 8.0oz. 66.927763au; 25.31 BMI Method:Stated General Appearance: No Apparent Distress Eyes: Bilateral Eye Normal Inspection HEENT: TMs Normal Respiratory: Lungs Clear Cardiovascular: Regular Rate, Rhythm Gastrointestinal: Soft Rectal: Deferred Neurologic/Psychiatric: Other (confused) Comments [facility], [place] NAME: LE ADORNO I [facility] REC#: [id number] PT STATUS: REG ER : 1930 PHYSICIAN: ENMA TAYLOR MD ADMIT DATE: 01/24/20/ER Signed Date of Exam:01/24/20 CT ABD/PELVIS WO(KIDNEY STONE) PROCEDURE: CT urinary tract, rule out kidney stone. TECHNIQUE: Multiple contiguous axial images were obtained through the abdomen and pelvis without the use of intravenous contrast. Auto Exposure Controls were utilized during the CT exam to meet ALARA standards for radiation dose reduction. INDICATION: Dysuria with history of kidney stones. Patient complains of left flank pain. CORRELATION is made with prior CT from 06/11/2017. The lung bases are clear. Coronary arterial calcifications are noted. No discrete liver mass is identified. Gallbladder is unremarkable. No prevertebral or ductal dilatation is seen. Pancreas is atrophic. Spleen is unremarkable. No adrenal mass is identified. Patient has a nephroureteral stent on the right extending from the upper pole right kidney into the bladder. There are numerous large calculi involving lower pole calyces as well as in the region of the right renal pelvis. There appear to be numerous large stones within the bladder which is decompressed and thick walled. No definite left-sided renal calculi are identified. Left ureter is not dilated. No ureteral calculi are seen. Aorta and iliac vessels are extensively calcified but nonaneurysmal. Bowel loops are normal caliber. No obstruction is seen. No free fluid. IMPRESSION: Multiple large lower pole right renal calculi as well as right renal pelvic calculi. There are extensive calcifications in the urinary bladder. Double-J nephroureteral stent on the right is in place. No other significant abnormality is detected. Dictated by: Dictated on workstation # [id number] Assessment/Plan Assessment and Plan 1. Resistant urinary tract infection -patient to be admitted for IV antibiotic meropenem -urine culture pending -IV fluids -Consultation with urology 2. Stones in the right kidney as well as bladder -Urology evaluation and possible cystoscopy in the morning of January 24 3. Advanced dementia -patient services specialist consultation 4. Unable to care for herself Admission Diagnosis 1. Resistant urinary tract infection 2. Stones in the right kidney as well as bladder 3. Advanced dementia 4. Unable to care for herself Admission Status: Inpatient Order (span 2 midnights) Reason for Inpatient Admission: IV antibiotics due to resistant bacteria treated outpatient. Urology consultation Clinical Quality Measures DVT/VTE Risk/Contraindication: Risk Factor Score Per Nursin RFS Level Per Nursing on Admit: 4+=Very High KELVIN RO MD Jan 25, 2020 06:48
[2020-01-25 08:00] VITALS: BP 109/62
[2020-01-25] MEDS: PHENAZOPYRIDINE 100 MG (PYRIDIUM) TABLET PO SCH ×3 (09:19→18:35)
[2020-01-25] MEDS: MEROPENEM 500 MG/SWFI 10 ML IV PUSH IV SCH ×4 (09:19→20:42)
[2020-01-25] MEDS: LACTATED RINGERS 1,000 ML IV SCH ×2 (09:19→17:23)
[2020-01-25 12:00] VITALS: BP 146/82
[2020-01-25] MEDS ORDERED: ALPR0.254 PO (12:14)
[2020-01-25] MEDS ORDERED: DIPH25CA79 PO (12:14)
[2020-01-25] MEDS ORDERED: OMEP20TA33 PO (12:14)
[2020-01-25] MEDS ORDERED: MECL-172 PO (12:14)
--- NOTE | 2020-01-25 12:14 | NUR ---
SPOKE WITH THE PTS DAUGHTER (SHEFALI) AND WENT THRU THE EXT MED HISTORY TO COMPLETE THE MED REC SHEFALI WAS ABLE TO LIST ALL THE PTS MEDICATION WELL WHEN/HOW SHE TAKES EACH- ALL HER INFORMATION MATCHED THE EXT MED HISTORY OTC MEDS: MECLIZINE OMEPRAZOLE BENADRYL
--- NOTE | 2020-01-25 15:21 | NUR ---
CM/LINDA visited with patient for social service consult. CM/SS attempted to contacted patient's daughter Sarita. No answer, voicemail left. CM/SS contacted the main house number and Melvina, the patient's granddaughter answered the phone. She reports that the main salesperson books will be Sarita and this sw had the right contact number. PEGGY/LINDA received call back from the patient's daughter. She reports that the patient lives at home with her 92-year-old , Jerry. The patient's is her main caregiver. Sarita states that Jerry is doing the best he can but is not understanding he is neglecting the patient's needs (According to the daughter). The patient's daughter reports they have tried to discuss senior care care but Jerry has not wanted the patient to go into one due to cost. Sarita reports that she is speaking with the rest of her family to discuss discharge plans and then they will talk with Jerry. Sarita reports she will contact this sw back after the conversation.
--- NOTE | 2020-01-25 16:27 | CONSULTATION REPORT ---
DATE OF SERVICE: ATTENDING PHYSICIAN: Dr. Kaufman. SUMMARY: After reviewing the patient's record in the hospital present and old records. This is an 89-year-old white lady with advanced Alzheimer disease, who was admitted with urosepsis and an ESBL E. coli. CAT scan of the abdomen and pelvis as well as a KUB showed large stones in the right kidney, large bladder stone and a stent in good place without obvious calcification along it. The patient was started on appropriate antibiotic. The catheter was inserted with quite a bit of relief of her bladder symptoms. The urine is clearing up. The patient is a poor historian. A review of her records showed that I had seen her back in June-May of 2017 when she came in with urosepsis and was found to have the right large renal stone. I was able to manipulate it into the kidney and put a stent at that time. She has improved after that and was dismissed home and was supposed to come and see me the following Thursday. She apparently was not given an appointment from the hospital and she and her family never contacted my office for followup appointment and at the time of her hospitalization as well as postoperatively, I recommended that she should be treated with a percutaneous nephrolithotripsy since the stone is significant in size and ESWL will be not the best way to go, especially the stone was not very well seen radiographically with fluoroscopy and definitely its size will necessitate more than one ESWL and I recommended that she should go to either or [facility]. However, as I mentioned, she never came back to the office or contacted us neither did her family assuming that she went ahead and made her own arrangements either with [facility] or [facility] or any other institution of her choice. IMPRESSION: 1. Large right renal and large bladder stone. 2. Urinary tract infection. 3. History of urinary tract infection and urosepsis. 4. Advanced Alzheimer. 5. Other medical issues per history. PLAN: At this point will continue to treat the infection until it gets better. At that time, she will need a cystoscopy to evaluate the size of the bladder and the distal end of the stent, which has never been changed since 2018 due to the above reasons and we will discuss at that time with her and her family including her daughter, the pros and cons, the risks and complications, expectations and what would be the safest way to proceed in her case. Job ID: [id number] DocumentID: [id number] Dictated Date: 01/25/2020 12:37:07 Car Pre Cooler Date: 01/25/2020 16:26:00 Dictated By: YOLANDA DALLAS MD
[2020-01-25 16:49] VITALS: BP 178/74
[2020-01-25] MEDS ORDERED: ALPRAZolam 0.25 MG (XANAX) TAB PO PRN (19:00)
[2020-01-25] MEDS ORDERED: diphenhydrAMINE 25 MG TAB (BENADRYL) PO PRN (19:15)
[2020-01-25 19:44] VITALS: BP 143/73
[2020-01-25] MEDS: MECLIZINE 25 MG (ANTIVERT) TAB PO SCH (20:42)
[2020-01-25] MEDS: QUEtiapine 25 MG (SEROquel) TAB IMMEDIATE RELEASE PO SCH (20:42)
[2020-01-25] MEDS: MEMANTINE 10 MG (NAMENDA) TABLET PO SCH (20:42)
[2020-01-25] MEDS: ENOXAPARIN 30 MG/0.3 ML (LOVENOX) SYR SC SCH (22:51)
[2020-01-26] VITALS (7 sets, daily range): BP systolic 117–179; BP diastolic 57–83
[2020-01-26] MEDS: LACTATED RINGERS 1,000 ML IV SCH ×2 (05:12→14:53)
--- NOTE | 2020-01-26 07:19 | Progress Note ---
Subjective Date Seen by a Provider: Jan 26, 2020 Time Seen by a Provider: 07:00 Subjective/Events-last exam Patient is resting comfortably in bed this morning. Due to her Alzheimer she is confused. No reported concerns at this point. Objective Exam Vital Signs Date Time Temp Pulse Resp B/P (MAP) Pulse Ox O2 Delivery O2 Flow Rate FiO2 01/26/20 03:22 36.4 68 18 129/60 (83) 91 Room Air 01/26/20 00:19 36.2 70 18 117/57 (77) 92 Room Air 01/25/20 19:44 36.7 80 18 143/73 (96) 93 Room Air 01/25/20 19:40 Room Air 01/25/20 16:49 37.0 83 16 178/74 (108) 94 Room Air 01/25/20 12:00 36.4 71 18 146/82 (103) 96 Room Air 01/25/20 08:00 36.3 93 18 109/62 (78) 97 Room Air 01/25/20 08:00 97 Room Air I & O 01/26/20 07:00 Intake Total 4030 ml Output Total 2025 ml Balance 2005 ml Capillary Refill : Less Than 3 Seconds General Appearance: No Apparent Distress Respiratory: Lungs Clear Cardiovascular: Regular Rate, Rhythm Gastrointestinal: soft Results Lab Microbiology 01/24/20 Urine Culture - Preliminary, Resulted Gram Negative Woo Assessment/Plan Assessment/Plan Assess & Plan/Chief Complaint 1. Resistant urinary tract infection -patient to be admitted for IV antibiotic meropenem -urine culture pending -IV fluids -Consultation with urology 01/25 -Day 2 meropenem 2. Stones in the right kidney as well as bladder -Urology evaluation and possible cystoscopy in the morning of January 2401/25 -urologic consultation noted and appreciated -Cystoscopy once infection is improved 3. Advanced dementia -client services specialist consultation 4. Unable to care for herself 01/25 -placement at extended care facility Clinical Quality Measures Admission Status Admission Dx 1. Resistant urinary tract infection -patient to be admitted for IV antibiotic meropenem -urine culture pending -IV fluids -Consultation with urology 2. Stones in the right kidney as well as bladder -Urology evaluation and possible cystoscopy in the morning of January 24 3. Advanced dementia -client services specialist consultation 4. Unable to care for herself DVT/VTE Risk/Contraindication: Risk Factor Score Per Nursin RFS Level Per Nursing on Admit: 4+=Very High MUKUND RO MD Jan 26, 2020 07:19
[2020-01-26] MEDS: MEROPENEM 500 MG/SWFI 10 ML IV PUSH IV SCH ×4 (09:27→19:49)
[2020-01-26] MEDS: QUEtiapine 25 MG (SEROquel) TAB IMMEDIATE RELEASE PO SCH ×2 (09:28→19:50)
[2020-01-26] MEDS: MECLIZINE 25 MG (ANTIVERT) TAB PO SCH ×2 (09:28→19:50)
[2020-01-26] MEDS: PANTOPRAZOLE 20 MG TABLET (PROTONIX) PO SCH (09:28)
[2020-01-26] MEDS: MEMANTINE 10 MG (NAMENDA) TABLET PO SCH ×2 (09:28→19:49)
[2020-01-26] MEDS: PHENAZOPYRIDINE 100 MG (PYRIDIUM) TABLET PO SCH ×3 (09:28→18:53)
--- NOTE | 2020-01-26 11:01 | Progress Note - Urology ---
Progress Note-Urology Progress Notes/Assess & Plan Progress/Assessment & Plan TOLD NURSE AGAIN TO TELL DAUGHTER TO CALL ME IF NEEDS UPDATE ON PLAN Final Diagnosis UROSEPSIS AND UROLITHIASES YOLANDA DALLAS MD Jan 26, 2020 11:00
--- NOTE | 2020-01-26 14:22 | NUR ---
CM/SS follow up. Plan: Patient will discharge home tomorrow with home health. CM/SS contacted Sarita to follow up from the previous day's discussion. Sarita reports they were able to have a family meeting and it was decided to take the patient home with home health. Sarita reports that her father (patient's ), is not agreeable with a skilled facility and is insisting that she comes home. Sarita states that she is going to respect that decision even though she does not agree with it. Sarita states they know someone who is a caregiver and are going to ask her to assist. CM/SS gave Sarita a list of caregiving agencies and the phone numbers. Home Health: Sarita states they have used [facility] in the past and would like to use them again. CM/SS contacted agency and made referral. Possible discharge tomorrow. CM/SS informed the physician of family decision. CM/SS informed the patient's daughter and physician this sw will make a Adult Protective Service report. CM/SS will continue to follow.
--- NOTE | 2020-01-26 17:18 | NUR ---
DR DALLAS CALLED FLOOR TO INFORM HE HAS SPOKEN TO [facility] AND FAMILY REGARDING PLANS TO PERFORM CYSTO UNDER LOCAL IN A.M.. ADDITION TO SURGERY FAXED AND CALLED. NOTIFIED AGRICULTURE RESEARCH DIRECTOR
[2020-01-26] MEDS: ENOXAPARIN 30 MG/0.3 ML (LOVENOX) SYR SC SCH (19:49)
[2020-01-27] VITALS (8 sets, daily range): BP systolic 132–194; BP diastolic 66–88
[2020-01-27] MEDS: LACTATED RINGERS 1,000 ML IV SCH ×4 (01:19→23:00)
--- NOTE | 2020-01-27 04:02 | NUR ---
BP 173/80, HR 77 DR. RO NOTIFIED, NO NEW ORDERS AT THIS TIME. WILL CONTINUE TO MONITOR.
[2020-01-27 05:48] LABS: BASOPHILS # (AUTO) 0.1 10^3/uL (0.0-0.1); BASOPHILS % (AUTO) 1 % (0-10); EOSINOPHILS # (AUTO) 0.4 10^3/uL (0.0-0.3); EOSINOPHILS % (AUTO) 7 % (0-10); HEMATOCRIT 33 % (35-52); HEMOGLOBIN 10.4 g/dL (11.5-16.0); LYMPHOCYTES # (AUTO) 1.9 10^3/uL (1.0-4.0); LYMPHOCYTES % (AUTO) 35 % (12-44); MEAN CORPUSCULAR HEMOGLOBIN 28 pg (25-34); MEAN CORPUSCULAR HGB CONC 31 g/dL (32-36); MEAN CORPUSCULAR VOLUME 89 fL (80-99); MONOCYTES # (AUTO) 0.4 10^3/uL (0.0-1.0); MONOCYTES % (AUTO) 8 % (0-12); NEUTROPHILS # (AUTO) 2.6 10^3/uL (1.8-7.8); NEUTROPHILS % (AUTO) 49 % (42-75); PLATELET COUNT 258 10^3/uL (130-400); WHITE BLOOD COUNT 5.3 10^3/uL (4.3-11.0)
[2020-01-27 06:06] LABS: CALCIUM 8.3 MG/DL (8.5-10.1); CREATININE SERUM 1.09 MG/DL (0.60-1.30); POTASSIUM 3.9 MMOL/L (3.6-5.0)
--- NOTE | 2020-01-27 07:27 | Progress Note ---
Subjective Date Seen by a Provider: Jan 27, 2020 Time Seen by a Provider: 07:05 Subjective/Events-last exam patient awake this morning. She does not appear to be in any distress. Communicating Objective Exam Vital Signs Date Time Temp Pulse Resp B/P (MAP) Pulse Ox O2 Delivery O2 Flow Rate FiO2 01/27/20 03:58 36.4 77 18 173/80 (111) 92 Room Air 01/26/20 23:03 36.1 80 20 179/75 (109) 92 Room Air 01/26/20 19:58 36.6 79 16 168/80 (109) 95 Room Air 01/26/20 19:50 Room Air 01/26/20 16:00 37.0 78 20 167/83 (111) 96 Room Air 01/26/20 11:05 36.8 78 20 128/60 (82) 93 Room Air 01/26/20 08:10 36.8 77 20 134/64 (87) 95 Room Air 01/26/20 08:00 Room Air I & O 01/27/20 07:00 Intake Total 1640 ml Output Total 4000 ml Balance -2360 ml Capillary Refill : Less Than 3 Seconds General Appearance: No Apparent Distress Respiratory: Chest Non Tender, Lungs Clear Cardiovascular: Regular Rate, Rhythm Gastrointestinal: soft Other comments Vaughn catheter in place Results Lab Laboratory Tests 01/26/20 22:30: Coronavirus 2019 (FALGUNI) Negative 01/27/20 05:25: White Blood Count 5.3, Red Blood Count 3.77L, Hemoglobin 10.4L, Hematocrit 33L, Mean Corpuscular Volume 89, Mean Corpuscular Hemoglobin 28, Mean Corpuscular Hemoglobin Concent 31L, Red Cell Distribution Width 12.8, Platelet Count 258, Mean Platelet Volume 9.0, Immature Granulocyte % (Auto) 0, Neutrophils (%) (Auto) 49, Lymphocytes (%) (Auto) 35, Monocytes (%) (Auto) 8, Eosinophils (%) (Auto) 7, Basophils (%) (Auto) 1, Neutrophils # (Auto) 2.6, Lymphocytes # (Auto) 1.9, Monocytes # (Auto) 0.4, Eosinophils # (Auto) 0.4H, Basophils # (Auto) 0.1, Immature Granulocyte # (Auto) 0.0, Sodium Level 142, Potassium Level 3.9, Chlori de Level 106, Carbon Dioxide Level 24, Anion Gap 12, Blood Urea Nitrogen 13, Creatinine 1.09, Estimat Glomerular Filtration Rate 47, BUN/Creatinine Ratio 12, Glucose Level 104, Calcium Level 8.3L Microbiology 01/24/20 Urine Culture - Preliminary, Resulted Enterobacter aerogenes Enterobacter aerogenes#2 Assessment/Plan Assessment/Plan Assess & Plan/Chief Complaint 1. Resistant urinary tract infection -patient to be admitted for IV antibiotic meropenem -urine culture pending -IV fluids -Consultation with urology 01/25 -Day 2 meropenem 01/26 -day 3 meropenem 2. Stones in the right kidney as well as bladder -Urology evaluation and possible cystoscopy in the morning of January 2401/25 -urologic consultation noted and appreciated -Cystoscopy once infection is improved 01/26 -cystoscopy today 3. Advanced dementia -care services manager consultation 4. Unable to care for herself 01/25 -placement at extended care facility Clinical Quality Measures Admission Status Admission Dx 1. Resistant urinary tract infection -patient to be admitted for IV antibiotic meropenem -urine culture pending -IV fluids -Consultation with urology 2. Stones in the right kidney as well as bladder -Urology evaluation and possible cystoscopy in the morning of January 24 3. Advanced dementia -care services manager consultation 4. Unable to care for herself DVT/VTE Risk/Contraindication: Risk Factor Score Per Nursin RFS Level Per Nursing on Admit: 4+=Very High MUKUND RO MD Jan 27, 2020 07:27
--- NOTE | 2020-01-27 09:29 | Progress Note-Pre Operative ---
Pre-Operative Progress Note H&P Reviewed The H&P was reviewed, patient examined and no changes noted. Date Seen by Provider: Jan 27, 2020 Time Seen by Provider: : Date H&P Reviewed: Jan 27, 2020 Time H&P Reviewed: : Pre-Operative Diagnosis: urosepsis and urolithiases YOLANDA DALLAS MD Jan 27, 2020 09:29
[2020-01-27] MEDS: MEROPENEM 500 MG/SWFI 10 ML IV PUSH IV SCH ×4 (09:49→20:33)
--- NOTE | 2020-01-27 09:54 | NUR ---
Pt had taken IV out & placed the tubing in the trash can next to her. New IV started x 1 attempt w #22 in Rt F/A. Pt melani well. Pt confused, does state her name & birthday correctly. States that she knows that she is in the hospital in [place]. Pt is pleasant.
[2020-01-27] MEDS: PANTOPRAZOLE 20 MG TABLET (PROTONIX) PO SCH (10:12)
[2020-01-27] MEDS: QUEtiapine 25 MG (SEROquel) TAB IMMEDIATE RELEASE PO SCH ×2 (10:12→20:32)
[2020-01-27] MEDS: MECLIZINE 25 MG (ANTIVERT) TAB PO SCH ×2 (10:13→20:32)
[2020-01-27] MEDS: PHENAZOPYRIDINE 100 MG (PYRIDIUM) TABLET PO SCH ×3 (10:13→18:22)
--- NOTE | 2020-01-27 10:14 | NUR ---
AM meds given after notifying Dr. Moreira that pt had received a breakfast tray & ate 1/2 banana, as PCT took tray in. PCT unaware that pt was NPO. Rec'd order from Dr. Moreira that pt did not need to be NPO.
[2020-01-27] MEDS: MEMANTINE 10 MG (NAMENDA) TABLET PO SCH ×2 (10:30→20:31)
--- NOTE | 2020-01-27 11:44 | NUR ---
Notified Dr. Kaufman & Dr. Moreira of B/P. Pt transferred per bed for cysto as ordered.
[2020-01-27] MEDS ORDERED: LIDOCAINE UROJET 2% GEL 10 ML PKG ONE (12:24)
--- NOTE | 2020-01-27 12:42 | Progress Note-Post Operative ---
Post-Operative Progess Note Surgeon (s)/Model Engine Mechanic (s) Surgeon YOLANDA DALLAS MD Model Engine Mechanic: NONE Pre-Operative Diagnosis UROSEPSIS, BLADDER AND RT RENAL STONES Post-Operative Diagnosis SAME Procedure & Operative Findings Date of Procedure 01/27/20 Procedure Performed/Findings CYSTOSCOPY Anesthesia Type LOCAL Estimated Blood Loss Estimated blood loss (mL): NONE Specimens/Packing Specimens Removed NONE Packing: NONE YOLANDA DALLAS MD Jan 27, 2020 12:42
--- NOTE | 2020-01-27 14:51 | NUR ---
"RD ASSESSMENT PMHx: COPD; pancreatitis; HTN; hypercholesterolemia; PT INTERACTION: Pt was awake and pleasant during nutrition assessment. Note pt has advanced dementia, per chart review. Pt states current appetite is good. Note avg PO intake of 32% x2d, per chart review. Pt states following a regular diet at home, and has no issues with chewing/swallowing food. Pt states recent issues with nausea, vomiting and diarrhea. Note last BM was 01/25, and pt not currently on bowel regimen per chart review. Pt states recent 10# wt loss x6mon. Note recent 5# wt gain x5mon, per chart review. ABNORMAL NUTRITION-RELATED LAB VALUES LOW: Ca 8.3; HIGH: Est. kcal needs: 9557-9792 kcal | 25-30 kcal/kg Est. Pro needs: 57-68 g Pro | 1.0-1.2 g Pro/kg PES STATEMENT: Inadequate oral intake (NI-2.1) related to nausea, vomiting, and diarrhea, as evidenced by pt interview and avg PO intake 32% x2d. INTERVENTION: Continue with current diet order of Regular diet. Add Ensure Enlive to meals TID, for increased kcal intake. Provides 350 kcal and 20 g Pro per serving. Encouraged pt to eat when able. Will continue to follow and reassess as pt needs, intake, and status change. Jordan Bennett, MS RD LD"
--- NOTE | 2020-01-27 15:39 | NUR ---
Pt was inct of lg amt urine approx 1 hour ago. Cleaned, becky & skin care provided by 2 PCT's, linen change.
--- NOTE | 2020-01-27 15:43 | D/C HH Face to Face Order ---
D/C Face to Face Orders Reconcile Patient Problems Problems Reviewed?: Yes Instructions for Patient Via [facility] Quisic, Patient Instructions/FollowUp: Follow up with Dr Ro 1 week Physician to follow Patient: yes Discharge Diet for Home: Regular Diet Patient Data-Allergies,Ht & Wt Patient Allergies: Coded Allergies: No Known Drug Allergies (Unverified , 12/15/08) Height (Feet): 5 Height (Inches): 3.00 Weight (Pounds): 147 Weight (Ounces): 8.0 Home Health Need/Face to Face Date of Face to Face: Jan 27, 2020 Clinical Findings: Generalized weakness and fatigue, Muscle weakness, Unsteady gait dementia I have seen Pt [id number]: Yes Discharged To: Home Diagnosis/Conditions: urosepsis. Debility. Dementia Patient is Homebound due to: CognItive deficits, Muscle weakness Homebound Status Due to the above stated illness, injury or surgical procedure (medical condition or diagnosis) and associated clinical findings, the patient is homebound because of his/her inability to leave home except with aid of a supportive device and/or person AND leaving the home requires a considerable and taxing effort or is medically contraindicated. Pt req the following assistanc: Aid of another person Home Health Nursing Orders Home Health Services Order: Nursing Services, Station Cashier-Evaluate & Treat bathe aide Home Health Infusion Therapy Line Start Date: Jan 24, 2020 Certify Stmt I certify that this patient is under my care and that I, a nurse practitioner or a physician; a senior administrative assistant working with me, had a face to face encounter that - meets the physician face to face encounter requirements with this patient as dated. MUKUND RO MD Jan 27, 2020 15:43
[2020-01-27] MEDS ORDERED: SULF1TAB35 PO (15:51)
[2020-01-27] MEDS: fentaNYL INJECTION 100 MCG/2 ML AMP IVP PRN ×2 (16:58→20:43)
--- NOTE | 2020-01-27 17:51 | NUR ---
CM/SS finalized discharge plan. Plan: Patient will discharge tomorrow 01/27 with [facility] care. APS report ID: [id number] Home Health: CM/SS faxed discharge summary, home health orders, and face to face to [place] [facility] today. They would like a call tomorrow at time of discharge. Nurse is notified. CM/SS contacted Sarita today and gave an update. No further needs at this time.
--- NOTE | 2020-01-27 17:53 | NUR ---
call [facility] after pt is d/c
--- NOTE | 2020-01-27 17:56 | NUR ---
At 1500, nsg report given to STACIE Zepeda to take over care of pt.
[2020-01-27] MEDS: ENOXAPARIN 30 MG/0.3 ML (LOVENOX) SYR SC SCH (20:31)
--- NOTE | 2020-01-27 21:02 | OPERATIVE REPORT ---
DATE OF SERVICE: 01/27/2020 PREOPERATIVE DIAGNOSES: 1. Urosepsis. 2. Bladder stone. 3. Right renal stone. POSTOPERATIVE DIAGNOSES: 1. Urosepsis. 2. Bladder stone. 3. Right renal stone. OPERATION PERFORMED: Cystoscopy. SURGEON: Nickolas Dallas MD ANESTHESIA: Local. COMPLICATIONS: None. DESCRIPTION OF PROCEDURE: With the patient in lithotomy position, genitalia were prepped and draped in the usual sterile fashion. The urethra was infiltrated with 2% lidocaine jelly. A cystoscope was introduced in the bladder, visualized a spike yellowish stone of the good size does not seem related to the distal end of the stent coming out from the right ureteral orifice, although the patient was really not very cooperative and moving. However, the answers were obtained. The cystoscope was removed. The patient tolerated the procedure and anesthesia well and was sent to the floor in stable condition. We are going to keep the Vaughn catheter out and reinsert p.r.n. for comfort. I will discuss with the family, the next step, I think a cystolithotripsy if possible. Medically speaking for the anesthesia purpose would be amenable to a cystolithotripsy and then we will have to decide about changing the stent or leave it in and refer her to [facility] for management of the right renal stone or just attempt to remove the stent if no problem removing it at the same time of the cystolithotripsy, whether put a new one could be a good idea at the same time. Summarize recommendation, a cystolithotripsy ____ most of symptoms of the patient happened in her bladder and changing the right ureteral stent. This will be discussed with the family. We will call her daughter, Sanchez whom I have the phone number. Job ID: [id number] DocumentID: [id number] Dictated Date: 01/27/2020 12:45:42 Groutman Date: 01/27/2020 20:51:19 Dictated By: NICKOLAS DALLAS MD
[2020-01-28 04:00] VITALS: BP 127/81
--- NOTE | 2020-01-28 07:29 | Discharge Summary ---
Diagnosis/Chief Complaint Date of Admission Jan 24, 2020 at 20:30 Date of Discharge January 28, 2020 Discharge Date: Jan 28, 2020 Admission Diagnosis Admission Diagnosis 1. Urosepsis 2. Urolithiasis bladder and kidney 3. Advanced dementiaAlzheimer's Discharge Diagnosis 1. Urosepsis 2. Urolithiasis bladder and kidney 3. Advanced dementiaAlzheimer's Reason Hospital Visit 89 -year-old female who is well known to me was brought into the emergency department during the evening of January 24, 2020 with painful urination. She is currently living at home with her . Her does care for Fiordaliza despite Fiordaliza having dementia. Per history she has had pain with urination and most recently has been getting more painful. Apparently she got to the point where she couldn't even go to the bathroom and would cry. She has had also fevers over the past few days. Patient does drink minimal fluids Discharge Summary Hospital Course Was the Problem List Reviewed?: Yes Hospital Course patient was admitted during the evening of January 24, 2020 with a diagnosis of urosepsis. She was found to have stones present within the bladder as well as right kidney. Urine analysis also revealed urinary tract infection. She was started on meropenem at that time. Urology consultation with Dr. Lillie garcia. She received 3 days of meropenem and on the fourth day underwent cystoscopy. Recommendations as per his note. manager technical services was also consult to during the course of her stay. With her having dementia and elderly , placement was felt to be in order. After family discussion it appears that she will be going home and having the extra help of family as well as home care [place]. Labs Laboratory Tests 01/26/20 22:30: 01/27/20 05:25: Red Blood Count 3.77L, Hemoglobin 10.4L, Hematocrit 33L, Mean Corpuscular Hemoglobin Concent 31L, Eosinophils # (Auto) 0.4H, Calcium Level 8.3L Procedures Cystoscopy, urology Consultations Dr. Moreira urology Discharge Physical Examination Allergies: Coded Allergies: No Known Drug Allergies (Unverified , 12/15/08) Vitals & I&Os Vital Signs Date Time Temp Pulse Resp B/P (MAP) Pulse Ox O2 Delivery O2 Flow Rate FiO2 01/28/20 14:00 36.0 81 16 93/50 93 Room Air General Appearance: No Acute Distress Respiratory: Clear to Auscultation Cardiovascular: Regular Rate Abdominal: Soft Skin: No Rashes Psych/Mental Status: Other (dementia) Discharge Home Medications Reviewed and agree with Discharge Medication list on patient's Discharge Instruction sheet Instructions to Patient/Family Please see electronic discharge instructions given to patient. Clinical Quality Measures DVT/VTE Risk/Contraindication: Risk Factor Score Per Nursin RFS Level Per Nursing on Admit: 4+=Very High MUKUND RO MD Jan 28, 2020 07:29
[2020-01-28 08:00] VITALS: BP 128/76
[2020-01-28] MEDS: MEMANTINE 10 MG (NAMENDA) TABLET PO SCH (08:47)
[2020-01-28] MEDS: PANTOPRAZOLE 20 MG TABLET (PROTONIX) PO SCH (08:47)
[2020-01-28] MEDS: PHENAZOPYRIDINE 100 MG (PYRIDIUM) TABLET PO SCH (08:47)
[2020-01-28] MEDS: MECLIZINE 25 MG (ANTIVERT) TAB PO SCH (08:48)
[2020-01-28] MEDS: QUEtiapine 25 MG (SEROquel) TAB IMMEDIATE RELEASE PO SCH (08:48)
[2020-01-28] MEDS: MEROPENEM 500 MG/SWFI 10 ML IV PUSH IV SCH ×2 (08:49)
[2020-01-28 12:00] VITALS: BP 93/50
--- NOTE | 2020-01-28 13:15 | NUR ---
Messaged Dr. Kaufman to confirm patients discharge home today as the patient is very fatigued. Dr. Kaufman stated that the patient was going to be going to to multiple family members so that the patient did not have to go to a jail.
--- NOTE | 2020-01-28 13:50 | NUR ---
LE ADORNOs son demonstrates understanding of discharge instructions and accurately returns instructions upon questioning. Copy of Post-Discharge Instructions and Medication Discharge Instructions given to patients son. LE ADORNO is not able to manage continuing needs after discharge. Patients family members will be caring for patient. Patients belongings returned to son. Skin dry and intact; no breakdown noted. Patient discharged from [facility] on 01/28/20 at 1350. LE ADORNO I left floor via wheelchair, accompanied by staff.
[2020-01-28 14:00] VITALS: BP 93/50
--- NOTE | 2020-01-28 15:19 | NUR ---
Called Bactrim into [facility] on [address] in [facility] per patients DPOA and Dr. Deng request.
--- NOTE | 2020-01-31 20:38 | Physician Query Clarification ---
PQ-Intro New Diagnosis Admission/Discharge Admission Date: Jan 24, 2020 at 20:30 Discharge Date: Jan 28, 2020 at 13:50 MUKUND Parker MD The medical record reflects the following clinical scenario: History/Risk Factors: 89 y/o female patient was admitted with a diagnosis of urosepsis. She was found to have stones present within the bladder as well as right kidney. Urine analysis also revealed urinary tract infection. Hand P, 01/23: Resistant urinary tract infection patient to be admitted for IV antibiotic meropenem, Stones in the right kidney as well as bladder urology evaluation and possible cystoscopy . Urology progress notes, 01/25: Urosepsis and urolithiasis. Discharge summary, 01/27: Urosepsis, urolithiasis bladder and kidney, advanced dementiaAlzheimer's Clinical Findings: UA- enterobacter aerogenes, Treatment: Meropenem IV Question: What condition best reflects the above clinical scenario? Please document a response in the Progress Noter or Discharge Summary. 1. Sepsis 2/2 Urinary tract infection 2. Urinary tract infection only 3. Other, with explanation of the clinical findings. 4. Clinically undetermined, no explanation for the clinical findings. PHYSICIAN RESPONSE What condition reflects above: 1 Explanation of clincal finding clinical history, PE and labs support the sepsis diagnosis. Please remember a lack of response to the above will prompt a phone page by CDI/Coding staff. In responding to this query, please exercise your independent professional judgment. The purpose of this communication is to more accurately reflect the complexity of your patients condition. The fact that a question is asked does not imply that any particular answer is desired or expected. Thank you for your timely response to this clarification. Requestors name: [ ] Phone # [ ] THIS PHYSICIAN QUERY FORM IS A PERMANENT PART OF THE MEDICAL RECORD KHURRAMLEOY Jan 31, 2020 20:38 MUKUND RO MD Feb 01, 2020 06:57
== END 2020-01-28 13:50 | disposition home or self-care (01) | DRG 872 ==
LOC: EDUNIT# 18:31 → ER 18:32 → 4TH 20:30
PROVIDERS: ADMIT Family Medicine; ATTEND Family Medicine
PROC: 0TJB8ZZ Inspection of Bladder, Via Natural or Artificial Opening Endoscopic (ICD-10-PCS; principal; 2020-01-27 12:32)
DX: A41.81 Sepsis due to Enterococcus (principal); N39.0 Urinary tract infection, site not specified; N20.0 Calculus of kidney; N21.0 Calculus in bladder; G30.9 Alzheimer's disease, unspecified; F02.80 Dementia in other diseases classified elsewhere, unspecified severity, without behavioral disturbance, psychotic disturbance, mood disturbance, and anxiety; K21.9 Gastro-esophageal reflux disease without esophagitis; M54.9 Dorsalgia, unspecified; Z66 Do not resuscitate; R53.81 Other malaise; Z86.19 Personal history of other infectious and parasitic diseases
CPT/HCPCS: 36415; 74018; 74176; 80048; 80053; 81000; 85025; 86141; 87077; 87081; 87088; 87186; 87635; 96365

== ENCOUNTER 2020-05-08 17:10 | Inpatient (IN) | payer MEDICARE, OTHER ==
[~2020-05-08] VITALS: Ht 152 cm; Wt 50.0 kg
[~2020-05-08 17:10] MED LIST changes: +ALPR0.254 PO; +DIPH25CA79 PO; +MECL-173 PO; +OMEP20TA33 PO; +QUET25TA34 PO; -QUET25TA73 PO; +SULF1TAB35 PO
--- NOTE | 2020-05-08 17:29 | ED GU-Female ---
General Stated Complaint: UTI Source: patient Exam Limitations: no limitations History of Present Illness Date Seen by Provider: May 08, 2020 Time Seen by Provider: 17:20 Initial Comments This is a 89 yo female who presented to the ED via [facility] for c/o UTI. She reports burning discomfort when she urinates with some suprapubic abdominal pain. She has a history of dementia but family reports increasing complaints along with weakness. No fevers, chills, cough, shortness of breath, chest pain, nausea/vomiting. Allergies and Home Medications Allergies Coded Allergies: No Known Drug Allergies (Unverified , 12/15/08) Home Medications ALPRAZolam 0.25 Mg Tablet, 0.25 MG PO Q8H PRN for AGITATION, (Reported) Diphenhydramine HCl 25 Mg Capsule, 25 MG PO UD PRN for ITCHING, (Reported) Meclizine HCl 12.5 Mg Tablet, 12.5 MG PO BID, (Reported) Memantine HCl 10 Mg Tablet, 10 MG PO BID, (Reported) Metoprolol Succinate 25 Mg Tab.er.24h, 25 MG PO DAILY, (Reported) Omeprazole Magnesium 20 Mg Tablet.dr, 20 MG PO DAILY, (Reported) Quetiapine Fumarate 25 Mg Tablet, 25 MG PO BID, (Reported) Sulfamethoxazole/Trimethoprim 1 Each Tablet, 1 EACH PO Q12H Prescribed by: MUKUND RO on 01/27/20 1551 Patient Home Medication List Home Medication List Reviewed: Yes Review of Systems Review of Systems Constitutional: no symptoms reported EENTM: no symptoms reported Respiratory: no symptoms reported Cardiovascular: no symptoms reported Gastrointestinal: no symptoms reported Genitourinary: burning, dysuria, frequency; denies flank pain; incontinence Musculoskeletal: no symptoms reported Skin: no symptoms reported Psychiatric/Neurological: No Symptoms Reported Endocrine: No Symptoms Reported Hematologic/Lymphatic: No Symptoms Reported All Other Systemes Reviewed Negative Unless Noted: Yes Past [id number] Hx Patient Social History 2nd Hand Smoke Exposure: No Recent Hopitalizations: Yes Immunizations Up To Date Tetanus Booster (TDap): Unknown Date of Pneumonia Vaccine: Mar 18, 2010 Date of Influenza Vaccine: Nov 15, 2019 Seasonal Allergies Seasonal Allergies: No Past Medical History Surgeries: 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/back surgery) Hysterectomy, Orthopedic Respiratory: No Cardiac: No Neurological: Yes (alzheimers) Reproductive Disorders: 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; age 29 at the time) Sexually Transmitted Disease: No Genitourinary: Yes Bladder Infection, Kidney Stones, UTI-Chronic Gastrointestinal: Yes Gastroesophageal Reflux Musculoskeletal: Yes Chronic Back Pain Endocrine: No Cancer: No Psychosocial: No Integumentary: No Blood Disorders: Yes Adverse Reaction/Blood Tranf: No Family Medical History Alzheimer's disease 19 MOTHER G8 BROTHER G8 SISTER Arthritis G8 SISTER Cardiovascular disease 19 FATHER Hypercholesterolemia 19 FATHER 19 MOTHER G8 BROTHER G8 SISTER Infertility G8 SISTER Myocardial infarction 19 FATHER Parkinson's disease 19 MOTHER No Family History of: AIDS Abdominal aortic aneurysm Duc's disease Alcoholism Aphasia Asthma Cancer of mouth Cataracts Colon cancer Completed stroke Congenital disease Congenital heart disease Coronary thrombosis Cystic fibrosis Deafness or hearing loss Dementia Diabetes mellitus Drug abuse Dysphasia Fibrocystic disease of breast Gastroenteritis Glaucoma Headache disorder Hypertension Kidney disease Neoplasm Not obtainable due to adoption Osteoporosis Prostate cancer Psychosocial problem Respiratory disorder Seizure disorder Severe allergy Thyroid disease Tuberculosis Visual disorder Physical Exam Vital Signs Vital Signs - First Documented 05/08/20 17:10 Temp 35.7 Pulse 76 Resp 16 B/P (MAP) 144/68 (93) Pulse Ox 94 O2 Delivery Room Air Capillary Refill : Height, Weight, BMI Height: 5'3.00" Weight: 147lbs. 8.0oz. 66.527225xk; 25.31 BMI Method:Stated General Appearance: WD/WN, no apparent distress HEENT: PERRL/EOMI, normal ENT inspection Neck: full range of motion, supple Cardiovascular: normal peripheral pulses, regular rate, rhythm, no edema Respiratory: lungs clear, normal breath sounds, no respiratory distress Gastrointestinal: non tender, soft Back: normal inspection Extremities: normal range of motion, non-tender, normal inspection, no pedal edema Neurologic/Psychiatric: no motor/sensory deficits, alert, normal mood/affect; No oriented x 3 (person and place only ) Skin: normal color, warm/dry Focused Exam Lactate Level 05/08/20 17:18: Lactic Acid Level 1.09 Lactic Acid Level Laboratory Tests Test 05/08/20 17:18 Lactic Acid Level 1.09 MMOL/L (0.50-2.00) Progress/Results/Core Measures Suspected Sepsis SIRS Temperature: Pulse: Respiratory Rate: Laboratory Tests 05/08/20 17:18: White Blood Count 5.4 Blood Pressure / Mean: 05/08/20 17:18: Lactic Acid Level 1.09 Laboratory Tests 05/08/20 17:18: Creatinine 1.89H, INR Comment 1.1, Platelet Count 279, Total Bilirubin 0.3 Results/Orders Lab Results Laboratory Tests Test 05/08/20 17:18 05/08/20 17:35 05/08/20 18:58 Range/Units White Blood Count 5.4 4.3-11.0 10^3/uL Red Blood Count 4.04 3.80-5.11 10^6/uL Hemoglobin 11.1 L 11.5-16.0 g/dL Hematocrit 36 35-52 % Mean Corpuscular Volume 89 80-99 fL Mean Corpuscular Hemoglobin 28 25-34 pg Mean Corpuscular Hemoglobin Concent 31 L 32-36 g/dL Red Cell Distribution Width 13.3 10.0-14.5 % Platelet Count 279 130-400 10^3/uL Mean Platelet Volume 9.1 9.0-12.2 fL Immature Granulocyte % (Auto) 0 % Neutrophils (%) (Auto) 47 42-75 % Lymphocytes (%) (Auto) 35 12-44 % Monocytes (%) (Auto) 9 0-12 % Eosinophils (%) (Auto) 6 0-10 % Basophils (%) (Auto) 1 0-10 % Neutrophils # (Auto) 2.5 1.8-7.8 10^3/uL Lymphocytes # (Auto) 1.9 1.0-4.0 10^3/uL Monocytes # (Auto) 0.5 0.0-1.0 10^3/uL Eosinophils # (Auto) 0.3 0.0-0.3 10^3/uL Basophils # (Auto) 0.1 0.0-0.1 10^3/uL Immature Granulocyte # (Auto) 0.0 0.0-0.1 10^3/uL Prothrombin Time 15.1 H 12.2-14.7 SEC INR Comment 1.1 0.8-1.4 Activated Partial Thromboplast Time 30 24-35 SEC Sodium Level 138 135-145 MMOL/L Potassium Level 4.3 3.6-5.0 MMOL/L Chloride Level 105 98-107 MMOL/L Carbon Dioxide Level 23 21-32 MMOL/L Anion Gap 10 5-14 MMOL/L Blood Urea Nitrogen 44 H 7-18 MG/DL Creatinine 1.89 H 0.60-1.30 MG/DL Estimat Glomerular Filtration Rate 25 BUN/Creatinine Ratio 23 Glucose Level 101 70-105 MG/DL Lactic Acid Level 1.09 0.50-2.00 MMOL/L Calcium Level 8.0 L 8.5-10.1 MG/DL Corrected Calcium 8.3 L 8.5-10.1 MG/DL Total Bilirubin 0.3 0.1-1.0 MG/DL Aspartate Amino Transf (AST/SGOT) 15 5-34 U/L Alanine Aminotransferase (ALT/SGPT) 9 0-55 U/L Alkaline Phosphatase 93 40-136 U/L Total Protein 7.2 6.4-8.2 GM/DL Albumin 3.6 3.2-4.5 GM/DL Coronavirus 2019 (FALGUNI) Negative Negative Urine Color YELLOW Urine Clarity CLEAR Urine pH >=9.0 5-9 Urine Specific [place] 1.010 L 1.016-1.022 Urine Protein 3+ H NEGATIVE Urine Glucose (UA) TRACE H NEGATIVE Urine Ketones TRACE H NEGATIVE Urine Nitrite POSITIVE H NEGATIVE Urine Bilirubin 2+ H NEGATIVE Urine Urobilinogen 4.0 < = 1.0 MG/DL Urine Leukocyte Esterase 2+ H NEGATIVE Urine RBC (Auto) 3+ H NEGATIVE Urine RBC >100 H /HPF Urine WBC >100 H /HPF Urine Squamous Epithelial Cells 2-5 /HPF Urine Renal Epithelial Cells 2-5 /HPF Urine Crystals NONE /LPF Urine Bacteria NEGATIVE /HPF Urine Casts NONE /LPF Urine Mucus NEGATIVE /LPF Urine Culture Indicated CULTURE PENDING My Orders Orders - MILADYS PETERSON APRN Cbc With Automated Diff (05/08/20 17:23) Comprehensive Metabolic Panel (05/08/20 17:23) Blood Culture (05/08/20 17:23) Urinalysis (05/08/20 17:23) Urine Culture (05/08/20 17:23) Protime With Inr (05/08/20 17:23) Partial Thromboplastin Time (05/08/20 17:23) Chest 1 View, Ap/Pa Only (05/08/20 17:23) Ed Iv/Invasive Line Start (05/08/20 17:23) O2 (05/08/20 17:23) Lactic Acid Analyzer (05/08/20 17:23) Covid 19 Inhouse Test (05/08/20 17:35) Ns Iv 1000 Ml (Sodium Chloride 0.9%) (05/08/20 18:30) Cefepime Injection (Maxipime Injection) (05/08/20 19:45) General/Regular (05/08/20 Dinner) Medications Given in ED Current Medications Medications Dose Ordered Sig/Kirstin Route Start Time Stop Time Status Last Admin Dose Admin Sodium Chloride 1,000 ml @ 999 mls/hr Q1H ONCE IV 05/08/20 18:30 05/08/20 19:30 DC 05/08/20 19:01 999 MLS/HR Vital Signs/I&O 05/08/20 17:10 Temp 35.7 Pulse 76 Resp 16 B/P (MAP) 144/68 (93) Pulse Ox 94 O2 Delivery Room Air Capillary Refill : Progress Note : Progress Note Pt. examined and in no acute distress. Family reports she yells out "it george" when she urinates. Has history of dementia and is poor historian. Will initiate sepsis workup and hold IVF as her VSS, until labs result. Labs reviewed and indicate acute kidney injury, likely due to poor oral intake and possible urinary tract infection, straight cath UA still pending. She does have bright orange urine consistent with using Pyridium. Orders placed for 1l normal saline. UA reviewed and shows severe urinary tract infection, which is likely cause of her acute kidney injury. Discussed case with Dr. Ro and he is agreeable with admission for IV fluids and antibiotic therapy. Patient is stable to transfer to medical unit. Reviewed plan of care with patient and spouse they are both agreeable with plan. Plan: UTI/LEOBARDO -Gentle hydration with NS at 75ml/hr. -CBC, CMP in am -Urine culture pending -Cefepime 1gm IV q6 hours PRN -Strict I/O Nausea/vomiting -Zofran 4mg IV q6 hours PRN Pain/fever -Tylenol 650mg PO q6 hours PRN VTE -SCD's FULL CODE Diagnostic Imaging Diagonstic Imaging: Xray Plain Films/CT/US/NM/MRI: chest Comments NAME: LE ADORNO I MED REC#: [id number] PT STATUS: REG ER : 1930 PHYSICIAN: MILADYS PETERSON REHAB DIRECTOR OCCUPATIONAL THERAPIST ADMIT DATE: 05/08/20/ER Draft Date of Exam:05/08/20 CHEST 1 VIEW, AP/PA ONLY INDICATION: Sepsis COMPARISON: 09/18/2019 FINDINGS: Single view of the chest demonstrates chronic interstitial changes. No acute infiltrate is seen. Stable benign nodule is seen in the left lung. There is no pneumothorax. No pulmonary edema identified. The heart size remains normal. Osseous structures are age-appropriate. IMPRESSION: No acute cardiopulmonary findings. Dictated on workstation # [id number] Dict: 05/08/20 1809 Trans: 05/08/20 1814 [facility] [id number] Interpreted by: MUKUND SIERRA Electronically signed by: Departure Communication (Admissions) Time/Spoke to Admitting Phy: 19:[address] Ro at this time and he is agreeable with inpatient admission for IV fluids and antibiotics. Family Conversation Called patient spouse at this time and updated him on plan to admit for IV fluids and antibiotics, he is agreeable with plan. No questions at this time. Impression Primary Impression: Urinary tract infection Additional Impression: Acute kidney injury Disposition: ADMITTED INPATIENT Condition: Stable Admissions Decision to Admit Reason: Admit from ER (General) Decision to Admit/Date: May 08, 2020 Time/Decision to Admit Time: 19:20 Departure-Patient Inst. Referrals: MUKUND RO MD (PCP/Family) Primary Care Physician Copy Copies To 1: MUKUND RO MD, STORMY D APRN May 08, 2020 17:29
[2020-05-08 17:37] LABS: BASOPHILS # (AUTO) 0.1 10^3/uL (0.0-0.1); BASOPHILS % (AUTO) 1 % (0-10); EOSINOPHILS # (AUTO) 0.3 10^3/uL (0.0-0.3); EOSINOPHILS % (AUTO) 6 % (0-10); HEMATOCRIT 36 % (35-52); HEMOGLOBIN 11.1 g/dL (11.5-16.0); LYMPHOCYTES # (AUTO) 1.9 10^3/uL (1.0-4.0); LYMPHOCYTES % (AUTO) 35 % (12-44); MEAN CORPUSCULAR HEMOGLOBIN 28 pg (25-34); MEAN CORPUSCULAR HGB CONC 31 g/dL (32-36); MEAN CORPUSCULAR VOLUME 89 fL (80-99); MEAN PLATELET VOLUME 9.1 fL (9.0-12.2); MONOCYTES # (AUTO) 0.5 10^3/uL (0.0-1.0); MONOCYTES % (AUTO) 9 % (0-12); NEUTROPHILS # (AUTO) 2.5 10^3/uL (1.8-7.8); NEUTROPHILS % (AUTO) 47 % (42-75); PLATELET COUNT 279 10^3/uL (130-400); WHITE BLOOD COUNT 5.4 10^3/uL (4.3-11.0)
[2020-05-08 17:42] LABS: ALBUMIN 3.6 GM/DL (3.2-4.5); POTASSIUM 4.3 MMOL/L (3.6-5.0)
[2020-05-08 17:45] LABS: INR 1.1 (0.8-1.4); PROTHROMBIN TIME PATIENT 15.1 SEC (12.2-14.7); TOTAL PROTEIN 7.2 GM/DL (6.4-8.2)
[2020-05-08 17:46] LABS: BILIRUBIN,TOTAL 0.3 MG/DL (0.1-1.0)
[2020-05-08 17:48] LABS: CREATININE SERUM 1.89 MG/DL (0.60-1.30)
--- NOTE | 2020-05-08 18:15 | Diagnostic Imaging Report ---
INDICATION: Sepsis COMPARISON: 09/18/2019 FINDINGS: Single view of the chest demonstrates chronic interstitial changes. No acute infiltrate is seen. Stable benign nodule is seen in the left lung. There is no pneumothorax. No pulmonary edema identified. The heart size remains normal. Osseous structures are age-appropriate. IMPRESSION: No acute cardiopulmonary findings. Dictated by: Dictated on workstation # [id number]
[2020-05-08] MEDS ORDERED: NS IV 1000 ML 1,000 ML IV ONE (18:30)
[2020-05-08 19:07] LABS: BILIRUBIN,URINE 2+ (NEGATIVE); CLARITY,URINE CLEAR; COLOR,URINE YELLOW; GLUCOSE, URINE (UA) TRACE (NEGATIVE); KETONES,URINE TRACE (NEGATIVE); LEUKOCYTE ESTERASE ,URINE 2+ (NEGATIVE); NITRITE,URINE POSITIVE (NEGATIVE); PH,URINE >=9.0 (5-9); PROTEIN,URINE 3+ (NEGATIVE)
[2020-05-08 19:23] LABS: BACTERIA,URINE NEGATIVE /HPF; RBC,URINE >100 /HPF; WBC,URINE >100 /HPF
[2020-05-08] MEDS ORDERED: CEFEPIME INJECTION 1,000 MG in WATER (STERILE) FOR INJECTION 10 ML IV ONE (19:45)
[2020-05-08] MEDS ORDERED: CEFEPIME 1 GM/10 ML (MAXIPIME) VIAL ONE (20:03)
[2020-05-08] MEDS ORDERED: WATER (STERILE) FOR INJECTION 10 ML ONE (20:03)
[2020-05-08] MEDS ORDERED: NS IV 1000 ML 1,000 ML ONE (21:37)
[2020-05-08 22:00] VITALS: BP 144/68
[2020-05-08] MEDS ORDERED: RT-ALBUTEROL SULF 2.5 MG/3 ML PRE-MIX VIAL INH PRN (22:15)
[2020-05-08] MEDS ORDERED: ONDANSETRON 4 MG/2 ML (SDV) Z0FRAN IV PRN (22:15)
[2020-05-08] MEDS: NS IV 1000 ML 1,000 ML IV SCH (22:18)
[2020-05-08 23:55] VITALS: BP 138/90
[2020-05-09] VITALS (7 sets, daily range): BP systolic 106–153; BP diastolic 53–89
[2020-05-09 05:31] LABS: BASOPHILS # (AUTO) 0.1 10^3/uL (0.0-0.1); BASOPHILS % (AUTO) 1 % (0-10); EOSINOPHILS # (AUTO) 0.3 10^3/uL (0.0-0.3); EOSINOPHILS % (AUTO) 7 % (0-10); HEMATOCRIT 29 % (35-52); HEMOGLOBIN 8.9 g/dL (11.5-16.0); LYMPHOCYTES # (AUTO) 1.3 10^3/uL (1.0-4.0); LYMPHOCYTES % (AUTO) 28 % (12-44); MEAN CORPUSCULAR HEMOGLOBIN 28 pg (25-34); MEAN CORPUSCULAR HGB CONC 31 g/dL (32-36); MEAN CORPUSCULAR VOLUME 89 fL (80-99); MONOCYTES # (AUTO) 0.5 10^3/uL (0.0-1.0); MONOCYTES % (AUTO) 10 % (0-12); NEUTROPHILS # (AUTO) 2.5 10^3/uL (1.8-7.8); NEUTROPHILS % (AUTO) 54 % (42-75); PLATELET COUNT 239 10^3/uL (130-400); WHITE BLOOD COUNT 4.7 10^3/uL (4.3-11.0)
[2020-05-09 05:42] LABS: ALBUMIN 2.9 GM/DL (3.2-4.5); POTASSIUM 3.9 MMOL/L (3.6-5.0)
[2020-05-09 05:43] LABS: CALCIUM 7.1 MG/DL (8.5-10.1)
[2020-05-09 05:44] LABS: TOTAL PROTEIN 5.9 GM/DL (6.4-8.2)
[2020-05-09 05:46] LABS: BILIRUBIN,TOTAL 0.2 MG/DL (0.1-1.0)
[2020-05-09 05:48] LABS: CREATININE SERUM 1.6 MG/DL (0.60-1.30)
--- NOTE | 2020-05-09 06:46 | History & Physicial ---
History of Present Illness History of Present Illness Reason for visit/HPI 89-year-old female known to me well presents to emergency department via [facility]. Home health had contacted me on May 07 with Fiordaliza noted to be having some discomfort on urination. She was also noted to have a small amount of blood in her urine when she was able to go. She has had some discomfort primarily over the suprapubic region. Patient does have dementia and is a poor historian. Apparently from family and EMS there has been no fevers, chills or nausea/vomiting. Date of Admission May 08, 2020 at 19:47 Date Seen by a Provider: May 09, 2020 Time Seen by a Provider: 06:55 I consulted on this patient on 05/09/20 06:42 Attending Physician Mukund Ro MD Admitting Physician Mukund Ro MD Consult Allergies and Home Medications Allergies Coded Allergies: No Known Drug Allergies (Unverified , 12/15/08) Home Medications ALPRAZolam 0.25 Mg Tablet, 0.25 MG PO Q8H PRN for AGITATION, (Reported) Diphenhydramine HCl 25 Mg Capsule, 25 MG PO UD PRN for ITCHING, (Reported) Meclizine HCl 12.5 Mg Tablet, 12.5 MG PO BID, (Reported) Memantine HCl 10 Mg Tablet, 10 MG PO BID, (Reported) Metoprolol Succinate 25 Mg Tab.er.24h, 25 MG PO DAILY, (Reported) Omeprazole Magnesium 20 Mg Tablet.dr, 20 MG PO DAILY, (Reported) Quetiapine Fumarate 25 Mg Tablet, 25 MG PO BID, (Reported) Sulfamethoxazole/Trimethoprim 1 Each Tablet, 1 EACH PO Q12H Prescribed by: MUKUND RO on 01/27/20 1551 Patient Home Medication List Home Medication List Reviewed: Yes Past Jizmoru-Dnfeho-Szpbmz Hx Patient Social History Marrital Status: Employed/Student: retired Smoking Status: Never a Smoker 2nd Hand Smoke Exposure: No Recent Hopitalizations: No Have you traveled recently?: No Alcohol Use?: No Pt feels they are or have been: No Immunizations Up To Date Tetanus Booster (TDap): Unknown Date of Pneumonia Vaccine: Mar 18, 2010 Date of Influenza Vaccine: Nov 15, 2019 Seasonal Allergies Seasonal Allergies: No Surgeries 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/back surgery) Hysterectomy, Orthopedic Respiratory No Cardiovascular No Neurological Yes (alzheimers) Reproductive System Hx Reproductive Disorders: 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; age 29 at the time) Sexually Transmitted Disease: No Genitourinary Yes Bladder Infection, Kidney Stones, UTI-Chronic Gastrointestinal Yes Gastroesophageal Reflux Musculoskeletal Yes Chronic Back Pain Endocrine History of Endocrine Disorders: No Cancer No Psychosocial History of Psychiatric Problem: No Integumentary History of Skin or Integumenta: No Blood Transfusions History of Blood Disorders: Yes Adverse Reaction to a Blood Tr: No Family Medical History Family Hx: Alzheimer's disease 19 MOTHER G8 BROTHER G8 SISTER Arthritis G8 SISTER Cardiovascular disease 19 FATHER Hypercholesterolemia 19 FATHER 19 MOTHER G8 BROTHER G8 SISTER Infertility G8 SISTER Myocardial infarction 19 FATHER Parkinson's disease 19 MOTHER No Family History of: AIDS Abdominal aortic aneurysm Esmeralda's disease Alcoholism Aphasia Asthma Cancer of mouth Cataracts Colon cancer Completed stroke Congenital disease Congenital heart disease Coronary thrombosis Cystic fibrosis Deafness or hearing loss Dementia Diabetes mellitus Drug abuse Dysphasia Fibrocystic disease of breast Gastroenteritis Glaucoma Headache disorder Hypertension Kidney disease Neoplasm Not obtainable due to adoption Osteoporosis Prostate cancer Psychosocial problem Respiratory disorder Seizure disorder Severe allergy Thyroid disease Tuberculosis Visual disorder Review of Systems Constitutional: see HPI Physical Exam Vital Signs Vital Signs - First Documented 05/08/20 05/08/20 17:10 22:00 Temp 35.7 Pulse 76 Resp 16 B/P (MAP) 144/68 (93) Pulse Ox 94 O2 Delivery Room Air FiO2 21 Capillary Refill : Less Than 3 Seconds Height, Weight, BMI Height: 5'3.00" Weight: 147lbs. 8.0oz. 66.945829iy; 21.64 BMI Method:Stated General Appearance: No Apparent Distress Eyes: Bilateral Eye Normal Inspection Neck: Supple Respiratory: Lungs Clear Cardiovascular: Regular Rate, Rhythm Gastrointestinal: Soft, Tenderness (over suprapubic region) Rectal: Deferred Back: Normal Inspection Extremity: Normal Capillary Refill Neurologic/Psychiatric: Disoriented, Other (known dementia) Assessment/Plan Assessment and Plan 1. Urinary tract infection with the possibility of urosepsis -initiation of cefepime in ED -Urine and blood culture in ED 2. Renal insufficiency -IV fluids began at 75 mL per hour in ED -Monitor creatinine 3. Dementia of the Alzheimer's type -continue to monitor home situation Admission Diagnosis 1. Urinary tract infection with the possibility of urosepsis 2. Renal insufficiency 3. Dementia of the Alzheimer's type Admission Status: Inpatient Order (span 2 midnights) Reason for Inpatient Admission: IV fluids and to monitor her kidney status. IV cefepime as her outpatient antibiotic regimen has failed. Check with urine culture to determine appropriate antibiotic after empiric. MUKUND RO MD May 09, 2020 06:46
[2020-05-09] MEDS: CEFEPIME 1,000 MG/SWFI 10 ML IV PUSH IV SCH ×4 (08:26→19:54)
[2020-05-09] MEDS ORDERED: PHEN99.54 PO (10:34)
[2020-05-09] MEDS ORDERED: CIPR250T3 PO (10:34)
[2020-05-09] MEDS: NS IV 1000 ML 1,000 ML IV SCH (11:44)
[2020-05-09] MEDS: ACETAMINOPHEN 325 MG TABLET PO PRN (21:56)
[2020-05-10] MEDS: NS IV 1000 ML 1,000 ML IV SCH ×2 (00:09→13:28)
[2020-05-10 04:15] VITALS: BP 119/59
[2020-05-10 06:33] LABS: BASOPHILS # (AUTO) 0.1 10^3/uL (0.0-0.1); BASOPHILS % (AUTO) 2 % (0-10); EOSINOPHILS # (AUTO) 0.3 10^3/uL (0.0-0.3); EOSINOPHILS % (AUTO) 7 % (0-10); HEMATOCRIT 30 % (35-52); HEMOGLOBIN 9.4 g/dL (11.5-16.0); LYMPHOCYTES # (AUTO) 1.8 10^3/uL (1.0-4.0); LYMPHOCYTES % (AUTO) 39 % (12-44); MEAN CORPUSCULAR HEMOGLOBIN 28 pg (25-34); MEAN CORPUSCULAR HGB CONC 32 g/dL (32-36); MEAN CORPUSCULAR VOLUME 88 fL (80-99); MEAN PLATELET VOLUME 9.3 fL (9.0-12.2); MONOCYTES # (AUTO) 0.5 10^3/uL (0.0-1.0); MONOCYTES % (AUTO) 11 % (0-12); NEUTROPHILS # (AUTO) 1.9 10^3/uL (1.8-7.8); NEUTROPHILS % (AUTO) 41 % (42-75); PLATELET COUNT 265 10^3/uL (130-400); WHITE BLOOD COUNT 4.7 10^3/uL (4.3-11.0)
[2020-05-10 06:50] LABS: ALBUMIN 3.1 GM/DL (3.2-4.5); POTASSIUM 3.8 MMOL/L (3.6-5.0)
[2020-05-10 06:51] LABS: CALCIUM 7.2 MG/DL (8.5-10.1)
[2020-05-10 06:52] LABS: TOTAL PROTEIN 6.2 GM/DL (6.4-8.2)
[2020-05-10 06:54] LABS: BILIRUBIN,TOTAL 0.3 MG/DL (0.1-1.0)
[2020-05-10 06:56] LABS: CREATININE SERUM 1.25 MG/DL (0.60-1.30)
--- NOTE | 2020-05-10 07:12 | Progress Note ---
Subjective Date Seen by a Provider: May 10, 2020 Time Seen by a Provider: 06:50 Subjective/Events-last exam patient does not appear to be in any distress. She does have Alzheimer's disease and is confused but appears to be baseline for her. She is with a Vaughn catheter and it is somewhat vivi in color. Occasionally strings of blood. Focused Exam Lactate Level 05/08/20 17:18: Lactic Acid Level 1.09 Objective Exam Vital Signs Date Time Temp Pulse Resp B/P (MAP) Pulse Ox O2 Delivery O2 Flow Rate FiO2 05/10/20 07:00 96 Room Air 05/10/20 04:15 37.0 84 14 119/59 (79) 94 Room Air 05/09/20 23:50 37.2 91 20 140/89 (106) 95 Room Air 05/09/20 20:00 95 Room Air 05/09/20 19:52 36.8 102 18 153/85 (107) 96 Room Air 05/09/20 19:09 97 Room Air 05/09/20 16:15 37.0 92 20 147/67 (93) 93 Room Air 05/09/20 12:00 36.4 80 18 148/65 (92) 94 Room Air 05/09/20 11:05 98 Room Air 05/09/20 11:05 37.2 70 98 21 05/09/20 08:00 95 Room Air 05/09/20 08:00 37.2 83 18 141/63 (89) 95 Room Air I & O 05/10/20 07:00 Intake Total 1010 ml Output Total 2975 ml Balance -1965 ml Capillary Refill : Less Than 3 Seconds General Appearance: No Apparent Distress Neck: Supple Respiratory: Lungs Clear Cardiovascular: Regular Rate, Rhythm Results Lab Laboratory Tests 05/10/20 05:55: White Blood Count 4.7, Red Blood Count 3.38L, Hemoglobin 9.4L, Hematocrit 30L, Mean Corpuscular Volume 88, Mean Corpuscular Hemoglobin 28, Mean Corpuscular Hemoglobin Concent 32, Red Cell Distribution Width 13.3, Platelet Count 265, Mean Platelet Volume 9.3, Immature Granulocyte % (Auto) 0, Neutrophils (%) (Auto) 41L, Lymphocytes (%) (Auto) 39, Monocytes (%) (Auto) 11, Eosinophils (%) (Auto) 7, Basophils (%) (Auto) 2, Neutrophils # (Auto) 1.9, Lymphocytes # (Auto) 1.8, Monocytes # (Auto) 0.5, Eosinophils # (Auto) 0.3, Basophils # (Auto) 0.1, Immature Granulocyte # (Auto) 0.0, Sodium Level 139, Potassium Level 3.8, Chloride Level 110H, Carbon Dioxide Level 20L, Anion Gap 9, Blood Urea Nitrogen 20H, Creatinine 1.25, Estimat Glomerular Filtration Rate 40, BUN/Creatinine Ratio 16, Glucose Level 103, Calcium Level 7.2L, Corrected Calcium 7.9L, Total Bilirubin 0.3, Aspartate Amino Transf (AST/SGOT) 14, Alanine Aminotransferase (ALT/SGPT) 9, Alkaline Phosphatase 76, Total Protein 6.2L, Albumin 3.1L Microbiology 05/08/20 Urine Culture - Preliminary, Resulted Culture In Progress 05/08/20 Blood Culture - Preliminary, Resulted No growth Assessment/Plan Assessment/Plan Assess & Plan/Chief Complaint 1. Urinary tract infection with the possibility of urosepsis -initiation of cefepime in ED -Urine and blood culture in ED 05/10 -urosepsis seems unlikely and she is noted to have negative blood cultures -Case was discussed with Urology yesterday afternoon. -Outpatient she may be having nonsurgical treatment for stones -day number 2 cefepime -Awaiting urine culture results 2. Renal insufficiency -IV fluids began at 75 mL per hour in ED -Monitor creatinine 05/10 -creatinine is 1.25 this morning much improved 3. Dementia of the Alzheimer's type -continue to monitor home situation Clinical Quality Measures Admission Status Admission Dx 1. Urinary tract infection with the possibility of urosepsis 2. Renal insufficiency 3. Dementia of the Alzheimer's type MUKUND RO MD May 10, 2020 07:12
[2020-05-10 07:28] VITALS: BP 152/69
[2020-05-10] MEDS: CEFEPIME 1,000 MG/SWFI 10 ML IV PUSH IV SCH ×4 (09:07→19:32)
[2020-05-10] MEDS: ACETAMINOPHEN 325 MG TABLET PO PRN ×2 (09:13→19:34)
[2020-05-10 11:29] VITALS: BP 146/95
[2020-05-10 16:28] VITALS: BP 183/87
[2020-05-10 19:28] VITALS: BP 173/79
[2020-05-11 00:31] VITALS: BP 151/72
[2020-05-11] MEDS: NS IV 1000 ML 1,000 ML IV SCH ×2 (02:51→17:19)
[2020-05-11 04:48] VITALS: BP 180/86
--- NOTE | 2020-05-11 07:23 | Progress Note ---
Subjective Date Seen by a Provider: May 11, 2020 Time Seen by a Provider: 07:15 Subjective/Events-last exam patient appears to be resting comfortably. She doesn't voice any complaints Focused Exam Lactate Level 05/08/20 17:18: Lactic Acid Level 1.09 Objective Exam Vital Signs Date Time Temp Pulse Resp B/P (MAP) Pulse Ox O2 Delivery O2 Flow Rate FiO2 05/11/20 04:48 36.7 86 18 180/86 (117) 94 Room Air 05/11/20 00:31 37.0 93 18 151/72 (98) 94 Room Air 05/10/20 20:00 95 Room Air 05/10/20 19:28 36.6 105 18 173/79 (110) 97 Room Air 05/10/20 19:19 Room Air 05/10/20 16:28 36.4 92 20 183/87 (119) 96 Room Air 05/10/20 11:29 36.6 88 20 146/95 (112) 96 Room Air 05/10/20 08:00 96 Room Air 05/10/20 07:28 36.5 87 18 152/69 (96) 94 Room Air I & O 05/11/20 07:00 Intake Total 460 ml Output Total 2925 ml Balance -2465 ml Capillary Refill : Less Than 3 Seconds General Appearance: No Apparent Distress Neck: Supple Respiratory: Lungs Clear Cardiovascular: Regular Rate, Rhythm Gastrointestinal: soft Other comments Vaughn catheter is in place Results Lab Microbiology 05/08/20 Urine Culture - Preliminary, Resulted Corynebacterium ureolyticum Corynebacterium amycolatum 05/08/20 Blood Culture - Preliminary, Resulted No growth Assessment/Plan Assessment/Plan Assess & Plan/Chief Complaint 1. Urinary tract infection with the possibility of urosepsis -initiation of cefepime in ED -Urine and blood culture in ED 05/10 -urosepsis seems unlikely and she is noted to have negative blood cultures -Case was discussed with Urology yesterday afternoon. -Outpatient she may be having nonsurgical treatment for stones -day number 2 cefepime -Awaiting urine culture results 05/11 -Corynebacterium species noted on urine culture -Will switch to zosyn and dc cefepime due to the complicated nature of her O/P treatment. 2. Renal insufficiency -IV fluids began at 75 mL per hour in ED -Monitor creatinine 05/10 -creatinine is 1.25 this morning much improved 3. Dementia of the Alzheimer's type -continue to monitor home situation Clinical Quality Measures Admission Status Admission Dx 1. Urinary tract infection with the possibility of urosepsis 2. Renal insufficiency 3. Dementia of the Alzheimer's type MUKUND RO MD May 11, 2020 07:23
[2020-05-11 08:00] VITALS: BP 152/72
[2020-05-11] MEDS ORDERED: CEFEPIME 1 GM/10 ML (MAXIPIME) VIAL ONE (09:15)
[2020-05-11] MEDS ORDERED: WATER (STERILE) FOR INJECTION 10 ML ONE (09:16)
[2020-05-11] MEDS: CEFEPIME 1,000 MG/SWFI 10 ML IV PUSH IV SCH ×2 (09:22)
[2020-05-11] MEDS: LINEZOLID IVPB 300 ML IV SCH ×2 (09:40→20:17)
[2020-05-11 12:00] VITALS: BP 159/70
--- NOTE | 2020-05-11 15:25 | Physician Query Clarification ---
"Physician Query-General Query to Physician: The medical record reflects the following clinical scenario: History/Risk factors: decrease oral intake, Dementia Clinical Findings: Admission Cr/eGFR 1.89/25 improved to 1.25/40 after fluids Treatment: I L IV fluid bolus, I and O, NS 75 mls/hour maintenance Question: Do you agree with the impression of Acute Kidney Injury per ER provider Abdiel Miguel? If you agree, please document in Progress Notes or Discharge Summary. 1. Yes; will document Acute Kidney Injury present on admission in the Progress Notes 2. No; will continue to document Renal insufficiency in the Progress Notes 3. Other; will document explanation of clinical findings 4. Clinically undetermined; no explanation for clinical findings Please remember a lack of response to the above will prompt a phone page by CDI/coding staff. In responding to this query, please exercise your independent professional judgment. The purpose of this communication is to more accurately reflect the complexity of your patients condition. The fact that a question is asked does not imply that any particular answer is desired or expected. Thank you for timely response to this clarification. Tee Funk, MSN, RN RN Specialist-Clinical Doc Improvement CD -Health Info Mgmt Operations [address] [facility] t: [phone] | f: [phone] If you are unable to reach me at my extension, I may be working from home. Please contact me at [phone] PHYSICIAN RESPONSE: Based on the clinical findings in the record, please respond to the query above on this document as an addendum. Physician Response: Physician Response 3. Will document renal insuff, now resolved If you have questions please contact: Cement Despatch Operator: Ext: Thank you for your time and cooperation. Clinical Java Enterprise Architect/Cement Despatch Operator This is a permanent part of the medical record TEE FUNK May 11, 2020 15:25 MUKUND RO MD May 14, 2020 06:41"
[2020-05-11 15:37] VITALS: BP 174/73
[2020-05-11 19:14] VITALS: BP 157/82
[2020-05-12] VITALS: BP 116/71
[2020-05-12 06:24] LABS: ALBUMIN 2.9 GM/DL (3.2-4.5); POTASSIUM 4.4 MMOL/L (3.6-5.0)
[2020-05-12 06:25] LABS: CALCIUM 7.6 MG/DL (8.5-10.1)
[2020-05-12 06:27] LABS: TOTAL PROTEIN 5.9 GM/DL (6.4-8.2)
[2020-05-12 06:28] LABS: BILIRUBIN,TOTAL 0.3 MG/DL (0.1-1.0)
[2020-05-12 06:30] LABS: CREATININE SERUM 1.12 MG/DL (0.60-1.30)
[2020-05-12 06:39] LABS: BASOPHILS # (AUTO) 0.1 10^3/uL (0.0-0.1); BASOPHILS % (AUTO) 1 % (0-10); EOSINOPHILS # (AUTO) 0.2 10^3/uL (0.0-0.3); EOSINOPHILS % (AUTO) 4 % (0-10); HEMATOCRIT 30 % (35-52); HEMOGLOBIN 9.4 g/dL (11.5-16.0); LYMPHOCYTES # (AUTO) 1.8 10^3/uL (1.0-4.0); LYMPHOCYTES % (AUTO) 33 % (12-44); MEAN CORPUSCULAR HEMOGLOBIN 28 pg (25-34); MEAN CORPUSCULAR HGB CONC 32 g/dL (32-36); MEAN CORPUSCULAR VOLUME 89 fL (80-99); MONOCYTES # (AUTO) 0.5 10^3/uL (0.0-1.0); MONOCYTES % (AUTO) 9 % (0-12); NEUTROPHILS # (AUTO) 2.9 10^3/uL (1.8-7.8); NEUTROPHILS % (AUTO) 52 % (42-75); PLATELET COUNT 268 10^3/uL (130-400); WHITE BLOOD COUNT 5.5 10^3/uL (4.3-11.0)
--- NOTE | 2020-05-12 07:18 | Progress Note - Hospitalist ---
Subjective HPI/CC On Admission Date Seen by Provider: May 12, 2020 Time Seen by Provider: 11:15 Subjective/Events-last exam Tearful and wants to go home Very debilitated IV abx maintained Labs reviewed Changing Xanax to Q4hrs prn Review of Systems General: Fatigue Neurological: Confusion Objective Exam Vital Signs Vital Signs Date Time Temp Pulse Resp B/P (MAP) Pulse Ox O2 Delivery O2 Flow Rate FiO2 05/12/20 15:33 36.6 87 18 154/70 (98) 98 Room Air 05/09/20 11:05 21 Capillary Refill : Less Than 3 Seconds General Appearance: No Apparent Distress, WD/WN, Anxious, Chronically ill Respiratory: Lungs Clear Cardiovascular: Regular Rate, Rhythm Neurologic/Psychiatric: Alert, Disoriented Results/Procedures Lab Laboratory Tests 05/12/20 05:44 Patient resulted labs reviewed. Assessment/Plan Assessment and Plan Assess & Plan/Chief Complaint Assessment: UTI Dementia Advanced age CKD Plan: IV abx Monitor labs Increase po nutrition Increase frequency of Xanax WILL LYLES DO May 12, 2020 07:18
[2020-05-12 08:04] VITALS: BP 167/79
[2020-05-12] MEDS: LINEZOLID IVPB 300 ML IV SCH ×2 (08:27→19:46)
[2020-05-12] MEDS: NS IV 1000 ML 1,000 ML IV SCH (08:28)
[2020-05-12] MEDS: ALPRAZolam 0.25 MG (XANAX) TAB PO PRN (13:25)
[2020-05-12 15:33] VITALS: BP 154/70
[2020-05-12 23:43] VITALS: BP 140/63
[2020-05-12] MEDS: ACETAMINOPHEN 325 MG TABLET PO PRN (23:46)
[2020-05-13] MEDS: NS IV 1000 ML 1,000 ML IV SCH ×3 (01:50→16:08)
[2020-05-13] MEDS: ALPRAZolam 0.25 MG (XANAX) TAB PO PRN ×2 (06:10→20:31)
[2020-05-13 07:23] LABS: BASOPHILS # (AUTO) 0.1 10^3/uL (0.0-0.1); BASOPHILS % (AUTO) 1 % (0-10); EOSINOPHILS # (AUTO) 0.3 10^3/uL (0.0-0.3); EOSINOPHILS % (AUTO) 5 % (0-10); HEMATOCRIT 29 % (35-52); HEMOGLOBIN 9.2 g/dL (11.5-16.0); LYMPHOCYTES # (AUTO) 1.7 10^3/uL (1.0-4.0); LYMPHOCYTES % (AUTO) 30 % (12-44); MEAN CORPUSCULAR HEMOGLOBIN 28 pg (25-34); MEAN CORPUSCULAR HGB CONC 32 g/dL (32-36); MEAN CORPUSCULAR VOLUME 88 fL (80-99); MEAN PLATELET VOLUME 8.9 fL (9.0-12.2); MONOCYTES # (AUTO) 0.5 10^3/uL (0.0-1.0); MONOCYTES % (AUTO) 8 % (0-12); NEUTROPHILS # (AUTO) 3.2 10^3/uL (1.8-7.8); NEUTROPHILS % (AUTO) 55 % (42-75); PLATELET COUNT 282 10^3/uL (130-400); WHITE BLOOD COUNT 5.8 10^3/uL (4.3-11.0)
[2020-05-13 07:35] LABS: POTASSIUM 3.9 MMOL/L (3.6-5.0)
[2020-05-13 07:36] LABS: CALCIUM 7.5 MG/DL (8.5-10.1)
[2020-05-13 07:37] LABS: TOTAL PROTEIN 5.8 GM/DL (6.4-8.2)
[2020-05-13 07:39] LABS: BILIRUBIN,TOTAL 0.2 MG/DL (0.1-1.0)
[2020-05-13 07:40] VITALS: BP 132/60
[2020-05-13 07:41] LABS: CREATININE SERUM 1.01 MG/DL (0.60-1.30)
[2020-05-13] MEDS: LINEZOLID IVPB 300 ML IV SCH ×2 (08:12→20:31)
--- NOTE | 2020-05-13 12:38 | Progress Note - Hospitalist ---
Subjective HPI/CC On Admission Date Seen by Provider: May 13, 2020 Time Seen by Provider: 11:30 Subjective/Events-last exam No major issues Increased Xanax has helped her Patient does not feel well Patient appears to be a hospice candidate if declines more No pain reported Minimal nutrition Review of Systems General: Fatigue, Malaise Neurological: Weakness Objective Exam Vital Signs Vital Signs Date Time Temp Pulse Resp B/P (MAP) Pulse Ox O2 Delivery O2 Flow Rate FiO2 05/13/20 08:00 96 Room Air 05/13/20 07:40 37.1 93 18 132/60 (84) 05/09/20 11:05 21 Capillary Refill : Less Than 3 Seconds General Appearance: No Apparent Distress, WD/WN, Chronically ill Respiratory: Chest Non Tender, Lungs Clear, Normal Breath Sounds, No Accessory Muscle Use, No Respiratory Distress Cardiovascular: Regular Rate, Rhythm, No Edema, No Gallop, No JVD, No Murmur, Normal Peripheral Pulses Neurologic/Psychiatric: Alert, Disoriented Results/Procedures Lab Laboratory Tests 05/13/20 06:59 Patient resulted labs reviewed. Assessment/Plan Assessment and Plan Assess & Plan/Chief Complaint Assessment: UTI Dementia Advanced age CKD Plan: IV abx Monitor labs Increase po nutrition Increase frequency of Xanax 05/13/20: Monitor closely Needs end of life if declines further Needs DNR WILL LYLES DO May 13, 2020 12:37
[2020-05-13 16:00] VITALS: BP 198/118
[2020-05-14] VITALS: BP 125/58
[2020-05-14] MEDS: NS IV 1000 ML 1,000 ML IV SCH (06:26)
--- NOTE | 2020-05-14 06:46 | Progress Note ---
Subjective Date Seen by a Provider: May 14, 2020 Time Seen by a Provider: 06:50 Objective Exam Vital Signs Date Time Temp Pulse Resp B/P (MAP) Pulse Ox O2 Delivery O2 Flow Rate FiO2 05/14/20 00:00 36.8 96 18 125/58 (80) 94 Room Air 05/13/20 20:30 Room Air 05/13/20 17:48 Room Air 05/13/20 16:00 37.1 95 18 198/118 (144) 95 Room Air 05/13/20 08:00 96 Room Air 05/13/20 07:40 37.1 93 18 132/60 (84) 95 Room Air 05/13/20 07:21 Room Air I & O 05/14/20 07:00 Intake Total 1700 ml Output Total 3500 ml Balance -1800 ml Capillary Refill : Less Than 3 Seconds General Appearance: No Apparent Distress Results Lab Laboratory Tests 05/13/20 06:59: White Blood Count 5.8, Red Blood Count 3.30L, Hemoglobin 9.2L, Hematocrit 29L, Mean Corpuscular Volume 88, Mean Corpuscular Hemoglobin 28, Mean Corpuscular Hemoglobin Concent 32, Red Cell Distribution Width 13.4, Platelet Count 282, Mean Platelet Volume 8.9L, Immature Granulocyte % (Auto) 0, Neutrophils (%) (Auto) 55, Lymphocytes (%) (Auto) 30, Monocytes (%) (Auto) 8, Eosinophils (%) (Auto) 5, Basophils (%) (Auto) 1, Neutrophils # (Auto) 3.2, Lymphocytes # (Auto) 1.7, Monocytes # (Auto) 0.5, Eosinophils # (Auto) 0.3, Basophils # (Auto) 0.1, Immature Granulocyte # (Auto) 0.0, Sodium Level 135, Potassium Level 3.9, Chloride Level 107, Carbon Dioxide Level 21, Anion Gap 7, Blood Urea Nitrogen 10, Creatinine 1.01, Estimat Glomerular Filtration Rate 52, BUN/Creatinine Ratio 10, Glucose Level 109H, Calcium Level 7.5L, Corrected Calcium 8.3L, Total Bilirubin 0.2, Aspartate Amino Transf (AST/SGOT) 14, Alanine Aminotransferase (ALT/SGPT) 12, Alkaline Phosphatase 70, Total Protein 5.8L, Albumin 3.0L Microbiology 05/08/20 Urine Culture - Final, Complete Corynebacterium ureolyticum Corynebacterium amycolatum YEAST Lactobacillus gasseri 05/08/20 Blood Culture - Preliminary, Resulted No growth Assessment/Plan Assessment/Plan Assess & Plan/Chief Complaint 1. Urinary tract infection with the possibility of urosepsis -initiation of cefepime in ED -Urine and blood culture in ED 05/10 -urosepsis seems unlikely and she is noted to have negative blood cultures -Case was discussed with Urology yesterday afternoon. -Outpatient she may be having nonsurgical treatment for stones -day number 2 cefepime -Awaiting urine culture results 05/11 -Corynebacterium species noted on urine culture -Will switch to zosyn and dc cefepime due to the complicated nature of her O/P treatment. 05/14/2020 -Hospitalist seen over weekend. Continued with Zosyn -day 4 zosyn 2. Renal insufficiency -IV fluids began at 75 mL per hour in ED -Monitor creatinine 05/10 -creatinine is 1.25 this morning much improved 3. Dementia of the Alzheimer's type -continue to monitor home situation Clinical Quality Measures Admission Status Admission Dx 1. Urinary tract infection with the possibility of urosepsis 2. Renal insufficiency 3. Dementia of the Alzheimer's type MUKUND RO MD May 14, 2020 06:46
[2020-05-14 08:44] VITALS: BP 129/59
[2020-05-14] MEDS ORDERED: LINEZOLID (ZYVOX) 600 MG TAB PO SCH (09:00)
[2020-05-14 14:22] VITALS: BP 129/59
[2020-05-14 15:43] VITALS: BP 138/84
[2020-05-14] MEDS ORDERED: LNZ600T PO (16:04)
--- NOTE | 2020-05-14 16:05 | Discharge Inst-Simple/Standard ---
Discharge Inst-Standard Reconcile Patient Problems Problems Reviewed?: Yes Discharge Medications New, Converted or Re-Newed RX: Transmitted to Pharmacy ([facility]) Patient Instructions/Follow Up Plan of Care/Instructions/FU: Dr Moreira this week Activity as Tolerated: Yes Discharge Diet: Regular Diet Return to The Hospital For: Fever, worsening pain, bloody urine MUKUND RO MD May 14, 2020 16:05
--- NOTE | 2020-05-14 16:06 | Discharge Summary ---
Diagnosis/Chief Complaint Date of Admission May 08, 2020 at 19:47 Date of Discharge Discharge Date: May 14, 2020 Reason Hospital Visit 89-year-old female known to me well presents to emergency department via [facility]. Home health had contacted me on May 07 with Fiordaliza noted to be having some discomfort on urination. She was also noted to have a small amount of blood in her urine when she was able to go. She has had some discomfort primarily over the suprapubic region. Patient does have dementia and is a poor historian. Apparently from family and EMS there has been no fevers, chills or nausea/vomiting. Discharge Summary Hospital Course Labs Laboratory Tests 05/12/20 05:44: Red Blood Count 3.36L, Hemoglobin 9.4L, Hematocrit 30L, Chloride Level 108H, Carbon Dioxide Level 20L, Glucose Level 108H, Calcium Level 7.6L, Total Protein 5.9L, Albumin 2.9L 05/13/20 06:59: Red Blood Count 3.30L, Hemoglobin 9.2L, Hematocrit 29L, Glucose Level 109H, Calcium Level 7.5L, Total Protein 5.8L, Albumin 3.0L, Mean Platelet Volume 8.9L, Corrected Calcium 8.3L Procedures None. Discharge Physical Examination Allergies: Coded Allergies: No Known Drug Allergies (Unverified , 12/15/08) Vitals & I&Os Vital Signs Date Time Temp Pulse Resp B/P (MAP) Pulse Ox O2 Delivery O2 Flow Rate FiO2 05/14/20 15:43 36.2 91 16 138/84 (102) 97 Room Air 05/14/20 14:22 21 Discharge Home Medications Reviewed and agree with Discharge Medication list on patient's Discharge Instruction sheet Instructions to Patient/Family Please see electronic discharge instructions given to patient. MUKUND RO MD May 14, 2020 16:06
[2020-05-14 16:36] VITALS: BP 138/84
== END 2020-05-14 16:38 | disposition home or self-care (01) | DRG 690 ==
LOC: EDUNIT# 17:10 → ER 17:12 → 4TH 19:47
PROVIDERS: ADMIT Family Medicine; ATTEND Family Medicine
DX: N39.0 Urinary tract infection, site not specified (principal); B96.89 Other specified bacterial agents as the cause of diseases classified elsewhere; K21.9 Gastro-esophageal reflux disease without esophagitis; Z20.822 Contact with and (suspected) exposure to COVID-19; G89.29 Other chronic pain; M54.9 Dorsalgia, unspecified; G30.9 Alzheimer's disease, unspecified; F02.80 Dementia in other diseases classified elsewhere, unspecified severity, without behavioral disturbance, psychotic disturbance, mood disturbance, and anxiety; N18.9 Chronic kidney disease, unspecified
CPT/HCPCS: 36415; 51702; 71045; 80053; 81000; 83605; 85025; 85610; 85730; 87040; 87077; 87088; 87635; 94760

== ENCOUNTER 2020-05-23 18:13 | Emergency (ER) | payer MEDICARE, OTHER ==
[~2020-05-23] VITALS: Ht 152 cm; Wt 55.0 kg
[~2020-05-23 18:13] MED LIST changes: +CIPR250T3 PO; +LNZ600T PO; -MECL-173 PO; +MECL-215 PO; +PHEN99.54 PO
[2020-05-23] MEDS ORDERED: LACTATED RINGERS 1,000 ML IV ONE (18:30)
--- NOTE | 2020-05-23 18:42 | ED GU-Female ---
General Chief Complaint: - Urinary Stated Complaint: UTI Nursing Triage Note: PT ARRIVED PER EMS, PT HAS ALZHIEMERS, PT FAMILY STATES SHE HAS UTI CO OF PAIN WHEN BURNING. PT HAS SL IN L AC #18 BY EMS. PT WAS RELEASED FROM HOSP 10DAYS AGO AND FINISHED PO ANTIBIOTIC YESTERDAY Nursing Sepsis Screen: No Definite Risk Source: EMS, old records Exam Limitations: other (PT WITH SEVERE DEMENTIA, AND UNABLE TO GIVE ANY HISTORY. PT IS NOT ANSWERING QUESTIONS OR TALKING AT THIS TIME) History of Present Illness Date Seen by Provider: May 23, 2020 Time Seen by Provider: 18:20 Initial Comments PT ARRIVES VIA EMS FROM HOME DAUGHTER CALLED EMS FOR PT COMPLAINING OF UTI SYMPTOMS--PAIN ON URINATION PT WITH HISTORY OF CHRONIC UTI'S, AND FINISHED ANTIBIOTIC YESTERDAY NO OTHER INFORMATION IS OBTAINABLE ABOUT CURRENT COMPLAINT AT THIS TIME. PT WITH ONGOING UTI'S FOR THE LAST 9 MONTHS PT HAS BEEN ADMITTED 4 TIMES SINCE 08/2019 FOR UTI'S. PT'S MOST RECENT ADMIT 05/08-05/14 FOR UTI, CULTURE GREW OUT MULTIPLE ORGANISMS INCLUDING YEAST. NO SENSITIVITY DONE. PT WAS DISMISSED WITH LINEZOLID 600 MG BID X 7 DAYS. HAD BEEN ON CIPRO FOR DAILY MAINTENANCE 05/01/20 PT HAS RIGHT URETERAL STENT FOR KIDNEY STONES SINCE 05/2017, BUT HAVE NOT FOLLOWED UP WITH DR. DALLAS REGARDING REMOVAL/FURTHER TREATMENT OF KIDNEY STONES HAVE NOT FOLLOWED UP WITH DR. RO IN OFFICE. PCP: DR. RO Allergies and Home Medications Allergies Coded Allergies: No Known Drug Allergies (Unverified , 12/15/08) Home Medications ALPRAZolam 0.25 Mg Tablet, 0.25 MG PO Q8H PRN for AGITATION, (Reported) Fluconazole 200 Mg Tablet, 200 MG PO DAILY Prescribed by: ADRIEL LAGUERRE on 05/23/201934 Linezolid 600 Mg Tablet, 600 MG PO BID Prescribed by: MUKUND RO on 05/14/20 1604 Linezolid 600 Mg Tablet, 600 MG PO BID Prescribed by: ADRIEL LAGUERRE on 05/23/201934 Meclizine HCl 12.5 Mg Tablet, 12.5 MG PO BID, (Reported) Memantine HCl 10 Mg Tablet, 10 MG PO BID, (Reported) Metoprolol Succinate 25 Mg Tab.er.24h, 25 MG PO HS, (Reported) Nystatin 15 Gm Cream..g., 15 GM TP TID Prescribed by: ADRIEL LAGUERRE on 05/23/201934 Quetiapine Fumarate 25 Mg Tablet, 25 MG PO BID, (Reported) Patient Home Medication List Home Medication List Reviewed: Yes Review of Systems Review of Systems Constitutional: other (UNABLE TO OBTAIN FROM PT) Genitourinary: see HPI Past Ynwfwem-Cwqszk-Svdpgj Hx Past Med/Social Hx: Reviewed and Corrections made Patient Social History Alcohol Use: Denies Use Smoking Status: Never a Smoker 2nd Hand Smoke Exposure: No Recent Infectious Disease Expo: No Recent Hopitalizations: Yes (uti) Immunizations Up To Date Tetanus Booster (TDap): Unknown Date of Pneumonia Vaccine: Mar 18, 2010 Date of Influenza Vaccine: Nov 15, 2019 Seasonal Allergies Seasonal Allergies: No Past Medical History Surgeries: Yes (HYSTERECTOMY; BACK SURGERY;R URETERAL STENT 05/2017; CYSTOSCOPIES) Hysterectomy, Orthopedic, Renal Respiratory: No Cardiac: No Neurological: Yes (ADVANCED ALZHEIMER'S DEMENTIA) Dementia Reproductive Disorders: 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; 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29 at 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, 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 Sexually Transmitted Disease: No Genitourinary: Yes (URETERAL STENT) Bladder Infection, Kidney Stones, UTI-Chronic Gastrointestinal: Yes Gastroesophageal Reflux Musculoskeletal: Yes (BACK SURGERY) Chronic Back Pain Endocrine: No Cancer: No Psychosocial: No Integumentary: No Blood Disorders: Yes (ANEMIA) Adverse Reaction/Blood Tranf: No Family Medical History Alzheimer's disease 19 MOTHER G8 BROTHER G8 SISTER Arthritis G8 SISTER Cardiovascular disease 19 FATHER Hypercholesterolemia 19 FATHER 19 MOTHER G8 BROTHER G8 SISTER Infertility G8 SISTER Myocardial infarction 19 FATHER Parkinson's disease 19 MOTHER No Family History of: AIDS Abdominal aortic aneurysm Duc's disease Alcoholism Aphasia Asthma Cancer of mouth Cataracts Colon cancer Completed stroke Congenital disease Congenital heart disease Coronary thrombosis Cystic fibrosis Deafness or hearing loss Dementia Diabetes mellitus Drug abuse Dysphasia Fibrocystic disease of breast Gastroenteritis Glaucoma Headache disorder Hypertension Kidney disease Neoplasm Not obtainable due to adoption Osteoporosis Prostate cancer Psychosocial problem Respiratory disorder Seizure disorder Severe allergy Thyroid disease Tuberculosis Visual disorder Physical Exam Vital Signs Vital Signs - First Documented 05/23/20 05/23/20 18:18 20:53 Temp 36.6 Pulse 85 Resp 18 B/P (MAP) 177/85 (115) Pulse Ox 95 Capillary Refill : Less Than 3 Seconds Height, Weight, BMI Height: 5'3.00" Weight: 147lbs. 8.0oz. [id number]; 23.00 BMI Method:Stated General Appearance: WD/WN, no apparent distress, other (FLAT AFFECT. DOES NOT TALK OR ATTEMPT TO ANSWER QUESTIONS, DOES NOT FOLLOW COMMANDS. ) Cardiovascular: regular rate, rhythm, no murmur Respiratory: normal breath sounds Gastrointestinal: non tender, soft Genital/Rectal: other (EXTENSIVE EXTERNAL CANDIDAL SKIN INFECTION WITH DIFFUSE ERYTHEMA TO VULVA AND GROIN AND INNER ASPECT OF THIGHS WITH SATELLITE LESIONS. NO VAGINAL DISCHARGE OR WHITE EXUDATE ON SKIN. ) Back: no CVA tenderness Extremities: normal inspection Neurologic/Psychiatric: alert Skin: normal color, warm/dry, other ( ABOVE) Focused Exam Lactate Level 05/23/20 18:20: Lactic Acid Level 2.07*H Lactic Acid Level Progress/Results/Core Measures Suspected Sepsis Recent Fever Within 48 Hours: No Infection Criteria Present: None New/Unexplained Altered Menta: No Sepsis Screen: No Definite Risk SIRS Temperature: Pulse: 85 Respiratory Rate: 18 Laboratory Tests 05/23/20 18:20: White Blood Count 6.1 Blood Pressure 177 /85 Mean: 115 05/23/20 18:20: Lactic Acid Level 2.07*H Laboratory Tests 05/23/20 18:20: Creatinine 1.17, Platelet Count 145, Total Bilirubin 0.3 Results/Orders Lab Results Laboratory Tests Test 05/23/20 18:20 05/23/20 18:34 Range/Units White Blood Count 6.1 4.3-11.0 10^3/uL Red Blood Count 3.45 L 3.80-5.11 10^6/uL Hemoglobin 9.7 L 11.5-16.0 g/dL Hematocrit 31 L 35-52 % Mean Corpuscular Volume 90 80-99 fL Mean Corpuscular Hemoglobin 28 25-34 pg Mean Corpuscular Hemoglobin Concent 31 L 32-36 g/dL Red Cell Distribution Width 13.3 10.0-14.5 % Platelet Count 145 130-400 10^3/uL Mean Platelet Volume 8.9 L 9.0-12.2 fL Immature Granulocyte % (Auto) 0 % Neutrophils (%) (Auto) 64 42-75 % Lymphocytes (%) (Auto) 28 12-44 % Monocytes (%) (Auto) 2 0-12 % Eosinophils (%) (Auto) 5 0-10 % Basophils (%) (Auto) 1 0-10 % Neutrophils # (Auto) 3.9 1.8-7.8 10^3/uL Lymphocytes # (Auto) 1.7 1.0-4.0 10^3/uL Monocytes # (Auto) 0.1 0.0-1.0 10^3/uL Eosinophils # (Auto) 0.3 0.0-0.3 10^3/uL Basophils # (Auto) 0.1 0.0-0.1 10^3/uL Immature Granulocyte # (Auto) 0.0 0.0-0.1 10^3/uL Sodium Level 135 135-145 MMOL/L Potassium Level 3.8 3.6-5.0 MMOL/L Chloride Level 103 98-107 MMOL/L Carbon Dioxide Level 23 21-32 MMOL/L Anion Gap 9 5-14 MMOL/L Blood Urea Nitrogen 23 H 7-18 MG/DL Creatinine 1.17 0.60-1.30 MG/DL Estimat Glomerular Filtration Rate 44 BUN/Creatinine Ratio 20 Glucose Level 91 70-105 MG/DL Lactic Acid Level 2.07 *H 0.50-2.00 MMOL/L Calcium Level 7.5 L 8.5-10.1 MG/DL Corrected Calcium 8.1 L 8.5-10.1 MG/DL Total Bilirubin 0.3 0.1-1.0 MG/DL Aspartate Amino Transf (AST/SGOT) 17 5-34 U/L Alanine Aminotransferase (ALT/SGPT) 14 0-55 U/L Alkaline Phosphatase 71 40-136 U/L Total Protein 6.2 L 6.4-8.2 GM/DL Albumin 3.2 3.2-4.5 GM/DL Amylase Level 20 L 25-125 U/L Lipase 7 L 8-78 U/L Procalcitonin 0.06 <0.10 NG/ML Urine Color YELLOW Urine Clarity CLOUDY Urine pH 7.0 5-9 Urine Specific [place] 1.010 L 1.016-1.022 Urine Protein TRACE H NEGATIVE Urine Glucose (UA) NEGATIVE NEGATIVE Urine Ketones NEGATIVE NEGATIVE Urine Nitrite POSITIVE H NEGATIVE Urine Bilirubin NEGATIVE NEGATIVE Urine Urobilinogen 0.2 < = 1.0 MG/DL Urine Leukocyte Esterase 3+ H NEGATIVE Urine RBC (Auto) 2+ H NEGATIVE Urine RBC 25-50 H /HPF Urine WBC >100 H /HPF Urine Squamous Epithelial Cells 25-50 H /HPF Urine Crystals NONE /LPF Urine Bacteria LARGE H /HPF Urine Casts NONE /LPF Urine Mucus LARGE H /LPF Urine Culture Indicated YES My Orders Orders - ADRIEL LAGUERRE DO Ed Iv/Invasive Line Start (05/23/20 18:22) Catheter(Urinary) Insert & Ass 03,15 (05/23/20 18:22) Monitor-Rhythm Ecg Trace Only (05/23/20 18:22) Amylase (05/23/20 18:22) Cbc With Automated Diff (05/23/20 18:22) Comprehensive Metabolic Panel (05/23/20 18:22) Lactic Acid Analyzer (05/23/20 18:22) Lipase (05/23/20 18:22) Procalcitonin (Pct) (05/23/20 18:22) Ua Culture If Indicated (05/23/20 18:22) Blood Culture (05/23/20 18:22) Ed Iv/Invasive Line Start (05/23/20 18:22) Lactated Ringers (Lr 1000 Ml Iv Solution (05/23/20 18:30) Urine Culture (05/23/20 18:34) Linezolid Ivpb (Zyvox Ivpb) (05/23/20 19:00) Fluconazole Tablet (Diflucan Tablet) (05/23/20 19:30) Medications Given in ED Current Medications Medications Dose Ordered Sig/Kirstin Route Start Time Stop Time Status Last Admin Dose Admin Fluconazole 200 mg ONCE ONCE PO 05/23/20 19:30 05/23/20 19:31 DC 05/23/20 20:06 200 MG Lactated Ringer's 1,000 ml @ 0 mls/hr Q0M ONCE IV 05/23/20 18:30 05/23/20 18:31 DC 05/23/20 18:55 1,000 MLS/HR Linezolid 300 ml @ 300 mls/hr ONCE ONCE IV 05/23/20 19:00 05/23/20 19:59 DC 05/23/20 19:18 300 MLS/HR Vital Signs/I&O 05/23/20 05/23/20 18:18 20:53 Temp 36.6 Pulse 85 89 Resp 18 18 B/P (MAP) 177/85 (115) 161/80 (115) Pulse Ox 95 Capillary Refill : Less Than 3 Seconds Blood Pressure Mean: 115 Progress Note : Progress Note CATHETER PLACED FOR URINE SPECIMEN NO DETERIORATION IN PT'S CONDITION Departure Communication (Admissions) Family Conversation 1935--SPOKE WITH PT'S DAUGHTER, SHEFALI PERKINS AND UPDATED HER ON PT'S CONDITION. 1925--SPOKE WITH DR. RO, HE ADVISES TO SEND PT HOME AT THIS TIME, VITALS ARE NORMAL, LABS ESSENTIALLY NORMAL ( EXCEPT FOR CHRONIC/STABLE ANEMIA ). DOES NOT ADVISE CT SCAN AT THIS TIME. HE REPORTS THAT PT WAS SUPPOSED TO HAVE FOLLOWED UP WITH DR. DALLAS REGARDING REMOVAL OF URETERAL STENT AND POSSIBLE LITHOTRIPSY OF KIDNEY STONES, BUT DID NOT KEEP APPOINTMENT OR ATTEMPT TO RESCHEDULE APPOINTMENT. DR. RO WILL SEE PT IN HIS OFFICE IN A FEW DAYS FOR FURTHER CARE. Impression Primary Impression: Recurrent UTI Additional Impressions: Vulvar candidiasis Yeast UTI Disposition: HOME, SELF-CARE Condition: Stable Departure-Patient Inst. Referrals: MUKUND RO MD (PCP/Family) Primary Care Physician Patient Instructions: Fungal Skin Rash (DC), Urinary Tract Infection, Adult (DC), Yeast Infection (DC) Add. Discharge Instructions: HOME, REST TAKE YOUR MEDICATIONS PRESCRIBED FOLLOW UP WITH DR. RO THIS WEEK FOR FURTHER CARE All discharge instructions reviewed with patient and/or family. Voiced understanding. Scripts Nystatin (Nystatin) 15 Gm Cream..g. 15 GM TP TID, #1 TUBE 1 Refill Prov: ADRIEL LAGUERRE DO 05/23/20 Fluconazole (Diflucan) 200 Mg Tablet 200 MG PO DAILY, #10 TAB Prov: ADRIEL LAGUERRE K DO 05/23/20 Linezolid (Linezolid) 600 Mg Tablet 600 MG PO BID, #20 TAB Prov: ELIZABETH LAGUERREA K DO 05/23/20 ADRIEL LAGUERRE DO May 23, 2020 18:42
[2020-05-23 18:44] LABS: BASOPHILS # (AUTO) 0.1 10^3/uL (0.0-0.1); BASOPHILS % (AUTO) 1 % (0-10); EOSINOPHILS # (AUTO) 0.3 10^3/uL (0.0-0.3); EOSINOPHILS % (AUTO) 5 % (0-10); HEMATOCRIT 31 % (35-52); HEMOGLOBIN 9.7 g/dL (11.5-16.0); LYMPHOCYTES # (AUTO) 1.7 10^3/uL (1.0-4.0); LYMPHOCYTES % (AUTO) 28 % (12-44); MEAN CORPUSCULAR HEMOGLOBIN 28 pg (25-34); MEAN CORPUSCULAR HGB CONC 31 g/dL (32-36); MEAN CORPUSCULAR VOLUME 90 fL (80-99); MEAN PLATELET VOLUME 8.9 fL (9.0-12.2); MONOCYTES # (AUTO) 0.1 10^3/uL (0.0-1.0); MONOCYTES % (AUTO) 2 % (0-12); NEUTROPHILS # (AUTO) 3.9 10^3/uL (1.8-7.8); NEUTROPHILS % (AUTO) 64 % (42-75); PLATELET COUNT 145 10^3/uL (130-400); WHITE BLOOD COUNT 6.1 10^3/uL (4.3-11.0)
[2020-05-23 18:46] LABS: BILIRUBIN,URINE NEGATIVE (NEGATIVE); CLARITY,URINE CLOUDY; COLOR,URINE YELLOW; GLUCOSE, URINE (UA) NEGATIVE (NEGATIVE); KETONES,URINE NEGATIVE (NEGATIVE); LEUKOCYTE ESTERASE ,URINE 3+ (NEGATIVE); NITRITE,URINE POSITIVE (NEGATIVE); PROTEIN,URINE TRACE (NEGATIVE)
[2020-05-23 18:49] LABS: ALBUMIN 3.2 GM/DL (3.2-4.5); POTASSIUM 3.8 MMOL/L (3.6-5.0)
[2020-05-23 18:49] LABS: BACTERIA,URINE LARGE /HPF; RBC,URINE 25-50 /HPF; SQUAMOUS EPITHELIAL CELL,UR 25-50 /HPF; WBC,URINE >100 /HPF
[2020-05-23 18:50] LABS: CALCIUM 7.5 MG/DL (8.5-10.1)
[2020-05-23 18:52] LABS: TOTAL PROTEIN 6.2 GM/DL (6.4-8.2)
[2020-05-23 18:53] LABS: BILIRUBIN,TOTAL 0.3 MG/DL (0.1-1.0)
[2020-05-23 18:55] LABS: CREATININE SERUM 1.17 MG/DL (0.60-1.30)
[2020-05-23] MEDS ORDERED: LINEZOLID IVPB 300 ML IV ONE (19:00)
[2020-05-23] MEDS ORDERED: fluCOnazole (DIFLUCAN) 100 MG TAB PO ONE (19:30)
[2020-05-23] MEDS ORDERED: FLUC200T PO (19:35)
[2020-05-23] MEDS ORDERED: LNZ600T PO (19:35)
[2020-05-23] MEDS ORDERED: NYST15CR TP (19:35)
[2020-05-23 20:53] VITALS: BP 161/80
== END 2020-05-23 21:11 | disposition home or self-care (01) ==
LOC: EDUNIT# 18:13 → ER 18:15
DX: B37.49 Other urogenital candidiasis (principal); B37.3 Candidiasis of vulva and vagina; G30.9 Alzheimer's disease, unspecified; I10 Essential (primary) hypertension; Z82.49 Family history of ischemic heart disease and other diseases of the circulatory system; Z82.61 Family history of arthritis
CPT/HCPCS: 36415; 51702; 80053; 81000; 82150; 83605; 83690; 84145; 85025; 87040; 87077; 87088; 87186; 93041; 96361; 96365

== ENCOUNTER 2020-05-24 16:53 | Observation (INO) | payer MEDICARE, OTHER ==
[~2020-05-24] VITALS: Ht 160 cm; Wt 54.4 kg
[~2020-05-24 16:53] MED LIST changes: +FLUC200T PO; +NYST15CR TP
[2020-05-24] MEDS ORDERED: NS IV 500 ML 500 ML IV ONE (17:15)
--- NOTE | 2020-05-24 17:15 | ED GU-Female ---
General Chief Complaint: Altered Mental Status Stated Complaint: CONFUSION Nursing Triage Note: pt presents to ed via ems from home for confusion. pt was seen in ed yesterday for similar complaints and diagnosed and treated for a uti. Nursing Sepsis Screen: No Definite Risk History of Present Illness Date Seen by Provider: May 24, 2020 Time Seen by Provider: 16:50 Initial Comments 89-year-old female returns to the emergency department via EMS as for confusion noted at home by her family members. She has been treated for multiple UTIs over the last year including being evaluated yesterday for a Jaci infection and UTI. She has a known history of dementia and the family reports increased confusion. She is alert on arrival and talkative, she can state her name, location and date of , she is unable to state the current month or year. She reports no complaints of pain. Her stated reason for coming to the ED "I needed to bring my dog out." No family is present and she is a poor historian. Her VS are stable, no indications of sepsis. Reviewed labs and notes from visit yesterday, she was to see Dr. Ro and schedule follow up for the ureteral stents with Dr. Moreira. She has a strong urine odor, her clothes do no show evidence of urinary incontinence. She is not wearing underwear, there is a small amount of dried stool in her pants. She reports her "mom helps care for her", family assists with ADLs. No falls have been reported. Spoke to her daughter Tessy to obtain history. Timing/Duration: changing over time Severity/Quality: mild Associated Symptoms: No abdominal pain; dysuria; No fever/chills; loss of bladder control; No lower back pain, No nausea/vomiting; urinary frequency Allergies and Home Medications Allergies Coded Allergies: No Known Drug Allergies (Unverified , 12/15/08) Home Medications ALPRAZolam 0.25 Mg Tablet, 0.25 MG PO Q8H PRN for AGITATION, (Reported) Fluconazole 200 Mg Tablet, 200 MG PO DAILY Prescribed by: ADRIEL LAGUERRE on 05/23/201934 Linezolid 600 Mg Tablet, 600 MG PO BID Prescribed by: MUKUND RO on 05/14/20 1604 Linezolid 600 Mg Tablet, 600 MG PO BID Prescribed by: ADRIEL LAGUERRE on 05/23/201934 Meclizine HCl 12.5 Mg Tablet, 12.5 MG PO BID, (Reported) Memantine HCl 10 Mg Tablet, 10 MG PO BID, (Reported) Metoprolol Succinate 25 Mg Tab.er.24h, 25 MG PO HS, (Reported) Nystatin 15 Gm Cream..g., 15 GM TP TID Prescribed by: ADRIEL LAGUERRE on 05/23/201934 Quetiapine Fumarate 25 Mg Tablet, 25 MG PO BID, (Reported) Patient Home Medication List Home Medication List Reviewed: Yes Review of Systems Review of Systems Constitutional: no symptoms reported, see HPI EENTM: see HPI, no symptoms reported Respiratory: no symptoms reported, see HPI Cardiovascular: no symptoms reported, see HPI Gastrointestinal: no symptoms reported Genitourinary: see HPI, dysuria, frequency, incontinence Skin: see HPI, rash (Perineal) All Other Systemes Reviewed Negative Unless Noted: Yes Past Gvgoxly-Fqgzgd-Kmlkeg Hx Past Med/Social Hx: Reviewed Nursing Past Med/Soc Hx Patient Social History Alcohol Use: Denies Use Smoking Status: Never a Smoker 2nd Hand Smoke Exposure: No Recent Infectious Disease Expo: No Recent Hopitalizations: Yes (uti) Immunizations Up To Date Tetanus Booster (TDap): Unknown Date of Pneumonia Vaccine: Mar 18, 2010 Date of Influenza Vaccine: Nov 15, 2019 Seasonal Allergies Seasonal Allergies: No Past Medical History Surgeries: Yes (HYSTERECTOMY; BACK SURGERY;R URETERAL STENT 05/2017; CYSTOSCOPIES) Hysterectomy, Orthopedic, Renal Respiratory: No Cardiac: No Neurological: Yes (ADVANCED ALZHEIMER'S DEMENTIA) Dementia Reproductive Disorders: 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; 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, 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 Sexually Transmitted Disease: No Genitourinary: Yes (URETERAL STENT) Bladder Infection, Kidney Stones, UTI-Chronic Gastrointestinal: Yes Gastroesophageal Reflux Musculoskeletal: Yes (BACK SURGERY) Chronic Back Pain Endocrine: No Cancer: No Psychosocial: No Integumentary: No Blood Disorders: Yes (ANEMIA) Adverse Reaction/Blood Tranf: No Family Medical History Alzheimer's disease 19 MOTHER G8 BROTHER G8 SISTER Arthritis G8 SISTER Cardiovascular disease 19 FATHER Hypercholesterolemia 19 FATHER 19 MOTHER G8 BROTHER G8 SISTER Infertility G8 SISTER Myocardial infarction 19 FATHER Parkinson's disease 19 MOTHER No Family History of: AIDS Abdominal aortic aneurysm [place]'s disease Alcoholism Aphasia Asthma Cancer of mouth Cataracts Colon cancer Completed stroke Congenital disease Congenital heart disease Coronary thrombosis Cystic fibrosis Deafness or hearing loss Dementia Diabetes mellitus Drug abuse Dysphasia Fibrocystic disease of breast Gastroenteritis Glaucoma Headache disorder Hypertension Kidney disease Neoplasm Not obtainable due to adoption Osteoporosis Prostate cancer Psychosocial problem Respiratory disorder Seizure disorder Severe allergy Thyroid disease Tuberculosis Visual disorder Physical Exam Vital Signs Vital Signs - First Documented 05/24/20 17:04 Temp 35.8 Pulse 87 Resp 20 B/P (MAP) 159/87 (111) Pulse Ox 96 Capillary Refill : Less Than 3 Seconds Height, Weight, BMI Height: 5'3.00" Weight: 147lbs. 8.0oz. 66.518117nu; 21.00 BMI Method:Stated General Appearance: WD/WN, no apparent distress HEENT: PERRL/EOMI, normal ENT inspection, TMs normal, pharynx normal Neck: non-tender, full range of motion, supple, normal inspection Cardiovascular: normal peripheral pulses, regular rate, rhythm, no edema Respiratory: chest non-tender, lungs clear, normal breath sounds Gastrointestinal: normal bowel sounds, non tender, soft; No distended, No guarding, No rebound, No tenderness Extremities: normal range of motion, non-tender, normal inspection, no pedal edema, normal capillary refill Neurologic/Psychiatric: no motor/sensory deficits, alert, normal mood/affect Skin: normal color, warm/dry, rash (to groin and labia, mild errythema, no discharge. ) Progress/Results/Core Measures Suspected Sepsis Recent Fever Within 48 Hours: No Infection Criteria Present: Documented Infection New/Unexplained Altered Menta: Yes Sepsis Screen: No Definite Risk SIRS Temperature: Pulse: 87 Respiratory Rate: 20 Laboratory Tests 05/24/20 17:18: White Blood Count 4.4 Blood Pressure 159 /87 Mean: 111 Laboratory Tests 05/24/20 17:18: Creatinine 1.41H, Platelet Count 125L, Total Bilirubin 0.3 Results/Orders Lab Results Laboratory Tests Test 05/24/20 17:18 05/24/20 17:26 Range/Units White Blood Count 4.4 4.3-11.0 10^3/uL Red Blood Count 3.35 L 3.80-5.11 10^6/uL Hemoglobin 9.4 L 11.5-16.0 g/dL Hematocrit 30 L 35-52 % Mean Corpuscular Volume 89 80-99 fL Mean Corpuscular Hemoglobin 28 25-34 pg Mean Corpuscular Hemoglobin Concent 31 L 32-36 g/dL Red Cell Distribution Width 13.3 10.0-14.5 % Platelet Count 125 L 130-400 10^3/uL Mean Platelet Volume 9.4 9.0-12.2 fL Immature Granulocyte % (Auto) 0 % Neutrophils (%) (Auto) 56 42-75 % Lymphocytes (%) (Auto) 34 12-44 % Monocytes (%) (Auto) 3 0-12 % Eosinophils (%) (Auto) 6 0-10 % Basophils (%) (Auto) 1 0-10 % Neutrophils # (Auto) 2.4 1.8-7.8 10^3/uL Lymphocytes # (Auto) 1.5 1.0-4.0 10^3/uL Monocytes # (Auto) 0.2 0.0-1.0 10^3/uL Eosinophils # (Auto) 0.2 0.0-0.3 10^3/uL Basophils # (Auto) 0.1 0.0-0.1 10^3/uL Immature Granulocyte # (Auto) 0.0 0.0-0.1 10^3/uL Sodium Level 137 135-145 MMOL/L Potassium Level 4.2 3.6-5.0 MMOL/L Chloride Level 102 98-107 MMOL/L Carbon Dioxide Level 23 21-32 MMOL/L Anion Gap 12 5-14 MMOL/L Blood Urea Nitrogen 22 H 7-18 MG/DL Creatinine 1.41 H 0.60-1.30 MG/DL Estimat Glomerular Filtration Rate 35 BUN/Creatinine Ratio 16 Glucose Level 110 H 70-105 MG/DL Calcium Level 8.6 8.5-10.1 MG/DL Corrected Calcium 8.8 8.5-10.1 MG/DL Total Bilirubin 0.3 0.1-1.0 MG/DL Aspartate Amino Transf (AST/SGOT) 21 5-34 U/L Alanine Aminotransferase (ALT/SGPT) 17 0-55 U/L Alkaline Phosphatase 82 40-136 U/L C-Reactive Protein High Sensitivity 1.83 H 0.00-0.50 MG/DL Total Protein 7.3 6.4-8.2 GM/DL Albumin 3.7 3.2-4.5 GM/DL Urine Color YELLOW Urine Clarity SL CLOUDY Urine pH 7.0 5-9 Urine Specific [place] 1.015 L 1.016-1.022 Urine Protein NEGATIVE NEGATIVE Urine Glucose (UA) NEGATIVE NEGATIVE Urine Ketones NEGATIVE NEGATIVE Urine Nitrite POSITIVE H NEGATIVE Urine Bilirubin NEGATIVE NEGATIVE Urine Urobilinogen 0.2 < = 1.0 MG/DL Urine Leukocyte Esterase 3+ H NEGATIVE Urine RBC (Auto) 1+ H NEGATIVE Urine RBC RARE /HPF Urine WBC 50-100 H /HPF Urine Squamous Epithelial Cells 0-2 /HPF Urine Renal Epithelial Cells 0-2 /HPF Urine Crystals NONE /LPF Urine Bacteria LARGE H /HPF Urine Casts NONE /LPF Urine Mucus NEGATIVE /LPF Urine Culture Indicated YES My Orders Orders - EDUARDJORGE Cbc With Automated Diff (05/24/20 17:08) Comprehensive Metabolic Panel (05/24/20 17:08) Hs C Reactive Protein (05/24/20 17:08) Ua Culture If Indicated (05/24/20 17:08) Ed Iv/Invasive Line Start (05/24/20 17:08) Ns Iv 500 Ml (Sodium Chloride 0.9%) (05/24/20 17:15) Urine Culture (05/24/20 17:26) Medications Given in ED Current Medications Medications Dose Ordered Sig/Kirstin Route Start Time Stop Time Status Last Admin Dose Admin Sodium Chloride 500 ml @ 0 mls/hr Q0M ONCE IV 05/24/20 17:15 05/24/20 17:16 DC 05/24/20 17:21 0 MLS/HR Vital Signs/I&O 05/24/20 17:04 Temp 35.8 Pulse 87 Resp 20 B/P (MAP) 159/87 (111) Pulse Ox 96 Capillary Refill : Less Than 3 Seconds Blood Pressure Mean: 111 Progress Note : Time: 16:50 Progress Note Patient seen and evaluated, spoke to her daughter by phone. They are requesting evaluation for long-term care placement, her and daughters can no longer provide enough care in the home. She has home health, they had spoken to Dr. Ro about plans. [address] Ro agreed with plans for admission will have social worker clinical see the patient tomorrow for assistance with long-term care placement. 1814 patient has remained stable and mild confusion, but no agitation. 1899 Patient requesting to leave, explained we need to admit her overnight and will make plans for her care tomorrow. Easily distracted but calm and cooperative. Departure Impression Primary Impression: Advanced dementia Additional Impression: Recurrent UTI Disposition: ADMITTED INPATIENT Condition: Stable Admissions Decision to Admit Reason: Admit from ER (General) Decision to Admit/Date: May 24, 2020 Time/Decision to Admit Time: 17:15 Departure-Patient Inst. Referrals: MUKUND RO MD (PCP/Family) Primary Care Physician JORGE CHAPA May 24, 2020 17:15
[2020-05-24 17:22] LABS: BASOPHILS # (AUTO) 0.1 10^3/uL (0.0-0.1); BASOPHILS % (AUTO) 1 % (0-10); EOSINOPHILS # (AUTO) 0.2 10^3/uL (0.0-0.3); EOSINOPHILS % (AUTO) 6 % (0-10); HEMATOCRIT 30 % (35-52); HEMOGLOBIN 9.4 g/dL (11.5-16.0); LYMPHOCYTES # (AUTO) 1.5 10^3/uL (1.0-4.0); LYMPHOCYTES % (AUTO) 34 % (12-44); MEAN CORPUSCULAR HEMOGLOBIN 28 pg (25-34); MEAN CORPUSCULAR HGB CONC 31 g/dL (32-36); MEAN CORPUSCULAR VOLUME 89 fL (80-99); MEAN PLATELET VOLUME 9.4 fL (9.0-12.2); MONOCYTES # (AUTO) 0.2 10^3/uL (0.0-1.0); MONOCYTES % (AUTO) 3 % (0-12); NEUTROPHILS # (AUTO) 2.4 10^3/uL (1.8-7.8); NEUTROPHILS % (AUTO) 56 % (42-75); PLATELET COUNT 125 10^3/uL (130-400); WHITE BLOOD COUNT 4.4 10^3/uL (4.3-11.0)
[2020-05-24 17:35] LABS: ALBUMIN 3.7 GM/DL (3.2-4.5); POTASSIUM 4.2 MMOL/L (3.6-5.0)
[2020-05-24 17:36] LABS: CALCIUM 8.6 MG/DL (8.5-10.1)
[2020-05-24 17:38] LABS: TOTAL PROTEIN 7.3 GM/DL (6.4-8.2)
[2020-05-24 17:39] LABS: BILIRUBIN,TOTAL 0.3 MG/DL (0.1-1.0)
[2020-05-24 17:41] LABS: CREATININE SERUM 1.41 MG/DL (0.60-1.30)
[2020-05-24 17:42] LABS: BILIRUBIN,URINE NEGATIVE (NEGATIVE); CLARITY,URINE SL CLOUDY; COLOR,URINE YELLOW; GLUCOSE, URINE (UA) NEGATIVE (NEGATIVE); KETONES,URINE NEGATIVE (NEGATIVE); LEUKOCYTE ESTERASE ,URINE 3+ (NEGATIVE); NITRITE,URINE POSITIVE (NEGATIVE); PROTEIN,URINE NEGATIVE (NEGATIVE)
[2020-05-24 17:48] LABS: BACTERIA,URINE LARGE /HPF; RBC,URINE RARE /HPF; RENAL EPITHELIAL CELLS,URINE 0-2 /HPF; SQUAMOUS EPITHELIAL CELL,UR 0-2 /HPF; WBC,URINE 50-100 /HPF
[2020-05-24 19:32] VITALS: BP 167/78
[2020-05-24] MEDS ORDERED: NS IV 1000 ML 1,000 ML IV SCH (20:15)
[2020-05-24] MEDS ORDERED: ONDANSETRON 4 MG/2 ML (SDV) Z0FRAN IVP PRN (21:00)
[2020-05-24] MEDS ORDERED: fluCOnazole (DIFLUCAN) 100 MG TAB PO SCH (21:00)
[2020-05-24] MEDS ORDERED: LINEZOLID 600MG/300ML IVPB (PRE-MIX) IV SCH (21:00)
[2020-05-24] MEDS ORDERED: NYSTATIN CREAM (MYCOSTATIN) 30 GM TUBE TP PRN (21:00)
[2020-05-24] MEDS ORDERED: ACETAMINOPHEN 325 MG TABLET PO PRN (21:00)
[2020-05-24] MEDS ORDERED: LORazepam INJ 2 MG/ML (ATIVAN) VIAL IVP PRN (21:00)
[2020-05-24] MEDS ORDERED: HALOPERIDOL 0.5 MG (HALDOL) TAB PO PRN (21:00)
[2020-05-25 00:30] VITALS: BP 169/84
[2020-05-25 04:00] VITALS: BP 178/72
[2020-05-25 05:55] VITALS: BP 169/84
[2020-05-25 05:59] LABS: BASOPHILS % (AUTO) 1 % (0-10); EOSINOPHILS # (AUTO) 0.3 10^3/uL (0.0-0.3); EOSINOPHILS % (AUTO) 7 % (0-10); HEMATOCRIT 23 % (35-52); LYMPHOCYTES # (AUTO) 1.4 10^3/uL (1.0-4.0); LYMPHOCYTES % (AUTO) 37 % (12-44); MEAN CORPUSCULAR HEMOGLOBIN 28 pg (25-34); MEAN CORPUSCULAR HGB CONC 32 g/dL (32-36); MEAN CORPUSCULAR VOLUME 89 fL (80-99); MEAN PLATELET VOLUME 8.8 fL (9.0-12.2); MONOCYTES # (AUTO) 0.2 10^3/uL (0.0-1.0); MONOCYTES % (AUTO) 6 % (0-12); NEUTROPHILS # (AUTO) 1.9 10^3/uL (1.8-7.8); NEUTROPHILS % (AUTO) 50 % (42-75); PLATELET COUNT 111 10^3/uL (130-400); WHITE BLOOD COUNT 3.9 10^3/uL (4.3-11.0)
[2020-05-25 06:12] LABS: ALBUMIN 3.3 GM/DL (3.2-4.5)
[2020-05-25 06:13] LABS: POTASSIUM 4.3 MMOL/L (3.6-5.0)
[2020-05-25 06:14] LABS: CALCIUM 7.8 MG/DL (8.5-10.1)
[2020-05-25 06:15] LABS: TOTAL PROTEIN 6.2 GM/DL (6.4-8.2)
[2020-05-25 06:17] LABS: BILIRUBIN,TOTAL 0.4 MG/DL (0.1-1.0); HEMOGLOBIN 7.3 g/dL (11.5-16.0)
[2020-05-25 06:19] LABS: CREATININE SERUM 1.31 MG/DL (0.60-1.30)
[2020-05-25] MEDS ORDERED: meTOprolol TARTRATE 25 MG (LOPRESSOR) TABLET PO NR (06:45)
--- NOTE | 2020-05-25 07:28 | History & Physicial ---
History of Present Illness History of Present Illness Reason for visit/HPI 89-year-old female presents to [facility] emergency department during the late afternoon of May 24, 2020. She has been living at home with her who is her caregiver. Patient is with known Alzheimer's dementia. She also has home health visiting with her. Recently she was found again to have discomfort on urination. She has not been running a high fever. has been reluc tant to place her in retirement due to coronavirus and that he probably wouldn't be able to see her. She does need perineal care as most likely this may be a contributing factor leading to the Escherichia coli urinary tract infections. Date of Admission May 24, 2020 at 17:30 Date Seen by a Provider: May 25, 2020 Time Seen by a Provider: 06:45 I consulted on this patient on 05/25/20 07:23 Attending Physician Mukund Ro MD Admitting Physician Mukund Ro MD Consult Allergies and Home Medications Allergies Coded Allergies: No Known Drug Allergies (Unverified , 12/15/08) Home Medications ALPRAZolam 0.25 Mg Tablet, 0.25 MG PO Q8H PRN for AGITATION, (Reported) Fluconazole 200 Mg Tablet, 200 MG PO DAILY Prescribed by: ADRIEL LAGUERRE on 05/23/201934 Linezolid 600 Mg Tablet, 600 MG PO BID Prescribed by: MUKUND RO on 05/14/20 1604 Linezolid 600 Mg Tablet, 600 MG PO BID Prescribed by: ADRIEL LAGUERRE on 05/23/201934 Meclizine HCl 12.5 Mg Tablet, 12.5 MG PO BID, (Reported) Memantine HCl 10 Mg Tablet, 10 MG PO BID, (Reported) Metoprolol Succinate 25 Mg Tab.er.24h, 25 MG PO HS, (Reported) Nystatin 15 Gm Cream..g., 15 GM TP TID Prescribed by: ADRIEL LAGUERRE on 05/23/201934 Quetiapine Fumarate 25 Mg Tablet, 25 MG PO BID, (Reported) Patient Home Medication List Home Medication List Reviewed: Yes Past Gutgdjn-Gipvtl-Pryrum Hx Patient Social History Marrital Status: Employed/Student: retired Smoking Status: Never a Smoker 2nd Hand Smoke Exposure: No Recent Hopitalizations: Yes (uti) Have you traveled recently?: No Alcohol Use?: No Pt feels they are or have been: No Immunizations Up To Date Tetanus Booster (TDap): Unknown Date of Pneumonia Vaccine: Mar 18, 2010 Date of Influenza Vaccine: Nov 15, 2019 Seasonal Allergies Seasonal Allergies: No Surgeries Yes (HYSTERECTOMY; BACK SURGERY;R URETERAL STENT 05/2017; CYSTOSCOPIES) Hysterectomy, Orthopedic, Renal Respiratory No Cardiovascular No Neurological Yes (ADVANCED ALZHEIMER'S DEMENTIA) Dementia Reproductive System Hx Reproductive Disorders: 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; age 29 at the time) 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, Menopausal Genitourinary Yes (URETERAL STENT) Bladder Infection, Kidney Stones, UTI-Chronic Gastrointestinal Yes Gastroesophageal Reflux Musculoskeletal Yes (BACK SURGERY) Chronic Back Pain Endocrine History of Endocrine Disorders: No Cancer No Psychosocial History of Psychiatric Problem: No Integumentary History of Skin or Integumenta: No Blood Transfusions History of Blood Disorders: Yes (ANEMIA) Adverse Reaction to a Blood Tr: No Family Medical History Family Hx: Alzheimer's disease 19 MOTHER G8 BROTHER G8 SISTER Arthritis G8 SISTER Cardiovascular disease 19 FATHER Hypercholesterolemia 19 FATHER 19 MOTHER G8 BROTHER G8 SISTER Infertility G8 SISTER Myocardial infarction 19 FATHER Parkinson's disease 19 MOTHER No Family History of: AIDS Abdominal aortic aneurysm Perkins's disease Alcoholism Aphasia Asthma Cancer of mouth Cataracts Colon cancer Completed stroke Congenital disease Congenital heart disease Coronary thrombosis Cystic fibrosis Deafness or hearing loss Dementia Diabetes mellitus Drug abuse Dysphasia Fibrocystic disease of breast Gastroenteritis Glaucoma Headache disorder Hypertension Kidney disease Neoplasm Not obtainable due to adoption Osteoporosis Prostate cancer Psychosocial problem Respiratory disorder Seizure disorder Severe allergy Thyroid disease Tuberculosis Visual disorder Review of Systems Constitutional: see HPI Physical Exam Vital Signs Vital Signs - First Documented 05/24/20 05/24/20 17:04 19:30 Temp 35.8 Pulse 87 Resp 20 B/P (MAP) 159/87 (111) Pulse Ox 96 O2 Delivery Room Air Capillary Refill : Less Than 3 Seconds Height, Weight, BMI Height: 5'3.00" Weight: 147lbs. 8.0oz. [id number]; 21.25 BMI Method:Stated General Appearance: No Apparent Distress Eyes: Bilateral Eye Normal Inspection HEENT: Other (mildly moist membranes) Neck: Supple Respiratory: Lungs Clear Cardiovascular: Regular Rate, Rhythm Gastrointestinal: Soft Rectal: Deferred Back: Normal Inspection (per age) Neurologic/Psychiatric: Alert, Other (confused due to her Alzheimer's) Assessment/Plan Assessment and Plan 1. Recurrent urinary tract infection with significant dysuria -. Restart Zyvox -Urine culture again pending -Urology consultation 2 Advanced Alzheimer's dementia -continue with her dementia medications -long-term placement and aids social worker to see in the morning of May 25, 2020 3. Hypertension -Restart metoprolol Admission Diagnosis 1. Recurrent urinary tract infection Admission Status: Observation Reason for Inpatient Admission: initiation of IV Zyvox. [facility] MUKUND RO MD May 25, 2020 07:28
[2020-05-25 08:00] VITALS: BP 106/68
[2020-05-25] MEDS ORDERED: cefTRIAXone 1,000 MG/SWFI 10 ML IV PUSH IV SCH ×2 (08:00)
--- NOTE | 2020-05-25 11:32 | Short Stay Summary ---
History of Present Illness History of Present Illness Reason for visit/HPI 89-year-old female presents to [facility] emergency department during the late afternoon of May 24, 2020. She has been living at home with her who is her caregiver. Patient is with known Alzheimer's dementia. She also has home health visiting with her. Recently she was found again to have discomfort on urination. She has not been running a high fever. has been reluc tant to place her in senior care due to coronavirus and that he probably wouldn't be able to see her. She does need perineal care as most likely this may be a contributing factor leading to the Escherichia coli urinary tract infections. Date of Admission May 24, 2020 at 17:30 Date of Discharge May 25, 2020 Time Seen by Provider: 06:45 Attending Physician Mukund Ro MD Admitting Physician Mukund Ro MD Consult Allergies and Home Medications Allergies Coded Allergies: No Known Drug Allergies (Unverified , 12/15/08) Home Medications ALPRAZolam 0.25 Mg Tablet, 0.25 MG PO Q8H PRN for AGITATION, (Reported) Fluconazole 200 Mg Tablet, 200 MG PO DAILY Prescribed by: ADRIEL LAGUERRE on 05/23/201934 Linezolid 600 Mg Tablet, 600 MG PO BID Prescribed by: MUKUND RO on 05/14/20 1604 Linezolid 600 Mg Tablet, 600 MG PO BID Prescribed by: ADRIEL LAGUERRE on 05/23/201934 Meclizine HCl 12.5 Mg Tablet, 12.5 MG PO BID, (Reported) Memantine HCl 10 Mg Tablet, 10 MG PO BID, (Reported) Metoprolol Succinate 25 Mg Tab.er.24h, 25 MG PO HS, (Reported) Nystatin 15 Gm Cream..g., 15 GM TP TID Prescribed by: ADRIEL LAGUERRE on 05/23/201934 Quetiapine Fumarate 25 Mg Tablet, 25 MG PO BID, (Reported) Patient Home Medication List Home Medication List Reviewed: Yes Past Wekeyat-Ebwnkx-Urspsm Hx Patient Social History Marrital Status: Employed/Student: retired Smoking Status: Never a Smoker 2nd Hand Smoke Exposure: No Recent Hopitalizations: Yes (uti) Have you traveled recently?: No Alcohol Use?: No Pt feels they are or have been: No Immunizations Up To Date Tetanus Booster (TDap): Unknown Date of Pneumonia Vaccine: Mar 18, 2010 Date of Influenza Vaccine: Nov 15, 2019 Seasonal Allergies Seasonal Allergies: No Surgeries Yes (HYSTERECTOMY; BACK SURGERY;R URETERAL STENT 05/2017; CYSTOSCOPIES) Hysterectomy, Orthopedic, Renal Respiratory No Cardiovascular No Neurological Yes (ADVANCED ALZHEIMER'S DEMENTIA) Dementia Reproductive System Hx Reproductive Disorders: 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; age 29 at the time) 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, Menopausal Genitourinary Yes (URETERAL STENT) Bladder Infection, Kidney Stones, UTI-Chronic Gastrointestinal Yes Gastroesophageal Reflux Musculoskeletal Yes (BACK SURGERY) Chronic Back Pain Endocrine History of Endocrine Disorders: No Cancer No Psychosocial History of Psychiatric Problem: No Integumentary History of Skin or Integumenta: No Blood Transfusions History of Blood Disorders: Yes (ANEMIA) Adverse Reaction to a Blood Tr: No Family Medical History Family Hx: Alzheimer's disease 19 MOTHER G8 BROTHER G8 SISTER Arthritis G8 SISTER Cardiovascular disease 19 FATHER Hypercholesterolemia 19 FATHER 19 MOTHER G8 BROTHER G8 SISTER Infertility G8 SISTER Myocardial infarction 19 FATHER Parkinson's disease 19 MOTHER No Family History of: AIDS Abdominal aortic aneurysm [place]'s disease Alcoholism Aphasia Asthma Cancer of mouth Cataracts Colon cancer Completed stroke Congenital disease Congenital heart disease Coronary thrombosis Cystic fibrosis Deafness or hearing loss Dementia Diabetes mellitus Drug abuse Dysphasia Fibrocystic disease of breast Gastroenteritis Glaucoma Headache disorder Hypertension Kidney disease Neoplasm Not obtainable due to adoption Osteoporosis Prostate cancer Psychosocial problem Respiratory disorder Seizure disorder Severe allergy Thyroid disease Tuberculosis Visual disorder Review of Systems Constitutional: see HPI Physical Exam Vital Signs Vital Signs - First Documented 05/24/20 05/24/20 17:04 19:30 Temp 35.8 Pulse 87 Resp 20 B/P (MAP) 159/87 (111) Pulse Ox 96 O2 Delivery Room Air Capillary Refill : Less Than 3 Seconds Height, Weight, BMI Height: 5'3.00" Weight: 147lbs. 8.0oz. 66.129514sp; 21.25 BMI Method:Stated General Appearance: No Apparent Distress Neck: Supple Cardiovascular: Regular Rate, Rhythm Gastrointestinal: Soft Rectal: Deferred Back: Normal Inspection Extremity: Normal Capillary Refill Neurologic/Psychiatric: Alert, Sensory Deficit, Other (dementia) Clinical Quality Measures Admission Status Admission Dx 1. Recurrent urinary tract infection with significant dysuria -. Restart Zyvox -Urine culture again pending -Urology consultation 2 Advanced Alzheimer's dementia -continue with her dementia medications -intermediate placement and social and human services assistant to see in the morning of May 25, 2020 3. Hypertension -Restart metoprolol Short Stay Diagnosis Discharge Diagnosis-Short Stay Admission Diagnosis: 1. Urinary tract infection--history of resistance to oral medication 2. Advanced Alzheimer's disease 3. Hypertension Final Discharge Diagnosis: 1. Urinary tract infection--history of resistance to oral medication 2. Advanced Alzheimer's disease 3. Hypertension Conclusion Labs Laboratory Tests 05/24/20 17:18: White Blood Count 4.4, Red Blood Count 3.35L, Hemoglobin 9.4L, Hematocrit 30L, Mean Corpuscular Volume 89, Mean Corpuscular Hemoglobin 28, Mean Corpuscular Hemoglobin Concent 31L, Red Cell Distribution Width 13.3, Platelet Count 125L, Mean Platelet Volume 9.4, Immature Granulocyte % (Auto) 0, Neutrophils (%) (Auto) 56, Lymphocytes (%) (Auto) 34, Monocytes (%) (Auto) 3, Eosinophils (%) (Auto) 6, Basophils (%) (Auto) 1, Neutrophils # (Auto) 2.4, Lymphocytes # (Auto) 1.5, Monocytes # (Auto) 0.2, Eosinophils # (Auto) 0.2, Basophils # (Auto) 0.1, Immature Granulocyte # (Auto) 0.0, Sodium Level 137, Potassium Level 4.2, Chloride Level 102, Carbon Dioxide Level 23, Anion Gap 12, Blood Urea Nitrogen 22H, Creatinine 1.41H, Estimat Glomerular Filtration Rate 35, BUN/Creatinine Ratio 16, Glucose Level 110H, Calcium Level 8.6, Corrected Calcium 8.8, Total Bilirubin 0.3, Aspartate Amino Transf (AST/SGOT) 21, Alanine Aminotransferase (ALT/SGPT) 17, Alkaline Phosphatase 82, C-Reactive Protein High Sensitivity 1.83H, Total Protein 7.3, Albumin 3.7 05/24/20 17:26: Urine Color YELLOW, Urine Clarity SL CLOUDY, Urine pH 7.0, Urine Specific Effie 1.015L, Urine Protein NEGATIVE, Urine Glucose (UA) NEGATIVE, Urine Ketones NEGATIVE, Urine Nitrite POSITIVEH, Urine Bilirubin NEGATIVE, Urine Urobilinogen 0.2, Urine Leukocyte Esterase 3+H, Urine RBC (Auto) 1+H, Urine RBC RARE, Urine WBC 50-100H, Urine Squamous Epithelial Cells 0-2, Urine Renal Epithelial Cells 0-2, Urine Crystals NONE, Urine Bacteria LARGEH, Urine Casts NONE, Urine Mucus NEGATIVE, Urine Culture Indicated YES 05/25/20 05:51: White Blood Count 3.9L, Red Blood Count 2.59L, Hemoglobin 7.3#L, Hematocrit 23L, Mean Corpuscular Volume 89, Mean Corpuscular Hemoglobin 28, Mean Corpuscular Hemoglobin Concent 32, Red Cell Distribution Width 13.2, Platelet Count 111L, Mean Platelet Volume 8.8L, Immature Granulocyte % (Auto) 0, Neutrophils (%) (Auto) 50, Lymphocytes (%) (Auto) 37, Monocytes (%) (Auto) 6, Eosinophils (%) (Auto) 7, Basophils (%) (Auto) 1, Neutrophils # (Auto) 1.9, Lymphocytes # (Auto) 1.4, Monocytes # (Auto) 0.2, Eosinophils # (Auto) 0.3, Basophils # (Auto) 0.0, Immature Granulocyte # (Auto) 0.0, Sodium Level 136, Potassium Level 4.3, Chloride Level 103, Carbon Dioxide Level 23, Anion Gap 10, Blood Urea Nitrogen 20H, Creatinine 1.31H, Estimat Glomerular Filtration Rate 38, BUN/Creatinine Ratio 15, Glucose Level 102, Calcium Level 7.8L, Corrected Calcium 8.4L, Total Bilirubin 0.4, Aspartate Amino Transf (AST/SGOT) 19, Alanine Aminotransferase (ALT/SGPT) 16, Alkaline Phosphatase 70, Total Protein 6.2L, Albumin 3.3 05/25/20 11:14: Microbiology 05/24/20 Urine Culture - Preliminary, Resulted Probable Klebsiella/Enterobact Conclusion/Plan Fiordaliza as noted to have Klebsiella species from urine. She was placed on Rocephin on May 25, 2020. [facility] will also [facility]. She will be continued on Rocephin 1 g daily for the next 7 days. A urine culture will be performed after the 7 days. MUKUND RO MD May 25, 2020 11:32
--- NOTE | 2020-05-25 11:35 | Discharge Inst-Skilled Nursing ---
Discharge Inst-Skilled NF Reconcile Patient Problems Problems Reviewed?: Yes Chief Complaint advanced Alzheimer's dementia. Repeated urinary tract infections Patient Instructions Patient Problems: repeated urinary tract infection secondary to in need of perineal care Consult/Follow Up/Orders Follow Up Appt.: Dr Ro within one week via Zoom Skilled NF Admit to: [facility] [place] [facility] ([facility]) I certify that [facility] services are required to be given on an inpatient basis because of the above named patient's need for retirement care on a continuing basis for the conditions(s) for which he/she was receiving inpatient hospital services prior to his/her transfer to the [facility]. 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
[2020-05-25 12:54] VITALS: BP 111/72
[2020-05-25] MEDS ORDERED: NYST15CR TP (13:49)
[2020-05-25] MEDS ORDERED: LNZ600T PO (13:49)
[2020-05-25] MEDS ORDERED: FLUC200T5 PO (13:49)
[2020-05-25] MEDS ORDERED: CFTR1V IJ (15:03)
[2020-05-25 15:48] VITALS: BP 111/72
== END 2020-05-25 15:53 ==
LOC: EDUNIT# 16:53 → ER 16:54 → 4TH 17:30
PROVIDERS: ADMIT Family Medicine; ATTEND Family Medicine
DX: N39.0 Urinary tract infection, site not specified (principal); G30.9 Alzheimer's disease, unspecified; F02.81 Dementia in other diseases classified elsewhere, unspecified severity, with behavioral disturbance; I10 Essential (primary) hypertension; D64.9 Anemia, unspecified; K21.9 Gastro-esophageal reflux disease without esophagitis; M54.9 Dorsalgia, unspecified; G89.29 Other chronic pain; Z79.899 Other long term (current) drug therapy; Z90.710 Acquired absence of both cervix and uterus; Z20.822 Contact with and (suspected) exposure to COVID-19; Z82.49 Family history of ischemic heart disease and other diseases of the circulatory system; Z82.61 Family history of arthritis
CPT/HCPCS: 51701; 80053 ×2; 81000; 85025 ×2; 86141; 87077; 87088; 87186; 99284; G0378; U0002; 36415; 87635

== ENCOUNTER 2020-06-14 05:45 | Outpatient (CLI) | payer MEDICARE, OTHER ==
[~2020-06-14] VITALS: Ht 160 cm; Wt 52.2 kg
[~2020-06-14 05:45] MED LIST changes: +CFTR1V IJ; +FLUC200T5 PO
== END 2020-06-14 16:02 | disposition home or self-care (01) ==
LOC: PREOP 05:45
PROVIDERS: ATTEND Urology
DX: Z01.818 Encounter for other preprocedural examination (principal)

== ENCOUNTER 2020-06-20 08:46 | Day surgery (SDC) | payer MEDICARE, OTHER ==
[2020-06-20] VITALS (11 sets, daily range): BP systolic 119–146; BP diastolic 52–88
[~2020-06-20] VITALS: Ht 160 cm; Wt 52.2 kg
[2020-06-20] MEDS ORDERED: LACTATED RINGERS 1,000 ML IV PRN (09:00)
[2020-06-20] MEDS ORDERED: cefTRIAXone FOR IV USE 1,000 MG in WATER (STERILE) FOR INJECTION 10 ML IV ONE ×4 (09:00)
[2020-06-20] MEDS ORDERED: LIDOCAINE PF 2% 5 ML (XYLOCAINE) VIAL ONE (09:02)
[2020-06-20] MEDS ORDERED: fentaNYL INJ 100 MCG/2 ML AMP ONE (09:02)
[2020-06-20] MEDS ORDERED: proPOfol 200 MG/20 ML (DIPRIVAN) VIAL IV ONE (09:02)
[2020-06-20] MEDS ORDERED: ONDANSETRON 4 MG/2 ML (SDV) Z0FRAN ONE (09:02)
[2020-06-20] MEDS ORDERED: SEVOFLURANE (ULTANE) 15 ML INHAL SOLN ONE (09:02)
[2020-06-20] MEDS ORDERED: MIRT15TA6 PO (09:20)
[2020-06-20] MEDS ORDERED: DOCU-143 PO (09:20)
[2020-06-20] MEDS ORDERED: OMEP20TA7 PO (09:20)
[2020-06-20] MEDS ORDERED: ACET325T38 PO (09:20)
--- NOTE | 2020-06-20 10:05 | Diagnostic Imaging Report ---
INDICATION: Preop for cystoscopy. TIME OF EXAM: 09:22 a.m. COMPARISON: Comparison is made with prior abdominal radiograph from 01/24/2020. FINDINGS: Right-sided nephroureteral stent remains in place. There are numerous calcific densities adjacent to the proximal stent overlying the lower pole of right kidney and in the region of the right renal pelvis. No definite calculi along the course of the stent are identified. Pelvic calcifications appear to be similar to prior exam. The bowel gas pattern is not obstructed. There are postoperative changes in the lower lumbar spine. IMPRESSION: Right-sided ureteral stent with right-sided urinary tract calculi, similar to examination from 01/24/2020. Dictated by: Dictated on workstation # [id number]
--- NOTE | 2020-06-20 10:59 | Progress Note-Pre Operative ---
Pre-Operative Progress Note H&P Reviewed The H&P was reviewed, patient examined and no changes noted. Date Seen by Provider: Jun 20, 2020 Time Seen by Provider: 10:58 Date H&P Reviewed: Jun 20, 2020 Time H&P Reviewed: 10:58 Pre-Operative Diagnosis: H/O UTIS WITH SEPSIS, BLADDER STONE AND RETAINED CALCIFIED RT STENT YOLANDA DALLAS MD Jun 20, 2020 10:59
--- NOTE | 2020-06-20 11:01 | Progress Note-Post Operative ---
Post-Operative Progess Note Surgeon (s)/Airplane Tube Builder (s) Surgeon YOLANDA DALLAS MD Airplane Tube Builder: NONE Pre-Operative Diagnosis H/O UTIS WITH SEPSIS, BLADDER STONE AND RETAINED CALCIFIED RT STENT Post-Operative Diagnosis SAME Procedure & Operative Findings Date of Procedure 06/20/20 Procedure Performed/Findings CYSTOLITHOTRIPSY, REMOVAL OF RT STENT AND INSERTION OF NEW RT STENT Anesthesia Type GENERAL Estimated Blood Loss Estimated blood loss (mL): NEGLIGIBLE Specimens/Packing Specimens Removed BLADDER STONE AND RT URETERAL STENT Packing: NONE YOLANDA DALLAS MD Jun 20, 2020 11:01
--- NOTE | 2020-06-20 11:05 | Discharge Inst-Urology ---
Discharge Inst-Urology Reconcile Patient Problems Problems Reviewed?: Yes Final Diagnosis H/O UTIS WITH SEPSIS, BLADDER STONE AND RETAINED CALCIFIED RT URETERAL STENT Patient Instructions/Follow Up Plan/Assessment/Instructions Please make appointment to been seen in office in 4 weeks. Increase oral fluids for 48 hours and then as needed. Diet and Activity as tolerated. If questions or concerns contact your physician Or seek help at emergency department. YOLANDA DALLAS MD Jun 20, 2020 11:05
--- NOTE | 2020-06-20 11:11 | Diagnostic Imaging Report ---
INDICATION: Fluoroscopy during cystoscopy and lithotripsy with replacement of right ureteral stent. FINDINGS: Fluoroscopy was provided in the OR during ureteral stent replacement. 39 seconds of fluoroscopic time was utilized. Two images were obtained. The images demonstrate a right-sided nephroureteral stent. Stones overlie the lower pole of the right kidney. IMPRESSION: Fluoroscopy during right ureteral stent exchange. Dictated by: Dictated on workstation # [id number]
--- NOTE | 2020-06-20 11:24 | Anesthesia-General Post-Op ---
General Patient Condition Mental Status/LOC: Same as Preop Cardiovascular: Satisfactory Nausea/Vomiting: Absent Respiratory: Satisfactory Pain: Controlled Complications: Absent Post Op Complications Complications None Follow Up Care/Instructions Patient Instructions None needed. Anesthesia/Patient Condition Patient Condition Patient is doing well, no complaints, stable vital signs, no apparent adverse anesthesia problems. No complications reported per nursing. TONY FUNK CRNA Jun 20, 2020 11:24
--- NOTE | 2020-06-20 18:09 | OPERATIVE REPORT ---
DATE OF SERVICE: 06/20/2020 PREOPERATIVE DIAGNOSES: History of urinary tract infection with sepsis, bladder stone and retained right ureteral stent. POSTOPERATIVE DIAGNOSES: History of urinary tract infection with sepsis, bladder stone and retained right ureteral stent. OPERATION PERFORMED: Cystoscopy, lithotripsy, removal of retained calcified right ureteral stent and insertion of new one. SURGEON: Yolanda Dallas MD ANESTHESIA: General. COMPLICATIONS: None. DESCRIPTION OF PROCEDURE: Under satisfactory general anesthesia, the patient in lithotomy position, genitalia were prepped and draped in the usual sterile fashion. A cystoscope was introduced under vision in the bladder. There was a large spiky stone adherent and surrounding the distal end of the ureteral stent, rest of the bladder was negative. I went ahead and fragmented the stone first releasing the stent and then fragmented the rest of the stone using the lithoclast, a power of 12 and 5. I irrigated all the fragments out. There was just small powdered fragment left in the bladder easily passed by the patient later on. I went ahead and grasped the distal end of the stent with a grasping forceps and under fluoroscopy. I removed the stent with no problem yet all. The stent was removed in toto and sent to pathology for confirmation. I went ahead and passed a 6-Russian 24 cm double-J stent guided fluoroscopically, bypass the right renal and ureteral stones and then I removed the guidewire. The stent was seen Luis nicely proximally fluoroscopically and distally endoscopically. The bladder was evacuated and the cystoscope was removed. The patient tolerated the procedure and anesthesia well and was sent to recovery room in stable condition. Job ID: [id number] DocumentID: [id number] Dictated Date: 06/20/2020 11:04:10 Rural Mail Carrier Date: 06/20/2020 18:09:14 Dictated By: YOLANDA DALLAS MD
== END 2020-06-20 15:00 | disposition designated cancer center or children's hospital (05) ==
LOC: SDC 08:46
PROVIDERS: ATTEND Urology
DX: N21.0 Calculus in bladder (principal); Z79.899 Other long term (current) drug therapy; I10 Essential (primary) hypertension; Z87.440 Personal history of urinary (tract) infections; Z96.0 Presence of urogenital implants
CPT/HCPCS: 52356; 74018; 76000; 87081; 88300; C2625